=== PATIENT | male | born 1970 | race Caucasian/White ===

== ENCOUNTER 2020-06-07 09:33 | Outpatient (REF) | payer OTHER, SELFPAY ==
[2020-06-07 10:21] LABS: Glucose Urine UA NEG (NEG); Leukocyte Esterase Urine NEG (NEG); Nitrite Urine NEG (NEG); Specific Gravity - Urine 1.015 (1.005-1.025); Urine Blood TRACE (NEG); Urine Ketones NEG (NEG); Urine Protein NEG (NEG-TRACE)
[2020-06-07 10:29] LABS: Appearance Urine CLEAR; Color Urine YELLOW
[2020-06-07 10:37] LABS: RBC Urine 0-2 /HPF (0); Squamous Epithelial Cell Urine TRACE /LPF; WBC Urine 0-2 /HPF (0-4)
== END 2020-06-07 09:34 | disposition home or self-care (01) ==
LOC: HO.LAB 09:33
PROVIDERS: PCP Internal Medicine; Visit Provider Internal Medicine
DX: R31.9 Hematuria, unspecified (principal)
CPT/HCPCS: 81001

== ENCOUNTER 2021-03-01 10:28 | Emergency (ER) | payer OTHER, SELFPAY ==
--- NOTE | ~2021-03-01 | XR_ITS ---
EXAMINATION: XR CHEST CLINICAL INFORMATION: Weakness and fever COMPARISON: None TECHNIQUE: 2 views of the chest were obtained. FINDINGS: No significant abnormality is noted involving the heart, lungs, mediastinum, bony thorax or soft tissues. XR/XR chest 2V IMPRESSION: Unremarkable chest examination.
[2021-03-01 10:29] VITALS: BP 117/68; PULSE 100; RESP 16; TEMP 37.2; O2SAT 98; BMI 25.1
--- NOTE | 2021-03-01 10:46 | ECG_ITS ---
Test Reason : WEAKNESS Blood Pressure : / mmHG Vent. Rate : 091 BPM Atrial Rate : 091 BPM P-R Int : 152 ms QRS Dur : 092 ms QT Int : 350 ms P-R-T Axes : 032 -08 020 degrees QTc Int : 430 ms Normal sinus rhythm Normal ECG No previous ECGs available Referred By: Shakila Arcos Electronically Signed By:Alan Velázquez
--- NOTE | 2021-03-01 10:57 | ED.GENADULT ---
HPI - General Adult General Chief complaint: General Medical Stated complaint: GENERAL WEAKNESS Time Seen by Provider: 03/01/21 10:43 Source: patient Mode of arrival: ambulatory Limitations: no limitations History of Present Illness HPI narrative: 50 year old male previously healthy here with complaints of fatigue, subjective fevers, chills, generalized headache, low back pain, muscle cramping, body aches x6 days. Patient was seen at [facility] on Wednesday and had a negative COVID test. On Wednesday he sought care at [facility] Emergency Department and had labs done, received fluids and was discharged home with diagnosis of a viral illness. Patient tells me and Wednesday he was actually feeling improved but this morning when he woke up he feels like all his symptoms have returned. No sick contact. No recent travel. Has not had a COVID vaccine. No history of tick bites. Does live with 2 dogs. 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 Related Data Previous Rx's Medication Instructions Recorded doxycycline monohydrate 100 mg PO BID #20 tab 03/01/21 Allergies Allergy/AdvReac Type Severity Reaction Status Date / Time No Known Allergies Allergy Unverified 05/23/20 15:39 [No Known Allergies*] Review of Systems Review of Systems: Yes all other systems are reviewed and are negative Constitutional: Constitutional: Reports no additional constitutional complaints, Reports body ache(s), Reports chills, Reports fatigue, Reports fever(s), Reports headache(s), Reports lethargy and Denies weakness Eyes: Eyes: Reports no additional eye complaints and Denies change in vision ENT: Reports system reviewed and no additional complaints, except as documented, Denies dizziness, Reports headache(s), Denies nasal congestion, Denies nasal discharge and Denies neck pain Cardiovascular: Cardiovascular: Reports no additional cardiovascular complaints, Denies chest pain, Denies leg edema and Denies dyspnea Respiratory: Respiratory: Reports no additional respiratory complaints, Denies cough and Denies dyspnea Gastrointestinal: Gastrointestinal: Reports no additional gastrointestinal complaints, Denies abdominal pain, Denies diarrhea, Denies nausea and Denies vomiting Genitourinary: Genitourinary: Denies urinary incontinence Musculoskeletal: Musculoskeletal: Reports no additional musculoskeletal complaints, Reports back pain, Reports myalgias, Denies arthralgias, Denies joint swelling, Denies neck pain, Denies numbness and Denies tingling Integumentary/Breasts: Skin/Breast: Reports system reviewed and no additional complaints, except as docu and Denies rash Neurologic: Reports system reviewed and no additional complaints, except as documented, Denies Abnormal speech present, Denies dizziness, Reports headache(s), Denies numbness, Denies tingling and Denies weakness Endocrine: Endocrine: Reports fatigue [facility] Past Medical History Attestation statement: The following information was validated with the patient. Source: old records reviewed and nursing notes reviewed Medical History No known health problems Social History Social History Alcohol intake: current Alcohol intake frequency: 3 or more drinks per day Alcohol type: beer Patient Tobacco Use Status: Never used Tobacco Use of substances other than those prescribed or required for medical reasons: No Advance Directives: No Advance Directives Information Provided: No Physical Exam Vital Signs: Vital Signs: Last Vital Signs Temp 99.8 F 03/01/21 13:56 Pulse 94 03/01/21 13:56 Resp 18 03/01/21 13:56 BP 109/56 L 03/01/21 13:56 Pulse Ox 96 03/01/21 13:56 Body Mass Index 25.1 Const: General: cooperative, healthy appearing, comfortable and no acute distress Orientation/consciousness: patient oriented x3 Limitations: no limitations HENMT: Head: Yes normal to inspection Ears: hearing grossly normal bilaterally and TM's normal bilaterally General nose exam: Normal external nose present Face and sinus: Yes normal facial exam Mouth: Normal oral and palatal mucosa present Throat: Yes posterior oropharynx normal, Yes tonsils normal, Yes uvula midline and No peritonsillar mass Eyes: General: appearance normal, both eyes and all related structures Pupils: Equal, round and reactive pupils present Neck: Neck: Yes normal visual inspection, Yes full ROM, Yes no lymphadenopathy and Yes no meningeal signs Chest: Chest palpation & inspection: normal inspection of the chest Resp: Effort & Inspection: normal respiratory effort Auscultation: clear to auscultation bilaterally Cardio: Rate: regular rate Rhythm: regular rhythm Peripheral pulses: Peripheral pulses 2+ throughout GI: Inspection: Yes normal to inspection Palpation (GI): Soft to palpation and nontender Auscultation: normal bowel sounds Back/Spine/Pelvis: Thoracic/Lumbar Spine: thoracic and lumbar spine normal to inspection Skin: General skin exam: no rashes or lesions noted Neuro: General: patient oriented x3, no meningeal signs, no focal motor deficits and normal sensation to monofilament Cranial nerves: Yes Equal, round and reactive pupils present Cognition (Neuro): normal cognition Speech: No Abnormal speech present Gait exam (Neuro): Normal gait present Motor exam (neuro): 5/5 motor strength present throughout Extrem: General: Yes normal to inspection, Yes no pedal edema and Yes no calf tenderness Course Course Course Narrative: 50 yo male here with complaints of fatigue, LOGAN, body aches, muscle aches, low back pain, subjective fevers/chills x 6 days. COVID test x 2 at other facilities negative. Seen at [facility] ED and had labs and treated with IV fluids and sent home with diagnosis viral syndrome. Woke today with continued symptoms. HD stable. Afebrile here. Well appearing. Will check labs, EKG, CXR, UA, obtain records from [facility]. -Reviewed labs from [facility] which show leukopenia (3.6), thrombocytopenia (89), lymphocytopenia (14.2). CXR, COVID, EKG negative. UA 2 ketones, CPK 347. 1500-CXR with no acute finding, EKG negative, UA shows 40 ketones otherwise negative (likely secondary to volume loss from fever). CBC shows improved wbc, thrombocytopenia (87), mildly elevated cpk (319). Covid/flu/rsv negative. Tick borne panel pending. Patient did have a fever with max temp 102 here with associated tachycardia which is from fever. Improved with 2L NSB and PO tylenol. Symptoms c/w with tick borne illness or viral syndrome and not bacterial infection. Will treat for presumed tick borne illness with doxycycline x 10 days. Reviewed worrisome signs/symptoms with patient and when to return to ED. Comfortable with discharge home. Medical Decision Making MDM Narrative Medical decision making narrative: tick borne illness, viral syndrome, covid 19, pna, uti, rhabdo Medical Records Medical records reviewed: Yes I reviewed the patient's medical records. Lab Data Lab results reviewed: Yes I reviewed the patient's lab results. Result diagrams: 03/01/21 11:13 03/01/21 11:13 Labs: Lab Results 03/01/21 03/01/21 03/01/21 Range/Units 11:13 11:13 11:13 WBC 6.1 (4.8-10.8) X10*3/uL RBC 4.35 L (4.60-5.80) X10*6/uL Hgb 13.1 L (14.0-18.0) g/dl Hct 37.2 L (42-52) % MCV 85.5 (80-98) fL MCH 30.1 (27.0-33.0) pg MCHC 35.2 (31.0-36.0) g/dl RDW 12.3 (11.0-16.0) % Plt Count 87 L (160-400) X10*3/uL MPV 10.4 (9.4-12.4) fL Immature Gran % (Auto) 0.3 (0.0-0.4) % Neut % (Auto) 91.0 H (45-73) % Lymph % (Auto) 3.1 L (20-40) % Daggett % (Auto) 4.7 (2-11) % Eos % (Auto) 0.7 (0-4) % Baso % (Auto) 0.2 (0-2) % Lymph # (Auto) 0.2 L (1.2-4.9) X10*3/uL Daggett # (Auto) 0.3 (0.1-1.2) X10*3/uL Eos # (Auto) 0.0 (0.0-0.4) X10*3/uL Baso # (Auto) 0.0 (0.0-0.2) X10*3/uL Abs Immat Gran (auto) 0.02 (0.00-0.03) X10*3/uL Absolute Neuts (auto) 5.6 (2.0-8.3) X10*3/uL Absolute Nucleated RBC 0.000 (0.0-0.012) X10*3/uL Nucleated RBC % (auto) 0.0 (0.0-0.2) /100WBC Smear Tech's Comments VERIFIED Sodium (135-145) mmol/L Potassium (3.3-5.1) mmol/L Chloride (96-108) mmol/L Carbon Dioxide (22-29) mmol/L Anion Gap (12-20) BUN (9-16) mg/dL Creatinine (0.5-1.4) mg/dL Estim Creat Clear Calc Estimated GFR Random Glucose (60-115) mg/dL Lactic Acid 1.4 (0.5-2.0) mmol/L Calcium (8.4-10.2) mg/dL Magnesium (1.6-2.6) mg/dL Total Bilirubin (0.0-1.0) mg/dL Direct Bilirubin (0.0-0.5) mg/dL AST (5-37) U/L ALT (0-40) U/L Alkaline Phosphatase (39-117) U/L Total Creatine Kinase (38-174) U/L Troponin I High Sens < 3.5 (<3.5-35.0) ng/L Total Protein (6.5-8.0) g/dL Albumin (3.5-5.0) g/dL Urine Color Urine Appearance Urine pH (5.0-8.0) Ur Specific Biddle (1.005-1.025) Urine Protein (NEG-TRACE) MG/DL Urine Glucose (UA) (NEG) MG/DL Urine Ketones (NEG) MG/DL Urine Blood (NEG) Urine Nitrite (NEG) Ur Leukocyte Esterase (NEG) Coronavirus (PCR) (Negative) Influenza Type A (PCR) (Negative) Influenza Type B (PCR) (Negative) RSV RNA Qual (PCR) (Negative) 03/01/21 03/01/21 03/01/21 Range/Units 11:13 11:21 13:11 WBC (4.8-10.8) X10*3/uL RBC (4.60-5.80) X10*6/uL Hgb (14.0-18.0) g/dl Hct (42-52) % MCV (80-98) fL MCH (27.0-33.0) pg MCHC (31.0-36.0) g/dl RDW (11.0-16.0) % Plt Count (160-400) X10*3/uL MPV (9.4-12.4) fL Immature Gran % (Auto) (0.0-0.4) % Neut % (Auto) (45-73) % Lymph % (Auto) (20-40) % Daggett % (Auto) (2-11) % Eos % (Auto) (0-4) % Baso % (Auto) (0-2) % Lymph # (Auto) (1.2-4.9) X10*3/uL Daggett # (Auto) (0.1-1.2) X10*3/uL Eos # (Auto) (0.0-0.4) X10*3/uL Baso # (Auto) (0.0-0.2) X10*3/uL Abs Immat Gran (auto) (0.00-0.03) X10*3/uL Absolute Neuts (auto) (2.0-8.3) X10*3/uL Absolute Nucleated RBC (0.0-0.012) X10*3/uL Nucleated RBC % (auto) (0.0-0.2) /100WBC Smear Tech's Comments Sodium 135 (135-145) mmol/L Potassium 4.2 (3.3-5.1) mmol/L Chloride 100 (96-108) mmol/L Carbon Dioxide 23 (22-29) mmol/L Anion Gap 16 (12-20) BUN 15 (9-16) mg/dL Creatinine 1.05 (0.5-1.4) mg/dL Estim Creat Clear Calc 85.9 Estimated GFR > 60 Random Glucose 106 (60-115) mg/dL Lactic Acid (0.5-2.0) mmol/L Calcium 8.4 (8.4-10.2) mg/dL Magnesium 1.8 (1.6-2.6) mg/dL Total Bilirubin 0.5 (0.0-1.0) mg/dL Direct Bilirubin 0.3 (0.0-0.5) mg/dL AST 34 (5-37) U/L ALT 37 (0-40) U/L Alkaline Phosphatase 76 (39-117) U/L Total Creatine Kinase 319 H (38-174) U/L Troponin I High Sens (<3.5-35.0) ng/L Total Protein 6.2 L (6.5-8.0) g/dL Albumin 3.9 (3.5-5.0) g/dL Urine Color YELLOW Urine Appearance CLEAR Urine pH 6.0 (5.0-8.0) Ur Specific Biddle 1.010 (1.005-1.025) Urine Protein NEG (NEG-TRACE) MG/DL Urine Glucose (UA) NEG (NEG) MG/DL Urine Ketones 40 (NEG) MG/DL Urine Blood NEG (NEG) Urine Nitrite NEG (NEG) Ur Leukocyte Esterase NEG (NEG) Coronavirus (PCR) NEGATIVE (Negative) Influenza Type A (PCR) NEGATIVE (Negative) Influenza Type B (PCR) NEGATIVE (Negative) RSV RNA Qual (PCR) NEGATIVE (Negative) Imaging Data Chest x-ray: Attestation: I personally reviewed and interpreted this imaging study as follows: Radiologist's impression: EXAMINATION: XR CHEST CLINICAL INFORMATION: Weakness and fever COMPARISON: None TECHNIQUE: 2 views of the chest were obtained. FINDINGS: No significant abnormality is noted involving the heart, lungs, mediastinum, bony thorax or soft tissues. XR/XR chest 2V IMPRESSION: Unremarkable chest examination. ECG Data Attestation: I personally reviewed and interpreted this ECG as follows: Interpretation: NSR with rate 91, normal pr, normal qrs, normal qtc Discharge Plan Discharge Clinical Impression: Viral infection Patient Disposition: Home, Self-Care Instructions: Viral Syndrome (ED) Additional Instructions: Increase fluids, rest Motrin or Tylenol for pain/fever Consider tick borne illness. Panel is pending and will take several days to return. We will call you if positive. In the meantime we are treating you for presumed lyme with 10 days of doxycycline. Prescriptions: New doxycycline monohydrate 100 mg tablet 100 mg PO BID Qty: 20 RF: 0 Referrals: Gal Dunaway MD [Primary Care Provider] - 2 days Stand Alone Forms: Work/School Release Interventions: ED Discharge Assessment Last Done: 03/01/21 14:48 Discharge Date/Time: 03/01/21 14:48
[2021-03-01] MEDS: 0.9 % Sodium Chloride 1,000 ML 999 ML IV ×2 (11:18→13:26)
[2021-03-01 11:25] LABS: Basophils Percent Auto 0.2 % (0-2); Eosinophils Percent Auto 0.7 % (0-4); MANUAL DIFF FLAG SCAN; Monocytes Absolute Auto 0.3 X10*3/uL (0.1-1.2); PLT CLUMP 1; SCAN SMEAR FLAG 1
[2021-03-01 11:27] LABS: Hematocrit 37.2 % (42-52); Hemoglobin 13.1 g/dl (14.0-18.0); Imm Gran Abs Auto 0.02 X10*3/uL (0.00-0.03); Imm Gran Pct Auto 0.3 % (0.0-0.4); Lymphocytes Absolute Auto 0.2 X10*3/uL (1.2-4.9); Lymphocytes Percent Auto 3.1 % (20-40); Mean Corpuscular HGB Conc 35.2 g/dl (31.0-36.0); Mean Corpuscular Hemoglobin 30.1 pg (27.0-33.0); Mean Corpuscular Volume 85.5 fL (80-98); Mean Platelet Volume 10.4 fL (9.4-12.4); Monocytes Percent Auto 4.7 % (2-11); Neutrophils Absolute Auto 5.6 X10*3/uL (2.0-8.3); Red Blood Count 4.35 X10*6/uL (4.60-5.80); Red Cell Distribution Width 12.3 % (11.0-16.0); White Blood Count 6.1 X10*3/uL (4.8-10.8)
--- NOTE | 2021-03-01 11:27 | PC.NURSE ---
iv established, blood labs obtained and sent. ekg completed. iv fluids hung per order. wctm.
[2021-03-01 11:38] LABS: Lactic Acid 1.4 mmol/L (0.5-2.0)
[2021-03-01 11:50] LABS: Platelet Count 87 X10*3/uL (160-400); SLIDE REVIEW VERIFIED
[2021-03-01 11:57] VITALS: BP 98/52; PULSE 80; RESP 19; TEMP 38.8; O2SAT 98
[2021-03-01 11:57] LABS: Alanine Aminotransferase 37 U/L (0-40); Albumin Level 3.9 g/dL (3.5-5.0); Alkaline Phosphatase 76 U/L (39-117); Anion Gap 16 (12-20); Aspartate Amino Transferase 34 U/L (5-37); Bilirubin Direct 0.3 mg/dL (0.0-0.5); Bilirubin Total 0.5 mg/dL (0.0-1.0); Blood Urea Nitrogen 15 mg/dL (9-16); Calcium 8.4 mg/dL (8.4-10.2); Carbon Dioxide 23 mmol/L (22-29); Chloride 100 mmol/L (96-108); Creatinine Clr Calc Pharmacy 85.9; Estimated Glomerular Filt Rate > 60; Glucose Random 106 mg/dL (60-115); Magnesium 1.8 mg/dL (1.6-2.6); Potassium 4.2 mmol/L (3.3-5.1); Sodium 135 mmol/L (135-145); Total Protein 6.2 g/dL (6.5-8.0)
[2021-03-01 12:00] LABS: Troponin-I High Sensitivity < 3.5 ng/L (<3.5-35.0)
[2021-03-01 12:25] LABS: Influenza A PCR NEGATIVE (Negative); Influenza B PCR NEGATIVE (Negative); Resp Syncy Virus RNA Qual PCR NEGATIVE (Negative); SARS COV2 PCR INHOUSE NEGATIVE (Negative)
[2021-03-01] MEDS: Acetaminophen 325 MG TABLET 975 MG PO (13:04)
[2021-03-01 13:17] LABS: Glucose Urine UA NEG (NEG); Leukocyte Esterase Urine NEG (NEG); Nitrite Urine NEG (NEG); Urine Blood NEG (NEG); Urine Ketones 40 MG/DL (NEG); Urine Protein NEG (NEG-TRACE)
[2021-03-01 13:18] LABS: Appearance Urine CLEAR; Color Urine YELLOW
[2021-03-01 13:56] VITALS: BP 109/56; PULSE 94; RESP 18; TEMP 37.7; O2SAT 96
[2021-03-03 17:07] LABS: Lyme Abs Screen <0.90 index
[2021-03-06 14:27] LABS: Babesia IgG <1:64 titer (<1:64); Babesia IgM <1:20 titer (<1:20)
[2021-03-23 09:06] LABS: A. Phagocytophilum Ab IgG <1:64 (<1:64); A. Phagocytophilum Ab IgM <1:20 (<1:20); E. Chaffeensis Ab IgG <1:64 (<1:64); E. Chaffeensis Ab IgM <1:20 (<1:20)
== END 2021-03-01 14:48 | disposition home or self-care (01) ==
PROVIDERS: Nurse Practitioner Family; Emergency Provider Emergency Medicine; PCP Internal Medicine
DX: B34.9 Viral infection, unspecified (principal); Z20.822 Contact with and (suspected) exposure to COVID-19
CPT/HCPCS: 0241U; 36415; 71046; 80048; 80076; 81003; 82550; 83605; 83735; 84484; 85025; 86617; 86618; 86666; 86753; 87040; 93005; 96360; 96361; 99285

== ENCOUNTER 2021-03-11 10:28 | Outpatient (REF) | payer OTHER, SELFPAY ==
[2021-03-11 10:31] LABS: MANUAL DIFF FLAG NO
[2021-03-11 10:45] LABS: Basophils Percent Auto 0.2 % (0-2); Hematocrit 39.2 % (42-52); Hemoglobin 13.2 g/dl (14.0-18.0); Imm Gran Abs Auto 0.01 X10*3/uL (0.00-0.03); Imm Gran Pct Auto 0.2 % (0.0-0.4); Lymphocytes Absolute Auto 2.3 X10*3/uL (1.2-4.9); Lymphocytes Percent Auto 44.6 % (20-40); Mean Corpuscular HGB Conc 33.7 g/dl (31.0-36.0); Mean Corpuscular Hemoglobin 29.7 pg (27.0-33.0); Mean Corpuscular Volume 88.1 fL (80-98); Mean Platelet Volume 9.6 fL (9.4-12.4); Monocytes Absolute Auto 0.6 X10*3/uL (0.1-1.2); Monocytes Percent Auto 11.4 % (2-11); Neutrophils Absolute Auto 2.3 X10*3/uL (2.0-8.3); Neutrophils Percent Auto 43.6 % (45-73); Platelet Count 424 X10*3/uL (160-400); Red Blood Count 4.45 X10*6/uL (4.60-5.80); Red Cell Distribution Width 13.2 % (11.0-16.0); White Blood Count 5.3 X10*3/uL (4.8-10.8)
== END 2021-03-11 10:29 | disposition home or self-care (01) ==
LOC: HO.LNP 10:28
PROVIDERS: Visit Provider Internal Medicine
DX: D72.820 Lymphocytosis (symptomatic) (principal)
CPT/HCPCS: 85025

== ENCOUNTER 2021-06-09 10:18 | Outpatient (REF) | payer OTHER, SELFPAY ==
[2021-06-09 10:21] LABS: MANUAL DIFF FLAG NO
[2021-06-09 10:31] LABS: Basophils Percent Auto 0.7 % (0-2); Eosinophils Absolute Auto 0.4 X10*3/uL (0.0-0.4); Eosinophils Percent Auto 7.4 % (0-4); Hematocrit 42.8 % (42-52); Hemoglobin 14.4 g/dl (14.0-18.0); Imm Gran Abs Auto 0.01 X10*3/uL (0.00-0.03); Imm Gran Pct Auto 0.2 % (0.0-0.4); Lymphocytes Absolute Auto 1.7 X10*3/uL (1.2-4.9); Lymphocytes Percent Auto 30.2 % (20-40); Mean Corpuscular HGB Conc 33.6 g/dl (31.0-36.0); Mean Corpuscular Hemoglobin 29.6 pg (27.0-33.0); Mean Corpuscular Volume 87.9 fL (80-98); Mean Platelet Volume 10.4 fL (9.4-12.4); Monocytes Absolute Auto 0.4 X10*3/uL (0.1-1.2); Monocytes Percent Auto 7.6 % (2-11); Neutrophils Percent Auto 53.9 % (45-73); Platelet Count 240 X10*3/uL (160-400); Red Blood Count 4.87 X10*6/uL (4.60-5.80); White Blood Count 5.5 X10*3/uL (4.8-10.8)
[2021-06-09 10:40] LABS: Alanine Aminotransferase 20 U/L (0-40); Albumin Level 4.4 g/dL (3.5-5.0); Alkaline Phosphatase 59 U/L (39-117); Anion Gap 13 (12-20); Aspartate Amino Transferase 22 U/L (5-37); Bilirubin Total 0.9 mg/dL (0.0-1.0); Blood Urea Nitrogen 12 mg/dL (9-16); Calcium 9.2 mg/dL (8.4-10.2); Carbon Dioxide 24 mmol/L (22-29); Chloride 109 mmol/L (96-108); Cholesterol 203 mg/dL; Estimated Glomerular Filt Rate > 60; Glucose Fasting 97 mg/dL (60-99); HDL Cholesterol 57 mg/dL; LDL Cholesterol Calculated 129 mg/dl; Potassium 3.9 mmol/L (3.3-5.1); Sodium 142 mmol/L (135-145); Total Protein 7.1 g/dL (6.5-8.0); Triglycerides 86 mg/dL
[2021-06-09 10:50] LABS: Appearance Urine CLEAR; Color Urine YELLOW; Glucose Urine UA NEG (NEG); Leukocyte Esterase Urine NEG (NEG); Nitrite Urine NEG (NEG); Specific Gravity - Urine >= 1.030 (1.005-1.025); Urine Blood NEG (NEG); Urine Ketones NEG (NEG); Urine Protein NEG (NEG-TRACE)
[2021-06-09 11:00] LABS: PSA,Total (Free>4and<10) 1.37 ng/mL (0.00-4.00)
[2021-06-09 11:12] LABS: Estimated Average Glucose 103 mg/dL; Hemoglobin A1c % 5.2 %
[2021-06-09 11:16] LABS: Microalbum/Creatinine Ratio Ur 3.4 ug/mg cr
== END 2021-06-09 10:19 | disposition home or self-care (01) ==
LOC: HO.LNP 10:18
PROVIDERS: Visit Provider Internal Medicine
DX: Z00.00 Encounter for general adult medical examination without abnormal findings (principal); Z12.5 Encounter for screening for malignant neoplasm of prostate; R73.03 Prediabetes; R31.9 Hematuria, unspecified; D72.820 Lymphocytosis (symptomatic)
CPT/HCPCS: 80053; 80061; 81003; 82043; 83036; 84153; 85025

== ENCOUNTER 2021-06-13 14:08 | Outpatient (REF) | payer OTHER, SELFPAY ==
[2021-06-15 07:55] LABS: SARS COV2 IgG Positive (Negative)
== END 2021-06-13 14:09 | disposition home or self-care (01) ==
LOC: HO.LNP 14:08
PROVIDERS: Visit Provider Internal Medicine
DX: Z01.84 Encounter for antibody response examination (principal); Z86.16 Personal history of COVID-19
CPT/HCPCS: 86769

== ENCOUNTER 2022-06-18 11:12 | Outpatient (REF) | payer OTHER, SELFPAY ==
[2022-06-18 11:17] LABS: MANUAL DIFF FLAG NO
[2022-06-18 11:38] LABS: Basophils Percent Auto 0.7 % (0-2); Eosinophils Absolute Auto 0.5 X10*3/uL (0.0-0.4); Eosinophils Percent Auto 9.1 % (0-4); Hematocrit 43.6 % (42.0-52.0); Hemoglobin 14.8 g/dl (14.0-18.0); Imm Gran Abs Auto 0.01 X10*3/uL (0.00-0.03); Imm Gran Pct Auto 0.2 % (0.0-0.4); Lymphocytes Percent Auto 33.6 % (20-40); Mean Corpuscular HGB Conc 33.9 g/dl (31.0-36.0); Mean Corpuscular Hemoglobin 30.3 pg (27.0-33.0); Mean Corpuscular Volume 89.3 fL (80.0-98.0); Mean Platelet Volume 10.4 fL (9.4-12.4); Monocytes Absolute Auto 0.5 X10*3/uL (0.1-1.2); Monocytes Percent Auto 9.1 % (2-11); Neutrophils Absolute Auto 2.7 x10*3/uL (2.0-8.3); Neutrophils Percent Auto 47.3 % (45-73); Platelet Count 237 X10*3/uL (160-400); Red Blood Count 4.88 X10*6/uL (4.60-5.80); Red Cell Distribution Width 12.7 % (11.0-16.0); White Blood Count 5.8 X10*3/uL (4.8-10.8)
[2022-06-18 11:42] LABS: Appearance Urine Clear; Color Urine Yellow; Glucose Urine UA Negative (Negative); Leukocyte Esterase Urine Negative (Negative); Nitrite Urine Negative (Negative); Urine Blood Negative (Negative); Urine Ketones Negative (Negative); Urine Protein Negative (Neg-Trace)
[2022-06-18 11:49] LABS: Bacteria Urine None Seen (None Seen); Hyaline Casts Urine 0-2 /LPF (0-2); Squamous Epithelial Cell Urine 0-2 /HPF (0-2); WBC Urine 0-5 /HPF (0-5)
[2022-06-18 11:51] LABS: Estimated Average Glucose 105 mg/dL; Hemoglobin A1c % 5.3 %
[2022-06-18 11:58] LABS: Alanine Aminotransferase 29 U/L (0-40); Albumin Level 4.5 g/dL (3.5-5.0); Alkaline Phosphatase 58 U/L (39-117); Anion Gap 15 (12-20); Aspartate Amino Transferase 25 U/L (5-37); Bilirubin Total 0.9 mg/dL (0.0-1.0); Blood Urea Nitrogen 12 mg/dL (9-16); Carbon Dioxide 25 mmol/L (22-29); Chloride 105 mmol/L (96-108); Cholesterol 211 mg/dL; Estimated Glomerular Filt Rate 59; Glucose Fasting 109 mg/dL (60-99); HDL Cholesterol 58 mg/dL; LDL Cholesterol Calculated 136 mg/dl; Potassium 4.1 mmol/L (3.3-5.1); Sodium 141 mmol/L (135-145); Total Protein 7.2 g/dL (6.5-8.0); Triglycerides 85 mg/dL
[2022-06-18 12:18] LABS: Creatinine Urine 208.73 mg/dL; Microalbum/Creatinine Ratio Ur 2.8 ug/mg cr
[2022-06-18 12:40] LABS: PSA,Total (Free>4and<10) 0.81 ng/mL (0.00-4.00)
== END 2022-06-18 11:13 | disposition home or self-care (01) ==
LOC: HO.LNP 11:12
PROVIDERS: Visit Provider Internal Medicine
DX: Z00.00 Encounter for general adult medical examination without abnormal findings (principal); D72.820 Lymphocytosis (symptomatic); R73.09 Other abnormal glucose; D69.6 Thrombocytopenia, unspecified; Z12.5 Encounter for screening for malignant neoplasm of prostate
CPT/HCPCS: 80053; 80061; 81001; 82043; 83036; 84153; 85025

== ENCOUNTER 2023-06-25 11:00 | Outpatient (REF) | payer SELFPAY ==
[2023-06-25 11:04] LABS: MANUAL DIFF FLAG NO
[2023-06-25 12:11] LABS: Basophils Percent Auto 0.5 % (0-2); Eosinophils Absolute Auto 0.3 X10*3/uL (0.0-0.4); Hematocrit 43.1 % (42.0-52.0); Hemoglobin 14.4 g/dl (14.0-18.0); Imm Gran Abs Auto 0.01 X10*3/uL (0.00-0.03); Imm Gran Pct Auto 0.2 % (0.0-0.4); Lymphocytes Absolute Auto 1.8 X10*3/uL (1.2-4.9); Lymphocytes Percent Auto 29.1 % (20-40); Mean Corpuscular HGB Conc 33.4 g/dl (31.0-36.0); Mean Corpuscular Hemoglobin 30.6 pg (27.0-33.0); Mean Corpuscular Volume 91.5 fL (80.0-98.0); Mean Platelet Volume 10.6 fL (9.4-12.4); Monocytes Absolute Auto 0.5 X10*3/uL (0.1-1.2); Monocytes Percent Auto 7.5 % (2-11); Neutrophils Absolute Auto 3.6 x10*3/uL (2.0-8.3); Neutrophils Percent Auto 57.7 % (45-73); Platelet Count 250 X10*3/uL (160-400); Red Blood Count 4.71 X10*6/uL (4.60-5.80); White Blood Count 6.3 X10*3/uL (4.8-10.8)
[2023-06-25 12:12] LABS: Appearance Urine Clear; Color Urine Yellow; Glucose Urine UA Negative (Negative); Leukocyte Esterase Urine Negative (Negative); Nitrite Urine Negative (Negative); Urine Blood Negative (Negative); Urine Ketones Negative (Negative); Urine Protein Negative (Neg-Trace)
[2023-06-25 12:17] LABS: Estimated Average Glucose 105 mg/dL; Hemoglobin A1c % 5.3 % (<6.0)
[2023-06-25 12:23] LABS: Bacteria Urine None Seen (None Seen); Hyaline Casts Urine 0-2 /LPF (0-2); RBC Urine 0-2 /HPF (0-2); Squamous Epithelial Cell Urine 0-2 /HPF (0-2); WBC Urine 0-5 /HPF (0-5)
[2023-06-25 12:33] LABS: Alanine Aminotransferase 26 U/L (0-40); Albumin Level 4.3 g/dL (3.5-5.0); Alkaline Phosphatase 59 U/L (39-117); Anion Gap 13 (12-20); Aspartate Amino Transferase 24 U/L (5-37); Blood Urea Nitrogen 10 mg/dL (9-16); Calcium 9.3 mg/dL (8.4-10.2); Carbon Dioxide 23 mmol/L (22-29); Chloride 108 mmol/L (96-108); Cholesterol 196 mg/dL (<200); Estimated Glomerular Filt Rate > 60; Glucose Fasting 103 mg/dL (60-99); HDL Cholesterol 53 mg/dL (>40); LDL Cholesterol Calculated 124 mg/dL (<100); Potassium 3.8 mmol/L (3.3-5.1); Sodium 140 mmol/L (135-145); Total Protein 7.1 g/dL (6.5-8.0); Triglycerides 95 mg/dL (<150)
[2023-06-25 12:47] LABS: Creatinine Urine 203.71 mg/dL; Microalbum/Creatinine Ratio Ur 2.9 ug/mg cr (<30)
[2023-06-25 12:53] LABS: PSA,Total (Free>4and<10) 1.74 ng/mL (0.00-4.00)
== END 2023-06-25 11:01 | disposition home or self-care (01) ==
LOC: HO.LNP 11:00
PROVIDERS: Visit Provider Internal Medicine
DX: Z00.00 Encounter for general adult medical examination without abnormal findings (principal); D72.820 Lymphocytosis (symptomatic); R73.09 Other abnormal glucose; Z12.5 Encounter for screening for malignant neoplasm of prostate
CPT/HCPCS: 80053; 80061; 81001; 82043; 82570; 83036; 84153; 85025

== ENCOUNTER 2024-01-25 10:45 | Outpatient (AMB) | payer MEDICARE, SELFPAY ==
--- NOTE | 2024-01-25 10:56 | MHC.OFFVIS ---
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 States he has a lump located near the volar aspect of MCP. He first noticed lump about 2 months ago, stating lump was the size of a grape however since then his lump has decreased in size. Denies any pain, numbness or tingling. He mentions soreness in both of his hands and wrist that he believes is arthritis. 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 He complains of a mass at the base of his left middle finger. He says he first noticed this in 11/2023, and the mass has decreased in size. He denies any pain, numbness, or tingling. He denies any falls or known injury. He also complains of generalized pain in his wrist and hands. He says this is worse in the mornings. 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 He plays guitar daily. 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 Review of Systems Const All systems reviewed & are unremarkable except as noted in HPI and below Physical Exam Vital Signs: BMI result Body Mass Index 25.8 Const General: cooperative, healthy appearing and no acute distress Orientation/consciousness: patient oriented x3 HEENT Head: Yes normocephalic and Yes atraumatic Eyes EOM: EOMs intact bilaterally Resp Effort & Inspection: normal respiratory effort and able to speak in complete sentences Cardio Jugular venous distension: no JVD Skin General skin exam: turgor normal Rashes: no rashes Neuro General: patient oriented x3 Extrem Other: Evaluation of Left Upper Extremity: The patient is alert, oriented, and in no acute distress Neuro: Median, Ulnar, Radial nerves motor and sensory intact and sensation is normal to the tips of all digits Vascular: Cap refill brisk ROM: He can make a fist and extend all his digits No locking or catching Skin: No lacerations or abrasions. General: No Ecchymosis. No Erythema or evidence of infection. There is a small mass on the volar aspect of the middle finger, ~3mm in diameter. This is ~8-10mm distal to palmar digital crease, radial to midline. Exam most consistent with a likely retinacular cyst that has decreased in size. Patient demonstrates area of some tenderness around the hook of the hamate. He has some mild tenderness to firm palpation in this area. Radiographs: 3 views of the left hand were taken and viewed by me today in clinic. They show no fractures or dislocations. There is a metallic foreign body in the ring finger middle phalanx. No radio-opaque foreign bodies in the middle finger. Psych Appearance: grossly normal Affect: normal affect Attitude: cooperative Assessment & Plan Assessment & Plan (1) Mass of finger of left hand: Code(s): R22.32 - Localized swelling, mass and lump, left upper limb Category: Medical Plan Assessment & Plan: 1. 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 It has decreased in size significantly in the last week or 2. I educated him about this condition I discussed operative and non-operative treatment options The patient says that it has not been painful or particularly bothersome. We will manage this conservatively for now. If his symptoms worsen he can follow up to discuss treatment options Otherwise he can follow up prn Orders: Orders XR hand LT min 3V Today M79.642 - Pain in left hand Medications: Discontinued doxycycline monohydrate Discontinued Reason: Patient no longer taking 100 mg PO BID 20 tabs 0RF Scribe Plan - Not visible on output: Scribed for Gayle Olivera MD by Nader Lubanszky, bilingual medical receptionist, on [ ] at [ ], EST. Coding Level of Care Code New Pt Level 3 (38605) Diagnoses Mass of finger of left hand R22.32
[2024-01-25 11:02] VITALS: BMI 25.8
== END 2024-01-25 11:50 | disposition home or self-care (01) ==
PROVIDERS: PCP Internal Medicine; Visit Provider Orthopaedic Surgery
DX: R22.32 Localized swelling, mass and lump, left upper limb (principal)
CPT/HCPCS: 99203

== ENCOUNTER 2024-01-25 15:38 | Outpatient (REF) | payer MEDICARE, SELFPAY ==
--- NOTE | ~2024-01-25 | XR_ITS ---
EXAMINATION: XR HAND, LEFT CLINICAL INFORMATION: Pain in left hand. COMPARISON: None available. TECHNIQUE: PA, lateral, and oblique views of the left hand. FINDINGS: Moderate degenerative changes in the first carpometacarpal joint with joint space narrowing and hypertrophic change. The bone mineralization is normal. Focal wavy cortical irregularity with adjacent subcortical cystic lucency particularly notable along the ulnar aspect of the cortex of the second proximal phalanx. Radiodensity overlies the midportion of the middle phalanx of the fourth digit, possibly representing a radiopaque foreign body. Correlation with clinical exam and history recommended to determine further management. Lateral view demonstrates minimal degenerative changes in scattered IP joints. XR/XR hand LT min 3V IMPRESSION: 1. [id number] degenerative changes. 2. Focal wavy cortical irregularity with adjacent subcortical cystic lucency particularly notable along the ulnar aspect of the cortex of the second proximal phalanx of indeterminate etiology. Correlation with clinical exam and history recommended to determine further management. 3. Radiodensity overlying the midportion of the middle phalanx of the fourth digit concerning for a foreign body. 4. No acute displaced fracture appreciated. Recommend follow up imaging in 10-14 days if fracture is suspected.
== END 2024-01-25 15:39 | disposition home or self-care (01) ==
LOC: HO.HOSX 15:38
PROVIDERS: Visit Provider Orthopaedic Surgery
DX: R22.32 Localized swelling, mass and lump, left upper limb (principal)
CPT/HCPCS: 73130; 99202

== ENCOUNTER 2024-06-29 11:16 | Outpatient (REF) | payer MEDICARE, SELFPAY ==
[2024-06-29 11:28] LABS: MANUAL DIFF FLAG NO
[2024-06-29 11:41] LABS: Appearance Urine Clear; Color Urine Yellow; Glucose Urine UA Negative (Negative); Leukocyte Esterase Urine Negative (Negative); Nitrite Urine Negative (Negative); PH 5.5 (5.0-9.0); Specific Gravity - Urine 1.025 (1.005-1.025); Urine Blood Negative (Negative); Urine Ketones Trace mg/dL (Negative); Urine Protein Negative (Neg-Trace)
[2024-06-29 11:43] LABS: Bacteria Urine None Seen (None Seen); Basophils Percent Auto 0.4 % (0-2); Eosinophils Absolute Auto 0.5 X10*3/uL (0.0-0.4); Hematocrit 43.1 % (42.0-52.0); Hemoglobin 14.8 g/dl (14.0-18.0); Hyaline Casts Urine 0-2 /LPF (0-2); Imm Gran Abs Auto 0.02 X10*3/uL (0.00-0.03); Imm Gran Pct Auto 0.3 % (0.0-0.4); Lymphocytes Absolute Auto 1.8 X10*3/uL (1.2-4.9); Mean Corpuscular HGB Conc 34.3 g/dl (31.0-36.0); Mean Corpuscular Hemoglobin 30.3 pg (27.0-33.0); Mean Corpuscular Volume 88.3 fL (80.0-98.0); Mean Platelet Volume 10.3 fL (9.4-12.4); Monocytes Absolute Auto 0.5 X10*3/uL (0.1-1.2); Monocytes Percent Auto 6.9 % (2-11); Neutrophils Absolute Auto 4.9 x10*3/uL (2.0-8.3); Neutrophils Percent Auto 63.4 % (45-73); Platelet Count 240 X10*3/uL (160-400); RBC Urine 0-2 /HPF (0-2); Red Blood Count 4.88 X10*6/uL (4.60-5.80); Squamous Epithelial Cell Urine 0-2 /HPF (0-2); WBC Urine 0-5 /HPF (0-5); White Blood Count 7.7 X10*3/uL (4.8-10.8)
[2024-06-29 11:56] LABS: Alanine Aminotransferase 32 U/L (0-40); Albumin Level 4.3 g/dL (3.5-5.0); Alkaline Phosphatase 55 U/L (39-117); Anion Gap 14 (12-20); Aspartate Amino Transferase 32 U/L (5-37); Blood Urea Nitrogen 13 mg/dL (9-16); Calcium 9.5 mg/dL (8.4-10.2); Carbon Dioxide 25 mmol/L (22-29); Chloride 108 mmol/L (96-108); Cholesterol 205 mg/dL (<200); Estimated Glomerular Filt Rate > 60; Glucose Fasting 96 mg/dL (60-99); HDL Cholesterol 53 mg/dL (>40); LDL Cholesterol Calculated 135 mg/dL (<100); Potassium 3.6 mmol/L (3.3-5.1); Sodium 143 mmol/L (135-145); Total Protein 7.1 g/dL (6.5-8.0); Triglycerides 88 mg/dL (<150)
[2024-06-29 12:07] LABS: Estimated Average Glucose 108 mg/dL; Hemoglobin A1C 130.7381 umol/L; Hemoglobin A1c % 5.4 % (<6.0); Total Hemoglobin (HGBA1C) 3723.3701 umol/L
[2024-06-29 12:09] LABS: PSA,Total (Free>4and<10) 1.56 ng/mL (0.00-4.00)
[2024-06-29 12:13] LABS: Creatinine Urine 254.47 mg/dL; Microalbum/Creatinine Ratio Ur 3.5 ug/mg cr (<30)
== END 2024-06-29 11:17 | disposition home or self-care (01) ==
LOC: HO.LNP 11:16
PROVIDERS: Visit Provider Internal Medicine
DX: Z00.00 Encounter for general adult medical examination without abnormal findings (principal); R73.09 Other abnormal glucose; D72.820 Lymphocytosis (symptomatic); Z12.5 Encounter for screening for malignant neoplasm of prostate
CPT/HCPCS: 80053; 80061; 81001; 82043; 82570; 83036; 84153; 85025

== ENCOUNTER 2024-10-24 15:30 | Outpatient (REF) | payer MEDICARE, SELFPAY ==
--- NOTE | ~2024-10-24 | XR_ITS ---
CLINICAL HISTORY: ACUTE ASHMATIC BRONCHITIS 2 view chest x-ray Comparison: None Findings: Mild biapical pleural-parenchymal scarring. No acute appearing infiltrate/consolidation. Normal heart size and mediastinal contour. Mild midthoracic compression fracture. Upper abdomen unremarkable. Impression: No acute appearing cardiopulmonary process. Mild midthoracic compression fracture. This document has been electronically signed by: Noel Pereyra MD on 10/25/2024 13:08:56
--- OUTSIDE RECORDS SUMMARY | 2024-10-24 16:23 | XMS_ITS ---
Author Organization Gal Dunaway MD Address [address] [place], [place] [id number] Care Team Providers Care Wood Planer Name Role Phone Gal Dunaway Primary Care Provider Allergies No Known Allergies REASON FOR VISIT Still not any better with bronchitis [phone] Video, c/o headache, nonproductive cough, SOB, runny nose , congestion, diarrhea for the past couple days tested for Covid last week Medications Medication SIG (Take, Route, Frequency, Duration) Notes Start Date End Date Status Ibuprofen 800 MG 1 tablet with food o r milk as needed Orally every 8 hrs as needed for 30 days 07/06/2024 Not-Taking predniSONE 10 MG 1 tablet with food o r milk Orally 4 tabs for 3 days,3tabs for 3 days, 2 tabs for 3 days, and 1 tab for 3 days for 14 days 09/07/2024 Not-Taking Sulindac 200 MG 1 tablet with food Orally Twice a day for 30 day(s) 11/16/2022 Not-Taking Benzonatate 200 MG 1 capsule as needed Orally Three times a day Not-Taking Albuterol Sulfate HFA 108 (90 Base) MCG/ACT 1 puff as needed Inhalation every 4 hrs for 30 days 09/07/2024 Active Cyclobenzaprine HCl 5 MG 1 tab Orally 3 times per day for 10 days 11/16/2022 Not-Taking Vital Signs Height 71 in 10/24/2024 weight is 164 BP not taken a t home no temp Encounters Encounter Location Date Provider Diagnosis Gal Dunaway MD [address] [place] [phone] 10/24/2024 Gal Dunaway Acute asthmatic bronchitis J45.909 Assessments Encounter Date Diagnosis (ICD Code) Assessment Notes Treatment Notes Treatment Clinical Notes Section Notes 10/24/2024 Acute asthmatic bronchitis (ICD-10 - J45.909) pending diagnostic testing 10/24/2024 Other THE ORDER WAS FAXED TO [facility] [place] PATIENT REG AND PATIENT HAS BEEN INFORMED Plan Of Treatment Treatment Notes Assessment Notes Acute asthmatic bronchitis pending diagn ostic testing Other THE ORDER WAS FAXED TO [facility] [place] PATIENT REG AND PATIENT HAS BEEN INFORMED Pending Test Test Name Order Date XR CHEST 2 VIEW PA & LAT 10/24/2024 Next Appt Details Follow Up: see him in office on wednesday this week, Reason: Provider Name:Gal pollard, 10/27/2024 11:45:00 AM, [address] [place] [address], [address], [phone], Provider Name:Gal pollard, 07/06/2025 07:00:00 AM, [address] [place] [address], [address], [phone], Provider Name:Gal pollard, 07/13/2025 08:30:00 AM, [address] [place] [address], [address], [phone], Progress Notes * Jacky PADILLA MDOB: [birth year] (54 yo M)Acc No.[id number]:10/24/2024 Patient:?Jacky PADILLA Provider:?Gal Dunaway MD :1970???Age:54 Y???Sex:Male Earl e:10/24/2024 Address:[address] [place] [address] Subjective: * Chief Complaints: * ???1. Still not any better w ith bronchitis [phone] Video. 2. c/o headache, nonproductive cough, SOB, runny nose , congestion, diarrhea for the past couple days tested for Covid last week. * HPI: ???Symptom(s):?Telehealth?Location of provider rendering services:?[address], [address],?Location of patient:?at address listed in demographics for today's visit,?Patient identification confirmed using:?Name, ,?Telehealth method:?Telephone only. Patient not visible to care provider.,?Consent:?Patient verbally consented to treatment, Patient verbally consented to billing insurance company, Patient informed of any privacy concerns related to method of visit,?Total time spend talking with patient (minutes)?0.?patient is a 54 yo male audio telehealth visit, has been getting breathing troubles since july had two doses of prednisone. short of breath with one flight of stairs. sometimes with sleeping trouble. * ROS:?General/Constitutional:?Denies?Chills.?Denies?Fatigue.?Denies?Fever.?Admits?Headache.?ENT:?Patient denies?decreased sense of smell, any loss of taste, sore throat.?Denies?Sore throat.?Respiratory:?Admits?Cough.?Admits?Shortness of breath at rest.?Admits?Shortness of breath with exertion.?Denies?Sputum production.?Gastrointestinal:?Admits?Diarrhea.?Denies?Nausea.?Denies?Vomiting.?Musculoskeletal:?Patient denies?muscle aches.?Peripheral Vascular:?Patient denies?red and blue toes.? * Medical History:?10/06/[address] Harden - repeat 10 yrs. * Medications:?Taking Albutero l Sulfate HFA 108 (90 Base) MCG/ACT Aerosol Solution 1 puff as needed Inhalation every 4 hrs , Not-Taking/PRN Benzonatate 200 MG Capsule 1 capsule as needed Orally Three times a day , Not-Taking/PRN predniSONE 10 MG Tablet 1 tablet with food or milk Orally 4 tabs for 3 days,3tabs for 3 days, 2 tabs for 3 days, and 1 tab for 3 days , Not-Taking/PRN Ibuprofen 800 MG Tablet 1 tablet with food or milk as needed Orally every 8 hrs as needed , Not-Taking/PRN Sulindac 200 MG Tablet 1 tablet with food Orally Twice a day , Not-Taking/PRN Cyclobenzaprine HCl 5 MG Tablet 1 tab Orally 3 times per day , Discontinued predniSONE 10 MG Tablet 1 tablet with food or milk Orally 4 tabs for 3 days,3tabs for 3 days, 2 tabs for 3 days, and 1 tab for 3 days , Medication List reviewed and reconciled with the patient * Allergies:?N.K.D.A. Objective: * Vitals:?Ht: 71. weight is? 164? BP not taken at home? no temp. Assessment: * Assessment: 1.?Acute asthmatic bronchiti s - J45.909 (Primary)??? Plan: * Treatment: 2.?Others? Notes: THE ORDER WAS FAXED TO [facility] [place] PATIENT REG AND PATIENT HAS BEEN INFORMED?? * Follow Up:?see him in office on wednesday this week * * The named appointment provid er may or may not be the originator of this progress note, and it is not deemed complete until electronically signed by the appointment provider. Sign off status: Pending * Provider:?Gal Dunaway MD Date:?0 10/24/2024 Generated for Ana cleary/Enedina/eTransmitting on:?10/24/2024 04:23 PM EST History and Physical Notes * HPI (History of Present Illness) Category Sub-Category Detail Notes Category Not es Symptom(s) Telehealth Location of [facility] rendering services:: [address], [address] patient is a 54 yo male audio telehealth visit, has been getting breathing troubles since july had two doses of prednisone. short of breath with one flight of stairs. sometimes with sleeping trouble Location of patient:: at address listed in demographics for today's visit Patient identification confirmed using:: Name, Telehealth method:: Telephone only. Mame ent not visible to care provider. Consent:: Patient verbally c onsented to treatment, Patient verbally consented to billing insurance company, Patient informed of any privacy concerns related to method of visit Total time spend talking with patient (m inutes): 0
--- OUTSIDE RECORDS SUMMARY | 2024-10-24 16:23 | XMS_ITS | Patient Health Record ---
Author Organization Gal Dunaway MD Address [address] [place], [place] [id number] Care Team Providers Care Geospatial Applications Developer Name Role Phone Gal Dunaway Primary Care Provider Allergies No Known Allergies Results Component Value Reference Range Notes Complete Blood Count Auto Di ff Reviewed date:06/29/2024 12:34:00 PM Interpretation: Performing Lab:[facility], [address] [place] [phone] Notes/Report: White Blood Count 7.7 4.8-10.8 X10*3/uL Red Blood Count 4.88 4.60-5.80 X10*6/uL Hemoglobin 14.8 14.0-18.0 g/dl Hematocrit 43.1 42.0-52.0 % Mean Corpuscular Volume 88.3 80.0-98.0 fL Mean Corpuscular Hemoglobin 30.3 27.0-33.0 pg Mean Corpuscular HGB Conc 34.3 31.0-36.0 g/dl Red Cell Distribution Width 13.0 11.0-16.0 % Platelet Count 240 160-400 X10*3/uL Mean Platelet Volume 10.3 9.4-12.4 fL Neutrophils Percent Auto 63.4 45-73 % Imm Gran Pct Auto 0.3 0.0-0.4 % Lymphocytes Percent Auto 23.0 20-40 % Monocytes Percent Auto 6.9 2-11 % Eosinophils Percent Auto 6.0 0-4 % Basophils Percent Auto 0.4 0-2 % NRBC Pct Auto 0.0 0.0-0.2 /100WBC Neutrophils Absolute Auto 4.9 2.0-8.3 x10*3/u L Imm Gran Abs Auto 0.02 0.00-0.03 X10*3/uL Lymphocytes Absolute Auto 1.8 1.2-4.9 X10*3/u L Monocytes Absolute Auto 0.5 0.1-1.2 X10*3/uL Eosinophils Absolute Auto 0.5 0.0-0.4 X10*3/u L Basophils Absolute Auto 0.0 0.0-0.2 X10*3/uL NRBC Abs Auto 0.000 0.0-0.012 X10*3/uL Comprehensive [place]. Panel Fa st Reviewed date:06/29/2024 12:43:20 PM Interpretation: Performing Lab:[facility], [address] [place] [phone] Notes/Report: Sodium 143 135-145 mmol/L Potassium 3.6 3.3-5.1 mmol/L Chloride 108 96-108 mmol/L Carbon Dioxide 25 22-29 mmol/L Anion Gap 14 12-20 Blood Urea Nitrogen 13 9-16 mg/dL Creatinine 1.05 0.5-1.4 mg/dL Estimated Glomerular Filt Rate > 60 NOTE: For -Malagasy individuals, multiply the result by 1.210. Chronic Kidney Disease: Estimated GFR < 60 mL/min/1.73m2 Severe Kidney Disease: Estimated GFR < 15 mL/min/1.73m2 Glucose Fasting 96 60-99 mg/dL Calcium 9.5 8.4-10.2 mg/dL Bilirubin Total 1.0 0.0-1.0 mg/dL Aspartate Amino Transferase 32 5-37 U/L Alanine Aminotransferase 32 0-40 U/L Total Protein 7.1 6.5-8.0 g/dL Albumin Level 4.3 3.5-5.0 g/dL Alkaline Phosphatase 55 39-117 U/L Lipid Panel Reviewed date:06/29/2024 12:31:58 PM Interpretation: Performing Lab:[facility], [address] [place] [phone] Notes/Report: Triglycerides 88 <150 mg/dL Desirable Triglyceride: less than 150 mg/dL Borderline High Triglyceride 150-199 mg/dL High Triglyceride: 200-499 mg/dL Very High Triglyceride: greater than or equal to 5OO mg/dL Cholesterol 205 <200 mg/dL Desirable Cholesterol: less than 200 mg/dL Borderline High Cholesterol: 200-239 mg/dL High Cholesterol: greater than 239 mg/dL LDL Cholesterol Calculated 135 <100 mg/dL Desirable LDL: less than 100 mg/dL Near Optimal/Above Optimal LDL: 110-129 mg/dL Borderline High LDL: 130-159 mg/dL High LDL: 160-189 mg/dL Very High LDL: greater than or equal to 190 mg/dL HDL Cholesterol 53 >40 mg/dL Desirable HDL: greater than 40 mg/dL Note: This HDL assay may give artificially low results in patients with liver disease. PSA,Total (Free>4and<10) Reviewed date:06/29/2024 12:32:06 PM Interpretation: Performing Lab:[facility], [address] [place] [phone] Notes/Report: PSA,Total (Free>4and<10) 1.56 0.00-4.00 ng/mL A Free PSA was not performed: The percentage of Free PSA can be used to enhance the differentiation of prostate cancer from benign prostatic disease in subjects whose PSA levels are between 4.0 and 10.0 ng/mL. For subjects whose PSA levels are below 4.0 or above 10.0 ng/mL, the risk of prostate cancer is determined on the basis of the PSA alone. Therefore the % Free PSA is recommended only for those subjects whose PSA levels are between 4.0 and 10.0 ng/mL. PSA methodology: Ramos Alinity i Chemiluminescent Microparticle Immunoassay (CMIA) Microalbumin, Random Reviewed date:06/29/2024 12:33:16 PM Interpretation: Performing Lab:[facility], [address] [place] [phone] Notes/Report: Creatinine Urine 254.47 Microalbumin Urine 9.0 Microalbum/Creatinine Ratio Ur 3.5 <30 ug/mg cr Albumin/Creatinine Ratio Reference Ranges: Normal: < 30 ug/mg creatinine Microalbuminuria: 30 - 300 ug/mg creatinine Clinical Albuminuria: > 300 ug/mg creatinine Hemoglobin A1c Reviewed date:06/29/2024 12:42:00 PM Interpretation: Performing Lab:[facility], [address] [place] [phone] Notes/Report: Hemoglobin A1c % 5.4 <6.0 % Hemoglobin A1C Reference Range Adults: 4.8 - 6.0 % Non diabetic: < 6.0 % Goal: < 7.0 % Additional Action Suggested: > 8.0 % Note: Hemoglobin A1c results are invalid for patients with abnormal amounts of HbF. Blood transfusions may impact the HbA1c concentration in the patient sample. Estimated Average Glucose 108 eAG = Estimated average glucose which is %A1C expressed as average glucose, using the formula of the R4U-Vwnslpe Average Glucose study (ADAG), Diabetes Care, Vol.31,#8, Apr. 2007 UA ClnCatch+Micro w/rflx Cul t Reviewed date:06/29/2024 12:32:24 PM Interpretation: Performing Lab:[facility], [address] [place] [phone] Notes/Report: [id number] Urine, Clean Catch Color Urine Yellow Appearance Urine Clear PH 5.5 5.0-9.0 Glucose Urine UA Negative Negative mg/dL Urine Blood Negative Negative Specific [place] - Urine 1.025 1.005-1.025 Urine Protein Negative Neg-Trace mg/dL Urine Ketones Trace Negative mg/dL Nitrite Urine Negative Negative Leukocyte Esterase Urine Negative Negative RBC Urine 0-2 0-2 /HPF WBC Urine 0-5 0-5 /HPF Squamous Epithelial Cell Urine 0-2 0-2 /HPF Bacteria Urine None Seen None Seen Hyaline Casts Urine 0-2 0-2 /LPF Occult Blood, Stool, Guaiac Reviewed date:07/06/2024 01:32:48 PM Interpretation:Negative Performing Lab: Notes/Report: Negative Occult Blood, Stool, Guaiac Neg Reason For Referral Reason lumbar back pain Diagnosis 1 Lumbar back pain (M5 4.50) Referral Organization Gal Dunaway MD Referring Provider First Name Gal Referring Provider Last Name Emelyn Referring Provider Speciality Internal M edicine Referred Provider [facility] Referred Provider Specialty Physical Med icine and Rehabilitation General Notes Paloma Sweeney 08:59:06 AM EDT > info faxedZahra Annette 12/14/2023 01:25:36 PM EDT > info refaxed Zahra Annette 12/16/2023 11:11:25 AM EDT > spoke with [facility] thy will be calling patient for an apptZahra Annette 12/28/2023 01:40:55 PM EDT > patient is aware of appt Referral Priority Routine Referral Appointment Date 12/31/2023 Reason nodule of finger lef t Diagnosis 1 Nodule of finger, le ft (R22.32) Referral Organization Gal Dunaway MD Referring Provider First Name Gal Referring Provider Last Name Emelyn Referring Provider Speciality Internal M edicine Referred Provider Gayle Olivera Referred Provider Specialty Hand Surgery General Notes Paloma Sweeney 08:59:41 AM EDT > info faxed Zahra Annette 12/10/2023 11:44:43 AM EDT > not able to reach by phone info mailed to patient Referral Priority Routine Referral Appointment Date 01/19/2024 Medications Medication SIG (Take, Route, Frequency, Duration) [...] 3 days for 14 days 09/07/2024 Not-Taking Cyclobenzaprine HCl 5 MG 1 tab Orally 3 times per day for 10 days 11/16/2022 Not-Taking Sulindac 200 MG 1 tablet with food Orally Twice a day for 30 day(s) 11/16/2022 Not-Taking Benzonatate 200 MG 1 capsule as needed Orally Three times a day Not-Taking Albuterol Sulfate HFA 108 (90 Base) MCG/ACT 1 puff as needed Inhalation every 4 hrs for 30 days 09/07/2024 Active Immunizations Vaccine Route Administration Date Status Comme nts Flu Vaccine Unknown 09/30/2015 Refused Fluarix Quadrivalent Unknown 05/23/2018 Refused Fluarix Quadrivalent Unknown 05/29/2019 Refused Fluarix Quadrivalent Unknown 06/09/2021 Refused Fluarix Quadrivalent Unknown 06/25/2023 Refused Covid Vaccine Unknown 06/13/2021 Others Social History Tobacco Use: Social History Observation Description Date Details (start date - stop date) Former Smoker NA - NA Tobacco Use/Smoking Question Answer Notes Patient is a former smoker How long has it been since y ou last smoked? > 10 years Additional Findings: Tobacco Non-User Fo rmer smoker, currently using no form of tobacco Alcohol Screen Question Answer Notes Did you have a drink contain ing alcohol in the past year? Yes How often did you have a dri nk containing alcohol in the past year? Monthly or less (1 point) How many drinks did you have on a typical day when you were drinking in the past year? 1 or 2 drinks (0 point) How often did you have 6 or more drinks on one occasion in the past year? Never (0 point) Points 1 Interpretation Negative Problems Problem Type SNOMED Code ICD Code Onset Dates Problem Status W/U Status Risk Notes Problem 243115302 Dermatofibroma (D23.9) Active confirmed Problem 816770508 Thrombocytopenia (D69.6) Active confirmed Problem 55853221 Lymphocytosis (D72.820) Active confirmed Problem 853673547 Reflux esophagit is (K21.00) Active confirmed Problem 11117143 Sciatica, right side (M54.31) Active confirmed Problem 0225580 Prediabetes (R73.09) Active confirmed Problem 55345315 Sciatica of left side (M54.32) Active confirmed Problem 9548335470 Ruptured lumbar disc (M51.26) Active confirmed Problem 857258924 History of noctu penny (Z87.898) Active confirmed Problem 558397623655113 Hematuria due to chronic cystitis (N30.21) Active confirmed Problem 980416113 Acute asthmatic bronchitis (J45.909) Active confirmed Vital Signs Blood pressure diastolic 64 mm Hg 07/06/2024 abi ght is down 6 pounds since 12-06-23 Height 71 in 10/24/2024 weight is 164 B P not taken at home no temp Blood pressure systolic 92 mm Hg 07/06/2024 weig ht is down 6 pounds since 12-06-23 Weight 177 lbs 07/06/2024 weight is down 6 pounds since 12-06-23 BMI 24.68 kg/m2 07/06/2024 weight is down 6 pounds since 12-06-23 Encounters Encounter Location Date Provider Diagnosis Gal Dunaway MD [address] [place] [id number] 07/06/2024 Gal Dunaway Sciatica, right side M54.31 ; Annual physical exam Z00.00 ; Prediabetes R73.09 ; Lymphocytosis D72.820 ; Colon cancer screening Z12.11 and Depression screening Z13.31 Gal Dunwaay MD [address] [place] [id number] 06/29/2024 Gal Dunaway Blood tests for routine general physical examination Z00.00 ; Prediabetes R73.09 and Lymphocytosis D72.820 Gal Dunaway MD [address] [id number] 12/06/2023 Gal Dunaway Lumbar back pain M54.50 and Nodule of finger, left R22.32 Gal Dunaway MD [address] [place] [id number] 09/15/2024 Gal Dunaway MD [address] [place] [id number] 10/17/2024 Gal Dunaway Wheezy bronchitis J4 0 Gal Dunaway MD [address] [place] [address] [id number] 09/07/2024 Gal Dunaway Wheezy bronchitis J4 0 Gal Dunaway MD [address] [place] [address] [id number] 10/03/2024 Gal Dunaway Acute asthmatic bronchitis J45.909 Gal Dunaway MD [address] [place] [id number] 10/24/2024 Gal Dunaway Acute asthmatic bronchitis J45.909 Assessments Encounter Date Diagnosis (ICD Code) Assessment Notes Treatment Notes Treatment Clinical Notes Section Notes 07/06/2024 Sciatica, right side (ICD-10 - M54.31) patient verbalized understandingof medication and directions for use 07/06/2024 Annual physical exam (ICD-10 - Z00.00) labs reviewed and discussed with patient 06/29/2024 Blood tests for routine general physical examination (ICD-10 - Z00.00) 06/29/2024 Prediabetes (ICD-10 - R73.09) 12/06/2023 Lumbar back pain (ICD-10 - M54.50) referral to [facility] 12/06/2023 Nodule of finger, left (ICD-10 - R22.32) referral to hand surgeon 10/17/2024 Wheezy bronchitis (ICD-10 - J40) 09/07/2024 Wheezy bronchitis (ICD-10 - J40) patient verbalized understanding of medication and direction for use 10/03/2024 Acute asthmatic bronchitis (ICD-10 - J45.909) 10/24/2024 Acute asthmatic bronchitis (ICD-10 - J45.909) pending diagnostic testing 07/06/2024 Prediabetes (ICD-10 - R73.09) stable, no need for medication at this time 06/29/2024 Lymphocytosis (ICD-10 - D72.820) 07/06/2024 Lymphocytosis (ICD-10 - D72.820) resolved 07/06/2024 Colon cancer screening (ICD-10 - Z12.11) guaiac negative 07/06/2024 Depression screening (ICD-10 - Z13.31) negative screen 10/24/2024 Other THE ORDER WAS F AXED TO [facility] [place] PATIENT REG AND PATIENT HAS BEEN INFORMED Plan Of Treatment Pending Test Test Name Order Date Electrocardiogram (EKG) 04/30/2016 EAR IRRIGATION 05/28/2011 MRI LUMBAR SPINE NO CONTRAST 11/16/2022 XR CHEST 2 VIEW PA & LAT 10/24/2024 Next Appt Details Provider Name:Gal pollard, 10/27/2024 11:45:00 AM, [address] [place] [address], [address], [phone], Provider Name:Gal Bradley ier, 07/06/2025 07:00:00 AM, [address] [place] [address], [address], [phone], Provider Name:Gal Bradley ier, 07/13/2025 08:30:00 AM, [address] [place] [address], [address], [phone], Insurance Providers Payer Name Payer Address Payer Phone Subscriber Number Group Number Insured Name Patient Relationship to Insured Coverage Start Date Coverage End Date [employer] [address] [place], [place] [id number] Jacky Templeton Self - patient is the insured Medical (General) History Medical History History ICD Code 10/06/[address] Harden - repeat 10 yrs
--- OUTSIDE RECORDS SUMMARY | 2024-10-24 16:23 | XMS_ITS ---
Author Organization Gal Dunaway MD Address [address] [place], [place] [phone] Care Team Providers Care Director Prospect Name Role Phone Gal Dunaway Primary Care Provider [phone] Allergies No Known Allergies REASON FOR VISIT Video [phone], cough and wheezing x 3 days, Wait until 1:00 Medications Medication SIG (Take, Route, Frequency, Duration) Notes Start Date End Date Status Sulindac 200 MG 1 tablet with food Orally Twice a day for 30 day(s) 11/16/2022 Not-Taking Cyclobenzaprine HCl 5 MG 1 tab Orally 3 times per day for 10 days 11/16/2022 Not-Taking predniSONE 10 MG 1 tablet with food o r milk Orally 4 tabs for 3 days,3tabs for 3 days, 2 tabs for 3 days, and 1 tab for 3 days for 14 days 09/07/2024 Not-Taking Ibuprofen 800 MG 1 tablet with food o r milk as needed Orally every 8 hrs as needed for 30 days 07/06/2024 Not-Taking Albuterol Sulfate HFA 108 (90 Base) MCG/ACT 1 puff as needed Inhalation every 4 hrs for 30 days 09/07/2024 Active Benzonatate 200 MG 1 capsule as needed Orally Three times a day Not-Taking predniSONE 10 MG 1 tablet with food o r milk Orally 4 tabs for 3 days,3tabs for 3 days, 2 tabs for 3 days, and 1 tab for 3 days for 14 days 10/03/2024 Active Problems Problem Type SNOMED Code ICD Code Onset Dates Problem Status W/U Status Risk Notes Problem [id number] Acute asthmatic bronchitis (J45.909) Active confirmed Vital Signs Height 71 in 10/03/2024 weight is 170 BP not taken a t home no temp Encounters Encounter Location Date Provider Diagnosis Gal Dunaway MD [address] [place] [phone] 10/03/2024 Gal Dunaway Acute asthmatic bronchitis J45.909 Assessments Encounter Date Diagnosis (ICD Code) Assessment Notes Treatment Notes Treatment Clinical Notes Section Notes 10/03/2024 Acute asthmatic bronchitis (ICD-10 - J45.909) Plan Of Treatment Medication Medication Name Sig Start Date Stop Date Notes predniSONE 10 MG 1 tablet with food o r milk Orally 4 tabs for 3 days,3tabs for 3 days, 2 tabs for 3 days, and 1 tab for 3 days for 14 days 10/03/2024 Next Appt Details Provider Name:Gal pollard, 10/27/2024 11:45:00 AM, [address] [place] [address], [phone], Provider Name:Gal pollard, 07/06/2025 07:00:00 AM, [address] [place] [address], [phone], Provider Name:Gal pollard, 07/13/2025 08:30:00 AM, [address] [place] [address], [phone], Progress Notes * Jacky PADILLA MDOB: 9 (54 yo M)Acc No.[id number]:10/03/2024 Patient:?Jacky PADILLA Provider:?Gal Dunaway MD :1970???Age:54 Y???Sex:Male Earl e:10/03/2024 Address:[address], [id number] Subjective: * Chief Complaints: * ???Video [phone] [phone] and wheezing x 3 daysWait until 1:00 * HPI: ???Symptom(s):?Telehealth?Location of provider rendering services:?[address], [address],?Location of patient:?at address listed in demographics for today's visit,?Patient identification confirmed using:?Name, ,?Telehealth method:?Telephone only. Patient not visible to care provider.,?Consent:?Patient verbally consented to treatment, Patient verbally consented to billing insurance company, Patient informed of any privacy concerns related to method of visit,?Total time spend talking with patient (minutes)?15.?patient is a 54 yo male audio telehealth visit, feels like his bronchitis is back again. tastes metal in mouth and can't clear congestion from throat, coughing and wheezing for 3 days. * ROS:?General/Constitutional:?Denies?Chills.?Denies?Fatigue.?Denies?Fever.?Denies?Headache.?ENT:?Denies?Sore throat.?Respiratory:?Admits?Cough.?Admits?Shortness of breath at rest.?Admits?Shortness of breath with exertion.?Admits?Sputum production.?Admits?Wheezing.?Gastrointestinal:?Denies?Diarrhea.?Denies?Nausea.? * Medical History:? * Surgical History:? * Hospitalization/Major Diagno stic Procedure:? * Medications:?TakingAlbuterol Sulfate HFA 108 (90 Base) MCG/ACT Aerosol Solution 1 puff as needed Inhalation every 4 hrs Taking Albuterol Sulfate HFA 108 (90 Base) MCG/ACT Aerosol Solution 1 puff as needed Inhalation every 4 hrs Not-Taking/PRNBenzonatate 200 MG Capsule 1 capsule as needed Orally Three times a day predniSONE 10 MG Tablet 1 tablet with food or milk Orally 4 tabs for 3 days,3tabs for 3 days, 2 tabs for 3 days, and 1 tab for 3 days Ibuprofen 800 MG Tablet 1 tablet with food or milk as needed Orally every 8 hrs as needed Sulindac 200 MG Tablet 1 tablet with food Orally Twice a day Cyclobenzaprine HCl 5 MG Tablet 1 tab Orally 3 times per day Medication List reviewed and reconciled with the patientNot-Taking/PRN Benzonatate 200 MG Capsule 1 capsule as needed Orally Three times a day Not-Taking/PRN predniSONE 10 MG Tablet 1 tablet with food or milk Orally 4 tabs for 3 days,3tabs for 3 days, 2 tabs for 3 days, and 1 tab for 3 days Not-Taking/PRN Ibuprofen 800 MG Tablet 1 tablet with food or milk as needed Orally every 8 hrs as needed Not-Taking/PRN Sulindac 200 MG Tablet 1 tablet with food Orally Twice a day Not-Taking/PRN Cyclobenzaprine HCl 5 MG Tablet 1 tab Orally 3 times per day Medication List reviewed and reconciled with the patient * Allergies:?N.K.D.A.yes[Aller gies Verified] Objective: * Vitals:?Ht: 71. weight is 170? BP? not taken at home? no temp. Assessment: * Assessment: 1.?Acute asthmatic bronchiti s - J45.909 (Primary)??? Plan: * Treatment: * Procedure Codes:? * * Sign off status: Completed true * Provider:?Gal Dunaway MD Date:?0 10/03/2024 Generated for Ana cleary/Enedina/Selinaitting on:?10/24/2024 04:23 PM EST History and Physical Notes * HPI (History of Present Illness) Category Sub-Category Detail Notes Category Not es Symptom(s) Telehealth [facility] ider rendering services:: [address], [address] patient is a 54 yo male audio telehealth visit, feels like his bronchitis is back again. tastes metal in mouth and can't clear congestion from throat, coughing and wheezing for 3 days Location of patient:: at address listed in demographics for today's visit Patient identification confirmed using:: Name, Telehealth method:: Telephone only. Mame ent not visible to care provider. Consent:: Patient verbally c onsented to treatment, Patient verbally consented to billing insurance company, Patient informed of any privacy concerns related to method of visit Total time spend talking with patient (m inutes): 15
--- OUTSIDE RECORDS SUMMARY | 2024-10-24 16:23 | XMS_ITS ---
Author Organization Gal Dunaway MD Address [address] [place] [phone] Care Team Providers Care Quartz Miner Name Role Phone Gal Dunaway Primary Care Provider Medications Medication SIG (Take, Route, Frequency, Duration) Notes Start Date End Date Status Albuterol Sulfate HFA 108 (90 Base) MCG/ACT 1 puff as needed Inhalation every 4 hrs for 30 days 09/07/2024 Active Encounters Encounter Location Date Provider Diagnosis Gal Dunaway MD [address] [place] [phone] 10/17/2024 Gal Dunaway Wheezy bronchitis J40 Assessments Encounter Date Diagnosis (ICD Code) Assessment Notes Treatment Notes Treatment Clinical Notes Section Notes 10/17/2024 Wheezy bronchitis (ICD-10 - J40) Plan Of Treatment Medication Medication Name Sig Start Date Stop Date Notes Albuterol Sulfate HFA 108 (9 0 Base) MCG/ACT 1 puff as needed Inhalation every 4 hrs for 30 days 09/07/2024 Next Appt Details Provider Name:Gal pollard, 10/27/2024 11:45:00 AM, [address] [facility], Suite [facility], [place], [place], [phone], Provider Name:Gal Bradley ier, 07/06/2025 07:00:00 AM, [address], [address], [place], [phone], Provider Name:Gal Bradley ier, 07/13/2025 08:30:00 AM, [address], [address], [place], [phone], Progress Notes * Jacky PADILLA MDOB: 9 (54 yo M)Acc No.[id number]:10/17/2024 Patient:?Jacky PADILLA :1970???Age:54 Y???Sex:Male Address:[address] [place] [address] * Refills? Continue Albuterol Sulfate HFA Aerosol Solution, 108 (90 Base) MCG/ACT, Inhalation, 1, 1 puff as needed, every 4 hrs, 30 days, Refills=5 * true * Date:? Generated for Ana cleary/Enedina/eTransmitting on:?10/24/2024 04:23 PM EST
== END 2024-10-24 15:31 | disposition home or self-care (01) ==
LOC: HO.XRAY 15:30
PROVIDERS: PCP Internal Medicine; Visit Provider Internal Medicine
DX: J45.909 Unspecified asthma, uncomplicated (principal)
CPT/HCPCS: 71046

== ENCOUNTER → 2024-10-24 15:34 | Outpatient (BNV) | payer MEDICARE, SELFPAY | PROVIDERS: PCP Internal Medicine; Visit Provider Radiology Diagnostic Radiology | DX: J20.9 Acute bronchitis, unspecified (principal); J45.909 Unspecified asthma, uncomplicated | CPT/HCPCS: 71046 ==

== ENCOUNTER 2024-10-25 10:23 | Inpatient (IN) | payer BC, SELFPAY ==
[2024-10-25] VITALS (11 sets, daily range): BP systolic 113–131; BP diastolic 62–78; PULSE 74–101; RESP 16–22; TEMP 36.2–37.1; O2SAT 91–97; BMI 22.3
--- NOTE | ~2024-10-25 | CT_ITS ---
CLINICAL HISTORY: hypoxia CT angiography chest with contrast. 3D Postprocessing. Comparison: CT/MN/SR - CT CHEST WO IV CON - 10/25/24 11:36 EST CR - XR CHEST 2V - 10/24/24 15:45 EST Findings: No acute pulmonary embolism evident. Normal caliber thoracic aorta. No plaque, stenosis or dissection. Thoracic inlet intact. No thyroid nodules. No enlarged mediastinal or hilar lymph nodes. Normal heart size. Reflux of contrast into the IVC suggesting increased right heart pressure without additional features of right heart strain. Normal RV/LV ratio. No bowing of the intraventricular septum. No appreciable thrombus in the left atrial appendage. No pericardial effusion or coronary artery calcification. Biapical pleural-parenchymal scarring. Residual ground-glass attenuation focus in the anterior right upper lobe. Remaining changes on prior appear to have resolved. Residual although improved interlobular septal thickening. Again changes may reflect pneumonia with the appearance less typical for pulmonary edema. Diffuse peribronchial thickening as on prior with multifocal mucous plugging in the lower lobes. No consolidation or pleural effusion. Esophagus within normal limits. No hiatal hernia. No acute process evident upper abdomen. Stable mild chronic T7 compression fracture and mild scalloping superior endplate T4, T5 and T6. Otherwise bones intact. Soft tissues intact. Impression: No acute pulmonary embolism or aortic dissection. Residual ground-glass attenuation focus and mild septal thickening in the upper lungs, although improved from prior. Improved pneumonia or atypical pulmonary edema considered. Similar peribronchial thickening and mucous plugging. No consolidation or pleural effusion. Normal heart size. Findings suggesting mild increased right heart pressure without additional features of right heart strain. This document has been electronically signed by: Noel Pereyra MD on 10/26/2024 13:02:29
--- NOTE | ~2024-10-25 | CT_ITS ---
EXAMINATION: CT CHEST WITHOUT CONTRAST CLINICAL INFORMATION: Persistent cough x8 weeks, weight loss. COMPARISON: None available. TECHNIQUE: Multidetector volumetric CT imaging of the chest was done. Axial MIP volume rendering provided. Sagittal and coronal reformatted images were obtained. This CT examination was performed using dose optimization techniques as appropriate, variously including the following: *Automated exposure control *Adjustment of mA and/or kV according to patient size (this includes techniques or standardized protocols for targeted exams where dose is matched to indication/reason for exam; i.e. extremities or head) *Use of iterative reconstruction technique FINDINGS: LUNGS: -Biapical scarring is present. -Foci of groundglass attenuation with interlobular septal thickening in the anterior and apical segments right upper lobe, suspicious for bronchopneumonia. -Diffuse thickening of the small airways consistent with bronchitis. There are several foci of mucus plugging present in the bilateral medial lower lobes. -No additional airspace disease. No effusion or pneumothorax. No suspicious pulmonary nodules. MEDIASTINUM: -Normal thyroid. -Small likely reactive mediastinal lymph nodes are present. No pathologic adenopathy or mass. -Central airways are patent. -The aorta and main pulmonary artery are normal. -The heart size is normal. There is no pericardial effusion. -Esophagus is grossly normal. CORONARY ARTERY CALCIFICATION: None visualized on this study. PLEURA: There is no pleural effusion. No pleural mass or thickening. AXILLA/CHEST WALL: No lymphadenopathy. UPPER ABDOMEN: Unremarkable. OSSEOUS STRUCTURES: -No suspicious lytic or blastic bone lesions. -Mild superior endplate wedging of T4-T7. This appears chronic. CT/CT chest wo IV con IMPRESSION: 1. Diffuse peribronchial thickening throughout both lungs with foci of mucoid impaction in the medial bilateral lower lobes. 2. Subsegmental foci of groundglass attenuation with superimposed interlobular septal thickening in the right upper lobe anterior and apical segments, suspicious for superimposed bronchopneumonia. 3. Biapical scarring. 4. Additional ancillary findings as discussed. Electronically signed by: Rj Wen MD 10/25/2024 12:06 PM [facility]
[2024-10-25 11:22] LABS: MANUAL DIFF FLAG NO
[2024-10-25 11:23] LABS: Basophils Percent Auto 0.4 % (0-2); Eosinophils Absolute Auto 0.9 X10*3/uL (0.0-0.4); Eosinophils Percent Auto 8.5 % (0-4); Hematocrit 47.1 % (42.0-52.0); Hemoglobin 16.5 g/dl (14.0-18.0); Imm Gran Abs Auto 0.03 X10*3/uL (0.00-0.03); Imm Gran Pct Auto 0.3 % (0.0-0.4); Lymphocytes Absolute Auto 1.7 X10*3/uL (1.2-4.9); Lymphocytes Percent Auto 16.3 % (20-40); Mean Corpuscular Hemoglobin 30.6 pg (27.0-33.0); Mean Corpuscular Volume 87.4 fL (80.0-98.0); Mean Platelet Volume 9.5 fL (9.4-12.4); Monocytes Absolute Auto 0.8 X10*3/uL (0.1-1.2); Monocytes Percent Auto 7.2 % (2-11); Neutrophils Percent Auto 67.3 % (45-73); Platelet Count 241 X10*3/uL (160-400); Red Blood Count 5.39 X10*6/uL (4.60-5.80); Red Cell Distribution Width 13.2 % (11.0-16.0); White Blood Count 10.4 X10*3/uL (4.8-10.8)
[2024-10-25 11:30] LABS: Prothrombin Time 11.4 SEC (10.9-12.4)
--- NOTE | 2024-10-25 11:30 | ECG_ITS ---
Test Reason : SOB Blood Pressure : */* mmHG Vent. Rate : 103 BPM Atrial Rate : 103 BPM P-R Int : 136 ms QRS Dur : 78 ms QT Int : 332 ms P-R-T Axes : 61 -41 53 degrees QTcB Int : 434 ms Sinus tachycardia Left axis deviation Abnormal ECG When compared with ECG of 01-Mar-2021 11:16, No significant changes seen Referred By: Ceci Acevedo Electronically Signed By: ERASTO SINGH
--- NOTE | 2024-10-25 11:33 | ED_ITS ---
HPI - SOB/Dyspnea General Chief Complaint: Dyspnea Stated Complaint: Trouble Breathing Time Seen by Provider: 10/25/24 11:14 Source: patient, family and old records reviewed Mode of arrival: ambulatory Limitations: no limitations History of Present Illness ED Provider: JUSTYN GEOREG Narrative: 54 yo male with no PMH and no prior smoker - he has been sick since Thanksgiving with dyspean and feeling like he cannot breathe. 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 He has tried albuterol INH and prednisone burst x 2 no relief. He just feels like he is getting worse. He has never been on oxygen. He notes he finally couldn't take it today. He is now having loose stools and notes he has lost 10lbs unexplained as well. He has no chest pain. Showed up 89% on RA had to be put on 4L NC in triage up to 97% MD elicited complaint: shortness of breath and cough Onset (ago): week(s) (10) Context: recent illness Timing: progressively worsening Severity: moderate Exacerbating factors: exertion and coughing Relieving factors: oxygen and rest Associated symptoms: cough, wheezing and other (weakness, weight loss) Treatment prior to arrival: other Related Data Home Medications ?Medication ?Instructions ?Recorded ?Confirmed No Known Home Meds 01/25/24 01/25/24 Allergies Allergy/AdvReac Type Severity Reaction Status Date / Time No Known Allergies Allergy Verified 10/25/24 10:54 [No Known Allergies*] Review of Systems 2 Review of Systems: Constitutional : No Fever, No Chills, pos weight loss ENT/Mouth : No Hoarseness, No sore throat, No Rhinorrhea Eyes: No Redness, No Discharge, No Vision Changes Cardiovascular : No Chest Pain, positive SOB, positive Dyspnea on Exertion, No Edema Respiratory : positive Cough, No Sputum, positive Wheezing, Gastrointestinal : No Nausea, No Vomiting, No Diarrhea, No abdominal Pain Genitourinary : No Dysuria, No Hematuria Musculoskeletal : No joint pain, No Myalgias Skin : No rash Neuro : No Weakness, No Numbness, No Headache All other systems reviewed and are negative PMFSH Past Medical History Attestation statement: The following information was validated with the patient. 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 Oriented X3. Mild acute distress. Older than stated age Eyes: Pupils equal, round and reactive to light. ENT: Pharynx normal. Neck: Normal inspection. Neck supple. CVS: Normal heart rate and rhythm. Pulses normal. Respiratory: Mild respiratory distress - tachypnea. Breath sounds very diminished I hear faint upper lobe wheezes Abdomen: Soft and nontender. Skin: Skin warm and dry. pale skin color. Normal skin turgor. Extremities: No lower extremity edema. No calf ttp Neuro: Oriented X 3. No motor deficit. No sensory deficit. CN2-12 intact Medications Administered Discontinued Medications Generic Name Dose Route Start Last Admin Trade Name Freq PRN Reason Stop Dose Admin Acetaminophen 650 mg 10/25/24 13:02 10/25/24 13:19 Acetaminophen 325 Mg Tablet PO 10/25/24 13:03 650 mg ONCE ONE Administration Ceftriaxone Sodium 1 gm 10/25/24 13:01 10/25/24 13:20 Ceftriaxone Sodium 1 Gm Vial IVPUSH 10/25/24 13:02 1 gm ONCE ONE Administration Albuterol Sulfate 5 mg/ 0 mg 10/25/24 11:48 10/25/24 11:52 Albuterol/Ipratropium 3 ml INHALE 10/25/24 11:49 7.5 each ONCE ONE Administration Magnesium Sulfate 2 gm in 50 mls @ 25 mls/hr 10/25/24 11:30 10/25/24 12:15 Magnesium Sulfate/H2o IV 10/25/24 13:29 25 mls/hr ONCE ONE Administration Azithromycin 500 mg/ Sodium 250 mls @ 125 mls/hr 10/25/24 11:30 10/25/24 12:52 Chloride IV 10/25/24 13:29 125 mls/hr ONCE ONE Administration Lactated Ringer's 1,000 mls @ 999 mls/hr 10/25/24 11:30 10/25/24 12:10 Lr IV 10/25/24 12:30 999 mls/hr .Q1H1M ONE Administration Methylprednisolone Sodium Succinate 60 mg 10/25/24 11:30 10/25/24 12:10 Methylprednisolone Sod Succ 125 Mg/2 Ml Vial IVPUSH 10/25/24 11:31 60 mg ONCE ONE Administration Medical Decision Making Medical Decision Making [facility] Narrative: 54 yo male with no PMH and no prior smoker now here with O2 needs decreased lung sounds and overall looks pale and thin and older than stated age. At this time I am going to obtain basic labs, cultures, viral panel, EKG, trop/BNP along with CT scan for mass - he will get nebs, steroids, magnesium, IVF and empiric azithromycin. Differential Diagnosis Differential Diagnoses: The differential diagnosis associated with the presentation includes bronchitis, reactive airway disease, lung cancer, viral syndrome Admission/Observation Consideration of admission/observation: Escalation of care including admission/observation considered admit given O2 needs Consult Healthcare Provider Management of the patient was discussed with: Hospitalist (will admit) Lab Data [facility] Lab Attestation statement: I reviewed the patient's lab results. 10/25/24 11:02 10/25/24 11:02 Labs: Lab Results 10/25/24 10/25/24 10/25/24 Range/Units 11:02 12:03 12:10 WBC 10.4 (4.8-10.8) X10*3/uL RBC 5.39 (4.60-5.80) X10*6/uL Hgb 16.5 (14.0-18.0) g/dl Hct 47.1 (42.0-52.0) % MCV 87.4 (80.0-98.0) fL MCH 30.6 (27.0-33.0) pg MCHC 35.0 (31.0-36.0) g/dl RDW 13.2 (11.0-16.0) % Plt Count 241 (160-400) X10*3/uL MPV 9.5 (9.4-12.4) fL Immature Gran % (Auto) 0.3 (0.0-0.4) % Neut % (Auto) 67.3 (45-73) % Lymph % (Auto) 16.3 L (20-40) % [place] % (Auto) 7.2 (2-11) % Eos % (Auto) 8.5 H (0-4) % Baso % (Auto) 0.4 (0-2) % Lymph # (Auto) 1.7 (1.2-4.9) X10*3/uL [place] # (Auto) 0.8 (0.1-1.2) X10*3/uL Eos # (Auto) 0.9 H (0.0-0.4) X10*3/uL Baso # (Auto) 0.0 (0.0-0.2) X10*3/uL Abs Immat Gran (auto) 0.03 (0.00-0.03) X10*3/uL Absolute Neuts (auto) 7.0 (2.0-8.3) x10*3/uL Absolute Nucleated RBC 0.000 (0.0-0.012) X10*3/uL Nucleated RBC % (auto) 0.0 (0.0-0.2) /100WBC PT 11.4 (10.9-12.4) SEC INR 1.0 (0.9-1.1) VBG pH 7.39 (7.32-7.43) VBG pCO2 40 mmHg VBG pO2 35 mmHg VBG HCO3 24 (22-26) mmol/L VBG O2 Saturation 56.0 % VBG Base Excess -0.4 mmol/L Sodium 140 (135-145) mmol/L Potassium 4.2 (3.3-5.1) mmol/L Chloride 108 (96-108) mmol/L Carbon Dioxide 22 (22-29) mmol/L Anion Gap 14 (12-20) BUN 10 (9-16) mg/dL Creatinine 0.92 (0.5-1.4) mg/dL Estim Creat Clear Calc 92.9 Estimated GFR > 60 Random Glucose 107 (60-115) mg/dL Lactic Acid 1.7 (0.5-2.0) mmol/L Calcium 9.5 (8.4-10.2) mg/dL Magnesium 2.2 (1.6-2.6) mg/dL Total Bilirubin 1.1 H (0.0-1.0) mg/dL AST 24 (5-37) U/L ALT 25 (0-40) U/L Alkaline Phosphatase 77 (39-117) U/L Troponin I High Sens < 2.7 (<3.5-35.0) ng/L B-Natriuretic Peptide < 10 (<100) pg/mL Total Protein 8.1 H (6.5-8.0) g/dL Albumin 4.5 (3.5-5.0) g/dL Procalcitonin 0.02 ng/mL Influenza Type A (PCR) NEGATIVE (Negative) Influenza Type B (PCR) NEGATIVE (Negative) RSV RNA Qual (PCR) NEGATIVE (Negative) SARS-CoV-2 RNA (RT-PCR) NEGATIVE (Negative) Independent Interpretation I performed an independent interpretation of an: EKG and CT Scan (bronchopneumonia) Interpretation: Rate: 103 Rhythm: sinus tach [place]: left Normal P waves. Normal MALLIKA. Normal QRS complex. ST T wave : inverted t waves V1, no LOLIS qTC: 434 prior studies: no acute ischemia The study has been interpreted contemporaneously by me. . Radiology Impression Discussion of test interpretation with radiology: I have reviewed the radiologist's reading. Independent Historian Clinical information obtained from an independent historian. History obtained from or confirmed by: Parent External Record Review External record reviewed: Outpatient record Critical Care Time Critical Care Time Critical Care Time: Yes Total Critical Care Time: 45 Attestation: IV magnesium for resp issues, hypoxia intervention I attest to this time spent taking care of the patient Discharge Plan Discharge Clinical Impression: Hypoxia, Bronchopneumonia Patient Disposition: Admitted As Inpatient Print Language: Wolof
[2024-10-25 11:38] LABS: Alanine Aminotransferase 25 U/L (0-40); Albumin Level 4.5 g/dL (3.5-5.0); Alkaline Phosphatase 77 U/L (39-117); Anion Gap 14 (12-20); Aspartate Amino Transferase 24 U/L (5-37); Bilirubin Total 1.1 mg/dL (0.0-1.0); Blood Urea Nitrogen 10 mg/dL (9-16); Calcium 9.5 mg/dL (8.4-10.2); Carbon Dioxide 22 mmol/L (22-29); Chloride 108 mmol/L (96-108); Creatinine Clr Calc Pharmacy 92.9; Estimated Glomerular Filt Rate > 60; Glucose Random 107 mg/dL (60-115); Potassium 4.2 mmol/L (3.3-5.1); Sodium 140 mmol/L (135-145); Total Protein 8.1 g/dL (6.5-8.0)
[2024-10-25 11:49] LABS: Troponin-I High Sensitivity < 2.7 ng/L (<3.5-35.0)
[2024-10-25] MEDS: Albuterol Sulfate 5 MG, Albuterol/Iprat 2.5/0.5MG 3 ML 3 ML INHALE (11:52)
--- OUTSIDE RECORDS SUMMARY | 2024-10-25 12:09 | XMS_ITS ---
Author Organization Gal Dunaway MD Address [address] [place] [phone] Care Team Providers Care Surgical Coordinator Name Role Phone Gal Dunaway Primary Care Provider Medications Medication SIG (Take, Route, Frequency, Duration) Notes Start Date End Date Status Albuterol Sulfate HFA 108 (90 Base) MCG/ACT 1 puff as needed Inhalation every 4 hrs for 30 days 09/07/2024 Active Encounters Encounter Location Date Provider Diagnosis Gal Dunaway MD [address] [place] [phone] 10/17/2024 Gal Dunaway Wheezy bronchitis J40 Assessments [...] Provider Name:Gal pollard, 10/27/2024 11:45:00 AM, [address] [facility], [address] [facility], [place], [place], [phone], Provider Name:Gal Bradley ier, 07/06/2025 07:00:00 AM, [address], [address], [place], [phone], Provider Name:Gal Bradley ier, 07/13/2025 08:30:00 AM, [address], [address], [place], [phone], Progress Notes * Jacky PADILLA MDOB: 9 (54 yo M)Acc No.[id number]:10/17/2024 Patient:?Jacky PADILLA :1970???Age:54 Y???Sex:Male Address:[address] [place] [address] * Refills? Continue Albuterol Sulfate HFA Aerosol Solution, 108 (90 Base) MCG/ACT, Inhalation, 1, 1 puff as needed, every 4 hrs, 30 days, Refills=5 * true * Date:? Generated for Ana cleary/Enedina/eTransmitting on:?10/25/2024 12:09 PM EST
[2024-10-25] MEDS: Lactated Ringers 1,000 ML 999 ML IV (12:10)
[2024-10-25] MEDS: methylPREDNISolone Sod Succ 125 MG/2 ML VIAL 60 MG IVPUSH (12:10)
--- OUTSIDE RECORDS SUMMARY | 2024-10-25 12:10 | XMS_ITS ---
Author Organization Gal Dunaway MD Address [address] [place], [place] [phone] Care Team Providers Care Seed Cleaner Operator Name Role Phone Gal Dunaway Primary Care Provider Allergies No Known Allergies REASON FOR VISIT Still not any better with bronchitis [phone] Video, c/o headache, nonproductive cough, SOB, runny [...] Location Date Provider Diagnosis Gal Dunaway MD [address] [place] [phone] 10/24/2024 Gal Dunaway Acute asthmatic bronchitis J45.909 Assessments Encounter Date Diagnosis (ICD Code) Assessment Notes Treatment Notes Treatment Clinical Notes Section Notes 10/24/2024 Acute asthmatic bronchitis (ICD-10 - J45.909) pending diagnostic testing 10/24/2024 Other THE ORDER WAS FAXED TO [facility] [place] [place] PATIENT REG AND PATIENT HAS BEEN INFORMED Plan Of Treatment Treatment Notes Assessment Notes Acute asthmatic bronchitis pending diagn ostic testing Other THE ORDER WAS FAXED TO [facility] [place] [place] PATIENT REG AND PATIENT HAS BEEN INFORMED Pending Test Test Name Order Date XR CHEST 2 VIEW PA & LAT 10/24/2024 Next Appt Details Follow Up: see him in office on wednesday this week, Reason: Provider Name:Gal pollard, 10/27/2024 11:45:00 AM, [address] [place] [address], [address], [phone], Provider Name:Gal pollard, 07/06/2025 07:00:00 AM, [address] [place] [address], [address], [phone], Provider Name:Gal pollard, 07/13/2025 08:30:00 AM, [address] [place] [address], [address], [phone], Progress Notes * Jacky PADILLA MDOB: 9 (54 yo M)Acc No.[id number]:10/24/2024 Patient:?Jacky PADILLA Provider:?Gal Dunaway MD :1970???Age:54 Y???Sex:Male Earl e:10/24/2024 Address:[address] [place] [address] Subjective: * Chief Complaints: * ???1. Still not any better w ith bronchitis [phone] Video. 2. c/o headache, nonproductive cough, SOB, [...] 2.?Others? Notes: THE ORDER WAS FAXED TO [facility] [place] [place] PATIENT REG AND PATIENT HAS BEEN INFORMED?? * Follow Up:?see him in office on wednesday this week * * The named appointment provid er may or may not be the originator of this progress note, and it is not deemed complete until electronically signed by the appointment provider. Sign off status: Pending * Provider:?Gal Dunaway MD Date:?0 10/24/2024 Generated for Ana cleary/Enedina/eTransmitting on:?10/25/2024 12:09 PM EST History and Physical Notes * HPI (History of Present Illness) Category Sub-Category Detail Notes Category Not es Symptom(s) Telehealth Location of [facility] rendering services:: [address], [...]
--- OUTSIDE RECORDS SUMMARY | 2024-10-25 12:10 | XMS_ITS ---
Author Organization Gal Dunaway MD Address [address] [place], [place] [phone] Care Team Providers Care Pattern Duplicator Name Role Phone Gal Dunaway Primary Care Provider Allergies No Known Allergies REASON FOR VISIT Video [phone]- [phone], cough and wheezing x 3 days, Wait [...] Problem Status W/U Status Risk Notes Problem [id number] Acute asthmatic bronchitis (J45.909) Active confirmed Vital Signs Height 71 in 10/03/2024 weight is 170 BP not taken a t home no temp Encounters Encounter Location Date Provider Diagnosis Gal Dunaway MD [address] [place] [phone] 10/03/2024 Gal Dunaway Acute asthmatic bronchitis J45.909 [...] Details Provider Name:Gal pollard, 10/27/2024 11:45:00 AM, [address] [place] [address], [phone], Provider Name:Gal pollard, 07/06/2025 07:00:00 AM, [address] [place] [address], [phone], Provider Name:Gal pollard, 07/13/2025 08:30:00 AM, [address] [place] [address], [phone], Progress Notes * Jacky PADILLA MDOB: 9 (54 yo M)Acc No.[id number]:10/03/2024 Patient:?Jacky PADILLA Provider:?Gal Dunaway MD :1970???Age:54 Y???Sex:Male Earl e:10/03/2024 Address:[address], [phone] Subjective: * Chief Complaints: * ???Video [phone]- [phone] and wheezing x 3 daysWait until 1:00 [...] MD Date:?0 10/03/2024 Generated for Ana cleary/Enedina/Selinaitting on:?10/25/2024 12:09 PM EST History and Physical Notes * HPI (History of Present Illness) Category Sub-Category Detail Notes Category Not es Symptom(s) Telehealth Location of [facility] ider rendering services:: [address], [address] [...]
--- OUTSIDE RECORDS SUMMARY | 2024-10-25 12:10 | XMS_ITS | Patient Health Record ---
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 Panel Fa st Reviewed date:06/29/2024 12:43:20 PM Interpretation: Performing Lab:[facility], [address] [place] [phone] Notes/Report: Sodium 143 135-145 mmol/L Potassium 3.6 3.3-5.1 mmol/L Chloride 108 96-108 mmol/L Carbon Dioxide 25 22-29 mmol/L Anion Gap 14 12-20 Blood Urea Nitrogen 13 9-16 mg/dL Creatinine 1.05 0.5-1.4 mg/dL Estimated Glomerular Filt Rate > 60 NOTE: For -[place] Citizen individuals, multiply the result by 1.210. Chronic [...] Panel Reviewed date:06/29/2024 12:31:58 PM Interpretation: Performing Lab:[facility], [address] [place] [phone] Notes/Report: Triglycerides 88 <150 mg/dL Desirable Triglyceride: [...] (Free>4and<10) Reviewed date:06/29/2024 12:32:06 PM Interpretation: Performing Lab:[facility], [address] [place] [phone] Notes/Report: PSA,Total (Free>4and<10) 1.56 0.00-4.00 ng/mL A [...] Random Reviewed date:06/29/2024 12:33:16 PM Interpretation: Performing Lab:[facility], [address] [place] [phone] Notes/Report: Creatinine Urine 254.47 Microalbumin Urine 9.0 Microalbum/Creatinine Ratio Ur 3.5 <30 ug/mg cr Albumin/Creatinine Ratio Reference Ranges: Normal: < 30 ug/mg creatinine Microalbuminuria: 30 - 300 ug/mg creatinine Clinical Albuminuria: > 300 ug/mg creatinine Hemoglobin A1c Reviewed date:06/29/2024 12:42:00 PM Interpretation: Performing Lab:[address] [phone] Notes/Report: Hemoglobin A1c % 5.4 <6.0 % [...] average glucose, using the formula of the Q8F-Vxjnijl Average Glucose study (ADAG), Diabetes Care, Vol.31,#8, Apr. 2007 UA ClnCatch+Micro w/rflx Cul t Reviewed date:06/29/2024 12:32:24 PM Interpretation: Performing Lab:[address] [phone] Notes/Report: [id number] Urine, Clean Catch Color Urine Yellow Appearance Urine Clear PH 5.5 5.0-9.0 Glucose Urine UA Negative Negative mg/dL Urine Blood Negative Negative Specific Vanderbilt - Urine 1.025 1.005-1.025 Urine Protein Negative [...] Notes/Report: Negative Occult Blood, Stool, Guaiac Neg Complete Blood Count Auto Di ff (Not yet reviewed by provider) Interpretation: Performing Lab:[address] [phone] Notes/Report: White Blood Count 10.4 4.8-10.8 X10*3/uL Red Blood Count 5.39 4.60-5.80 X10*6/uL Hemoglobin 16.5 14.0-18.0 g/dl Hematocrit 47.1 42.0-52.0 % Mean Corpuscular Volume 87.4 80.0-98.0 fL Mean Corpuscular Hemoglobin 30.6 27.0-33.0 pg Mean Corpuscular HGB Conc 35.0 31.0-36.0 g/dl Red Cell Distribution Width 13.2 11.0-16.0 % Platelet Count 241 160-400 X10*3/uL Mean Platelet Volume 9.5 9.4-12.4 fL Neutrophils Percent Auto 67.3 45-73 % Imm Gran Pct Auto 0.3 0.0-0.4 % Lymphocytes Percent Auto 16.3 20-40 % Monocytes Percent Auto 7.2 2-11 % Eosinophils Percent Auto 8.5 0-4 % Basophils Percent Auto 0.4 0-2 % NRBC Pct Auto 0.0 0.0-0.2 /100WBC Neutrophils Absolute Auto 7.0 2.0-8.3 x10*3/u L Imm Gran Abs Auto 0.03 0.00-0.03 X10*3/uL Lymphocytes Absolute Auto 1.7 1.2-4.9 X10*3/u L Monocytes Absolute Auto 0.8 0.1-1.2 X10*3/uL Eosinophils Absolute Auto 0.9 0.0-0.4 X10*3/u L Basophils Absolute Auto 0.0 0.0-0.2 X10*3/uL NRBC Abs Auto 0.000 0.0-0.012 X10*3/uL Prothrombin Time INR (Not ye t reviewed by provider) Interpretation: Performing Lab:[facility], [address] [place] [phone] Notes/Report: Prothrombin Time 11.4 10.9-12.4 SEC INTERNATIONAL NORM RATIO 1.0 0.9-1.1 INTERNATIONAL NORMALIZED RATIO (INR) REFERENCE RANGES Reference Range For patients not on anticoagulant therapy: 0.9 - 1.1 INR ranges for oral anticoagulant therapy: For prevention and treatment of venous thrombosis and pulmonary embolism: 2.0 - 3.0 For acute myocardial infarction with aspirin therapy: 2.0 - 3.0 For acute myocardial infarction without aspirin therapy: 3.0 - 4.0 For patients with mechanical prosthetic heart valves: 2.5 - 3.5 Comprehensive Met. Panel (No t yet reviewed by provider) Interpretation: Performing Lab:[facility], [address] [place] [phone] Notes/Report: Sodium 140 135-145 mmol/L Potassium 4.2 3.3-5.1 mmol/L Chloride 108 96-108 mmol/L Carbon Dioxide 22 22-29 mmol/L Anion Gap 14 12-20 Blood Urea Nitrogen 10 9-16 mg/dL Creatinine 0.92 0.5-1.4 mg/dL Creatinine Clr Calc Pharmacy 92.9 eGFR (calculated from the MDRD study equation) and eCrCl (calculated from the Cockcroft-Gault equation) are based on different parameters and may not yield comparable results. If eCrCl result is absurd, please check patient's height/weight. Estimated Glomerular Filt Rate > 60 Chronic Kidney Disease: Estimated GFR < 60 mL/min/1.73m2 Severe Kidney Disease: Estimated GFR < 15 mL/min/1.73m2 Glucose Random 107 60-115 mg/dL Calcium 9.5 8.4-10.2 mg/dL Bilirubin Total 1.1 0.0-1.0 mg/dL Aspartate Amino Transferase 24 5-37 U/L Alanine Aminotransferase 25 0-40 U/L Total Protein 8.1 6.5-8.0 g/dL Albumin Level 4.5 3.5-5.0 g/dL Alkaline Phosphatase 77 39-117 U/L Troponin-I High Sensitivity (Not yet reviewed by provider) Interpretation: Performing Lab:[facility], [address] [place] [phone] Notes/Report: Troponin-I High Sensitivity < 2.7 <3.5-35.0 ng/ L The Ramos high sensitivity Troponin-I results should be used in conjunction with other diagnostic information such as ECG, clinical observations and information, and patient symptoms to aid in the diagnosis of NE. Reason For Referral Reason lumbar back pain Diagnosis 1 Lumbar back pain (M5 4.50) Referral Organization Gal Dunaway MD Referring Provider First Name Gal Referring Provider Last Name Emelyn Referring Provider Speciality Internal M edicine Referred Provider [facility] Referred Provider Specialty [...] Problem Status W/U Status Risk Notes Problem 904322332 Dermatofibroma (D23.9) Active confirmed Problem 519253012 Thrombocytopenia (D69.6) Active confirmed Problem 29920314 Lymphocytosis (D72.820) Active confirmed Problem 256963267 Reflux esophagit is (K21.00) Active confirmed Problem 69500664 Sciatica, right side (M54.31) Active confirmed Problem 8479182 Prediabetes (R73.09) Active confirmed Problem 00708775 Sciatica of left side (M54.32) Active confirmed Problem 3561935433 Ruptured lumbar disc (M51.26) Active confirmed Problem 460357781 History of noctu penny (Z87.898) Active confirmed Problem 957562264318198 Hematuria due to chronic cystitis (N30.21) Active confirmed Problem 772170071 Acute asthmatic bronchitis (J45.909) Active confirmed Vital [...] Date Provider Diagnosis Gal Dunaway MD [address] [id number] 10/24/2024 Gal Dunaway Acute asthmatic bronchitis J45.909 Gal Dunaway MD [address] [id number] 12/06/2023 Gal Dunaway Lumbar back pain M54.50 and Nodule of finger, left R22.32 Gal Dunaway MD [address] [place] [id number] 06/29/2024 Gal Dunaway Blood tests for routine general physical examination Z00.00 ; Prediabetes R73.09 and Lymphocytosis D72.820 Gal Dunaway MD [address] [place] [phone] 07/06/2024 Gal Dunaway Sciatica, right side M54.31 ; Annual physical exam Z00.00 ; Prediabetes R73.09 ; Lymphocytosis D72.820 ; Colon cancer screening Z12.11 and Depression screening Z13.31 Gal Dunaway MD [address] [place] [phone] 09/07/2024 Gal Dunaway Wheezy bronchitis J4 0 Gal Dunaway MD [address] [place] [id number] 10/03/2024 Gal Dunaway Acute asthmatic bronchitis J45.909 Gal Dunaway MD [address] [place] [id number] 09/15/2024 Gal Dunaway MD [address] [place] [address] [id number] 10/17/2024 Gal Dunaway Wheezy bronchitis J4 0 Assessments Encounter Date Diagnosis (ICD Code) Assessment Notes Treatment Notes Treatment Clinical Notes Section Notes 10/24/2024 Acute asthmatic bronchitis (ICD-10 - J45.909) pending diagnostic testing 12/06/2023 Lumbar back pain (ICD-10 - M54.50) referral to [facility] 12/06/2023 Nodule of finger, left (ICD-10 - R22.32) referral to hand surgeon 06/29/2024 Blood tests for routine general physical examination (ICD-10 - Z00.00) 06/29/2024 Prediabetes (ICD-10 - R73.09) 07/06/2024 Sciatica, right side (ICD-10 - M54.31) patient verbalized understandingof medication and directions for use 07/06/2024 Annual physical exam (ICD-10 - Z00.00) labs reviewed and discussed with patient 09/07/2024 Wheezy bronchitis (ICD-10 - J40) patient verbalized understanding of medication and direction for use 10/03/2024 Acute asthmatic bronchitis (ICD-10 - J45.909) 10/17/2024 Wheezy bronchitis (ICD-10 - J40) 06/29/2024 Lymphocytosis (ICD-10 - D72.820) 07/06/2024 Prediabetes (ICD-10 - R73.09) stable, no need for medication at this time 07/06/2024 Lymphocytosis (ICD-10 - D72.820) resolved 07/06/2024 Colon cancer screening (ICD-10 - Z12.11) guaiac negative 07/06/2024 Depression screening (ICD-10 - Z13.31) negative screen 10/24/2024 Other THE ORDER WAS F AXED TO [facility] PATIENT REG AND PATIENT HAS BEEN INFORMED Plan Of Treatment Pending Test Test Name Order Date Electrocardiogram (EKG) 04/30/2016 EAR IRRIGATION 05/28/2011 MRI LUMBAR SPINE NO CONTRAST 11/16/2022 XR CHEST 2 VIEW PA & LAT 10/24/2024 Complete Blood Count Auto Diff Prothrombin Time INR 10/25/2024 Comprehensive Met. Panel 10/25/2024 Troponin-I High Sensitivity 10/25/2024 Next Appt Details Provider Name:Gal pollard, 10/27/2024 11:45:00 AM, [address] [place] [address], [address], [place], [place], [phone], Provider Name:Gal pollard, 07/06/2025 07:00:00 AM, [address] [place] [address], [address], [place], [place], [phone], Provider Name:Gal pollard, 07/13/2025 08:30:00 AM, [address], [address], [place], [place], [phone], Insurance Providers Payer Name Payer Address Payer Phone Subscriber Number Group Number Insured Name Patient Relationship to Insured Coverage Start Date Coverage End Date [employer]UE [employer]UE [facility] [address] [place], [place] [id number] Jacky Templeton Self - patient is the insured Medical (General) History Medical History History ICD Code 10/06/[address] Harden - repeat 10 yrs
[2024-10-25 12:14] LABS: VBG Base Excess -0.4 mmol/L; VBG HCO3 24 mmol/L (22-26); VBG pCO2 40 mmHg; VBG pH 7.39 (7.32-7.43); VBG pO2 35 mmHg
[2024-10-25 12:15] LABS: Venous Blood Gas Refer to POC result
[2024-10-25] MEDS: Magnesium Sulfate/H2O 2 GM/50 ML PIGGYBACK IV (12:15)
[2024-10-25 12:32] LABS: Lactic Acid 1.7 mmol/L (0.5-2.0)
[2024-10-25 12:33] LABS: Magnesium 2.2 mg/dL (1.6-2.6)
[2024-10-25 12:44] LABS: B Type Natriuretic Peptide < 10 pg/mL (<100)
[2024-10-25] MEDS: Azithromycin 500 MG in 0.9 % Sodium Chloride 250 ML 125 MG IV (12:52)
[2024-10-25 12:56] LABS: Procalcitonin 0.02 ng/mL
[2024-10-25 13:02] LABS: Influenza A PCR NEGATIVE (Negative); Influenza B PCR NEGATIVE (Negative); Resp Syncy Virus RNA Qual PCR NEGATIVE (Negative); SARS COV2 PCR INHOUSE NEGATIVE (Negative)
[2024-10-25] MEDS: Acetaminophen 325 MG TABLET 650 MG PO (13:19)
[2024-10-25] MEDS: cefTRIAXone sodium 1 GM VIAL IVPUSH (13:20)
--- NOTE | 2024-10-25 14:01 | PHA.MEDREC ---
Addendum entered by Oscar Patel [facility] 10/25/24 15:08: MED REC CHECKED BY [facility] Original Note: Pharmacy Consult ? Medication Reconciliation Pharmacy has completed the medication reconciliation. Spoke with patient to confirm.
--- NOTE | 2024-10-25 14:35 | PM.IMHP ---
History of Present Illness Date of Service: 10/25/24 Chief Complaint: Shortness of breath 54-year-old gentleman with no significant past medical history presented to [facility] for ongoing symptoms for last several months his symptoms started with sneezing around Thanksgiving he took some allergy medications with no significant improvement, around [place] he started with coughing, went to urgent Care diagnosed to have bronchitis and was given Tessalon Perles with no significant improvement in symptoms therefore had a tele visit with Dr. Dunaway who recommended prednisone and inhaler, he had 2 courses of prednisone ,symptoms restarted once he finished the course of prednisone, in last couple weeks he has lost 10 lb due to decreased appetite, complaining of chills, and today he developed multiple episode of loose stools,LOGAN, denies any sick contacts, denies history of smoking, no illicit drug use, denies exposure to chemicals, in ED workup showed a normal WBC, normal BMP, CT chest showed diffuse peribronchial thickening throughout both lungs with foci of mucoid impaction in the medial bilateral lower lobes, subsegmental foci of ground-glass attenuation with superimposed interlobular septal thickening in the right upper lobe anterior and apical segments suspicious for superimposed bronchopneumonia, biapical scarring, procalcitonin level 0.02, oxygen 89% on room air patient now being admitted to [facility] for hypoxic respiratory failure due to bronchopneumonia. Review of Systems Review of Systems: General + headache, no dizziness, + chills. CVS no chest pain, no palpitation. Respiratory shortness of breath and cough. 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 Meds Allergies Allergy/AdvReac Type Severity Reaction Status Date / Time No Known Allergies Allergy Verified 10/25/24 10:54 [No Known Allergies*] Active Medications: Current Medications Acetaminophen (Acetaminophen 325 Mg Tablet) 650 mg PO Q6H PRN PRN Reason: Pain, Mild 1-3,fever,headache Albuterol Sulfate (Albuterol Sulfate 90 Mcg 8 Gm Inhaler) 1 puff INHALE Q4-6H PRN PRN Reason: Shortness Of Breath Or Wheezing Albuterol/Ipratropium (Albuterol/Iprat 2.5/0.5mg 3 Ml Ampul.Neb) 3 ml INHALE RQ4H WHILE AWAKE CAMELIA Calcium Carbonate (Calcium Carbonate 750 Mg Tab.Chew) 750 mg PO Q4H PRN PRN Reason: Heartburn Ceftriaxone Sodium (Ceftriaxone Sodium 1 Gm Vial) 1 gm IVPUSH Q24H [place] Guaifenesin/Dextromethorphan (Guaifenesin Dm 200/20/10 Ml 10 Ml Syrup) 10 ml PO Q6H CAM[place] Azithromycin 500 mg/ Sodium (Chloride) 250 mls @ 125 mls/hr IV Q24H [place] Magnesium Hydroxide (Milk Of Magnesia 30 Ml Oral.Susp) 30 ml PO DAILY PRN PRN Reason: Constipation Melatonin (Melatonin 3 Mg Tablet) 6 mg PO BEDTIME PRN PRN Reason: Insomnia Methylprednisolone Sodium Succinate (Methylprednisolone Sod Succ 40 Mg/Ml Vial) 40 mg IVPUSH Q12H CAM[place] Ondansetron HCl (Ondansetron Hcl 4 Mg/2 Ml Vial) 4 mg IVPUSH Q8H PRN PRN Reason: Nausea and Vomiting Sodium Chloride (0.9 % Sodium Chloride Flush 3 Ml Syringe) 3 ml IVFLUSH QSHIFT [facility] Home Medications ?Medication ?Instructions ?Recorded ?Confirmed ?Last Taken ?Type albuterol sulfate 90 mcg/actuation 1 puff inhalation Q4-6H PRN 10/25/24 10/25/24 Unknown History aerosol inhaler Shortness Of Breath Or Wheezing dextromethorphan-guaifenesin 10 10 ml PO Q4-6H PRN Cough 10/25/24 10/25/24 10/24/24 History mg-100 mg/5 mL oral syrup ibuprofen 800 mg tablet 800 mg PO Q8H PRN Back Pain 10/25/24 10/25/24 Unknown History Physical Exam Vital Signs and Narrative: Vital Signs: Last Vital Signs Temp 98.8 F 10/25/24 12:55 Pulse 101 H 10/25/24 12:55 Resp 22 H 10/25/24 12:55 BP 113/62 10/25/24 12:55 Pulse Ox 94 10/25/24 12:55 O2 Del Method Nasal Cannula 10/25/24 12:55 O2 Flow Rate 2 10/25/24 12:55 BMI result Body Mass Index 22.3 Const: Other: General in no acute distress. Anicteric sclera Neck supple no JVD. CVS regular rate rhythm, Respiratory lungs coarse breath sounds, no respiratory distress, Gastrointestinal abdomen soft, non tender, bowel sounds audible Extremities no edema. Neuro non focal Skin no rash Psych appropriate affect Results Labs 10/25/24 11:02 10/25/24 11:02 Labs: Laboratory Results - last 24 hr 10/25/24 10/25/24 10/25/24 11:02 12:03 12:10 MCV 87.4 MCH 30.6 MCHC 35.0 RDW 13.2 Plt Count 241 MPV 9.5 Immature Gran % (Auto) 0.3 Neut % (Auto) 67.3 Lymph % (Auto) 16.3 L [place] % (Auto) 7.2 Eos % (Auto) 8.5 H Baso % (Auto) 0.4 Lymph # (Auto) 1.7 [place] # (Auto) 0.8 Eos # (Auto) 0.9 H Baso # (Auto) 0.0 Abs Immat Gran (auto) 0.03 Absolute Neuts (auto) 7.0 Absolute Nucleated RBC 0.000 Nucleated RBC % (auto) 0.0 PT 11.4 INR 1.0 VBG pH 7.39 VBG pCO2 40 VBG pO2 35 VBG HCO3 24 VBG O2 Saturation 56.0 VBG Base Excess -0.4 Anion Gap 14 Estim Creat Clear Calc 92.9 Estimated GFR > 60 Random Glucose 107 Lactic Acid 1.7 Calcium 9.5 Magnesium 2.2 Total Bilirubin 1.1 H AST 24 ALT 25 Alkaline Phosphatase 77 B-Natriuretic Peptide < 10 Total Protein 8.1 H Albumin 4.5 Procalcitonin 0.02 Influenza Type A (PCR) NEGATIVE Influenza Type B (PCR) NEGATIVE RSV RNA Qual (PCR) NEGATIVE SARS-CoV-2 RNA (RT-PCR) NEGATIVE Imaging Radiologist's Impressions: Impressions Chest CT 10/25/24 11:36 IMPRESSION: 1. Diffuse peribronchial thickening throughout both lungs with foci of mucoid impaction in the medial bilateral lower lobes. 2. Subsegmental foci of groundglass attenuation with superimposed interlobular septal thickening in the right upper lobe anterior and apical segments, suspicious for superimposed bronchopneumonia. 3. Biapical scarring. 4. Additional ancillary findings as discussed. Electronically signed by: Rj Wen MD 10/25/2024 12:06 PM [facility] Assessment and Plan (1) Bronchopneumonia: Status: Acute (2) Hypoxia: Status: Acute Plan 54-year-old gentleman with no significant past medical medical history developed symptoms of sneezing, coughing and dyspnea few months ago, symptoms got worsened associated with weight loss, chills and diarrhea patient took 2 courses of prednisone and inhalers but due to ongoing symptoms he presented to emergency room and noted to have hypoxic respiratory failure CT chest suggestive of bronchopneumonia. Acute hypoxic respiratory failure due to bronchopneumonia Unexplained weight loss/diarrhea Admitted to medical floor PCT 0.02 check CRP IV ceftriaxone and azithromycin started on 10/25 IV steroids/scheduled and as needed updraft treatment, cough medication Wean oxygen as tolerated, not on home O2 GI panel Pulmonary consult DVT prophylaxis Lovenox Full code In my clinical judgment patient required 2 night inpatient hospitalization due to ongoing symptoms of shortness of breath, weight loss hypoxia requiring expert consultation and treatment as outlined above that can not be provided in less acute setting. Quality Stroke Does the patient have a stroke diagnosis?: No VTE Prior VTE?: No VTE Risk Level:: Medical - moderate - high VTE Device Contraindication: Treatment Not Indicated VTE Drug Contraindication: N/A - Med Ordered
[2024-10-25 14:54] LABS: C Reactive Protein 0.67 mg/dL (< or = 0.50)
[2024-10-25] MEDS: Albuterol/Iprat 2.5/0.5MG 3 ML AMPUL.NEB INHALE ×2 (15:25→21:31)
[2024-10-25] MEDS: Butalb/Acetamin/Caff 50/325/40 TABLET 1 TAB PO (16:19)
[2024-10-25] MEDS: guaiFENesin DM 200/20/10 ML 10 ML SYRUP PO ×2 (16:20→21:36)
[2024-10-25] MEDS: Ketorolac Tromethamine 30 MG/ML VIAL IVPUSH (19:08)
[2024-10-25] MEDS: SUMAtriptan succinate 100 MG TABLET PO (20:06)
--- NOTE | 2024-10-25 21:31 | PC.NURSE ---
upon awakening, pt states headache is resolved. agrreeable to scheduled duoneb. call garcia in reach, plan of care ongoing
[2024-10-26] VITALS (12 sets, daily range): BP systolic 117–130; BP diastolic 63–78; PULSE 65–107; RESP 15–19; TEMP 36.4–37.2; O2SAT 89–96
[2024-10-26] MEDS: methylPREDNISolone Sod Succ 40 MG/ML VIAL IVPUSH ×3 (00:45→23:52)
[2024-10-26] MEDS: Benzonatate 100 MG CAPSULE 200 MG PO (00:45)
[2024-10-26] MEDS: Melatonin 3 MG TABLET 6 MG PO ×2 (00:45→21:58)
[2024-10-26] MEDS: guaiFENesin DM 200/20/10 ML 10 ML SYRUP PO ×4 (01:16→21:58)
[2024-10-26] MEDS: Albuterol/Iprat 2.5/0.5MG 3 ML AMPUL.NEB INHALE ×4 (08:51→19:42)
[2024-10-26] MEDS: 0.9 % Sodium Chloride Flush 3 ML SYRINGE IVFLUSH ×3 (09:18→22:00)
[2024-10-26] MEDS: iohexoL 350 MG/ML 75 ML INFUS..BTL 65 ML IV (11:59)
--- NOTE | 2024-10-26 12:11 | P.PNIM_ITS ---
Subjective Subjective Date of Service: 10/26/24 Interval History: Complaining of persistent shortness of breath, worse with exertion, denies fever, no chills. Headache resolved, tolerating diet no nausea, no vomiting or abdominal pain. Review of Systems All other system reviewed and are negative Physical Exam 2 Vital Signs: Vital Signs: Last Vital Signs Temp 97.6 F 10/26/24 08:00 Pulse 84 10/26/24 08:52 Resp 16 10/26/24 08:52 BP 128/69 10/26/24 08:00 Pulse Ox 90 L 10/26/24 08:00 O2 Del Method Nasal Cannula 10/26/24 08:00 O2 Flow Rate 3 10/26/24 08:00 BMI result Body Mass Index 22.3 Const: Other: General in no acute distress. Anicteric sclera Neck supple no JVD. CVS regular rate rhythm, Respiratory lungs coarse breath sounds, no respiratory distress, no wheeze, no crackles Gastrointestinal abdomen soft, non tender, bowel sounds audible Extremities no edema. Neuro non focal Skin no rash Psych appropriate affect Objective Data Active Medications Acetaminophen (Acetaminophen 325 Mg Tablet) 650 mg PO Q6H PRN PRN Reason: Pain, Mild 1-3,fever,headache Acetaminophen/Butalbital/Caffeine (Butalb/Acetamin/Caff 50/325/40 Tablet) 1 tab PO Q4H PRN PRN Reason: headache Last Admin: 10/25/24 16:19 Dose: 1 tab Documented By: JOSH Albuterol Sulfate (Albuterol Sulfate 90 Mcg 8 Gm Inhaler) 1 puff INHALE Q4H PRN PRN Reason: Shortness Of Breath Or Wheezing Albuterol/Ipratropium (Albuterol/Iprat 2.5/0.5mg 3 Ml Ampul.Neb) 3 ml INHALE RQ4H WHILE AWAKE [facility] Last Admin: 10/26/24 12:10 Dose: 3 ml Documented By: MONTANACARLinette Benzonatate (Benzonatate 100 Mg Capsule) 200 mg PO TID PRN PRN Reason: Cough Last Admin: 10/26/24 00:45 Dose: 200 mg Documented By: ASHLEYLAMReina Calcium Carbonate (Calcium Carbonate 750 Mg Tab.Chew) 750 mg PO Q4H PRN PRN Reason: Heartburn Ceftriaxone Sodium (Ceftriaxone Sodium 1 Gm Vial) 1 gm IVPUSH Q24H [facility] Guaifenesin/Dextromethorphan (Guaifenesin Dm 200/20/10 Ml 10 Ml Syrup) 10 ml PO Q6H [facility] Last Admin: 10/26/24 09:18 Dose: 10 ml Documented By: ROSA Azithromycin 500 mg/ Sodium (Chloride) 250 mls @ 125 mls/hr IV Q24H [facility] Magnesium Hydroxide (Milk Of Magnesia 30 Ml Oral.Susp) 30 ml PO DAILY PRN PRN Reason: Constipation Melatonin (Melatonin 3 Mg Tablet) 6 mg PO BEDTIME PRN PRN Reason: Insomnia Last Admin: 10/26/24 00:45 Dose: 6 mg Documented By: FELICIA Methylprednisolone Sodium Succinate (Methylprednisolone Sod Succ 40 Mg/Ml Vial) 40 mg IVPUSH Q12H [facility] Last Admin: 10/26/24 00:45 Dose: 40 mg Documented By: FELICIA Ondansetron HCl (Ondansetron Hcl 4 Mg/2 Ml Vial) 4 mg IVPUSH Q8H PRN PRN Reason: Nausea and Vomiting Sodium Chloride (0.9 % Sodium Chloride Flush 3 Ml Syringe) 3 ml IVFLUSH QSHIFT [facility] Last Admin: 10/26/24 09:18 Dose: 3 ml Documented By: ROSA Labs 10/25/24 11:02 10/25/24 11:02 Labs: Laboratory Results - last 24 hr 10/25/24 10/25/24 10/25/24 11:02 12:03 12:10 VBG pH 7.39 VBG pCO2 40 VBG pO2 35 VBG HCO3 24 VBG O2 Saturation 56.0 VBG Base Excess -0.4 Lactic Acid 1.7 Magnesium 2.2 C-Reactive Protein 0.67 H B-Natriuretic Peptide < 10 Procalcitonin 0.02 Influenza Type A (PCR) NEGATIVE Influenza Type B (PCR) NEGATIVE RSV RNA Qual (PCR) NEGATIVE SARS-CoV-2 RNA (RT-PCR) NEGATIVE Assessment and Plan (1) Hypoxia: Status: Acute (2) Bronchopneumonia: Status: Acute Plan 54-year-old gentleman with no significant past medical medical history developed symptoms of sneezing, coughing and dyspnea few months ago, symptoms got worsened associated with weight loss, chills and diarrhea patient took 2 courses of prednisone and inhalers but due to ongoing symptoms he presented to emergency room and noted to have hypoxic respiratory failure CT chest suggestive of bronchopneumonia. Acute hypoxic respiratory failure due to bronchopneumonia Unexplained weight loss 10 pounds in last few weeks /diarrhea /shortness of breath or greater than 3 months, unexplained on basis of CT findings PCT 0.02 , CRP 0.67 Continue IV ceftriaxone and azithromycin started on 10/25 Continue IV steroids/scheduled and as needed updraft treatment, cough medication Obtain CTA chest rule out PE Case discussed with pulmonology they recommend echocardiogram and check C and p- ANCA Wean oxygen as tolerated, not on home O2 GI panel pending Headache likely musculoskeletal resolved. DVT prophylaxis Lovenox Full code In my clinical judgment patient required continued inpatient hospitalization due to ongoing symptoms of shortness of breath, weight loss, hypoxia, requiring expert consultation and treatment as outlined above that can not be provided in less acute setting. Quality Stroke Does the patient have a stroke diagnosis?: No VTE Prior VTE?: No VTE Risk Level:: Medical - moderate - high VTE Device Contraindication: Treatment Not Indicated VTE Drug Contraindication: N/A - Med Ordered
[2024-10-26] MEDS: Azithromycin 500 MG in 0.9 % Sodium Chloride 250 ML 125 MG IV (12:12)
[2024-10-26] MEDS: cefTRIAXone sodium 1 GM VIAL IVPUSH (12:12)
--- NOTE | 2024-10-26 13:00 | CA_ITS ---
Transthoracic Echocardiogram Patient (Last, First, Middle): Jacky Templeton M Gender: Male Date of : 1970 Age: 54 Procedure Date: 10/26/2024 Procedure Type: Transthoracic Echocardiogram Location: S3E Height: 180.34 cm Weight: 72.12 kg BSA: 1.91 m2 Heart Rate: bpm BP: 122 / 71 mmHg Corporate Human Resources Manager: SHERICE Referring MD: Geetha Baxter MD Symptoms: hypoxia Study Quality: Fair, contrast ECG Rhythm: Sinus Conclusions: - The left ventricular systolic function is low normal. The calculated ejection fraction is 53% by biplane method. - No obvious valvular pathology seen on this study. Findings Procedure Information Contrast agent, definity, is being given per protocol without apparent complications. Left Ventricle Normal left ventricular cavity size. There is normal left ventricular wall thickness. The left ventricular systolic function is low normal. The calculated ejection fraction is 53% by biplane method. There is no evidence of regional wall motion abnormalities. Diastolic function is normal for age. Right Ventricle Normal right ventricular cavity size and systolic function. Atria Both atria are normal in size. Aortic Valve The aortic valve was not well visualized. There is no aortic valve stenosis. There is no aortic valve regurgitation. Mitral Valve The mitral valve appears normal. There is no mitral valve regurgitation. There is no mitral valve stenosis. Pulmonic Valve The pulmonic valve is likely normal. Tricuspid Valve There is trace tricuspid valve regurgitation. There is no evidence of pulmonary hypertension. Great Vessels The asc aorta is normal in size. Venous The inferior vena cava is normal in size and collapses greater than 50% with inspiration. Pericardium/Pleural There is no evidence of pericardial effusion. Prior Study Comparison No prior study available for comparison. Recommendations, Care & Conclusions No obvious valvular pathology seen on this study. Measurements 2D Linear Measurements IVSd: 0.85 0.6-0.9/0.6-1.0 cm LVIDd: 4.83 3.9-5.3/4.2-5.9 cm LVIDd Index: 2.53 2.4-3.2/2.2-3.1 cm/m2 LVIDs: 3.60 2.0-3.6 cm LVPWd: 0.87 0.7-1.1 cm LA Diam: 3.20 2.7-3.8/3.0-4.0 cm LAIDs Index: 1.68 1.5-2.3 cm/m2 LV Mass: 175.33 67-162/88-224 g LV Mass Index: 91.80 43-95/49-115 g/m2 LVOT Diam: 2.10 3.0+(-)1.3 cm 2D Systolic Function EF 4C: 54.30 >55% EF 2C: 51.20 >55% EF BiP: 53.40 >55% Mitral Valve MV Pk E: 0.41 MV PK A: 0.65 MV Decel Time: 171.00 E/A: 0.60 E'Lateral: 15.20 E'Medial: 8.92 E/E' Med: 4.60 E/E' Lat: 2.70 PHT: 50.00 MVA PHT: 4.40 Decel [place]: 2.38 Aortic Valve AoV Pk Marvin: 1.16 AoV Mn Marvin: 0.87 AoV VTI: 0.22 AoV Pk Grad: 5.00 Aov Mn Grad: 3.00 RICARDO Cont.VTI: 2.73 LVOT LVOT Pk Marvin: 1.00 LVOT Mn Marvin: 0.76 LVOT VTI: 0.17 LVOT Pk Grad: 4.00 LVOT Mn Grad: 3.00 LVOT Diam: 2.10 LVOT Area: 3.46 Diastolic Function MV Pk E: 0.41 MV Pk A: 0.65 E/A: 0.60 E'Medial: 8.92 E/E' Med: 4.60 E' Laterial: 15.20 E/E' Lat: 2.70 Right Ventricle TAPSE (mm): 21.20 TVS' Marvin: 12.90 Tricuspid Valve RA Press: 3.00 Great Vessels Aorta Sinus of Valsalva: 3.74 2.0-3.[address] [place]: 3.05 1.7-3.4 cm Ao Asc: 3.40 2.1-3.4 cm Updated in Other Vendor System with Status of Final Rodger Hinojosa MD electronically signed on 10/26/2024 4:15:27 PM with status of Final
--- NOTE | 2024-10-26 13:41 | P.CONPL_ITS ---
History of Present Illness History of Present Illness Consult date: 10/26/24 Chief complaint: Hypoxia/bronchopneumonia Narrative: 54-year-old gentleman, minimal smoker during his high school/college years with no significant past medical history hospitalized on 10/25/2024 for recurrent and progressive dyspnea and hypoxia since . Also, with diarrhea and unintended weight loss of approximately 10 lb over last month[address] angio chest with no evidence of pulmonary emboli, but several small patchy infiltrate and some septal thickening not explanatory of underlying symptoms. Patient started on empiric antibiotics/systemic glucocorticoids and admitted to the telemetry rock. Review of Systems 2 Constitutional: Constitutional: Denies daytime sleepiness, Denies excessive sweating, Denies fatigue, Denies fever(s), Denies lethargy, Denies malaise, Denies night sweats, Denies snoring and Reports weight loss Eyes: Eyes: Denies blurry vision and Denies itchy eyes ENT: Denies nasal congestion, Denies post nasal drip, Denies sinus pain, Denies sinus pressure and Denies other ( Thrush) Cardiovascular: Cardiovascular: Denies chest pain, Denies pedal edema, Reports dyspnea, Denies orthopnea and Denies paroxysmal nocturnal dyspnea Respiratory: Respiratory: Reports cough, Denies hemoptysis, Denies excessive phlegm production, Reports dyspnea, Denies snoring and Denies wheezing Gastrointestinal: Gastrointestinal: Denies abdominal pain, Denies heartburn and Reports diarrhea Musculoskeletal: Musculoskeletal: Denies myalgias, Denies arthralgias and Denies joint swelling Integumentary/Breasts: Skin/Breast: Denies rash Neurologic: Denies memory loss and Denies seizure-like activity Psychiatric: Psychiatric: Denies abnormal sleep pattern, Denies anxiety and Denies memory loss Endocrine: Endocrine: Denies excessive sweating, Denies fatigue and Denies heat intolerance Hematologic/Lymphatic: Hematologic/Lymphatic: Denies easy bruising Allergic/Immunologic: Allergic/Immunologic: Denies itchy eyes, Denies seasonal rhinorrhea and Denies wheezing PMFSH Past Medical History Medical History No known health problems Social History Social History Household Members: Spouse and Family Housing: House Do you presently have visiting nurse or other home services: No Alcohol intake: current Alcohol intake frequency: 3 or more drinks per day Alcohol type: beer Patient Tobacco Use Status: Never used Tobacco Second Hand Smoke Exposure: No Substance Use Type: Marijuana and Caffiene Current occupational status: employed 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, 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 Meds Allergies Allergy/AdvReac Type Severity Reaction Status Date / Time No Known Allergies Allergy Verified 10/25/24 10:54 [No Known Allergies*] Active Medications: Current Medications Acetaminophen (Acetaminophen 325 Mg Tablet) 650 mg PO Q6H PRN PRN Reason: Pain, Mild 1-3,fever,headache Acetaminophen/Butalbital/Caffeine (Butalb/Acetamin/Caff 50/325/40 Tablet) 1 tab PO Q4H PRN PRN Reason: headache Last Admin: 10/25/24 16:19 Dose: 1 tab Albuterol Sulfate (Albuterol Sulfate 90 Mcg 8 Gm Inhaler) 1 puff INHALE Q4H PRN PRN Reason: Shortness Of Breath Or Wheezing Albuterol/Ipratropium (Albuterol/Iprat 2.5/0.5mg 3 Ml Ampul.Neb) 3 ml INHALE RQ4H WHILE AWAKE [facility] Last Admin: 10/26/24 12:10 Dose: 3 ml Benzonatate (Benzonatate 100 Mg Capsule) 200 mg PO TID PRN PRN Reason: Cough Last Admin: 10/26/24 00:45 Dose: 200 mg Calcium Carbonate (Calcium Carbonate 750 Mg Tab.Chew) 750 mg PO Q4H PRN PRN Reason: Heartburn Ceftriaxone Sodium (Ceftriaxone Sodium 1 Gm Vial) 1 gm IVPUSH Q24H [facility] Last Admin: 10/26/24 12:12 Dose: 1 gm Guaifenesin/Dextromethorphan (Guaifenesin Dm 200/20/10 Ml 10 Ml Syrup) 10 ml PO Q6H [facility] Last Admin: 10/26/24 09:18 Dose: 10 ml Azithromycin 500 mg/ Sodium (Chloride) 250 mls @ 125 mls/hr IV Q24H [facility] Last Admin: 10/26/24 12:12 Dose: 125 mls/hr Magnesium Hydroxide (Milk Of Magnesia 30 Ml Oral.Susp) 30 ml PO DAILY PRN PRN Reason: Constipation Melatonin (Melatonin 3 Mg Tablet) 6 mg PO BEDTIME PRN PRN Reason: Insomnia Last Admin: 10/26/24 00:45 Dose: 6 mg Methylprednisolone Sodium Succinate (Methylprednisolone Sod Succ 40 Mg/Ml Vial) 40 mg IVPUSH Q12H [facility] Last Admin: 10/26/24 12:12 Dose: 40 mg Ondansetron HCl (Ondansetron Hcl 4 Mg/2 Ml Vial) 4 mg IVPUSH Q8H PRN PRN Reason: Nausea and Vomiting Sodium Chloride (0.9 % Sodium Chloride Flush 3 Ml Syringe) 3 ml IVFLUSH QSHIFT [facility] Last Admin: 10/26/24 09:18 Dose: 3 ml Home Medications ?Medication ?Instructions ?Recorded ?Confirmed ?Last Taken ?Type albuterol sulfate 90 mcg/actuation 1 puff inhalation Q4-6H PRN 10/25/24 10/25/24 Unknown History aerosol inhaler Shortness Of Breath Or Wheezing dextromethorphan-guaifenesin 10 10 ml PO Q4-6H PRN Cough 10/25/24 10/25/24 10/24/24 History mg-100 mg/5 mL oral syrup ibuprofen 800 mg tablet 800 mg PO Q8H PRN Back Pain 10/25/24 10/25/24 Unknown History Physical Exam 2 Vital Signs: Vital Signs: Last Vital Signs Temp 98.9 F 10/26/24 12:00 Pulse 87 10/26/24 12:10 Resp 17 10/26/24 12:10 BP 122/71 10/26/24 12:00 Pulse Ox 90 L 10/26/24 12:00 O2 Del Method Nasal Cannula 10/26/24 08:00 O2 Flow Rate 2.5 10/26/24 12:00 BMI result Body Mass Index 22.3 Const: General: no acute distress and alert Nutritional Appearance: not obese Orientation/consciousness: Other orientation findings ( oriented) HEENT: Head: Yes atraumatic Eyes: General: appearance normal, both eyes and all related structures S clerae: sclerae normal EOM: EOMs intact bilaterally Neck: Neck: Yes supple Lymphatic: no lymphadenopathy noted Resp: Effort & Inspection: normal respiratory effort and no use of accessory muscles Auscultation: clear to auscultation bilaterally Cardio: Rate: regular rate Rhythm: regular rhythm Heart sounds: no gallops, no murmurs and no rubs Skin: General skin exam: other ( warm) Extrem: General: No clubbing, No cyanosis and No edema Results Laboratory Findings 10/25/24 11:02 10/25/24 11:02 ABG, PT/INR, D-dimer: PT/INR, D-dimer PT 11.4 SEC (10.9-12.4) 10/25/24 11:02 INR 1.0 (0.9-1.1) 10/25/24 11:02 Abnormal lab findings: Abnormal Labs 10/25/24 10/25/24 11:02 12:03 Lymph % (Auto) 16.3 L Eos % (Auto) 8.5 H Eos # (Auto) 0.9 H Total Bilirubin 1.1 H C-Reactive Protein 0.67 H Total Protein 8.1 H Assessment and Plan (1) Hypoxia: Status: Acute (2) Abnormal CT scan, chest: Status: Acute Plan Impression: 54-year-old gentleman hospitalized with slowly progressive/recurrent episodes of dyspnea and hypoxia with unclear etiology. Does not appear to have an overt infection. May have underlying inflammatory process. Recommendations: Agree with empiric antibiotics and systemic glucocorticoids. Will await complete workup with 2D echocardiogram, inflammatory markers, vasculitis panel, mycoplasma serology. Procedures Date of Service Date of Service: 10/26/24
--- NOTE | 2024-10-26 15:04 | MHC.CM.PN ---
CM ATTEMPTED TO MEET WITH PT, BEDSIDE IMAGING IN PROGRESS CM MET WITH PTS WHO CONFIRMS PT LIVES AT HOME AND IS INDEPENDENT WITH CARE HE HAS NO DME OR SERVICES PT DOES NOT HAVE A HCP PCP: JOCELIN ALBA DCP: HOME NO SERVICES TO TRANSPORT
[2024-10-26 15:36] LABS: Adenovirus F 40/41 Not Detected (Not Detect.); Astrovirus Not Detected (Not Detect.); Campylobacter Not Detected (Not Detect.); Cryptosporidium Not Detected (Not Detect.); Cyclospora cayetanensis Not Detected (Not Detect.); E. coli EAEC Not Detected (Not Detect.); E. coli EPEC Not Detected (Not Detect.); E. coli ETEC Not Detected (Not Detect.); E. coli STEC Not Detected (Not Detect.); Entamoeba histolytica Not Detected (Not Detect.); Giardia lamblia Not Detected (Not Detect.); Norovirus GI/GII Not Detected (Not Detect.); Plesiomonas shigelloides Not Detected (Not Detect.); Rotavirus A Not Detected (Not Detect.); Salmonella Not Detected (Not Detect.); Sapovirus Not Detected (Not Detect.); Shigella sp./EIEC Not Detected (Not Detect.); Vibrio Not Detected (Not Detect.); Vibrio Cholerae Not Detected (Not Detect.); Yersinia enterocolitica Not Detected (Not Detect.)
[2024-10-26 16:17] LABS: Erythrocyte Sedimentation Rate 9 MM/HR (0-15)
[2024-10-26] MEDS: SUMAtriptan succinate 50 MG TABLET PO (17:36)
[2024-10-27] MEDS: guaiFENesin DM 200/20/10 ML 10 ML SYRUP PO ×2 (03:26→09:01)
[2024-10-27 03:27] VITALS: BP 120/69; PULSE 97; RESP 18; TEMP 36.2; O2SAT 92
[2024-10-27 07:31] VITALS: BP 122/74; PULSE 94; RESP 18; TEMP 36.6; O2SAT 92
[2024-10-27] MEDS: Albuterol/Iprat 2.5/0.5MG 3 ML AMPUL.NEB INHALE ×2 (08:21→12:02)
[2024-10-27 08:22] VITALS: PULSE 94; RESP 18; O2SAT 90
[2024-10-27] MEDS: 0.9 % Sodium Chloride Flush 3 ML SYRINGE IVFLUSH (09:01)
[2024-10-27 12:00] VITALS: BP 126/64; PULSE 91; RESP 18; TEMP 37.2; O2SAT 93
[2024-10-27 12:04] VITALS: PULSE 98; RESP 20; O2SAT 91
[2024-10-27 12:07] VITALS: PULSE 101; PULSE 97; PULSE 98; O2SAT 85; O2SAT 86; O2SAT 91; O2SAT 93
[2024-10-27] MEDS: methylPREDNISolone Sod Succ 40 MG/ML VIAL IVPUSH (12:58)
[2024-10-27] MEDS: Azithromycin 500 MG TABLET PO (12:58)
[2024-10-27] MEDS: cefuroxime axetiL 500 MG TABLET PO (12:58)
--- NOTE | 2024-10-27 13:02 | MHC.CM.PN ---
CM MET WITH PT AND FAMILY PT REPORTS HE FEELS COMFORTABLE WITH THE O2 EQUIPMENT AND STATES HIS FAMILY MEMBER IS A NURSE AND WILL BE PRESENT IF HE NEEDS ASSISTANCE FAMILY WILL TRANSPORT
--- NOTE | 2024-10-27 13:23 | P.DS_ITS ---
DS: Providers Provider Date of Service: 10/27/24 Date of admission: 10/25/24 14:45 Date of discharge: 10/27/24 Primary care physician: Gal Dunaway MD Consults: 10/26/24 07:24 Consult to Pulmonology Routine Consulting Provider: [facility] Pulmonology Services Reason for consultation: hypoxia/wt loss Has provider been notified: No DS: Diagnosis Discharge Diagnosis (1) Hypoxia: Status: Acute (2) Abnormal CT scan, chest: Status: Acute DS: Summary Hospital Course Hospital Course: History of presenting illness: Date of Service: 10/25/24 Chief Complaint: Shortness of breath 54-year-old gentleman with no significant past medical history presented to [facility] for ongoing symptoms for last several months his symptoms star oxana with sneezing around Thanksgiving he took some allergy medications with no significant improvement, around [place] he started with coughing, went to urgent Care diagnosed to have bronchitis and was given Tessalon Perles with no significant improvement in symptoms therefore had a tele visit with Dr. Dunaway who recommended prednisone and inhaler, he had 2 courses of prednisone ,symptoms restarted once he finished the course of prednisone, in last couple weeks he has lost 10 lb due to decreased appetite, complaining of chills, and today he developed multiple episode of loose stools,LOGAN, denies any sick contacts, denies history of smoking, no illicit drug use, denies exposure to chemicals, in ED workup showed a normal WBC, normal BMP, CT chest showed diffuse peribronchial thickening throughout both lungs with foci of mucoid impaction in the medial bilateral lower lobes, subsegmental foci of ground-glass attenuation with superimposed interlobular septal thickening in the right upper lobe anterior and apical segments suspicious for superimposed bronchopneumonia, biapical scarring, procalcitonin level 0.02, oxygen 89% on room air patient now being admitted to [facility] for hypoxic respiratory failure due to bronchopneumonia. Hospital course: 54-year-old gentleman with no significant past medical medical history developed symptoms of sneezing, coughing and dyspnea few months ago, symptoms got worsened associated with weight loss, chills and diarrhea patient took 2 courses of prednisone and inhalers but due to ongoing symptoms he presented to emergency room and noted to have hypoxic respiratory failure, CT chest suggestive of bronchopneumonia admitted to medical floor. Acute hypoxic respiratory failure due to bronchopneumonia with Unexplained weight loss 10 pounds in last few weeks /diarrhea /shortness of breath of greater than 3 months, unexplained on basis of CT findings PCT 0.02 , CRP 0.67, treated with IV steroids, cough medications, IV ceftriaxone and azithromycin, WBC and BNP negative, CTA chest showed no PE, but showed improvement in bronchopneumonia, seen by product development chemist they recommended echocardiogram that showed no valvular abnormality, no wall motion abnormality, EF 53% ,normal right ventricular systolic function , mycoplasma IgG/IgM pending, Anca vasculitis pending, Armando pending Since patient is clinically better home O2 eval was obtained patient qualifies for 2 L continuous and 3 L of oxygen with activity, patient is being discharged home with recommendation to follow-up with pulmonology in next 1-2 weeks to obtain reports of pending labs, and to have close outpatient follow-up with PCP, he is being discharged on by mouth antibiotics, tapering dose of steroids and cough medication. In regard to diarrhea GI panel was obtained that is unremarkable Headache likely musculoskeletal resolved, recommend follow-up with PCP. Time Attestation Discharge Coordination Time (in mins): 40 Quality: Safe Use of Opioids Does Pt have an Active Cancer Diagnosis on the Problem List?: No Quality: Stroke Does the patient have a stroke diagnosis?: No Physical Exam Vital Signs: Vital Signs: Last Vital Signs Temp 98.9 F 10/27/24 12:00 Pulse 98 10/27/24 12:04 Resp 20 10/27/24 12:04 BP 126/64 10/27/24 12:00 Pulse Ox 93 10/27/24 12:00 O2 Del Method Nasal Cannula 10/27/24 12:00 O2 Flow Rate 2 10/27/24 12:00 BMI result Body Mass Index 22.3 Const: Other: General in no acute distress. Anicteric sclera Neck supple no JVD. CVS regular rate rhythm, Respiratory lungs coarse breath sounds, no respiratory distress, no wheeze, no crackles Gastrointestinal abdomen soft, non tender, bowel sounds audible Extremities no edema. Neuro non focal Skin no rash Psych appropriate affect DS: Data Data Completed and Pending Labs on day of discharge: Laboratory Results - last 24 hr 10/26/24 10/26/24 11:04 15:22 ESR 9 Stl C. cayetanensis PCR Not Detected Stool Rotavirus A PCR Not Detected Stl Adenov F 40/41 PCR Not Detected Stool Astrovirus (PCR) Not Detected Stool Campylobacter PCR Not Detected Stool Cryptosporidium PCR Not Detected Stl Sh Tox Pr E STEC PCR Not Detected Stool E coli O157 PCR Not applicable Stl Enterotoxigenic E PCR Not Detected Stool EPEC (PCR) Not Detected Stool EAEC (PCR) Not Detected Stl E. histolytica PCR Not Detected Stool Giardia Lamblia PCR Not Detected Stl P. shigelloides PCR Not Detected Stool Salmonella PCR Not Detected Stool Sapovirus (PCR) Not Detected Stl Shigella/EIEC PCR Not Detected St Y.enterocolitica PCR Not Detected Stool Vibrio (PCR) Not Detected Stl Vibrio cholerae PCR Not Detected Stl Norovirus GI/GII PCR Not Detected Preliminary micro results at discharge 10/25/24 12:20 Blood Culture - Preliminary Blood - Venous No growth after 24 hours. 10/25/24 12:03 Blood Culture - Preliminary Blood - Venous No growth after 24 hours. Discharge Plan Discharge Anticipated Discharge Date/Time: 10/27/24 12:41 Patient Disposition: Home, Self-Care Discharge Diagnosis: Acute hypoxic respiratory failure Bronchopneumonia Referrals: Gal Dunaway MD [Primary Care Provider] - 1 Week Discharge Medications: New prednisone 10 mg tablet 10 mg PO DIRECTED Qty: 30 0RF Rx Instructions: see taper instructions; 40 mg Daily x3 days, 30 mg daily x3 days, 20 mg daily x3 days, 10 mg daily x3 days cefuroxime axetil 500 mg Tablet 500 mg PO BID Qty: 6 0RF azithromycin 500 mg Tablet 500 mg PO Q24H Qty: 3 0RF melatonin 5 mg tablet 5 mg PO BEDTIME PRN (Reason: sleep) Qty: 90 0RF dextromethorphan-guaifenesin 10-100 mg/5 mL Syrup 10 ml PO Q6H PRN (Reason: cough) Qty: 237 0RF Continued ibuprofen 800 mg tablet 800 mg PO Q8H PRN (Reason: Back Pain) albuterol sulfate 90 mcg/actuation HFA aerosol inhaler 1 puff INHALATION Q4-6H PRN (Reason: Shortness Of Breath Or Wheezing) Discontinued dextromethorphan-guaifenesin [Robitussin-DM] 10-100 mg/5 mL Syrup 10 ml PO Q4-6H PRN (Reason: Cough) Discharge Orders: Discharge Order (Routine); Ordered 10/27/24 Ordered By: Geetha Baxter Diet: Advance to usual diet Activity on Discharge: As tolerated Stand Alone Forms: Patient Portal Discharge page Print Language: Mauritian Care Plan Goals: Acute hypoxic respiratory failure use 2 L of continuous oxygen and 3 L with activity Finished course of antibiotic as prescribed Cough medication as needed Health Concerns: Headache outpatient follow-up with PCP Plan of Treatment: Outpatient follow-up with product development chemist Dr. Adam call for appointment 1-2 weeks Outpatient follow-up with primary care physician Assessment: As above
[2024-10-27 21:13] LABS: Myeloperoxidase Antibody <1.0 AI; Proteinase 3 PR3 Antibodies <1.0 AI
[2024-10-30 02:34] LABS: Angiotensin Converting Enzyme 9 U/L (9-67)
[2024-10-31 21:48] LABS: Mycoplasma Pneumoniae - IgG 1.79 (<=0.90); Mycoplasma Pneumoniae - IgM 166 U/mL (<770)
== END 2024-10-27 13:53 | disposition home or self-care (01) | DRG 139 ==
LOC: HO.ED 13:33 → HO.EDOVER 14:46 → HO.S3 10-26 07:11
PROVIDERS: Internal Medicine Pulmonary Disease; Admitting Provider Hospitalist; Emergency Provider Emergency Medicine; PCP Internal Medicine; Visit Provider Hospitalist
DX: J18.0 Bronchopneumonia, unspecified organism (principal); J96.01 Acute respiratory failure with hypoxia; R91.8 Other nonspecific abnormal finding of lung field; Z20.822 Contact with and (suspected) exposure to COVID-19; Z79.899 Other long term (current) drug therapy
CPT/HCPCS: 0241U; 36415; 71046; 71250; 71275; 80053; 82164; 82803; 83605; 83735; 83880; 84145; 84484; 85025; 85610; 85652; 86021; 86140; 86738; 87040; 87507; 93005; 93306; 94640; 99285; J0456; J0696; J1885; J2919; J3475; J7120; Q9957; Q9967

== ENCOUNTER → 2024-10-25 11:30 | Outpatient (BNV) | payer MEDICARE, SELFPAY | PROVIDERS: Admitting Provider Hospitalist; Emergency Provider Emergency Medicine; PCP Internal Medicine; Visit Provider Internal Medicine | DX: R00.0 Tachycardia, unspecified (principal) | CPT/HCPCS: 93010 ==

== ENCOUNTER → 2024-10-25 11:30 | Outpatient (BNV) | payer MEDICARE, SELFPAY | PROVIDERS: Emergency Provider Emergency Medicine; PCP Internal Medicine; Visit Provider Radiology Diagnostic Radiology | DX: J84.89 Other specified interstitial pulmonary diseases (principal) | CPT/HCPCS: 71250 ==

== ENCOUNTER 2024-10-25 14:45 | Outpatient (BNV) | payer BC, SELFPAY | END 2024-10-26 13:00 | PROVIDERS: Admitting Provider Hospitalist; Emergency Provider Emergency Medicine; PCP Internal Medicine; Visit Provider Internal Medicine | DX: R09.02 Hypoxemia (principal) | CPT/HCPCS: 93306 ==

== ENCOUNTER 2024-10-25 14:45 | Outpatient (BNV) | payer BC, SELFPAY | END 2024-10-26 11:35 | PROVIDERS: Admitting Provider Hospitalist; Emergency Provider Emergency Medicine; PCP Internal Medicine; Visit Provider Radiology Diagnostic Radiology | DX: J98.09 Other diseases of bronchus, not elsewhere classified (principal) | CPT/HCPCS: 71275 ==

== ENCOUNTER → 2024-10-25 14:45 | Outpatient (BNV) | payer BC, SELFPAY | PROVIDERS: Admitting Provider Hospitalist; Emergency Provider Emergency Medicine; PCP Internal Medicine; Visit Provider Internal Medicine Pulmonary Disease | DX: R09.02 Hypoxemia (principal); R93.89 Abnormal findings on diagnostic imaging of other specified body structures | CPT/HCPCS: 99222 ==

== ENCOUNTER → 2024-10-25 14:45 | Outpatient (BNV) | payer MEDICARE, SELFPAY | PROVIDERS: Admitting Provider Hospitalist; Emergency Provider Emergency Medicine; PCP Internal Medicine; Visit Provider Hospitalist | DX: R09.02 Hypoxemia (principal); J18.0 Bronchopneumonia, unspecified organism | CPT/HCPCS: 99233; 99239 ==

== ENCOUNTER 2024-11-08 13:24 | Outpatient (AMB) | payer BC, SELFPAY ==
[2024-11-08 13:57] VITALS: BP 111/77; PULSE 85; O2SAT 98; BMI 24.3
--- NOTE | 2024-11-08 13:57 | MHC.OFFVIS ---
Vital Signs 11/08/24 13:57 Height 5 ft 11 in Weight 174 lb BMI 24.3 BP 111/77 Blood Pressure Location Rt brachial Position Sitting Pulse 85 Pulse Source Doppler Pulse Oximetry (%) 98 Oxygen Delivery Method Nasal Cannula Oxygen Flow Rate 2 Intake Visit Reasons: S/p hospital admit Allergies No Known Allergies [No Known Allergies*] Allergy (Verified 11/08/24 13:59) HPI [facility] S/p hospital admit: Details: 54-year-old gentleman, minimal smoker during his high school/college years with no significant past medical history recently hospitalized at [facility] for recurrent and progressive dyspnea and hypoxia since .CT angio chest with no evidence of pulmonary emboli, but several small patchy infiltrate and some septal thickening not explanatory of underlying symptoms. 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 He was discharged on prednisone taper and supplemental oxygen. Patient states that after discharge he has completed his prednisone course and his dyspnea symptoms have resolved and not recurred. 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 Review of Systems Const Denies daytime sleepiness, Denies excessive sweating, Denies fatigue, Denies fever(s), Denies lethargy, Denies malaise, Denies night sweats, Denies snoring and Denies weight loss Eyes Denies blurry vision and Denies itchy eyes ENT Denies nasal congestion, Denies post nasal drip, Denies sinus pain, Denies sinus pressure and Denies other ( Thrush) Card Denies chest pain, Denies pedal edema, Denies dyspnea, Denies orthopnea and Denies paroxysmal nocturnal dyspnea Resp Denies cough, Denies hemoptysis, Denies excessive phlegm production, Denies dyspnea, Denies snoring and Denies wheezing GI Denies abdominal pain and Denies heartburn Musc Denies myalgias, Denies arthralgias and Denies joint swelling Skin/Breast Denies rash Neuro Denies memory loss and Denies seizure-like activity Psych Denies abnormal sleep pattern, Denies anxiety and Denies memory loss Endo Denies excessive sweating, Denies fatigue and Denies heat intolerance Moses/Lymph Denies easy bruising Aller/Immun Denies itchy eyes, Denies seasonal rhinorrhea and Denies wheezing Physical Exam Vital Signs: Last Vital Signs Pulse 85 11/08/24 13:57 BP 111/77 11/08/24 13:57 Pulse Ox 98 11/08/24 13:57 Oxygen Delivery Method Nasal Cannula 11/08/24 13:57 Oxygen Flow Rate 2 11/08/24 13:57 BMI result Body Mass Index 24.3 Const General: no acute distress and alert Nutritional Appearance: not obese Orientation/consciousness: Other orientation findings ( oriented) HEENT Head: Yes atraumatic Eyes General: appearance normal, both eyes and all related structures Sclerae: sclerae normal EOM: EOMs intact bilaterally Neck Neck: Yes supple Lymphatic: no lymphadenopathy noted Resp Effort & Inspection: normal respiratory effort and no use of accessory muscles Auscultation: clear to auscultation bilaterally Cardio Rate: regular rate Rhythm: regular rhythm Heart sounds: no gallops, no murmurs and no rubs Skin General skin exam: other ( warm) Extrem General: No clubbing, No cyanosis and No edema Assessment & Plan Assessment & Plan (1) Mycoplasma pneumonia: Code(s): J15.7 - Pneumonia due to Mycoplasma pneumoniae Category: Medical Plan: Unlikely underlying mycoplasma pneumonia with an inflammatory component, now resolved after prednisone course. Will repeat CT chest in 1 months. (2) Hypoxia: Code(s): R09.02 - Hypoxemia Category: Medical Plan: Supplemental oxygen/6 minute walk test performed, at this time patient does not require supplemental oxygen to maintain normal oximetry with exertion. Will retest in 1 months, and if normal at that time, will cancel supplemental oxygen. Orders: Orders CT chest wo IV con 12/05/24 R93.89 - Abnormal findings on diagnostic imaging of other specified body structures Coding Level of Care Code Est Pt Level 4 (92224) Diagnoses Mycoplasma pneumonia J15.7 Hypoxia R09.02
[2024-11-08 14:38] VITALS: PULSE 88; O2SAT 97
--- OUTSIDE RECORDS SUMMARY | 2024-11-08 16:00 | XMS_ITS ---
Author Organization Gal Dunaway MD Address [address] [place] [phone] Care Team Providers Care General Laborer Name Role Phone Gal Dunaway Primary Care Provider [phone] REASON FOR VISIT 4 DAY F/U Encounters Encounter Location Date Provider Diagnosis Gal Dunaway MD [address] [facility] [address] [place] [phone] 10/27/2024 Gal Dunaway Plan Of Treatment Next Appt Details Provider Name:Gal pollard, 11/17/2024 10:30:00 AM, [address] [place] [address], [address], [phone], Provider Name:Gal Bradley iecassidy, 07/06/2025 07:00:00 AM, [address] [place] [address], [address], [phone], Provider Name:Gal pollard, 07/13/2025 08:30:00 AM, [address] [place] [address], [address], [phone], Progress Notes * Jacky PADILLA MDOB: [birth year] (54 yo M)Acc No.[id number]:10/27/2024 Progress Notes Patient:?Jacky PADILLA Provider:?Gal Dunaway MD :1970???Age:54 Y???Sex:Male Earl e:10/27/2024 Address:[address] [place], [place] [phone] Subjective: * Chief Complaints: * ???1. 4 DAY F/U. * Medical History:? Objective: * Vitals:? Assessment: Plan: * Treatment: * * The named appointment provid er may or may not be the originator of this progress note, and it is not deemed complete until electronically signed by the appointment provider. Sign off status: Pending * Provider:?Gal Dunaway MD Date:?0 10/27/2024 Generated for Ana cleary/Enedian/Selinaitting on:?11/08/2024 04:00 PM EST
--- OUTSIDE RECORDS SUMMARY | 2024-11-08 16:00 | XMS_ITS ---
Author Organization Gal Dunaway MD Address [address] [facility] [address] [place] [phone] Care Team Providers Care Fish Tender Name Role Phone Gal Dunaway Primary Care Provider [phone] REASON FOR VISIT Discharge Encounters Encounter Location Date Provider Diagnosis Gal Dunaway MD [address] [facility] [address] [place] [phone] 10/30/2024 Gal Dunaway Plan Of Treatment Next Appt Details Provider Name:Gal pollard, 11/17/2024 10:30:00 AM, [address] [place] [address], [address], [phone], Provider Name:Gal Bradley ier, 07/06/2025 07:00:00 AM, [address] [place] [address], [address], [phone], Provider Name:Gal pollard, 07/13/2025 08:30:00 AM, [address] [place] [address], [address], [phone], Progress Notes * Jacky PADILLA MDOB: [birth year] (54 yo M)Acc No.[id number]:10/30/2024 Patient:?Jacky PADILLA :1970???Age:54 Y???Sex:Male Address:[address] [place] [address] [place] [address] * true * Date:? Generated for Meli evin/Enedina/eTransmitting on:?11/08/2024 04:00 PM EST
--- OUTSIDE RECORDS SUMMARY | 2024-11-08 16:01 | XMS_ITS | Patient Health Record ---
Author Organization Gal Dunaway MD Address [address] [place], [place] [id number] Care Team Providers Care Lens Molder Name Role Phone Gal Dunaway Primary Care Provider [phone] Allergies No Known Allergies Results Component Value Reference Range Notes Complete Blood Count Auto Di ff Reviewed date:06/29/2024 12:34:00 PM Interpretation: Performing Lab:[facility], [address] [place] [phone] Notes/Report: White Blood Count 7.7 4.8-10.8 X10*3/uL [...] 0.0-0.2 /100WBC Neutrophils Absolute Auto 4.9 2.0-8.3 x10*3/uL Imm Gran Abs Auto 0.02 0.00-0.03 X10*3/uL Lymphocytes Absolute Auto 1.8 1.2-4.9 X10*3/uL Monocytes Absolute Auto 0.5 0.1-1.2 X10*3/uL Eosinophils Absolute Auto 0.5 0.0-0.4 X10*3/uL Basophils Absolute Auto 0.0 0.0-0.2 X10*3/uL NRBC Abs Auto 0.000 0.0-0.012 X10*3/uL Comprehensive Fabens. Panel Fa st Reviewed date:06/29/2024 12:43:20 PM Interpretation: Performing Lab:[facility], [address] [place] [phone] Notes/Report: Sodium 143 135-145 mmol/L Potassium 3.6 3.3-5.1 mmol/L Chloride 108 96-108 mmol/L Carbon Dioxide 25 22-29 mmol/L Anion Gap 14 12-20 Blood Urea Nitrogen 13 9-16 mg/dL Creatinine 1.05 0.5-1.4 mg/dL Estimated Glomerular Filt Rate > 60 NOTE: For -Martiniquais individuals, multiply the result by 1.210. Chronic [...] Panel Reviewed date:06/29/2024 12:31:58 PM Interpretation: Performing Lab:[facility], [address] [place] [phone] Notes/Report: Triglycerides 88 <150 mg/dL Desirable Triglyceride: [...] (Free>4and<10) Reviewed date:06/29/2024 12:32:06 PM Interpretation: Performing Lab:[facility], [address] [place] [phone] Notes/Report: PSA,Total (Free>4and<10) 1.56 0.00-4.00 ng/mL A [...] Random Reviewed date:06/29/2024 12:33:16 PM Interpretation: Performing Lab:[facility], [address] [place] [phone] Notes/Report: Creatinine Urine 254.47 Microalbumin Urine 9.0 Microalbum/Creatinine Ratio Ur 3.5 <30 ug/mg cr Albumin/Creatinine Ratio Reference Ranges: Normal: < 30 ug/mg creatinine Microalbuminuria: 30 - 300 ug/mg creatinine Clinical Albuminuria: > 300 ug/mg creatinine Hemoglobin A1c Reviewed date:06/29/2024 12:42:00 PM Interpretation: Performing Lab:[facility], [address] [place] [phone] Notes/Report: Hemoglobin A1c % 5.4 <6.0 % [...] average glucose, using the formula of the D6H-Xfctvwa Average Glucose study (ADAG), Diabetes Care, Vol.31,#8, Apr. 2007 UA ClnCatch+Micro w/rflx Cul t Reviewed date:06/29/2024 12:32:24 PM Interpretation: Performing Lab:[facility], [address] [place] [phone] Notes/Report: [id number] Urine, Clean Catch Color Urine Yellow Appearance Urine Clear PH 5.5 5.0-9.0 Glucose Urine UA Negative Negative mg/dL Urine Blood Negative Negative Specific [place] - Urine 1.025 1.005-1.025 Urine Protein Negative [...] Neg Complete Blood Count Auto Di ff Reviewed date:10/26/2024 08:50:04 AM Interpretation: Performing Lab:[facility], [address] [place] [phone] Notes/Report: White Blood Count 10.4 4.8-10.8 X10*3/uL [...] 0.0-0.2 /100WBC Neutrophils Absolute Auto 7.0 2.0-8.3 x10*3/uL Imm Gran Abs Auto 0.03 0.00-0.03 X10*3/uL Lymphocytes Absolute Auto 1.7 1.2-4.9 X10*3/uL Monocytes Absolute Auto 0.8 0.1-1.2 X10*3/uL Eosinophils Absolute Auto 0.9 0.0-0.4 X10*3/uL Basophils Absolute Auto 0.0 0.0-0.2 X10*3/uL NRBC Abs Auto 0.000 0.0-0.012 X10*3/uL Prothrombin Time INR Reviewed date:10/26/2024 08:50:59 AM Interpretation: Performing Lab:[facility], [address] [place] [phone] Notes/Report: Prothrombin Time 11.4 10.9-12.4 SEC [employer] [...] valves: 2.5 - 3.5 Comprehensive Met. Panel Reviewed date:10/26/2024 08:51:30 AM Interpretation: Performing Lab:[address] [phone] Notes/Report: Sodium 140 135-145 mmol/L Potassium 4.2 [...] 3.5-5.0 g/dL Alkaline Phosphatase 77 39-117 U/L Lactic Acid Reviewed date:10/26/2024 08:49:06 AM Interpretation: Performing Lab:[facility], [address] [place] [phone] Notes/Report: Lactic Acid 1.7 0.5-2.0 mmol/L Magnesium Reviewed date:10/26/2024 08:49:14 AM Interpretation: Performing Lab:[address] [phone] Notes/Report: Magnesium 2.2 1.6-2.6 mg/dL Troponin-I High Sensitivity Reviewed date:10/26/2024 08:51:07 AM Interpretation: Performing Lab:[address] [phone] Notes/Report: Troponin-I High Sensitivity < 2.7 <3.5-35.0 ng/L The Ramos high sensitivity Troponin-I results should be used in conjunction with other diagnostic information such as ECG, clinical observations and information, and patient symptoms to aid in the diagnosis of IN. C Reactive Protein Reviewed date:10/26/2024 07:37:50 AM Interpretation: Performing Lab:[address] [phone] Notes/Report: C Reactive Protein 0.67 < or = 0.50 mg/dL B Type Natriuretic Peptide Reviewed date:10/26/2024 08:50:48 AM Interpretation: Performing Lab:[address] [phone] Notes/Report: TROPONIN WOULD BE A DUPLICATE WAS COMPLETED AT 1102 B Type Natriuretic Peptide < 10 <100 pg/mL For those patients who are being treated with Natrecor (nesiritide, recombinant BNP), BNP testing should be performed at least two hours post treatment in order to ensure that only endogenous levels of BNP are detected. Procalcitonin Reviewed date:10/26/2024 08:51:47 AM Interpretation: Performing Lab:[address] [phone] Notes/Report: Procalcitonin 0.02 Procalcitonin (PCT) Reference Range: PCT greater than 2.0 ng/mL: A PCT level above 2.0 ng/mL on the first day of ICU admission is associated with a high risk for progression to severe sepsis and/or septic shock. PCT less than 0.5 ng/mL: A PCT level below 0.5 ng/mL on the first day of ICU admission is associated with a low risk for progression to severe sepsis and/or septic shock. PCT levels below 0.5 ng/mL do not exclude an infection. Care must be taken in interpreting PCT results from different laboratories and methodologies. References: [place] [employer]/Society of Critical Care Medicine Consensus Conference Committee. Definitions for sepsis and organ failure and guidelines for the use of innovative therapies in sepsis. Crit Care Med 1992;20(6):864-874. Elvia B, Carlita CARDONA, Eloisa H, et al. Calcitonin precursors are reliable markers of sepsis in a medical intensive care unit. Crit Care Med 2000;363:600-607. Marilynn S, Connor K, Carson Huang, et al. Diagnostic value of procalcitonin, interleukin-6 and interleukin-8 in critically ill patients admitted with suspected sepsis. AM J Respir Crit Care Med 2001;164:396-402. US Food and Drug Administration. 510(k) substantial equivalence determination decision summary for [facility] PCT JOSTIN. http://www.accessdata. a.[facility]_docs/reviews/ O236419.pdf. Published September 2004. Accessed February 2017. SARS-CoV2/FLU/RSV Reviewed date:10/26/2024 08:51:39 AM Interpretation: Performing Lab:[address] [phone] Notes/Report: Influenza A PCR NEGATIVE Negative Influenza B PCR NEGATIVE Negative Resp Syncy Virus RNA Qual PCR NEGATIVE Negative SARS COV2 PCR INHOUSE NEGATIVE Negative All test results must be correlated with clinical findings. Negative results do not preclude SARS-CoV2, influenza A virus, influenza B virus and/or RSV infection and should not be used as the sole basis for treatment or other patient management decisions. Negative results must be combined with clinical observations, patient history, and epidemiological information. This test has not been evaluated for monitoring treatment of infection. This test has been authorized by the FDA under an Emergency Use Authorization (EUA) for use by authorized laboratories. Testing performed on the CereScan GeneXpert utilizing real-time RT-PCR. All SARS CoV2 and positive influenza A/B results are reported to [facility]. Blood Culture (First) Reviewed date:10/30/2024 05:22:41 PM Interpretation: Performing Lab:[facility], [address] [place] [phone] Notes/Report: Blood Culture (First) No growth after 5 days. Blood Culture (Second) Reviewed date:10/30/2024 05:22:34 PM Interpretation: Performing Lab:[address] [address] Notes/Report: Blood Culture (Second) No growth after 5 days. Venous Blood Gases - POC Reviewed date:10/26/2024 08:49:33 AM Interpretation: Performing Lab:[facility], [address] [place] [phone] Notes/Report: VBG pH 7.39 7.32-7.43 METER #: [id number] additional_comment: Cb gentilj VBG pCO2 40 METER #: [id number] additional_comment: Cb gentilj VBG pO2 35 METER #: [id number] additional_comment: Cb gentilj VBG Base Excess -0.4 METER #: [id number] additional_comment: Cb gentilj VBG HCO3 24 22-26 mmol/L METER #: [id number] additional_comment: Cb gentilj VBG O2 % Saturation 56.0 METER #: [id number] additional_comment: Cb nikailnicol CT chest wo con Reviewed date:10/26/2024 07:39:10 AM Interpretation: Performing Lab: Notes/Report: [address] [address] [address] Scan Report Signed Patient: Jacky Templeton MR#: [id number] 94 : 1970 Acct:[id number] Age/Sex: 54 / M ADM Date: 10/25/24 Loc: .ED Attending Dr: Ordering Physician: Ceci Acevedo DO Date of Service: 10/25/24 Procedure(s): CT chest wo IV con Accession Number(s): [id number] cc: Gal Dunaway MD; Ceci Acevedo DO Report Number: [id number]: Total DLP = 270.00 mGy-cm EXAMINATION: CT CHEST WITHOUT CONTRAST CLINICAL INFORMATION: Persistent cough x8 weeks, weight loss. COMPARISON: None available. TECHNIQUE: Multidetector volumetric CT imaging of the chest was done. Axial MIP volume rendering provided. Sagittal and coronal reformatted images were obtained. This CT examination was performed using dose optimization techniques as appropriate, variously including the following: *Automated exposure control *Adjustment of mA and/or kV according to patient size (this includes techniques or standardized protocols for targeted exams where dose is matched to indication/reason for exam; i.e. extremities or head) *Use of iterative reconstruction technique FINDINGS: LUNGS: -Biapical scarring is present. -Foci of groundglass attenuation with interlobular septal thickening in the anterior and apical segments right upper lobe, suspicious for bronchopneumonia. -Diffuse thickening of the small airways consistent with bronchitis. There are several foci of mucus plugging present in the bilateral medial lower lobes. -No additional airspace disease. No effusion or pneumothorax. No suspicious pulmonary nodules. MEDIASTINUM: -Normal thyroid. -Small likely reactive mediastinal lymph nodes are present. No pathologic adenopathy or mass. -Central airways are patent. -The aorta and main pulmonary artery are normal. -The heart size is normal. There is no pericardial effusion. -Esophagus is grossly normal. CORONARY ARTERY CALCIFICATION: None visualized on this study. PLEURA: There is no pleural effusion. No pleural mass or thickening. AXILLA/CHEST WALL: No lymphadenopathy. UPPER ABDOMEN: Unremarkable. OSSEOUS STRUCTURES: -No suspicious lytic or blastic bone lesions. -Mild superior endplate wedging of T4-T7. This appears chronic. CT/CT chest wo IV con IMPRESSION: 1. Diffuse peribronchial thickening throughout both lungs with foci of mucoid impaction in the medial bilateral lower lobes. 2. Subsegmental foci of groundglass attenuation with superimposed interlobular septal thickening in the right upper lobe anterior and apical segments, suspicious for superimposed bronchopneumonia. 3. Biapical scarring. 4. Additional ancillary findings as discussed. Electronically signed by: Rj Wen MD 10/25/2024 12:06 PM [facility] Dictated By: Rj Wen MD Signed By: <Electronically signed by Rj Wen MD in OV> 10/25/24 1206 DD/ 1136 TD/TT: 10/25/24 1156 Outdoor Adventure Leader: [address] [address] [address] Scan Report Signed Patient: Sandor Templeton MR#: [id number] 94 : 1970 Acct:[id number] Age/Sex: 54 / M ADM Date: 10/25/24 Loc: .ED Attending Dr: Ordering Physician: Ceci Acevedo DO Date of Service: 10/25/24 Procedure(s): CT [facility] [facility] wo IV con Accession Number(s): [id number] cc: Gal Dunaway MD; Ceci Acevedo Report Number: [id number]: Total DLP = 270.00 mGy-cm EXAMINATION: CT CHEST WITHOUT CONTRAST CLINICAL INFORMATION: Persistent cough x8 weeks, weight loss. COMPARISON: None available. TECHNIQUE: Multidetector volumetric CT imaging of the chest was done. Axial MIP volume rendering provided. Sagittal and coronal reformatted images were obtained. This CT examination was performed using dose optimization techniques as appropriate, various ly including the following: *Automated exposure control *Adjustment of mA and/or kV according to patient size (this includes techniques or standardized protocols for targeted exams where dose is matched to indication/reason for exam; i.e. extremities or head) *Use of iterative reconstruction technique FINDINGS: LUNGS: -Biapical scarring i s present. -Foci of groundglass attenuation with interlobular septal thickening in the anterior and api mary jo segments right upper lobe, suspicious for bronchopneumonia. -Diffuse thickening of the small airways consistent with bronchitis. There are several fo ci of mucus plugging present in the bilateral medial lower lobes. -No additional airsp jennifer disease. No effusion or pneumothorax. No suspicious pulmon richard nodules. MEDIASTINUM: -Normal thyroid. -Small likely reacti ve mediastinal lymph nodes are present. No pathologic adenopath y or mass. -Central airways are patent. -The aorta and main pulmonary artery are normal. -The heart size is normal. There is no pericardial effusion. -Esophagus is grossl y normal. CORONARY ARTERY CALCIFICATION: None visualized on this study. PLEURA: There is no pleural effusion. No pleural mass or thickening. AXILLA/CHEST WALL: N o lymphadenopathy. UPPER ABDOMEN: Unremarkable. OSSEOUS STRUCTURES: -No suspicious lytic or blastic bone lesions. -Mild superior endpl ate wedging of T4-T7. This appears chronic. CT/CT chest wo IV con IMPRESSION: 1. Diffuse peribronchial thickening throughout both lungs with foci of mucoid impaction in the medial bilateral lower lobes. 2. Subsegmental foci of groundglass attenuation with superimposed interlobular septal thickening in the right upper lobe anterior and apical segments, suspicious for superimposed bronchopneumonia. 3. Biapical scarring. 4. Additional ancill richard findings as discussed. Electronically luiza d by: Rj Wen MD 10/25/2024 12:06 PM EST Dictated By: Rj Wen MD Signed By: <Electronically signed by Rj Wen MD in OV> 10/25/24 1206 DD/ 1136 TD/TT: 10/25/24 1156 Outdoor Adventure Leader: XR chest 2V Reviewed date:10/26/2024 07:38:15 AM Interpretation: Performing Lab: Notes/Report: [address] [address] XRay Report Signed Patient: Jacky Templeton MR#: [id number] 94 : 1970 Acct:[id number] Age/Sex: 54 / M ADM Date: 10/24/24 Loc: ZOYA Attending Dr: Gal Dunaway MD Ordering Physician: Gal Dunaway MD Date of Service: 10/24/24 Procedure(s): XR chest 2V Accession Number(s): [id number] cc: Gal Dunaway MD CLINICAL HISTORY: ACUTE ASHMATIC BRONCHITIS 2 view chest x-ray Comparison: None Findings: Mild biapical pleural-parenchymal scarring. No acute appearing infiltrate/consolidation. Normal heart size and mediastinal contour. Mild midthoracic compression fracture. Upper abdomen unremarkable. Impression: No acute appearing cardiopulmonary process. Mild midthoracic compression fracture. This document has been electronically signed by: Noel Pereyra MD on 10/25/2024 13:08:56 Dictated By: Noel Pereyra MD Signed By: <Electronically signed by Noel Pereyra MD in OV> 10/25/24 1309 DD/ 1308 TD/TT: 10/25/24 1308 Outdoor Adventure Leader: [address] [address] XRay Report Signed Patient: Sandor Templeton MR#: [id number] 94 : 1970 Acct:[id number] Age/Sex: 54 / M ADM Date: 10/24/24 Loc: ZOYA Attending Dr: Gal Dunaway MD Ordering Physician: Gal Dunaway MD Date of Service: 10/24/24 Procedure(s): XR leil[address] st 2V Accession Number(s): [id number] cc: Gal Dunaway MD CLINICAL HISTORY: AC VANE ASHMATIC BRONCHITIS 2 view chest x-ray Comparison: None Findings: Mild biapical pleural-parenchymal scarring. No acute appearing infiltrate/consolidatio n. Normal heart size an d mediastinal contour. Mild midthoracic compression fracture. Upper abdomen unremarkable. Impression: No acute appearing cardiopulmonary process. Mild midthoracic compression fracture. This document has be en electronically signed by: Noel Pereyra MD on 10/25/2024 13:08:56 Dictated By: Noel Pereyra MD Signed By: <Electronically signed by Noel Pereyra MD in OV> 10/25/24 1309 DD/ 1308 TD/TT: 10/25/24 1308 Outdoor Adventure Leader: Erythrocyte Sedimentation Ra te Reviewed date:10/26/2024 04:52:43 PM Interpretation: Performing Lab:[facility], [address] [place] [phone] Notes/Report: Erythrocyte Sedimentation Rate 9 0-15 MM/HR Patients with polycythemia and many hemoglobin abnormalities may have depressed sed rates whereas patients with anemia may have elevated sed rates. Angiotensin Converting Enzym e Reviewed date:10/30/2024 12:27:52 PM Interpretation: Performing Lab:[facility], [address] [place] [phone] Notes/Report: Angiotensin Converting Enzyme 9 9-67 U/L THIS TEST WAS PERFORMED AT: [facility]/[address] [address] CHASTITY ONTIVEROS MD,PHD ANCA Vasculitides Reviewed date:10/29/2024 09:32:31 AM Interpretation: Performing Lab:[facility], [address] [place] [phone] Notes/Report: Myeloperoxidase Antibody <1.0 Value Interpretation ----- <1.0 No Antibody Detected > or = 1.0 Antibody Detected Autoantibodies to myeloperoxidase (MPO) are commonly associated with the following small-vessel vasculitides: microscopic polyangiitis, polyarteritis nodosa, Churg-Brayan syndrome, necrotizing and crescentic glomerulonephritis and occasionally granulomatosis with polyangiitis (GPA, Parvez's). The perinuclear IFA pattern, (p-ANCA) is based largely on autoantibody to myeloperoxidase which serves as the primary antigen. These autoantibodies are present in active disease. Proteinase 3 PR3 Antibodies <1.0 Value Interpretation ----- <1.0 No Antibody Detected > or = 1.0 Antibody Detected Autoantibodies to proteinase-3 (GA-3) are accepted as characteristic for granulomatosis with polyangiitis (GPA, Parvez's), and are detectable in 95% of the histologically proven cases. The cytoplasmic IFA pattern, (c-ANCA), is based largely on autoantibody to GA-3 which serves as the primary antigen. These autoantibodies are present in active disease. THIS TEST WAS PERFORMED AT: [facility] [address] [place] [phone] PARMINDER SÁNCHEZ MD Mycoplasma Pneumoniae IgG&Ig M Reviewed date:11/01/2024 01:25:27 PM Interpretation: Performing Lab:[facility], [address] [place] [phone] Notes/Report: Mycoplasma Pneumoniae - IgG 1.79 <=0.90 Reference Range: <=0.90 Negative 0.91-1.09 Equivocal >=1.10 Positive A positive IgG result indicates that the patient has antibody to Mycoplasma. It does not differentiate between an active or past infection. The clinical diagnosis must be interpreted in conjunction with the clinical signs and symptoms of the patient. Mycoplasma Pneumoniae - IgM 166 <770 U/mL Reference Range: <770 U/ml Negative 770-950 U/mL Low positive >950 U/mL Positive A positive IgM antibody result is consistent with recent infection. However, a negative result does not necessarily rule out recent infection as some individuals may not mount another IgM response, if previously infected. A positive IgM antibody result with or without a positive IgG antibody result, is consistent with recent infection. However, a negative result does not necessarily rule out recent infection as some individuals may not mount another IgM response, if previously infected. A positive IgG antibody result in the absence of a positive IgM antibody result, indicates that the patient has antibody to Mycoplasma. It does not differentiate between an active or past infection. The clinical diagnosis must be interpreted in conjunction with the clinical signs and symptoms of the patient. THIS TEST WAS PERFORMED AT: [facility] [address] [place] [address] CHASTITY ONTIVEROS MD,PHD GI Panel Reviewed date:10/26/2024 04:52:26 PM Interpretation: Performing Lab:[facility], [address] [place] [phone] Notes/Report: Campylobacter Not Detected Not Detect. Plesiomonas shigelloides Not Detected Not Detect. Salmonella Not Detected Not Detect. Vibrio Not Detected Not Detect. Vibrio Cholerae Not Detected Not Detect. Yersinia enterocolitica Not Detected Not Detect. E. coli EAEC Not Detected Not Detect. E. coli EPEC Not Detected Not Detect. E. coli ETEC Not Detected Not Detect. E. coli STEC Not Detected Not Detect. E. coli O157 Not applicable Not Detect. E. coli containing the O157 antigen are a subset of Shiga-like toxin-producing E. coli (STEC). Shigella sp./EIEC Not Detected Not Detect. Cryptosporidium Not Detected Not Detect. Cyclospora cayetanensis Not Detected Not Detect. Entamoeba histolytica Not Detected Not Detect. Giardia lamblia Not Detected Not Detect. Adenovirus F 40/41 Not Detected Not Detect. Astrovirus Not Detected Not Detect. Norovirus GI/GII Not Detected Not Detect. Rotavirus A Not Detected Not Detect. Sapovirus Not Detected Not Detect. All results must be correlated with clinical findings. Negative results do not exclude the possibility of gastrointestinal infection and should not be used as the sole basis for diagnosis, treatment, or other management decisions. Virus, bacteria, and parasite nucleic acid may persist in vivo independently of organism viability. Additionally, some organisms may be carried asymptomatically. Detection of organism targets does not imply that the corresponding organisms are infectious or are the causative agents for clinical symptoms. There is a risk of false negative values due to the presence of sequence variants in the gene targets of the assay, amplification inhibitors in specimens, or inadequate numbers of organisms for amplification. The identification of several diarrheagenic E. coli pathotypes has historically relied upon phenotypic characteristics. This panel targets genetic determinants characteristic of most pathogenic strains, but may not detect all strains having phenotypic characteristics of a pathotype. The performance of this test has not been established for monitoring treatment of infection with any of the panel organisms. This assay is performed by Multiplexed PCR, utilizing the Bio[employer] Film Array. CT angio chest PE protocol Reviewed date:10/26/2024 01:34:58 PM Interpretation: Performing Lab: Notes/Report: [address] [address] [address] Scan Report Signed Patient: Jacky Templeton MR#: [id number] 94 : 1970 Acct:[id number] Age/Sex: 54 / M ADM Date: 10/25/24 Loc: [facility] 353-[address]: Geetha Baxter MD Ordering Physician: Geetha Baxter MD Date of Service: 10/26/24 Procedure(s): CT angio chest PE protocol Accession Number(s): [id number] cc: Gal Dunaway MD; Geetha Baxter MD Report Number: [id number]: Total DLP = 123.00 mGy-cm CLINICAL HISTORY: hypoxia CT angiography chest with contrast. 3D Postprocessing. Comparison: CT/GA/SR - CT CHEST WO IV CON - 10/25/24 11:36 EST CR - XR CHEST 2V - 10/24/24 15:45 EST Findings: No acute pulmonary embolism evident. Normal caliber thoracic aorta. No plaque, stenosis or dissection. Thoracic inlet intact. No thyroid nodules. No enlarged mediastinal or hilar lymph nodes. Normal heart size. Reflux of contrast into the IVC suggesting increased right heart pressure without additional features of right heart strain. Normal RV/LV ratio. No bowing of the intraventricular septum. No appreciable thrombus in the left atrial appendage. No pericardial effusion or coronary artery calcification. Biapical pleural-parenchymal scarring. Residual ground-glass attenuation focus in the anterior right upper lobe. Remaining changes on prior appear to have resolved. Residual although improved interlobular septal thickening. Again changes may reflect pneumonia with the appearance less typical for pulmonary edema. Diffuse peribronchial thickening as on prior with multifocal mucous plugging in the lower lobes. No consolidation or pleural effusion. Esophagus within normal limits. No hiatal hernia. No acute process evident upper abdomen. Stable mild chronic T7 compression fracture and mild scalloping superior endplate T4, T5 and T6. Otherwise bones intact. Soft tissues intact. Impression: No acute pulmonary embolism or aortic dissection. Residual ground-glass attenuation focus and mild septal thickening in the upper lungs, although improved from prior. Improved pneumonia or atypical pulmonary edema considered. Similar peribronchial thickening and mucous plugging. No consolidation or pleural effusion. Normal heart size. Findings suggesting mild increased right heart pressure without additional features of right heart strain. This document has been electronically signed by: Noel Pereyra MD on 10/26/2024 13:02:29 Dictated By: Noel Pereyra MD Signed By: <Electronically signed by Noel Pereyra MD in OV> 10/26/24 1303 DD/ 1302 TD/TT: 10/26/24 1302 Outdoor Adventure Leader: [place] [id number] CT Scan Report Signed Patient: Sandor Templeton MR#: [id number] : 1970 Acct:[id number] Age/Sex: 54 / M ADM Date: 10/25/24 Loc: .S3 353-[address]: Geetha Baxter MD Ordering Physician: Geetha Baxter MD Date of Service: 10/26/24 Procedure(s): CT ang io chest PE protocol Accession Number(s): [id number] cc: Gal Dunaway MD; Geetha Baxter MD Report Number: [id number]: Total DLP = 123.00 mGy-cm CLINICAL HISTORY: hypoxia CT angiography chest with contrast. 3D Postprocessing. Comparison: CT/GA/SR - CT CHEST WO IV CON - 10/25/24 11:36 EST CR - XR CHEST 2V - 10/24/24 15:45 EST Findings: No acute pulmonary embolism evident. Normal caliber thora cic aorta. No plaque, stenosis or dissection. Thoracic inlet intac t. No thyroid nodules. No enlarged mediastinal or hilar lymph nodes. Normal heart size. Reflux of contrast into the IVC suggesting increased right heart pressure without additional features of right heart strain. Normal RV/LV ratio. No bowing of the intraventricular septum. No appreciab le thrombus in the left atrial appendage. No pericardial effusion or coronary artery calcification. Biapical pleural-parenchymal scarring. Residual ground-glass attenuation focus in the anterio r right upper lobe. Remaining changes on prior appear to have resolved. Residual although improved interlobular septal thickening. Again changes may reflect pneumonia with the appearance less typical for pulmonar y edema. Diffuse peribronchia l thickening as on prior with multifocal mucous plugging in the lowe r lobes. No consolidation or pleural effusion. Esophagus within nor mal limits. No hiatal hernia. No acute process evident upper abdomen. Stabl e mild chronic T7 compression fracture and mild scalloping superior endplate T4, T5 and T6. Otherwise bones intact. Soft tissues intact. Impression: No acute pulmonary embolism or aortic dissection. Residual ground-glas s attenuation focus and mild septal thickening in the upper lungs, althoug h improved from prior. Improved pneumonia o r atypical pulmonary edema considered. Similar peribronchia l thickening and mucous plugging. No consolidation or pleural effusion. Normal heart size. Findings suggesting mild increased right heart pressure without additional features of right heart strain. This document has be en electronically signed by: Noel Pereyra MD on 10/26/2024 13:02:29 Dictated By: Noel Pereyra MD Signed By: <Electronically signed by Noel Pereyra MD in OV> 10/26/24 1303 DD/ 1302 TD/TT: 10/26/24 1302 Outdoor Adventure Leader: Reason For Referral Reason lumbar back pain Diagnosis 1 Lumbar back pain (M5 4.50) Referral Organization Gal Dunaway MD Referring Provider First Name Gal Referring Provider Last Name Emelyn Referring Provider Speciality Internal M edicine Referred Provider [facility] Referred Provider Specialty Physical [...] Provider Specialty Hand Surgery General Notes Paloma Sweneey 08:59:41 AM EDT > info faxed , Paloma Sweeney 12/10/2023 11:44:43 AM EDT > not able [...] needed Orally Three times a day Not-Taking Dextromethorphan-guaiFENesi n Active predniSONE 10 MG 2 tablets with food or milk Orally Once a day Active Sulindac 200 MG 1 tablet with food [...] as needed for 30 days 07/06/2024 Not-Taking Immunizations Vaccine Route Administration Date Status Comme [...] Problem Status W/U Status Risk Notes Problem 817830099 Dermatofibroma (D23.9) Active confirmed Problem 854109051 Thrombocytopenia (D69.6) Active confirmed Problem 83418248 Lymphocytosis (D72.820) Active confirmed Problem 280798342 Reflux esophagit is (K21.00) Active confirmed Problem 98489517 Sciatica, right side (M54.31) Active confirmed Problem 7321869 Prediabetes (R73.09) Active confirmed Problem 52713993 Sciatica of left side (M54.32) Active confirmed Problem 3674901620 Ruptured lumbar disc (M51.26) Active confirmed Problem 771045656 History of noctu penny (Z87.898) Active confirmed Problem 266457520782353 Hematuria due to chronic cystitis (N30.21) Active confirmed Problem 807803965 Acute asthmatic bronchitis (J45.909) Active confirmed Vital Signs Blood pressure diastolic 84 mm Hg 11/03/2024 abi ght is down 7 pounds since 07-06-24 Height 71 in 11/03/2024 weight is down 7 pounds since 07-06-24 Blood pressure systolic 122 mm Hg 11/03/2024 abig ht is down 7 pounds since 07-06-24 Weight 170 lbs 11/03/2024 weight is down 7 pounds since 07-06-24 BMI 23.71 kg/m2 11/03/2024 weight is down 7 pounds since 07-06-24 Encounters Encounter Location Date Provider Diagnosis Gal Dunaway MD [address] [place] [address] [id number] 12/06/2023 Gal Dunaway Lumbar back pain M54.50 and Nodule of finger, left R22.32 Gal Dunaway MD [address] [place] [address] Drive [address] [place] [address] [id number] 06/29/2024 Gal Dunaway Blood tests for routine general physical examination Z00.00 ; Prediabetes R73.09 and Lymphocytosis D72.820 Gal Dunaway MD [address] [place] [address] Drive [address] [place] [address] [id number] 07/06/2024 Gal Dunaway Sciatica, right side M54.31 ; Annual physical exam Z00.00 ; Prediabetes R73.09 ; Lymphocytosis D72.820 ; Colon cancer screening Z12.11 and Depression screening Z13.31 Gal Dunaway MD [address] [place] [address] [id number] 09/07/2024 Gal Dunaway Wheezy bronchitis J4 0 Gal Dunaway MD [address] [place] [address] [id number] 10/03/2024 Gal Dunaway Acute asthmatic bronchitis J45.909 Gal Dunaway MD [address] [place] [address] [id number] 10/24/2024 Gal Dunaway Acute asthmatic bronchitis J45.909 Gal Dunaway MD [address] [place] [address] [id number] 11/03/2024 Gal Dunaway Mycoplasma pneumonia e [M. pneumoniae] as the cause of diseases classified elsewhere B96.0 Gal Dnuaway MD [address] [place] [address] [id number] 09/15/2024 Gal Dunaway MD [address] [place] [address] [id number] 10/17/2024 Gal Dunaway Wheezy bronchitis J4 0 Gal Dunaway MD [address] [id number] 10/30/2024 Gal Dunaway Assessments Encounter Date Diagnosis (ICD Code) Assessment Notes Treatment Notes Treatment Clinical Notes Section Notes 12/06/2023 Lumbar back pain (ICD-10 - M54.50) [...] bronchitis (ICD-10 - J45.909) pending diagnostic testing 11/03/2024 Mycoplasma pneumoniae [M. pneumoniae] as the cause of diseases classified elsewhere (ICD-10 - B96.0) does not appear sick at all. try going without oxygen. Total time spent on the date of the encounter is 35 minutes including both face to face time spent and time spent reviewing documentation, and counseling the patient. 10/17/2024 Wheezy bronchitis (ICD-10 - J40) 06/29/2024 Lymphocytosis (ICD-10 - D72.820) 07/06/2024 Prediabetes (ICD-10 - R73.09) stable, no need for medication at this time 07/06/2024 Lymphocytosis (ICD-10 - D72.820) resolved 07/06/2024 Colon cancer screening (ICD-10 - Z12.11) guaiac negative 07/06/2024 Depression screening (ICD-10 - Z13.31) negative screen 10/24/2024 Other THE ORDER WAS F AX[facility] PATIENT REG AND PATIENT HAS BEEN INFORMED Plan Of Treatment Pending Test Test Name Order Date Electrocardiogram (EKG) 04/30/2016 EAR IRRIGATION 05/28/2011 MRI LUMBAR SPINE NO CONTRAST 11/16/2022 XR CHEST 2 VIEW PA & LAT 10/24/2024 Next Appt Details Provider Name:Gal pollard, 11/17/2024 10:30:00 AM, [address] [place] [address], [address], [phone], Provider Name:Gal pollard, 07/06/2025 07:00:00 AM, [address] [place] [address], [address], [phone], Provider Name:Gal pollard, 07/13/2025 08:30:00 AM, [address] [place] [address], [address] [place] [address], [phone], Insurance Providers Payer Name Payer Address Payer Phone Subscriber Number Group Number Insured Name Patient Relationship to Insured Coverage Start Date Coverage End Date [employer] [address] [place], [place] [id number] Jacky Templeton Self - patient is the insured Medical (General) History Medical History History ICD Code 10/06/[address] Harden - repeat 10 yrs
--- OUTSIDE RECORDS SUMMARY | 2024-11-08 16:01 | XMS_ITS ---
Author Organization Gal Dunaway MD Address [address] [place], [place] [phone] Care Team Providers Care Hip Hop Artist Name Role Phone Gal Dunaway Primary Care [...] kg/m2 11/03/2024 weight is down 7 pounds [facility] 07-06-24 Encounters Encounter Location Date Provider Diagnosis Gal Dunaway MD [address] [place] [address] [id number] 11/03/2024 Gal Dunaway Mycoplasma pneumoniae [M. pneumoniae] [...] Follow Up: 2 Weeks, Reason: Provider Name:Gal pollard, 11/17/2024 10:30:00 AM, [address] [place] [address], [address], [phone], Provider Name:Gal pollard, 07/06/2025 07:00:00 AM, [address] [place] [address], [address], [phone], Provider Name:Gal pollard, 07/13/2025 08:30:00 AM, [address] [place] [address], [address], [phone], Progress Notes * Jacky PADILLA MDOB: 9 (54 yo M)Acc No.[id number]:11/03/2024 Patient:?Jacky PADILLA Provider:?Gal Dunaway MD :1970???Age:54 Y???Sex:Male Earl e:11/03/2024 Address:[facility] [id number] Subjective: * Chief Complaints: * ???PH/TCMAccompanied by * HPI: ???Symptom(s):?[facility] is a 54 [facility].discharge summary has been reviewed and medications reconciled,? could not breathe when he went hospital/ goes without oxygen for 30 mins and is okay/. * ROS:?General/Constitutional:?Denies?Chills.?Denies?Fatigue.?Denies?Fever.?Denies?Headache.?ENT:?Patient denies?decreased sense of smell, any loss of taste, sore throat.?Denies?Sore throat.?Respiratory:?Admits?Cough.?Denies?Shortness of breath at rest.?Admits?Shortness of breath with exertion.?Gastrointestinal:?Denies?Diarrhea.?Denies?Nausea.?Musculoskeletal:?Patient denies?muscle aches.?Peripheral Vascular:?Patient denies?red and blue toes.? * Medical History:? * Surgical History:? * Hospitalization/Major Diagno stic Procedure:? * Medications:?TakingDextromet horphan-guaiFENesin predniSONE 10 MG Tablet 2 tablets with [...] * Allergies:?N.K.D.A.yes[Aller gies Verified] Objective: * Vitals:?Ht: 71, Wt: 170, BMI :23.71, BP:122/84, Wt-k.11. weight is down 7 pounds since 07-06-24. * Examination: ???General Examination: ?GENERAL APPEARANCE:?alert, well hydrated, in no distress.?HEAD:?normocephalic.?SKIN:?good turgor.?HEART:?no murmurs, rubs, gallops, regular rate and rhythm.?LUNGS:?no wheezes, rales, rhonchi, good air movement, clear to auscultation bilaterally.? Assessment: * Assessment: 1.?Mycoplasma pneumoniae [M. pneumoniae] as the cause of diseases classified elsewhere - B96.0 (Primary)??? Plan: * Treatment: * Procedure Codes:? * Follow Up:?2 Weeks * * Sign off status: Completed true * Provider:?Gal Dunaway MD Date:?0 11/03/2024 Generated for Ana cleary/Enedina/eTransmitting on:?11/08/2024 04:00 PM EST History and Physical Notes * [...]
== END 2024-11-08 14:31 | disposition home or self-care (01) ==
PROVIDERS: PCP Internal Medicine; Visit Provider Internal Medicine Pulmonary Disease
DX: J15.7 Pneumonia due to Mycoplasma pneumoniae (principal); R09.02 Hypoxemia
CPT/HCPCS: 94618; 99214

== ENCOUNTER → 2024-11-08 13:24 | Outpatient (BNVA) | payer BC, SELFPAY | PROVIDERS: PCP Internal Medicine; Visit Provider Internal Medicine Pulmonary Disease | DX: J15.7 Pneumonia due to Mycoplasma pneumoniae (principal); R09.02 Hypoxemia | CPT/HCPCS: 94618 ==

== ENCOUNTER 2024-11-20 13:55 | Outpatient (REF) | payer BC, SELFPAY ==
--- NOTE | ~2024-11-20 | XR_ITS ---
EXAMINATION: XR CHEST 2 VIEWS HISTORY: ASTHMATIC BRONCHITIS COMPARISON: Comparison is made with the prior examination dated 10/24/2024. FINDINGS: PA and lateral views of the chest are submitted. There are mild increased interstitial markings which have improved since the prior study. There are no focal airspace opacities. There is mild biapical scarring. There is no pleural effusion, pneumothorax, or pulmonary vascular congestion. The heart is normal in size. Again seen is a mild compression deformity of a midthoracic vertebral body. XR/XR chest 2V IMPRESSION: Improvement in previously seen increased interstitial markings. Electronically signed by: Gaston Jaramillo MD 11/21/2024 07:44 AM EDT
--- OUTSIDE RECORDS SUMMARY | 2024-11-20 16:22 | XMS_ITS ---
Author Organization Gal Dunaway MD Address [address] [place], [place] [id number] Care Team Providers Care Personnel Representative Name Role Phone Gal Dunaway Primary Care Provider [phone] Allergies No Known Allergies REASON FOR VISIT 2 week wheezing shortness of breath on oxygen for ER visit, from [facility], Accompanied by Medications Medication SIG (Take, Route, [...] W/U Status Risk Notes Problem Asthmatic bronchitis (021169394) Asthmatic bronchitis (J45.909) Active confirmed Vital Signs Blood pressure systolic 122 mm Hg 11/21/19 25 Blood pressure diastolic 70 mm Hg 025 Height 71 in 11/20/2024 Weight 169 lbs 11/20/2024 BMI 23.57 kg/m2 11/20/2024 Encounters Encounter Location Date Provider Diagnosis Gal Dunaway MD [address] [place] [address] [place] [phone] 11/20/2024 Gal Dunaway Asthmatic bronchitis J45.909 Assessments Encounter Date Diagnosis (ICD Code) Assessment Notes Treatment Notes Treatment Clinical Notes Section Notes 11/20/2024 Asthmatic bronchitis (ICD-10 - J45.909) Plan Of Treatment [...] for 4 days for 14 days 11/20/2024 Pending Test Test Name Order Date XR CHEST 2 VIEW PA & LAT 11/20/2024 Next Appt Details Follow Up: 2 - 3 Days, Reaso n: Provider Name:Gal pollard, 11/24/2024 11:30:00 AM, [address] [place] [address], [address] [place] [address], [id number], Provider Name:Gal pollard, 07/06/2025 07:00:00 AM, [address] [place] [address], Suite [facility], [place], [place], [phone], Provider Name:Gal Bradley ier, 07/13/2025 08:30:00 AM, [address], [address], [place], [place], [phone], Progress Notes * Jacky PADILLA MDOB: 9 (54 yo M)Acc No.[id number]:11/20/2024 Progress Notes Patient:?Jacky PADILLA Provider:?Gal Dunaway MD :1970???Age:54 Y???Sex:Male Earl e:11/20/2024 Address:[address] [place], [place] [id number] Subjective: * Chief Complaints: * ???1. 2 week wheezing shortn ess of breath on oxygen for ER visit . 2. from [facility]. 3. Accompanied by . * HPI: ???Symptom(s):? had been doing well for 1.5 weeks. last week feeling great. then started coughing again. and 2 days later had to go back on oxygen. o2 is 80%. wheezing again. was back to work. * ROS:?General/Constitutional:?Denies?Chills.?Denies?Fatigue.?Denies?Fever.?Denies?Headache.?ENT:?Denies?Sore throat.?Respiratory:?Admits?Cough.?Admits?Shortness of breath at rest.?Admits?Shortness of breath with exertion.?Admits?Sputum production.?Admits?Wheezing.?Gastrointestinal:?Denies?Diarrhea.?Denies?Nausea.? * Medical History:?10/06/[address] Harden [...] Orally 3 times per day , Discontinued Dextromethorphan- guaiFENesin , Discontinued predniSONE 10 MG Tablet 2 tablets with food or milk Orally Once a day , Medication List reviewed and reconciled with the patient * Allergies:?N.K.D.A. Objective: * Vitals:?Ht: 71, Wt: 169, BMI :23.57, BP:122/70, Wt-k.66. * Examination: ???General Examination: ?GENERAL APPEARANCE:?alert, well hydrated, in no distress.?HEAD:?normocephalic.?SKIN:?good turgor.?HEART:?no murmurs, rubs, gallops, regular rate and rhythm.?LUNGS:?diffuse wheezing in both lungs.? Assessment: * Assessment: 1.?Asthmatic bronchitis - J4 5.909 (Primary)??? Plan: * Treatment: * Follow Up:?2 - 3 Days * * The named appointment provid er may or may not be the originator of this progress note, and it is not deemed complete until electronically signed by the appointment provider. Sign off status: Pending * Provider:?Gal Dunaway MD Date:?0 11/20/2024 Generated for Ana cleary/Enedina/Selinaitting on:?11/20/2024 04:22 PM EDT History and Physical Notes * HPI (History of Present Illness) Category Sub-Category Detail Notes Category Not es Symptom(s) had been doing well for 1.5 weeks. [...]
--- OUTSIDE RECORDS SUMMARY | 2024-11-20 16:22 | XMS_ITS ---
Author Organization Gal Dunaway MD Address [address] [facility] [address] [place] [phone] Care Team Providers Care Director Product Safety Name Role Phone Gal Dunaway Primary Care Provider [phone] Allergies No Known Allergies REASON FOR VISIT 2 week Encounters Encounter Location Date Provider Diagnosis Gal Dunaway MD [address] [facility] [address] [place] [phone] 11/17/2024 Gal Dunaway Plan Of Treatment Next Appt Details Provider Name:Gal pollard, 11/24/2024 11:30:00 AM, [address] [place] [address], [address], [phone], Provider Name:Gal Bradley iecassidy, 07/06/2025 07:00:00 AM, [address] [place] [address], [address], [phone], Provider Name:Gal pollard, 07/13/2025 08:30:00 AM, [address] [place] [address], [address], [phone], Progress Notes * Jacky PADILLA MDOB: 9 (54 yo M)Acc No.[id number]:11/17/2024 Progress Notes Patient:?Jacky PADILLA Provider:?Gal Dunaway MD :1970???Age:54 Y???Sex:Male Earl e:11/17/2024 Address:[address] [place], [place] [address], [id number] Subjective: * Chief Complaints: * ???1. 2 week. * ROS:?General/Constitutional:?Denies?Chills.?Denies?Fatigue.?Denies?Fever.?Denies?Headache.?ENT:?Denies?Sore throat.?Respiratory:?Denies?Cough.?Denies?Shortness of breath at rest.?Denies?Shortness of breath with exertion.?Gastrointestinal:?Denies?Diarrhea.?Denies?Nausea.? * Medical History:?10/06/[address] Harden - repeat 10 yrs. * Allergies:?N.K.D.A. Objective: * Vitals:? Assessment: Plan: * Treatment: * * The named appointment provid er may or may not be the originator of this progress note, and it is not deemed complete until electronically signed by the appointment provider. Sign off status: Pending * Provider:?Gal Dunaway MD Date:?0 11/17/2024 Generated for Ana cleary/Enedina/eTransmitting on:?11/20/2024 04:22 PM EDT
--- OUTSIDE RECORDS SUMMARY | 2024-11-20 16:23 | XMS_ITS ---
Author Organization Gal Dunaway MD Address [address] [place], [place] [id number] Care Team Providers Care Director Of Primary Name Role Phone Gal Dunaway Primary Care Provider [phone] Allergies No Known Allergies REASON FOR VISIT [...] kg/m2 11/03/2024 weight is down 7 pounds [facility] 07-06-24 Encounters Encounter Location Date Provider Diagnosis Gal Dunaway MD [address] [place] [phone] 11/03/2024 Gal Dunaway Mycoplasma pneumoniae [M. pneumoniae] [...] Up: 2 Weeks, Reason: Provider Name:Gal pollard, 11/24/2024 11:30:00 AM, [address] [place] [address], [address], [phone], Provider Name:Gal pollard, 07/06/2025 07:00:00 AM, [address] [place] [address], [address], [phone], Provider Name:Gal pollard, 07/13/2025 08:30:00 AM, [address] [place] [address], [address], [phone], Progress Notes * Jacky PADILLA MDOB: 9 (54 yo M)Acc No.[id number]:11/03/2024 Patient:?Jacky PADILLA Provider:?Gal Dunaway MD :1970???Age:54 Y???Sex:Male Earl e:11/03/2024 Address:[facility] [place], [id number] Subjective: * Chief Complaints: * ???PH/TCMAccompanied by * HPI: ???Symptom(s):?[facility] a 54 [facility].discharge summary has [...] MD Date:?0 11/03/2024 Generated for Ana cleary/Enedina/eTransmitting on:?11/20/2024 04:22 PM EDT History and Physical [...]
--- OUTSIDE RECORDS SUMMARY | 2024-11-20 16:24 | XMS_ITS | Patient Health Record ---
Author Organization Gal Dunaway MD Address [address] [place], [place] [id number] Care Team Providers Care Appliance Parts Counter Clerk Name Role Phone Gal Dunaway Primary Care Provider Allergies No Known Allergies Results Component Value Reference Range Notes Complete Blood Count Auto Di ff Reviewed date:06/29/2024 12:34:00 PM Interpretation: Performing Lab:[facility], [address] [place] [phone] Notes/Report: White Blood Count 7.7 4.8-10.8 X10*3/uL [...] NRBC Abs Auto 0.000 0.0-0.012 X10*3/uL Comprehensive [place]. Panel Fa st Reviewed date:06/29/2024 12:43:20 PM Interpretation: Performing Lab:[facility], [address] [place] [address] Notes/Report: Sodium 143 135-145 mmol/L Potassium 3.6 3.3-5.1 mmol/L Chloride 108 96-108 mmol/L Carbon Dioxide 25 22-29 mmol/L Anion Gap 14 12-20 Blood Urea Nitrogen 13 9-16 mg/dL Creatinine 1.05 0.5-1.4 mg/dL Estimated Glomerular Filt Rate > 60 NOTE: For -[place] individuals, multiply the result by 1.210. Chronic [...] Panel Reviewed date:06/29/2024 12:31:58 PM Interpretation: Performing Lab:[facility], [address] [place] [phone] Notes/Report: Triglycerides 88 <150 mg/dL Desirable Triglyceride: [...] (Free>4and<10) Reviewed date:06/29/2024 12:32:06 PM Interpretation: Performing Lab:[facility], [address] [place] [phone] Notes/Report: PSA,Total (Free>4and<10) 1.56 0.00-4.00 ng/mL A [...] Random Reviewed date:06/29/2024 12:33:16 PM Interpretation: Performing Lab:[facility], [address] [place] [address] Notes/Report: Creatinine Urine 254.47 Microalbumin Urine 9.0 Microalbum/Creatinine Ratio Ur 3.5 <30 ug/mg cr Albumin/Creatinine Ratio Reference Ranges: Normal: < 30 ug/mg creatinine Microalbuminuria: 30 - 300 ug/mg creatinine Clinical Albuminuria: > 300 ug/mg creatinine Hemoglobin A1c Reviewed date:06/29/2024 12:42:00 PM Interpretation: Performing Lab:[facility], [address] [place] [phone] Notes/Report: Hemoglobin A1c % 5.4 <6.0 % [...] average glucose, using the formula of the F9X-Kfioqea Average Glucose study (ADAG), Diabetes Care, Vol.31,#8, Apr. 2007 UA ClnCatch+Micro w/rflx Cul t Reviewed date:06/29/2024 12:32:24 PM Interpretation: Performing Lab:[facility], [address] [place] [address] Notes/Report: [id number] Urine, Clean Catch Color Urine Yellow Appearance Urine Clear PH 5.5 5.0-9.0 Glucose Urine UA Negative Negative mg/dL Urine Blood Negative Negative Specific [place] - Urine 1.025 1.005-1.025 Urine Protein Negative [...] ff Reviewed date:10/26/2024 08:50:04 AM Interpretation: Performing Lab:[facility], [address] [place] [address] Notes/Report: White Blood Count 10.4 4.8-10.8 X10*3/uL [...] INR Reviewed date:10/26/2024 08:50:59 AM Interpretation: Performing Lab:[facility], [address] [place] [phone] Notes/Report: Prothrombin Time 11.4 10.9-12.4 SEC [employer]NATIONAL [...] Reviewed date:10/26/2024 08:51:30 AM Interpretation: Performing Lab:[address] [address] Notes/Report: Sodium 140 135-145 mmol/L Potassium 4.2 [...] Acid Reviewed date:10/26/2024 08:49:06 AM Interpretation: Performing Lab:[facility], [address] [place] [phone] Notes/Report: Lactic Acid 1.7 0.5-2.0 mmol/L Magnesium Reviewed date:10/26/2024 08:49:14 AM Interpretation: Performing Lab:[address] [address] Notes/Report: Magnesium 2.2 1.6-2.6 mg/dL Troponin-I High Sensitivity Reviewed date:10/26/2024 08:51:07 AM Interpretation: Performing Lab:[address] [address] Notes/Report: Troponin-I High Sensitivity < 2.7 <3.5-35.0 ng/L The Ramos high sensitivity Troponin-I results should be used in conjunction with other diagnostic information such as ECG, clinical observations and information, and patient symptoms to aid in the diagnosis of MN. C Reactive Protein Reviewed date:10/26/2024 07:37:50 AM Interpretation: Performing Lab:[address] [address] Notes/Report: C Reactive Protein 0.67 < or = 0.50 mg/dL B Type Natriuretic Peptide Reviewed date:10/26/2024 08:50:48 AM Interpretation: Performing Lab:[address] [address] Notes/Report: TROPONIN WOULD BE A DUPLICATE WAS COMPLETED AT 1102 B Type Natriuretic Peptide < 10 <100 pg/mL For those patients who are being treated with Natrecor (nesiritide, recombinant BNP), BNP testing should be performed at least two hours post treatment in order to ensure that only endogenous levels of BNP are detected. Procalcitonin Reviewed date:10/26/2024 08:51:47 AM Interpretation: Performing Lab:[address] [address] Notes/Report: Procalcitonin 0.02 Procalcitonin (PCT) Reference Range: [...] results from different laboratories and methodologies. References: [place] [employer]/Society of Critical Care [...] 510(k) substantial equivalence determination decision summary for [facility] PCT JOSTIN. http://www.accessdata. a.[facility]_docs/reviews/ [email or web address].pdf. Published September 2004. Accessed February 2017. SARS-CoV2/FLU/RSV Reviewed date:10/26/2024 08:51:39 AM Interpretation: Performing Lab:[address] [address] Notes/Report: Influenza A PCR NEGATIVE Negative Influenza [...] by authorized laboratories. Testing performed on the [employer] GeneXpert utilizing real-time RT-PCR. All SARS CoV2 and positive influenza A/B results are reported to [facility]. Blood Culture (First) Reviewed date:10/30/2024 05:22:41 PM Interpretation: Performing Lab:[facility], [address] [place] [address] Notes/Report: Blood Culture (First) No growth after 5 days. Blood Culture (Second) Reviewed date:10/30/2024 05:22:34 PM Interpretation: Performing Lab:[address] [address] Notes/Report: Blood Culture (Second) No growth after 5 days. Venous Blood Gases - POC Reviewed date:10/26/2024 08:49:33 AM Interpretation: Performing Lab:[facility], [address] [place] [address] Notes/Report: VBG pH 7.39 7.32-7.43 METER #: [id number] additional_comment: Cb gentilj VBG pCO2 40 METER #: [id number] additional_comment: Cb gentilj VBG pO2 35 METER #: [id number] additional_comment: Cb gentilj VBG Base Excess -0.4 METER #: [id number] additional_comment: Cb gentilj VBG HCO3 24 22-26 mmol/L METER #: [id number] additional_comment: Cb gentilj VBG O2 % Saturation 56.0 METER #: [id number] additional_comment: Cb nikailnicol CT chest wo con Reviewed date:10/26/2024 07:39:10 AM Interpretation: Performing Lab: Notes/Report: [address] [address] [address] Scan Report Signed Patient: Jacky Templeton MR#: [id number] 94 : 1970 Acct:[id number] Age/Sex: 54 / M ADM Date: 10/25/24 Loc: .ED Attending Dr: Ordering Physician: Ceci Acevedo DO Date of Service: 10/25/24 Procedure(s): CT chest wo IV con Accession Number(s): [id number] cc: Gal Dunaway MD; Ceci Acevedo DO Report Number: [id number]: Total DLP = 270.00 mGy-cm EXAMINATION: CT [...] by: Rj Wen MD 10/25/2024 12:06 PM [facility] Dictated By: Rj Wen MD Signed By: <Electronically signed by Rj Wen MD in OV> 10/25/24 1206 DD/ 1136 TD/TT: 10/25/24 1156 Construction Equipment Mechanic: [address] [address] [address] Scan Report Signed Patient: Sandor Templeton MR#: [id number] [birth year] : 1970 Acct:[id number] Age/Sex: 54 / M ADM Date: 10/25/24 Loc: .ED Attending Dr: Ordering Physician: Ceci Acevedo DO Date of Service: 10/25/24 Procedure(s): CT [facility] [facility] wo IV con Accession Number(s): [id number] cc: Gal Dunaway MD; Ceci Acevedo Report Number: [id number]: Total DLP = 270.00 mGy-cm EXAMINATION: CT [...] 10/25/24 1206 DD/ 1136 TD/TT: 10/25/24 1156 Construction Equipment Mechanic: XR chest 2V Reviewed date:10/26/2024 07:38:15 AM Interpretation: Performing Lab: Notes/Report: [address] [address] XRay Report Signed Patient: Jacky Templeton MR#: [id number] [birth year] : 1970 Acct:[id number] Age/Sex: 54 / M ADM Date: 10/24/24 Loc: ZOYA Attending Dr: Gal Dunaway MD Ordering Physician: Gal Dunaway MD Date of Service: 10/24/24 Procedure(s): XR chest 2V Accession Number(s): [id number] cc: Gal Dunaway MD CLINICAL HISTORY: ACUTE [...] 10/25/24 1309 DD/ 1308 TD/TT: 10/25/24 1308 Construction Equipment Mechanic: [address] [address] XRay Report Signed Patient: Sandor Templeton MR#: [id number] 94 : 1970 Acct:[id number] Age/Sex: 54 / M ADM Date: 10/24/24 Loc: ZOYA Attending Dr: Gal Dunaway MD Ordering Physician: Gal Dunaway MD Date of Service: 10/24/24 Procedure(s): XR [facility] 2V Accession Number(s): [id number] cc: Gal Dunaway MD CLINICAL HISTORY: AC [...] 10/25/24 1309 DD/ 1308 TD/TT: 10/25/24 1308 Construction Equipment Mechanic: Erythrocyte Sedimentation Ra te Reviewed date:10/26/2024 04:52:43 PM Interpretation: Performing Lab:[facility], [address] [place] [address] Notes/Report: Erythrocyte Sedimentation Rate 9 0-15 MM/HR Patients with polycythemia and many hemoglobin abnormalities may have depressed sed rates whereas patients with anemia may have elevated sed rates. Angiotensin Converting Enzym e Reviewed date:10/30/2024 12:27:52 PM Interpretation: Performing Lab:[facility], [address] [place] [address] Notes/Report: Angiotensin Converting Enzyme 9 9-67 U/L THIS TEST WAS PERFORMED AT: [facility]/[address] [address] CHASTITY ONTIVEROS MD,PHD ANCA Vasculitides Reviewed date:10/29/2024 09:32:31 AM Interpretation: Performing Lab:[facility], [address] [place] [address] Notes/Report: Myeloperoxidase Antibody <1.0 Value Interpretation ----- [...] = 1.0 Antibody Detected Autoantibodies to proteinase-3 (CA-3) are accepted as characteristic for granulomatosis with polyangiitis (GPA, Parvez's), and are detectable in 95% of the histologically proven cases. The cytoplasmic IFA pattern, (c-ANCA), is based largely on autoantibody to CA-3 which serves as the primary antigen. These autoantibodies are present in active disease. THIS TEST WAS PERFORMED AT: [facility] [address] [place] [address] PARMINDER SÁNCHEZ MD Mycoplasma Pneumoniae IgG&Ig M Reviewed date:11/01/2024 01:25:27 PM Interpretation: Performing Lab:[facility], [address] [place] [address] Notes/Report: Mycoplasma Pneumoniae - IgG 1.79 <=0.90 [...] the patient. THIS TEST WAS PERFORMED AT: [facility] [address] [place] [address] CHASTITY ONTIVEROS MD,PHD GI Panel Reviewed date:10/26/2024 04:52:26 PM Interpretation: Performing Lab:[facility], [address] [place] [address] Notes/Report: Campylobacter Not Detected Not Detect. Plesiomonas [...] date:10/26/2024 01:34:58 PM Interpretation: Performing Lab: Notes/Report: [address] [address] [address] Scan Report Signed Patient: Jacky Templeton MR#: [id number] [birth year] : 1970 Acct:[id number] Age/Sex: 54 / M ADM Date: 10/25/24 Loc: [facility] 353-[address]: Geetha Baxter MD Ordering Physician: Geetha Baxter MD Date of Service: 10/26/24 Procedure(s): CT angio chest PE protocol Accession Number(s): [id number] cc: Gal Dunaway MD; Geetha Baxter MD Report Number: [id number]: Total DLP = 123.00 mGy-cm CLINICAL HISTORY: hypoxia CT angiography chest with contrast. 3D Postprocessing. Comparison: CT/CA/SR - CT CHEST WO IV CON - [...] 10/26/24 1303 DD/ 1302 TD/TT: 10/26/24 1302 Construction Equipment Mechanic: [place] [address] [address] Scan Report Signed Patient: Sandor Templeton MR#: [id number] 94 : 1970 Acct:[id number] Age/Sex: 54 / M ADM Date: 10/25/24 Loc: .S3 353-[address]: Geetha Baxter MD Ordering Physician: Geetha Baxter MD Date of Service: 10/26/24 Procedure(s): CT ang io chest PE protocol Accession Number(s): [id number] cc: Gal Dunaway MD; Geetha Baxter MD Report Number: [id number]: Total DLP = 123.00 mGy-cm CLINICAL HISTORY: hypoxia CT angiography chest with contrast. 3D Postprocessing. Comparison: CT/CA/SR - CT CHEST WO IV CON - [...] 10/26/24 1303 DD/ 1302 TD/TT: 10/26/24 1302 Construction Equipment Mechanic: Reason For Referral Reason lumbar back pain [...] Sweeney 08:59:41 AM EDT > info faxed , [...] 4 hrs for 30 days 09/07/2024 Active Sulindac 200 MG 1 tablet with food Orally Twice a day for 30 day(s) 11/16/2022 Not-Taking Ibuprofen 800 MG 1 tablet with food o r milk as needed Orally every 8 hrs as needed for 30 days 07/06/2024 Not-Taking Cyclobenzaprine HCl 5 MG 1 tab Orally 3 times per day for 10 days 11/16/2022 Not-Taking Zithromax Z-Miguel 250 MG 2 tablet on [...] 4 days for 14 days 11/20/2024 Active Immunizations Vaccine Route Administration Date Status [...] Problem Status W/U Status Risk Notes Problem 066840795 Dermatofibroma (D23.9) Active confirmed Problem 213329884 Thrombocytopenia (D69.6) Active confirmed Problem 17968517 Lymphocytosis (D72.820) Active confirmed Problem 016892335 Reflux esophagit is (K21.00) Active confirmed Problem Asthmatic bronchitis (985204247) Asthmatic bronchitis (J45.909) Active confirmed Problem 98864712 Sciatica, right side (M54.31) Active confirmed Problem 7890451 Prediabetes (R73.09) Active confirmed Problem 15675954 Sciatica of left side (M54.32) Active confirmed Problem 1458527009 Ruptured lumbar disc (M51.26) Active confirmed Problem 553317982 History of noctu penny (Z87.898) Active confirmed Problem 677101873903829 Hematuria due to chronic cystitis (N30.21) Active confirmed Problem 346000750 Acute asthmatic bronchitis (J45.909) Active confirmed Vital Signs Blood pressure diastolic 70 mm Hg 11/20/2024 Height 71 in 11/20/2024 Blood pressure systolic 122 mm Hg 11/20/2024 Weight 169 lbs 11/20/2024 BMI 23.57 kg/m2 11/20/2024 Encounters Encounter Location Date Provider Diagnosis Gal Dunawya MD [address] [place] [id number] 11/20/2024 Gal Dunaway Asthmatic bronchitis J45.909 Gal Dunaway MD [address] [place] [address] Drive [address] [place] [id number] 12/06/2023 Gal Dunaway Lumbar back pain M54.50 and Nodule of finger, left R22.32 Gal Dunaway MD [address] [place] [address] Drive [address] [place] [id number] 06/29/2024 Gal Dunaway Blood tests for routine general physical examination Z00.00 ; Prediabetes R73.09 and Lymphocytosis D72.820 Gal Dunaway MD [address] [place] [id number] 07/06/2024 Gal Dunaway Sciatica, right side M54.31 ; Annual physical exam Z00.00 ; Prediabetes R73.09 ; Lymphocytosis D72.820 ; Colon cancer screening Z12.11 and Depression screening Z13.31 Gal Dunaway MD [address] [place] [id number] 09/07/2024 Gal Dunaway Wheezy bronchitis J4 0 Gal Dunaway MD [address] [place] [id number] 10/03/2024 Gal Dunaway Acute asthmatic bronchitis J45.909 Gal Dunaway MD [address] [id number] 10/24/2024 Gal Dunaway Acute asthmatic bronchitis J45.909 Gal Dunaway MD [address] [place] [id number] 11/03/2024 Gal Dunaway Mycoplasma pneumonia e [M. pneumoniae] as the cause of diseases classified elsewhere B96.0 Gal Dunaway MD [address] [place] [id number] 09/15/2024 Gal Dunaway MD [address] [id number] 10/17/2024 Gal Dunaway Wheezy bronchitis J4 0 Gal Dunaway MD [address] [id number] 10/30/2024 Gal Dunaway Assessments Encounter Date Diagnosis (ICD Code) Assessment Notes Treatment Notes Treatment Clinical Notes Section Notes 11/20/2024 Asthmatic bronchitis (ICD-10 - J45.909) 12/06/2023 Lumbar back pain (ICD-10 - M54.50) [...] Other THE ORDER WAS F AX[place] [facility] PATIENT REG AND PATIENT HAS BEEN INFORMED Plan Of Treatment Pending Test Test Name Order Date Electrocardiogram (EKG) 04/30/2016 EAR IRRIGATION 05/28/2011 MRI LUMBAR SPINE NO CONTRAST 11/16/2022 XR CHEST 2 VIEW PA & LAT 11/20/2024 XR CHEST 2 VIEW PA & LAT 10/24/2024 Next Appt Details Provider Name:Gal pollard, 11/24/2024 11:30:00 AM, [address] [place] [address], [address] [place] [address], [phone], Provider Name:Gal pollard, 07/06/2025 07:00:00 AM, [address] [place] [address], [place] [address], [place], [place], [phone], Provider Name:Galrachel Bradley ier, 07/13/2025 08:30:00 AM, [address], [address], [place], [phone], Insurance Providers Payer Name Payer Address Payer Phone Subscriber Number Group Number Insured Name Patient Relationship to Insured Coverage Start Date Coverage End Date [employer] [address] [place], [place] [phone] [id number] Jacky Templeton Self - patient is the insured Medical (General) History Medical History History ICD Code 10/06/[address] Harden - repeat 10 yrs
== END 2024-11-20 13:56 | disposition home or self-care (01) ==
LOC: HO.XRAY 13:55
PROVIDERS: PCP Internal Medicine; Visit Provider Internal Medicine
DX: J45.909 Unspecified asthma, uncomplicated (principal)
CPT/HCPCS: 71046

== ENCOUNTER → 2024-11-20 14:06 | Outpatient (BNV) | payer BC, SELFPAY | PROVIDERS: PCP Internal Medicine; Visit Provider Radiology Diagnostic Radiology | DX: J45.909 Unspecified asthma, uncomplicated (principal) | CPT/HCPCS: 71046 ==

== ENCOUNTER 2024-12-07 09:40 | Outpatient (REF) | payer BC, SELFPAY ==
--- NOTE | ~2024-12-07 | XR_ITS ---
EXAMINATION: XR CHEST CLINICAL INFORMATION: ACUTE ASTHMATIC BRONCHITIS COMPARISON: 11/20/2024, 10/24/2024. CT chest 10/25/2024. TECHNIQUE: 2 views of the chest were obtained. FINDINGS: The cardiac, hilar, and mediastinal contours are normal. Lungs demonstrate mild apical scarring bilaterally. There is mild prominence of the background interstitial markings throughout both lungs, without focal consolidation or opacity. Appearance is similar to 11/20/2024. There is no pneumothorax or pleural effusion. There is no focal osseous or soft tissue abnormality. XR/XR chest 2V IMPRESSION: Mildly prominent background interstitial markings throughout both lungs, similar to the prior examination of 11/20/2024 without focal pneumonia or opacity. Electronically signed by: Rj Wen MD 12/07/2024 09:59 AM EDT
--- OUTSIDE RECORDS SUMMARY | 2024-12-07 10:09 | XMS_ITS ---
Author Organization Gal Dunaway MD Address [address] [place], [place] [id number] Care Team Providers Care Loader [employer] Name Role Phone Gal Dunaway Primary Care [...] Location Date Provider Diagnosis Gal Dunaway MD [address] [place] [address] [place] [phone] 12/01/2024 Gal Dunaway Acute asthmatic bronchitis J45.909 [...] Next Appt Details Provider Name:Gal Bradley ier, 07/06/2025 07:00:00 AM, [address] [place] [address], [place] [address], [place], [place], [phone], Provider Name:Gal Bradley ier, 07/13/2025 08:30:00 AM, [address] [place] [address], [address], [phone], Progress Notes * Jacky PADILLA MDOB: 9 (54 yo M)Acc No.[id number]:12/01/2024 Progress Notes Patient:?Jacky PADILLA Provider:?Gal Dunaway MD :1970???Age:54 Y???Sex:Male Earl e:12/01/2024 Address:[address] [place] [address] [facility] Subjective: * Chief Complaints: * ??? * HPI: ???Symptom(s):?patient is a 54 yo male here for follow up/ feels that the z pack helped. still using o2 at night.. not coughing any more. on 10 mg of prednisone for 2 days. lifted weight and ran up stairs and o2 sat was 95. * ROS:?General/Constitutional:?Denies?Chills.?Denies?Fatigue.?Denies?Fever.?Denies?Headache.?ENT:?Denies?Sore throat.?Respiratory:?Denies?Cough.?Denies?Shortness of breath at rest.?Denies?Shortness of breath with exertion.?Gastrointestinal:?Denies?Diarrhea.?Denies?Nausea.? * Medical History:?10/06/[address] Harden - repeat 10 yrs. * Medications:?Taking Albutero l Sulfate HFA 108 (90 Base) MCG/ACT Aerosol Solution 1 puff as needed Inhalation every 4 hrs , Taking predniSONE 10 MG Tablet 1 tablet with food or milk Orally 4 tabs for 4 days, 3 tabs for 4 days, 2 tbs for 4 days, and 1 tab for 4 days , Not-Taking/PRN Benzonatate 200 MG Capsule 1 [...] Orally 3 times per day , Discontinued Zithromax Z-Miguel 250 MG Tablet 2 tablet on the first day, then 1 tablet daily for 4 days Orally Once a day , Medication List reviewed and reconciled with the patient * Allergies:?N.K.D.A. Objective: * Vitals:?Ht: 71, Wt: 171, BMI :23.85, BP:102/76, Wt-k.57. * Examination: ???General Examination: ?GENERAL APPEARANCE:?well developed, well nourished.?HEAD:?normocephalic.?SKIN:?good turgor.?HEART:?no murmurs, rubs, gallops, regular rate and rhythm.?LUNGS:?no wheezes, rales, rhonchi, good air movement, clear to auscultation bilaterally.? Assessment: * Assessment: 1.?Acute asthmatic bronchiti s - J45.909 (Primary)???2.?Mycoplasma infection, unspecified site - A49.3??? Plan: * Treatment: 2.?Mycoplasma infection, uns pecified site? Notes: recovered, will continue to monitor?? * * The named appointment provid er may or may not be the originator of this progress note, and it is not deemed complete until electronically signed by the appointment provider. Sign off status: Pending * Provider:?Gal Dunaway MD Date:?0 12/01/2024 Generated for Ana cleary/Enedina/eTransmitting on:?12/07/2024 10:08 AM EDT History and Physical Notes * [...]
--- OUTSIDE RECORDS SUMMARY | 2024-12-07 10:09 | XMS_ITS ---
Author Organization Gal Dunaway MD Address [address] [place], [place] [phone] Care Team Providers Care Water Treatment Plant Supervisor Name Role Phone Gal Dunaway Primary Care Provider [phone] Allergies No Known Allergies REASON FOR VISIT [...] Location Date Provider Diagnosis Gal Dunaway MD [address] [place] [phone] 12/07/2024 Gal Dunaway Acute asthmatic bronchitis J45.909 and Mycoplasma infection, unspecified site A49.3 Assessments Encounter Date Diagnosis (ICD Code) Assessment Notes Treatment Notes Treatment Clinical Notes Section Notes 12/07/2024 Acute asthmatic bronchitis (ICD-10 - J45.909) THE ORDER WAS PRINTED AND GIVEN TO [...] Treatment Notes Assessment Notes Acute asthmatic bronchitis THE ORDER WAS PRINTED AND GIVEN TO JACKY Pending Test Test Name Order Date XR CHEST 2 VIEW PA & LAT 12/07/2024 Next Appt Details Follow Up: 2 - 3 Days, Reaso n: Provider Name:Gal Bradley ier, 07/06/2025 07:00:00 AM, [address] [place] [address], [address], [place], [place], [phone], Provider Name:Gal Bradley ier, 07/13/2025 08:30:00 AM, [address] [place] [address], [place] [address], [place], [place], [phone], Progress Notes * Jacky PADILLA MDOB: 9 (54 yo M)Acc No.[id number]:12/07/2024 Progress Notes Patient:?DYLANJacky KIM Nilda Provider:?Gal Dunaway MD :1970???Age:54 Y???Sex:Male Earl e:12/07/2024 Address:[address] [place], [place] [phone] Subjective: * Chief Complaints: * ???1. SOB. * HPI: ???Symptom(s):? 3 dqys ago started to get breathing problems again and now with mucous and inhaler hilps for one hour. just coming from car had to stop twice and use inhaler. * ROS:?General/Constitutional:?Denies?Chills.?Denies?Fatigue.?Denies?Fever.?Denies?Headache.?ENT:?Denies?Sore throat.?Respiratory:?Admits?Cough.?Admits?Shortness of breath at rest.?Admits?Shortness of breath with exertion.?Admits?Sputum production.?Admits?Wheezing.?Gastrointestinal:?Denies?Diarrhea.?Denies?Nausea.? * Medical History:?10/06/[address] Harden - repeat 10 yrs. * Medications:?Taking Albutero l Sulfate HFA 108 (90 Base) MCG/ACT Aerosol Solution 1 puff as needed Inhalation every 4 hrs , Not-Taking/PRN predniSONE 10 MG Tablet 1 [...] tab Orally 3 times per day , Medication List reviewed and reconciled with the patient * Allergies:?N.K.D.A. Objective: * Vitals:?Ht: 71, Wt: 170, BMI :23.71, BP:128/80, Wt-k.11. * Examination: ???General Examination: ?GENERAL APPEARANCE:?alert, well hydrated, in no distress.?SKIN:?good turgor.?HEART:?regular rate and rhythm, no murmurs, rubs, gallops.?LUNGS:?good air movement with a few wheezes.? Assessment: * Assessment: 1.?Acute asthmatic bronchiti s - J45.909 (Primary)???2.?Mycoplasma infection, unspecified site - A49.3??? Plan: * Treatment: * Follow Up:?2 - 3 Days * * The named appointment provid er may or may not be the originator of this progress note, and it is not deemed complete until electronically signed by the appointment provider. Sign off status: Pending * Provider:?Gal Dunaway MD Date:?0 12/07/2024 Generated for Ana cleary/Enedina/Jaycesmitting on:?12/07/2024 10:08 AM EDT History and Physical Notes * HPI (History of Present Illness) Category Sub-Category Detail Notes Category Not es Symptom(s) 3 dqys ago star oxana to get breathing problems again and now with mucous and inhaler hilps for one hour. just coming from car had to stop twice and use inhaler Examination Category Sub-Category Detail Notes Category Not es General Examination GENERAL APPEARANCE: alert, w ell hydrated, in no distress HEART: regular rate and rhy thm, no murmurs, rubs, gallops LUNGS: good air movement wi th a few wheezes SKIN: good turgor
--- OUTSIDE RECORDS SUMMARY | 2024-12-07 10:09 | XMS_ITS ---
Author Organization Gal Dunaway MD Address [address] [place], [place] [phone] Care Team Providers Care Color Maker Name Role Phone Gal Dunaway Primary Care Provider [phone] Allergies No Known Allergies REASON FOR VISIT [...] Location Date Provider Diagnosis Gal Dunaway MD [address] [place] [phone] 11/24/2024 Gal Dunaway Asthmatic bronchitis J45.909 Assessments Encounter Date Diagnosis (ICD Code) Assessment Notes Treatment Notes Treatment Clinical Notes Section Notes 11/24/2024 Asthmatic bronchitis (ICD-10 - J45.909) doing much better. will continue to monitor Plan Of Treatment Treatment Notes Assessment Notes Asthmatic bronchitis doing much better. will continue to monitor Next Appt Details Follow Up: 1 Week, Reason: Provider Name:aGl pollard, 07/06/2025 07:00:00 AM, [address] [place] [address], [address], [phone], Provider Name:Gal pollard, 07/13/2025 08:30:00 AM, [address] [place] [address], [place] [address], [place], [place], [phone], Progress Notes * Jacky PADILLA MDOB: 9 (54 yo M)Acc No.[id number]:11/24/2024 Progress Notes Patient:?Jacky PADILLA Provider:?Gal Dunaway MD :1970???Age:54 Y???Sex:Male Earl e:11/24/2024 Address:[address] [place], [place] [phone] Subjective: * Chief Complaints: * ???3 day f/u * HPI: ???Symptom(s):?patient is a 54 yo male here for 3 day follow up visit/ feeling a lot better than before. using his inhaler occasionally.// has still some o2 sats in low 80's. when he sees 83 has trouble talking. * ROS:?General/Constitutional:?Denies?Chills.?Denies?Fatigue.?Denies?Fever.?Denies?Headache.?ENT:?Patient denies?decreased sense of smell, any loss of taste, sore throat.?Denies?Sore throat.?Respiratory:?Admits?Cough.?Denies?Shortness of breath at rest.?Denies?Shortness of breath with exertion.?Admits?Sputum production.?Denies?Wheezing.?Gastrointestinal:?Denies?Diarrhea.?Denies?Nausea.?Musculoskeletal:?Patient denies?muscle aches.?Peripheral Vascular:?Patient denies?red and blue toes.? [...] and 1 tab for 4 days Zithromax Z-Mgiuel 250 MG Tablet 2 tablet on the [...] gies Verified] Objective: * Vitals:?Ht: 71, Wt: 172, BMI :23.99, BP:112/70, Wt-k.02. weight is up 3 pounds since 11-20-24. * Examination: ???General Examination: ?GENERAL APPEARANCE:?alert, well hydrated, in no distress.?HEAD:?normocephalic.?SKIN:?good turgor.?HEART:?regular rate and rhythm, no murmurs, rubs, gallops.?LUNGS:?no wheezes, rales, rhonchi, good air movement, clear to auscultation bilaterally.? Assessment: * Assessment: 1.?Asthmatic bronchitis - J4 5.909 (Primary)??? Plan: * Treatment: * Procedure Codes:? * Follow Up:?1 Week * * Sign off status: Completed true * Provider:?Gal Dunaway MD Date:?0 11/24/2024 Generated for Ana cleary/Enedina/Selinaitting on:?12/07/2024 10:08 AM EDT History and Physical [...]
== END 2024-12-07 09:41 | disposition home or self-care (01) ==
LOC: HO.XRAY 09:40
PROVIDERS: PCP Internal Medicine; Visit Provider Internal Medicine
DX: J45.909 Unspecified asthma, uncomplicated (principal)
CPT/HCPCS: 71046

== ENCOUNTER → 2024-12-07 09:48 | Outpatient (BNV) | payer BC, SELFPAY | PROVIDERS: PCP Internal Medicine; Visit Provider Radiology Diagnostic Radiology | DX: J45.901 Unspecified asthma with (acute) exacerbation (principal) | CPT/HCPCS: 71046 ==

== ENCOUNTER 2024-12-08 07:14 | Outpatient (REF) | payer BC, SELFPAY ==
--- NOTE | ~2024-12-08 | CT_ITS ---
CLINICAL HISTORY: R93.89 - Abnormal findings on diagnostic imaging of other specified body... CT chest without contrast Comparison: October 25, 2024 Findings: The heart is normal size. The visualized thyroid and mediastinum are unremarkable. The lungs are clear. Previously noted ground-glass opacification has resolved. The visualized upper abdomen is unremarkable. The bones are intact. IMPRESSION: 1. No acute findings. This document has been electronically signed by: Noel Isidro MD on 12/08/2024 09:14:28
--- OUTSIDE RECORDS SUMMARY | 2024-12-08 07:17 | XMS_ITS ---
Author Organization Gal Dunaway MD Address [address] [place], [place] [phone] Care Team Providers Care Psychology Intern Name Role Phone Gal Dunaway Primary Care [...] Location Date Provider Diagnosis Gal Dunaway MD [address] [place] [phone] 11/24/2024 Gal Dunaway Asthmatic bronchitis J45.909 Assessments Encounter Date Diagnosis (ICD Code) Assessment Notes Treatment Notes Treatment Clinical Notes Section Notes 11/24/2024 Asthmatic bronchitis (ICD-10 - J45.909) doing much better. will continue to monitor Plan Of Treatment Treatment Notes Assessment Notes Asthmatic bronchitis doing much better. will continue to monitor Next Appt Details Follow Up: 1 Week, Reason: Provider Name:Gal pollard, 07/06/2025 07:00:00 AM, [address] [place] [address], [address], [phone], Provider Name:Gal pollard, 07/13/2025 08:30:00 AM, [address] [place] [address], [place] [address], [place], [place], [phone], Progress Notes * Jacky PADILLA MDOB: 9 (54 yo M)Acc No.[id number]:11/24/2024 Progress Notes Patient:?Jacky PADILLA Provider:?Gal Dunaway MD :1970???Age:54 Y???Sex:Male Earl e:11/24/2024 Address:[address] [place], [place] [phone] Subjective: * Chief Complaints: * ???3 day [...] MD Date:?0 11/24/2024 Generated for Ana cleary/Enedina/Selinaitting on:?12/08/2024 07:16 AM EDT History and Physical Notes * [...]
--- OUTSIDE RECORDS SUMMARY | 2024-12-08 07:17 | XMS_ITS | Patient Health Record ---
Author Organization Gal Dunaway MD Address [address] [place], [place] [id number] Care Team Providers Care Flag Maker Name Role Phone Gal Dunaway Primary Care Provider Allergies No Known Allergies Results Component Value Reference Range Notes Complete Blood Count Auto Di ff Reviewed date:06/29/2024 12:34:00 PM Interpretation: Performing Lab:[facility], [address] [place] [address] Notes/Report: White Blood Count 7.7 4.8-10.8 X10*3/uL [...] NRBC Abs Auto 0.000 0.0-0.012 X10*3/uL Comprehensive [place]. Panel Fa st Reviewed date:06/29/2024 12:43:20 PM Interpretation: Performing Lab:[facility], [address] [place] [phone] Notes/Report: Sodium 143 135-145 mmol/L Potassium 3.6 3.3-5.1 mmol/L Chloride 108 96-108 mmol/L Carbon Dioxide 25 22-29 mmol/L Anion Gap 14 12-20 Blood Urea Nitrogen 13 9-16 mg/dL Creatinine 1.05 0.5-1.4 mg/dL Estimated Glomerular Filt Rate > 60 NOTE: For -Citizen Of [place] individuals, multiply the result by 1.210. Chronic [...] Panel Reviewed date:06/29/2024 12:31:58 PM Interpretation: Performing Lab:[facility], [address] [place] [address] Notes/Report: Triglycerides 88 <150 mg/dL Desirable Triglyceride: [...] (Free>4and<10) Reviewed date:06/29/2024 12:32:06 PM Interpretation: Performing Lab:[facility], [address] [place] [phone] Notes/Report: PSA,Total (Free>4and<10) 1.56 0.00-4.00 ng/mL A [...] Random Reviewed date:06/29/2024 12:33:16 PM Interpretation: Performing Lab:[facility], [address] [place] [address] Notes/Report: Creatinine Urine 254.47 Microalbumin Urine 9.0 Microalbum/Creatinine Ratio Ur 3.5 <30 ug/mg cr Albumin/Creatinine Ratio Reference Ranges: Normal: < 30 ug/mg creatinine Microalbuminuria: 30 - 300 ug/mg creatinine Clinical Albuminuria: > 300 ug/mg creatinine Hemoglobin A1c Reviewed date:06/29/2024 12:42:00 PM Interpretation: Performing Lab:[facility], [address] [place] [address] Notes/Report: Hemoglobin A1c % 5.4 <6.0 % [...] average glucose, using the formula of the N6L-Ifegddy Average Glucose study (ADAG), Diabetes Care, Vol.31,#8, Apr. 2007 UA ClnCatch+Micro w/rflx Cul t Reviewed date:06/29/2024 12:32:24 PM Interpretation: Performing Lab:[facility], [address] [place] [address] Notes/Report: [id number] Urine, Clean Catch Color Urine Yellow Appearance Urine Clear PH 5.5 5.0-9.0 Glucose Urine UA Negative Negative mg/dL Urine Blood Negative Negative Specific [place] - Urine 1.025 1.005-1.025 Urine Protein Negative [...] ff Reviewed date:10/26/2024 08:50:04 AM Interpretation: Performing Lab:[facility], [address] [place] [address] Notes/Report: White Blood Count 10.4 4.8-10.8 X10*3/uL [...] INR Reviewed date:10/26/2024 08:50:59 AM Interpretation: Performing Lab:[facility], [address] [place] [address] Notes/Report: Prothrombin Time 11.4 10.9-12.4 SEC [employer]NATIONAL [...] Panel Reviewed date:10/26/2024 08:51:30 AM Interpretation: Performing Lab:[address] [address] Notes/Report: Sodium 140 135-145 mmol/L Potassium 4.2 [...] Acid Reviewed date:10/26/2024 08:49:06 AM Interpretation: Performing Lab:[facility], [address] [place] [address] Notes/Report: Lactic Acid 1.7 0.5-2.0 mmol/L Magnesium Reviewed date:10/26/2024 08:49:14 AM Interpretation: Performing Lab:[address] [phone] Notes/Report: Magnesium 2.2 1.6-2.6 mg/dL Troponin-I High Sensitivity Reviewed date:10/26/2024 08:51:07 AM Interpretation: Performing Lab:[address] [address] Notes/Report: Troponin-I High Sensitivity < 2.7 <3.5-35.0 ng/L The Ramos high sensitivity Troponin-I results should be used in conjunction with other diagnostic information such as ECG, clinical observations and information, and patient symptoms to aid in the diagnosis of [place]. C Reactive Protein Reviewed date:10/26/2024 07:37:50 AM Interpretation: Performing Lab:[address] [address] Notes/Report: C Reactive Protein 0.67 < or = 0.50 mg/dL B Type Natriuretic Peptide Reviewed date:10/26/2024 08:50:48 AM Interpretation: Performing Lab:[address] [address] Notes/Report: TROPONIN WOULD BE A DUPLICATE WAS COMPLETED AT 1102 B Type Natriuretic Peptide < 10 <100 pg/mL For those patients who are being treated with Natrecor (nesiritide, recombinant BNP), BNP testing should be performed at least two hours post treatment in order to ensure that only endogenous levels of BNP are detected. Procalcitonin Reviewed date:10/26/2024 08:51:47 AM Interpretation: Performing Lab:[address] [address] Notes/Report: Procalcitonin 0.02 Procalcitonin (PCT) Reference Range: [...] results from different laboratories and methodologies. References: [place] [employer]/Society of Critical Care [...] 510(k) substantial equivalence determination decision summary for [facility]. http://www.accessdata. a.[facility]_docs/reviews/ A710846.pdf. Published September 2004. Accessed February 2017. SARS-CoV2/FLU/RSV Reviewed date:10/26/2024 08:51:39 AM Interpretation: Performing Lab:[address] [address] Notes/Report: Influenza A PCR NEGATIVE Negative Influenza [...] by authorized laboratories. Testing performed on the [employer] GeneXpert utilizing real-time RT-PCR. All SARS CoV2 and positive influenza A/B results are reported to [facility]. Blood Culture (First) Reviewed date:10/30/2024 05:22:41 PM Interpretation: Performing Lab:[facility], [address] [place] [address] Notes/Report: Blood Culture (First) No growth after 5 days. Blood Culture (Second) Reviewed date:10/30/2024 05:22:34 PM Interpretation: Performing Lab:[address] [address] Notes/Report: Blood Culture (Second) No growth after 5 days. Venous Blood Gases - POC Reviewed date:10/26/2024 08:49:33 AM Interpretation: Performing Lab:[facility], [address] [place] [address] Notes/Report: VBG pH 7.39 7.32-7.43 METER #: [id number] additional_comment: Cb gentilj VBG pCO2 40 METER #: [id number] additional_comment: Cb gentilj VBG pO2 35 METER #: [id number] additional_comment: Cb gentilj VBG Base Excess -0.4 METER #: [id number] additional_comment: Cb gentilj VBG HCO3 24 22-26 mmol/L METER #: [id number] additional_comment: Cb gentilj VBG O2 % Saturation 56.0 METER #: [id number] additional_comment: Cb nikailnicol CT chest wo con Reviewed date:10/26/2024 07:39:10 AM Interpretation: Performing Lab: Notes/Report: [address] [address] [address] Scan Report Signed Patient: Elisabeth Templeton MR#: [id number] 94 : 1970 Acct:[id number] Age/Sex: 54 / M ADM Date: 10/25/24 Loc: .ED Attending Dr: Ordering Physician: Ceci Acevedo DO Date of Service: 10/25/24 Procedure(s): CT chest wo IV con Accession Number(s): [id number] cc: Gal Dunaway MD; Ceci Acevedo DO Report Number: [id number]: Total DLP = 270.00 mGy-cm EXAMINATION: CT [...] by: Rj Wen MD 10/25/2024 12:06 PM [facility] Dictated By: Rj Wen MD Signed By: <Electronically signed by Rj Wen MD in OV> 10/25/24 1206 DD/ 1136 TD/TT: 10/25/24 1156 Mail Processing Clerk: [address] [address] [address] Scan Report Signed Patient: Sandor Templeton MR#: [id number] 94 : 1970 Acct:[id number] Age/Sex: 54 / M ADM Date: 10/25/24 Loc: .ED Attending Dr: Ordering Physician: Ceci Acevedo DO Date of Service: 10/25/24 Procedure(s): CT [facility] [facility] wo IV con Accession Number(s): [id number] cc: Gal Dunaway MD; Ceci Acevedo Report Number: [id number]: Total DLP = 270.00 mGy-cm EXAMINATION: CT [...] 10/25/24 1206 DD/ 1136 TD/TT: 10/25/24 1156 Mail Processing Clerk: XR chest 2V Reviewed date:10/26/2024 07:38:15 AM Interpretation: Performing Lab: Notes/Report: [address] [address] XRay Report Signed Patient: Elisabeth Templeton MR#: [id number] 94 : 1970 Acct:[id number] Age/Sex: 54 / M ADM Date: 10/24/24 Loc: ZOYA Attending Dr: Gal Dunaway MD Ordering Physician: Gal Dunaway MD Date of Service: 10/24/24 Procedure(s): XR chest 2V Accession Number(s): [id number] cc: Gal Dunaway MD CLINICAL HISTORY: ACUTE [...] 10/25/24 1309 DD/ 1308 TD/TT: 10/25/24 1308 Mail Processing Clerk: [address] [address] XRay Report Signed Patient: Sandor Templeton MR#: [id number] 94 : 1970 Acct:[id number] Age/Sex: 54 / M ADM Date: 10/24/24 Loc: ZOYA Attending Dr: Gal Dunaway MD Ordering Physician: Gal Dunaway MD Date of Service: 10/24/24 Procedure(s): XR [facility] [facility] 2V Accession Number(s): [id number] cc: Gal Dunaway MD CLINICAL HISTORY: AC [...] 10/25/24 1309 DD/ 1308 TD/TT: 10/25/24 1308 Mail Processing Clerk: Erythrocyte Sedimentation Ra te Reviewed date:10/26/2024 04:52:43 PM Interpretation: Performing Lab:[facility], [address] [place] [address] Notes/Report: Erythrocyte Sedimentation Rate 9 0-15 MM/HR Patients with polycythemia and many hemoglobin abnormalities may have depressed sed rates whereas patients with anemia may have elevated sed rates. Angiotensin Converting Enzym e Reviewed date:10/30/2024 12:27:52 PM Interpretation: Performing Lab:[facility], [address] [place] [address] Notes/Report: Angiotensin Converting Enzyme 9 9-67 U/L THIS TEST WAS PERFORMED AT: [facility]/[address] [address] CHASTITY ONTIVEROS MD,PHD ANCA Vasculitides Reviewed date:10/29/2024 09:32:31 AM Interpretation: Performing Lab:[facility], [address] [place] [address] Notes/Report: Myeloperoxidase Antibody <1.0 Value Interpretation ----- [...] = 1.0 Antibody Detected Autoantibodies to proteinase-3 (AK-3) are accepted as characteristic for granulomatosis with polyangiitis (GPA, Parvez's), and are detectable in 95% of the histologically proven cases. The cytoplasmic IFA pattern, (c-ANCA), is based largely on autoantibody to AK-3 which serves as the primary antigen. These autoantibodies are present in active disease. THIS TEST WAS PERFORMED AT: [facility] [address] [place] [address] PARMINDER SÁNCHEZ MD Mycoplasma Pneumoniae IgG&Ig M Reviewed date:11/01/2024 01:25:27 PM Interpretation: Performing Lab:[facility], [address] [place] [address] Notes/Report: Mycoplasma Pneumoniae - IgG 1.79 <=0.90 [...] the patient. THIS TEST WAS PERFORMED AT: [facility] [address] [place] [address] CHASTITY ONTIVEROS MD,PHD GI Panel Reviewed date:10/26/2024 04:52:26 PM Interpretation: Performing Lab:[facility], [address] [place] [address] Notes/Report: Campylobacter Not Detected Not Detect. Plesiomonas [...] date:10/26/2024 01:34:58 PM Interpretation: Performing Lab: Notes/Report: [address] [address] [address] Scan Report Signed Patient: Elisabeth Templeton MR#: [id number] 94 : 1970 Acct:[id number] Age/Sex: 54 / M ADM Date: 10/25/24 Loc: [facility] 353-[address]: Geetha Baxter MD Ordering Physician: Geetha Baxter MD Date of Service: 10/26/24 Procedure(s): CT angio chest PE protocol Accession Number(s): [id number] cc: Gal Dunaway MD; Geetha Baxter MD Report Number: [id number]: Total DLP = 123.00 mGy-cm CLINICAL HISTORY: hypoxia CT angiography chest with contrast. 3D Postprocessing. Comparison: CT/AK/SR - CT CHEST WO IV CON - [...] 10/26/24 1303 DD/ 1302 TD/TT: 10/26/24 1302 Mail Processing Clerk: [place] [address] [address] Scan Report Signed Patient: Sandor Templeton MR#: [id number] 94 : 1970 Acct:[id number] Age/Sex: 54 / M ADM Date: 10/25/24 Loc: .S3 353-[address]: Geetha Baxter MD Ordering Physician: Geetha Baxter MD Date of Service: 10/26/24 Procedure(s): CT ang io chest PE protocol Accession Number(s): [id number] cc: Gal Dunaway MD; Geetha Baxter MD Report Number: [id number]: Total DLP = 123.00 mGy-cm CLINICAL HISTORY: hypoxia CT angiography chest with contrast. 3D Postprocessing. Comparison: CT/AK/SR - CT CHEST WO IV CON - [...] 10/26/24 1303 DD/ 1302 TD/TT: 10/26/24 1302 Mail Processing Clerk: XR chest 2V Reviewed date:11/21/2024 10:07:19 AM Interpretation: Performing Lab: Notes/Report: [address] [address] XRay Report Signed Patient: Elisabeth Templeton MR#: [id number] 94 : 1970 Acct:[id number] Age/Sex: 54 / M ADM Date: 11/20/24 Loc: HO.XRAY Attending Dr: Gal Dunaway MD Ordering Physician: Gal Dunaway MD Date of Service: 11/20/24 Procedure(s): XR chest 2V Accession Number(s): [id number] cc: Gal Dunaway MD EXAMINATION: XR CHEST 2 VIEWS HISTORY: ASTHMATIC BRONCHITIS COMPARISON: Comparison is made with the prior examination dated 10/24/2024. FINDINGS: PA and lateral views of the chest are submitted. There are mild increased interstitial markings which have improved since the prior study. There are no focal airspace opacities. There is mild biapical scarring. There is no pleural effusion, pneumothorax, or pulmonary vascular congestion. The heart is normal in size. Again seen is a mild compression deformity of a midthoracic vertebral body. XR/XR chest 2V IMPRESSION: Improvement in previously seen increased interstitial markings. Electronically signed by: Gaston Jaramillo MD 11/21/2024 07:44 AM EDT RP Dictated By: Gaston Jaramillo MD Signed By: <Electronically signed by Gaston Jaramillo MD in OV> 11/21/24 0744 DD/ 140 TD/TT: 11/20/24 1410 Mail Processing Clerk: [address] [address] XRay Report Signed Patient: Sandor Templeton MR#: [id number] 94 : 1970 Acct:[id number] Age/Sex: 54 / M ADM Date: 11/20/24 Loc: HO.XRAY Attending Dr: Gal Dunaway MD Ordering Physician: Gal Dunaway MD Date of Service: 11/20/24 Procedure(s): XR [facility] [facility] 2V Accession Number(s): [id number] cc: Gal Dunaway MD EXAMINATION: XR CHES T 2 VIEWS HISTORY: ASTHMATIC BRONCHITIS COMPARISON: Comparis on is made with the prior examination dated 10/24/2024. FINDINGS: PA and lateral views of the chest are submitted. There are mild increased interstitial markings which have improved since the prior study. There a re no focal airspace opacities. There is mild biapical scarring. There is no pleural effusion, pneumothorax, or pulmonary vascular congestion. The heart is normal in size. Again seen is a mild compression deformity of a midthoracic vertebral body. XR/XR chest 2V IMPRESSION: Improvement in previously seen increased interstitial markings. Electronically luiza d by: Gaston Jaramillo MD 11/21/2024 07:44 AM EDT RP Dictated By: Gaston Jaramillo MD Signed By: <Electronically signed by Gaston Jaramillo MD in OV> 11/21/24 0744 DD/ 1406 TD/TT: 11/20/24 1410 Mail Processing Clerk: XR chest 2V Reviewed date:12/07/2024 10:56:57 AM Interpretation: Performing Lab: Notes/Report: [place] [address] [place] [address] XRay Report Signed Patient: Elisabeth Templeton MR#: [id number] 94 : 1970 Acct:[id number] Age/Sex: 54 / M ADM Date: 12/07/24 Loc: HO.XRAY Attending Dr: Gal Dunaway MD Ordering Physician: Gal Dunaway MD Date of Service: 12/07/24 Procedure(s): XR chest 2V Accession Number(s): [id number] cc: Gal Dunaway MD EXAMINATION: XR CHEST CLINICAL INFORMATION: ACUTE ASTHMATIC BRONCHITIS COMPARISON: 11/20/2024, 10/24/2024. CT chest 10/25/2024. TECHNIQUE: 2 views of the chest were obtained. FINDINGS: The cardiac, hilar, and mediastinal contours are normal. Lungs demonstrate mild apical scarring bilaterally. There is mild prominence of the background interstitial markings throughout both lungs, without focal consolidation or opacity. Appearance is similar to 11/20/2024. There is no pneumothorax or pleural effusion. There is no focal osseous or soft tissue abnormality. XR/XR chest 2V IMPRESSION: Mildly prominent background interstitial markings throughout both lungs, similar to the prior examination of 11/20/2024 without focal pneumonia or opacity. Electronically signed by: Rj Wen MD 12/07/2024 09:59 AM EDT Dictated By: Rj Wen MD Signed By: <Electronically signed by Rj Wen MD in OV> 12/07/24 0959 DD/ 0948 TD/TT: 12/07/24 0953 Mail Processing Clerk: [address] [address] XRay Report Signed Patient: Sandor Templeton MR#: [id number] 94 : 1970 Acct:[id number] Age/Sex: 54 / M ADM Date: 12/07/24 Loc: HO.XRAY Attending Dr: Gal Dunaway MD Ordering Physician: Gal Dunaway MD Date of Service: 12/07/24 Procedure(s): XR le[facility] [facility] 2V Accession Number(s): [id number] cc: Gal Dunaway MD EXAMINATION: XR CHEST CLINICAL INFORMATION: ACUTE ASTHMATIC BRONCHITIS COMPARISON: 11/20/2024, 10/24/2024. CT chest 10/25/2024. TECHNIQUE: 2 views of the chest were obtained. FINDINGS: The cardiac, hilar, and mediastinal contours are normal. Lungs demonstrate mi ld apical scarring bilaterally. There is mild prominence of the background interstitial markings throughout both lung s, without focal consolidation or opacity. Appearance is simila r to 11/20/2024. There is no pneumothorax or pleural effusion. There is no focal osseous or soft tissue abnormality. XR/XR chest 2V IMPRESSION: Mildly prominent background interstitial markings throughout both lungs, similar to th e prior examination of 11/20/2024 without focal pneumonia or opacity. Electronically luiza d by: Rj Wen MD 12/07/2024 09:59 AM EDT Dictated By: Rj Wen MD Signed By: <Electronically signed by Rj Wen MD in OV> 12/07/24 0959 DD/ 0948 TD/TT: 12/07/24 0953 Mail Processing Clerk: Reason For Referral No Information Medications Medication SIG (Take, Route, Frequency, Duration) [...] 4 days for 14 days 11/20/2024 Not-Taking Zithromax Z-Miguel 250 MG 2 tablet [...] a day for 30 day(s) 11/16/2022 Not-Taking Immunizations Vaccine Route Administration Date Status [...] Problem Status W/U Status Risk Notes Problem 710992909 Dermatofibroma (D23.9) Active confirmed Problem 491952593 Thrombocytopenia (D69.6) Active confirmed Problem 96656281 Lymphocytosis (D72.820) Active confirmed Problem 539195837 Reflux esophagit is (K21.00) Active confirmed Problem Asthmatic bronchitis (733728919) Asthmatic bronchitis (J45.909) Active confirmed Problem 73270002 Sciatica, right side (M54.31) Active confirmed Problem 9503314 Prediabetes (R73.09) Active confirmed Problem 07499720 Sciatica of left side (M54.32) Active confirmed Problem 7369835747 Ruptured lumbar disc (M51.26) Active confirmed Problem 393395154 History of noctu penny (Z87.898) Active confirmed Problem 621266118173803 Hematuria due to chronic cystitis (N30.21) Active confirmed Problem 251923851 Acute asthmatic bronchitis (J45.909) Active confirmed Vital Signs Blood pressure diastolic 80 mm Hg 12/07/2024 Height 71 in 12/07/2024 Blood pressure systolic 128 mm Hg 12/07/2024 Weight 170 lbs 12/07/2024 BMI 23.71 kg/m2 12/07/2024 Encounters Encounter Location Date Provider Diagnosis Gal Dunaway MD [address] [place] [id number] 12/01/2024 Gal Dunaway Acute asthmatic bronchitis J45.909 and Mycoplasma infection, unspecified site A49.3 Gal Dunaway MD [address] [place] [address] Drive [address] [place] [id number] 12/07/2024 Gal Dunaway Acute asthmatic bronchitis J45.909 and Mycoplasma infection, unspecified site A49.3 Gal Dunaway MD [address] [place] [address] [address] [place] [id number] 06/29/2024 Gal Dunaway Blood tests for routine general physical examination Z00.00 ; Prediabetes R73.09 and Lymphocytosis D72.820 Gal Dunaway MD [address] [place] [address] [address] [id number] 07/06/2024 Gal Dunaway Sciatica, right side M54.31 ; Annual physical exam Z00.00 ; Prediabetes R73.09 ; Lymphocytosis D72.820 ; Colon cancer screening Z12.11 and Depression screening Z13.31 Gal Dunaway MD [address] [place] [id number] 09/07/2024 Gal Dunaway Wheezy bronchitis J4 0 Gal Dunaway MD [address] [place] [id number] 10/03/2024 Gal Dunaway Acute asthmatic bronchitis J45.909 Gal Dunaway MD [address] [place] [id number] 10/24/2024 Gal Dunaway Acute asthmatic bronchitis J45.909 Gal Dunaway MD [address] [place] [id number] 11/03/2024 Gal Dunaway Mycoplasma pneumonia e [M. pneumoniae] as the cause of diseases classified elsewhere B96.0 Gal Dunaway MD [address] [place] [id number] 11/20/2024 Gal Dunaway Asthmatic bronchitis J45.909 Gal Dunaway MD [address] [place] [id number] 11/24/2024 Gal uDnaway Asthmatic bronchitis J45.909 Gal Dunaway MD [address] [place] [id number] 09/15/2024 Gal Dunaway MD [address] [place] [id number] 10/17/2024 Gal Dunaway Wheezy bronchitis J4 0 Gal Dunaway MD [address] [place] [id number] 10/30/2024 Gal Dunaway Assessments Encounter Date Diagnosis (ICD Code) Assessment Notes Treatment Notes Treatment Clinical Notes Section Notes 12/01/2024 Acute asthmatic bronchitis (ICD-10 - J45.909) doing great at present 12/01/2024 Mycoplasma infection, unspecified site (ICD-10 - A49.3) recovered, will continue to monitor 12/07/2024 Acute asthmatic bronchitis (ICD-10 - J45.909) patient verbalized understanding of the medication and directions for use. THE ORDER WAS PRINTED AND GIVEN TO ELISABETH 06/29/2024 Blood tests for routine general physical [...] spent reviewing documentation, and counseling the patient. 11/20/2024 Asthmatic bronchitis (ICD-10 - J45.909) patient verblized understanding of medication and directions for use 11/24/2024 Asthmatic bronchitis (ICD-10 - J45.909) doing much better. will continue to monitor 10/17/2024 Wheezy bronchitis (ICD-10 - J40) 12/07/2024 Mycoplasma infection, unspecified site (ICD-10 - A49.3) 06/29/2024 Lymphocytosis (ICD-10 - D72.820) 07/06/2024 Prediabetes (ICD-10 - R73.09) stable, no need for medication at this time 07/06/2024 Lymphocytosis (ICD-10 - D72.820) resolved 07/06/2024 Colon cancer screening (ICD-10 - Z12.11) guaiac negative 07/06/2024 Depression screening (ICD-10 - Z13.31) negative screen 10/24/2024 Other [place] [facility] [place] AND PATIENT HAS BEEN INFORMED Plan Of Treatment Pending Test Test Name Order Date Electrocardiogram (EKG) 04/30/2016 EAR IRRIGATION 05/28/2011 MRI LUMBAR SPINE NO CONTRAST 11/16/2022 XR CHEST 2 VIEW PA & LAT 11/20/2024 XR CHEST 2 VIEW PA & LAT 12/07/2024 XR CHEST 2 VIEW PA & LAT 10/24/2024 Next Appt Details Provider Name:Gal Bradley ier, 07/06/2025 07:00:00 AM, [address], [address], [place], [place], [phone], Provider Name:Gal Bradley ier, 07/13/2025 08:30:00 AM, [address], [address], [place], [place], [phone], Insurance Providers Payer Name Payer Address Payer Phone Subscriber Number Group Number Insured Name Patient Relationship to Insured Coverage Start Date Coverage End Date [employer] [facility] [address] [place], [place] [phone] [id number] Elisabeth Templeton Self - patient is the insured Medical (General) History Medical History History ICD Code 10/06/[address] Harden - repeat 10 yrs
--- OUTSIDE RECORDS SUMMARY | 2024-12-08 07:17 | XMS_ITS ---
Author Organization Gal Dunaway MD Address [address] [place], [place] [phone] Care Team Providers Care Agricultural Research Director Name Role Phone Gal Dunaway Primary Care Provider [phone] Allergies No Known Allergies Medications Medication SIG [...] Location Date Provider Diagnosis Gal Dunaway MD [address] [place] [address] [place] [phone] 12/01/2024 Gal Dunaway Acute asthmatic bronchitis J45.909 [...] Provider Name:Gal Bradley ier, 07/06/2025 07:00:00 AM, [address] [place] [address], [place] [address], [place], [place], [phone], Provider Name:Gal Bradley ier, 07/13/2025 08:30:00 AM, [address] [place] [address], [address], [phone], Progress Notes * Jacky PADILLA MDOB: 9 (54 yo M)Acc No.[id number]:12/01/2024 Progress Notes Patient:?Jacky PADILLA Provider:?Gal Dunaway MD :1970???Age:54 Y???Sex:Male Earl e:12/01/2024 Address:[address] [place] [address] [id number] Subjective: * Chief Complaints: * ??? * [...] MD Date:?0 12/01/2024 Generated for Ana cleary/Enedina/eTransmitting on:?12/08/2024 07:16 AM EDT History and Physical [...]
== END 2024-12-08 07:15 | disposition home or self-care (01) ==
LOC: HO.CT 07:14
PROVIDERS: PCP Internal Medicine; Visit Provider Internal Medicine Pulmonary Disease
DX: R93.89 Abnormal findings on diagnostic imaging of other specified body structures (principal)
CPT/HCPCS: 71250

== ENCOUNTER → 2024-12-08 07:16 | Outpatient (BNV) | payer BC, SELFPAY | PROVIDERS: PCP Internal Medicine; Visit Provider Specialist | DX: R93.89 Abnormal findings on diagnostic imaging of other specified body structures (principal) | CPT/HCPCS: 71250 ==

== ENCOUNTER 2024-12-26 13:43 | Outpatient (AMB) | payer BC, SELFPAY ==
[2024-12-26 13:54] VITALS: BP 122/77; PULSE 96; O2SAT 94; BMI 24.5
--- NOTE | 2024-12-26 13:54 | MHC.OFFVIS ---
Vital Signs 12/26/24 13:54 Height 5 ft 11 in Weight 176 lb BMI 24.5 BP 122/77 Blood Pressure Location Rt brachial Position Sitting Pulse 96 Pulse Source Doppler Pulse Oximetry (%) 94 Oxygen Delivery Method Room Air Intake Visit Reasons: abnormal CT Allergies No Known Allergies [No Known Allergies*] Allergy (Verified 11/08/24 13:59) HPI HPI abnormal CT: Details: 54-year-old gentleman, minimal smoker during his high school/college years with no significant past medical history recently hospitalized at [facility] for recurrent and progressive dyspnea and hypoxia since .CT angio chest with no evidence of pulmonary emboli, but several small patchy infiltrate and some septal thickening not explanatory of underlying symptoms. 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 He was discharged on prednisone taper and supplemental oxygen. After finishing prednisone course patient's symptoms have recurred multiple times. On office spirometry significant reactive airway disease with reversible obstruction. 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 Review of Systems Const Denies daytime sleepiness, Denies excessive sweating, Denies fatigue, Denies fever(s), Denies lethargy, Denies malaise, Denies night sweats, Denies snoring and Denies weight loss Eyes Denies blurry vision and Denies itchy eyes ENT Denies nasal congestion, Denies post nasal drip, Denies sinus pain, Denies sinus pressure and Denies other ( Thrush) Card Denies chest pain, Denies pedal edema, Reports dyspnea, Reports dyspnea on exertion, Denies orthopnea and Denies paroxysmal nocturnal dyspnea Resp Reports cough, Denies hemoptysis, Denies excessive phlegm production, Reports dyspnea, Reports dyspnea on exertion, Denies snoring and Reports wheezing GI Denies abdominal pain and Denies heartburn Musc Denies myalgias, Denies arthralgias and Denies joint swelling Skin/Breast Denies rash Neuro Denies memory loss and Denies seizure-like activity Psych Denies abnormal sleep pattern, Denies anxiety and Denies memory loss Endo Denies excessive sweating, Denies fatigue and Denies heat intolerance Moses/Lymph Denies easy bruising Aller/Immun Denies itchy eyes, Denies seasonal rhinorrhea and Reports wheezing Physical Exam Vital Signs: Last Vital Signs Pulse 96 12/26/24 13:54 BP 122/77 12/26/24 13:54 Pulse Ox 94 12/26/24 13:54 Oxygen Delivery Method Room Air 12/26/24 13:54 BMI result Body Mass Index 24.5 Const General: no acute distress and alert Nutritional Appearance: not obese Orientation/consciousness: Other orientation findings ( oriented) HEENT Head: Yes atraumatic Eyes General: appearance normal, both eyes and all related structures Sclerae: sclerae normal EOM: EOMs intact bilaterally Neck Neck: Yes supple Lymphatic: no lymphadenopathy noted Resp Effort & Inspection: normal respiratory effort and no use of accessory muscles Auscultation: clear to auscultation bilaterally Cardio Rate: regular rate Rhythm: regular rhythm Heart sounds: no gallops, no murmurs and no rubs Skin General skin exam: other ( warm) Extrem General: No clubbing, No cyanosis and No edema Office Procedures Nebulizer Treatment Nebulizer Treatment 70528-Zoexitwxb/MDI RX initial, or Nebulizer Subsequent Treatment Spirometry Testing Spirometry Comments: pre and post spirometry done in the office. Dr. Adam has the results results scanned to his chart. 29731- Spirometry Office Meds ipratropium 0.5 mg-albuterol 3 mg (2.5 mg base)/3 mL nebulization soln Performing Provider: Tyson Adam MD Performing Location: [facility] Pulmonology Services Administered by: Cristy Stanley LPN on 12/26/24 14:57 Dose Route Admin Location Dispensed Lot Number Expiration Date [facility] Supervisor [employer] 3 mL inhalation 3 mL [id number] 07/06/26 36204-096-20 [employer]) Comments: give for pre and post spirometry Assessment & Plan Assessment & Plan (1) Reactive airway disease: Code(s): J45.909 - Unspecified asthma, uncomplicated Category: Medical (2) Eosinophilia: Code(s): D72.10 - Eosinophilia, unspecified Category: Medical Plan Symptoms recur after finishing prednisone course. Tried on Symbicort with poor response. Office spirometry with reversible obstruction and vigorous bronchodilator response. Underlying significant eosinophilia. Will request Dupixent approval. Will obtain PFT after respiratory symptoms more stable. Orders: Orders AMB Spirometry Testing Today J45.909 - Unspecified asthma, uncomplicated AMB Nebulizer Treatment Today J45.909 - Unspecified asthma, uncomplicated Medications: New prednisone Take 3 tabs daily for 7 days, then go down by 1 tab every 7 days 10 mg PO DIRECTED 42 tabs 0RF Coding Level of Care Code Est Pt Level 4 (29997) Complex EM visit Add On G2211 Diagnoses Reactive airway disease J45.909 Eosinophilia D72.10 CPT Codes Nebulizer Treatment - Nebulizer Treatment, initial or subsequent: 53667-Lowapnujh/MDI RX initial, or Nebulizer Subsequent Treatment ([id number]) Spirometry - CPT: 03872- Spirometry ([id number])
--- OUTSIDE RECORDS SUMMARY | 2024-12-26 16:20 | XMS_ITS ---
Author Organization Gal Dunaway MD Address [address] [place], [place] [phone] Care Team Providers Care Blow Down Operator Name Role Phone Gal Dunaway Primary [...] Location Date Provider Diagnosis Gal Dunaway MD [address] [place] [phone] 12/07/2024 Gal Dunaway Acute asthmatic bronchitis J45.909 [...] Details Follow Up: 2 - 3 Days, Moody n: Provider Name:Gal pollard, 12/28/2024 09:45:00 AM, [address] [place] [address], [address], [phone], Provider Name:Gal pollard, 07/06/2025 07:00:00 AM, [address] [place] [address], [address], [phone], Provider Name:Gal pollard, 07/13/2025 08:30:00 AM, [address] [place] [address], [address], [phone], Progress Notes * Jacky PADILLA MDOB: 9 (54 yo M)Acc No.[id number]:12/07/2024 Progress Notes Patient:?Jacky PADILLA Provider:?Gal Dunaway MD :1970???Age:54 Y???Sex:Male Earl e:12/07/2024 Address:[facility] [id number] Subjective: * Chief Complaints: * ???SOB * HPI: ???Symptom(s):?patient is a 54 yo male here with cmpliaint of SOB, 3 days ago started to get breathing problems again and now with mucous and inhaler helps for one hour. just coming from car had to stop twice and use inhaler. * ROS:?General/Constitutional:?Denies?Chills.?Denies?Fatigue.?Denies?Fever.?Denies?Headache.?ENT:?Patient denies?decreased sense of smell, any loss of taste, sore throat.?Denies?Sore throat.?Respiratory:?Admits?Cough.?Admits?Shortness of breath at rest.?Admits?Shortness of breath with exertion.?Admits?Sputum production.?Admits?Wheezing.?Gastrointestinal:?Denies?Diarrhea.?Denies?Nausea.?Musculoskeletal:?Patient denies?muscle aches.?Peripheral Vascular:?Patient denies?red and blue toes.? [...] site - A49.3??? Plan: * Treatment: * Procedure Codes:? * Follow Up:?2 - 3 Days * * Sign off status: Completed true * Provider:?Gal Dunaway MD Date:?0 12/07/2024 Generated for Ana cleary/Enedina/Selinaitting on:?12/26/2024 04:20 PM EDT History and Physical Notes * [...]
--- OUTSIDE RECORDS SUMMARY | 2024-12-26 16:20 | XMS_ITS ---
Author Organization Gal Dunaway MD Address [address] [place], [place] [phone] Care Team Providers Care Nanotechnologist Name Role Phone Gal Dunaway Primary Care [...] Location Date Provider Diagnosis Gal Dunaway MD [address] [place] [phone] 12/01/2024 Gal Dunaway Acute asthmatic bronchitis J45.909 [...] to monitor Next Appt Details Provider Name:Gal pollard, 12/28/2024 09:45:00 AM, [address] [place] [address], [address], [phone], Provider Name:Gal polalrd, 07/06/2025 07:00:00 AM, [address] [place] [address], [address], [phone], Provider Name:Gal pollard, 07/13/2025 08:30:00 AM, [address] [place] [address], [address], [phone], Progress Notes * Jacky PADILLA MDOB: 9 (54 yo M)Acc No.[id number]:12/01/2024 Progress Notes Patient:?Jacky PADILLA Provider:?Gal Dunaway MD :1970???Age:54 Y???Sex:Male Earl e:12/01/2024 Address[address], [id number] Subjective: * Chief Complaints: * ??? * [...] rest.?Denies?Shortness of breath with exertion.?Gastrointestinal:?Denies?Diarrhea.?Denies?Nausea.? * Medical History:? * Surgical History:? * [...] gies Verified] Objective: * Vitals:?Ht: 71, Wt: 171, BMI [...] Notes: recovered, will continue to monitor?? * Procedure Codes:? * * Sign off status: Completed true * Provider:?Gal Dunaway MD Date:?0 12/01/2024 Generated for Ana cleary/Enedina/eTransmitting on:?12/26/2024 04:20 PM EDT History and Physical [...]
--- OUTSIDE RECORDS SUMMARY | 2024-12-26 16:21 | XMS_ITS ---
Author Organization Gal Dunaway MD Address [address] [place], [place] [phone] Care Team Providers Care Employment Supervisor Name Role Phone Gal Dunaway Primary [...] Location Date Provider Diagnosis Gal Dunaway MD [address] [place] [address] [place] [phone] 12/21/2024 Gal Dunaway Acute asthmatic bronchitis J45.909 [...] Up: 1 Week, Reason: Provider Name:Gal pollard, 12/28/2024 09:45:00 AM, [address], [address], [place], [place], [phone], Provider Name:Gal Katina Arabellapascual latrice, 07/06/2025 07:00:00 AM, [address], [address], [place], [place], [phone], Provider Name:Gal Bradley ier, 07/13/2025 08:30:00 AM, [address], [address], [place], [place], [phone], Progress Notes * Jacky PADILLA MDOB: 9 (54 yo M)Acc No.[id number]:12/21/2024 Progress Notes Patient:?Jacky PADILLA Provider:?Gal Dunaway MD :1970???Age:54 Y???Sex:Male Earl e:12/21/2024 Address:[address] [place], [place] [phone] Subjective: * Chief Complaints: * ???Shortness of breath , cou ghing * HPI: ???Symptom(s):?patient is a 54 yo male here with complaint of cough and SOB/ as soon as the prednisone stopped started to get shourt o breath again/ using inhaler frequently with some relief. lasts one hour. * ROS:?General/Constitutional:?Denies?Chills.?Denies?Fatigue.?Denies?Fever.?Denies?Headache.?ENT:?Denies?Sore throat.?Respiratory:?Admits?Cough.?Admits?Shortness of breath at rest.?Admits?Shortness [...] gies Verified] Objective: * Vitals:?Ht: 71, Wt: 173, BMI :24.13, BP:120/80, Wt-k.47. weight is up 3 pounds since 12-07-24. * Examination: ???General Examination: ?GENERAL APPEARANCE:?well developed, well nourished.?HEAD:?normocephalic.?SKIN:?good turgor.?HEART:?no murmurs, rubs, gallops, regular rate and rhythm.?LUNGS:?no wheezes, rales, rhonchi, good air movement, clear to auscultation bilaterally.? Assessment: * Assessment: 1.?Acute asthmatic bronchiti s - J45.909 (Primary)??? Plan: * Treatment: * Procedure Codes:? * Follow Up:?1 Week * * Sign off status: Completed true * Provider:?aGl Dunaway MD Date:?0 12/21/2024 Generated for Meli evin/Enedina/eTransmitting on:?12/26/2024 04:20 PM EDT History and Physical [...]
--- OUTSIDE RECORDS SUMMARY | 2024-12-26 16:21 | XMS_ITS | Patient Health Record ---
Author Organization Gal Dunaway MD Address [address] [place], [place] [id number] Care Team Providers Care Sharepoint Application Developer Name Role Phone Gal Dunaway Primary Care Provider Allergies No Known Allergies Results Component Value Reference Range Notes Complete Blood Count Auto Di ff Reviewed date:06/29/2024 12:34:00 PM Interpretation: Performing Lab:[facility], [address] [place] [phone] Notes/Report: White Blood Count 7.7 4.8-10.8 X10*3/uL [...] NRBC Abs Auto 0.000 0.0-0.012 X10*3/uL Comprehensive [place]. Panel Fa st Reviewed date:06/29/2024 12:43:20 PM Interpretation: Performing Lab:[facility], [address] [place] [address] Notes/Report: Sodium 143 135-145 mmol/L Potassium 3.6 3.3-5.1 mmol/L Chloride 108 96-108 mmol/L Carbon Dioxide 25 22-29 mmol/L Anion Gap 14 12-20 Blood Urea Nitrogen 13 9-16 mg/dL Creatinine 1.05 0.5-1.4 mg/dL Estimated Glomerular Filt Rate > 60 NOTE: For -Citizen Of [place] individuals, multiply the result by 1.210. Chronic [...] Panel Reviewed date:06/29/2024 12:31:58 PM Interpretation: Performing Lab:[facility], [address] [place] [phone] Notes/Report: Triglycerides 88 <150 mg/dL Desirable Triglyceride: [...] (Free>4and<10) Reviewed date:06/29/2024 12:32:06 PM Interpretation: Performing Lab:[facility], [address] [place] [phone] Notes/Report: PSA,Total (Free>4and<10) 1.56 0.00-4.00 ng/mL A [...] Random Reviewed date:06/29/2024 12:33:16 PM Interpretation: Performing Lab:[facility], [address] [place] [address] Notes/Report: Creatinine Urine 254.47 Microalbumin Urine 9.0 Microalbum/Creatinine Ratio Ur 3.5 <30 ug/mg cr Albumin/Creatinine Ratio Reference Ranges: Normal: < 30 ug/mg creatinine Microalbuminuria: 30 - 300 ug/mg creatinine Clinical Albuminuria: > 300 ug/mg creatinine Hemoglobin A1c Reviewed date:06/29/2024 12:42:00 PM Interpretation: Performing Lab:[facility], [address] [place] [phone] Notes/Report: Hemoglobin A1c % 5.4 <6.0 % [...] average glucose, using the formula of the G6R-Tlasudl Average Glucose study (ADAG), Diabetes Care, Vol.31,#8, Apr. 2007 UA ClnCatch+Micro w/rflx Cul t Reviewed date:06/29/2024 12:32:24 PM Interpretation: Performing Lab:[facility], [address] [place] [phone] Notes/Report: [id number] Urine, Clean Catch Color Urine Yellow Appearance Urine Clear PH 5.5 5.0-9.0 Glucose Urine UA Negative Negative mg/dL Urine Blood Negative Negative Specific [place] - Urine 1.025 1.005-1.025 Urine Protein Negative [...] ff Reviewed date:10/26/2024 08:50:04 AM Interpretation: Performing Lab:[facility], [address] [place] [phone] Notes/Report: White Blood Count 10.4 4.8-10.8 X10*3/uL [...] INR Reviewed date:10/26/2024 08:50:59 AM Interpretation: Performing Lab:[facility], [address] [place] [address] Notes/Report: Prothrombin Time 11.4 10.9-12.4 SEC INTERNATIONAL [...] Panel Reviewed date:10/26/2024 08:51:30 AM Interpretation: Performing Lab:[address] [address] Notes/Report: Sodium 140 135-145 mmol/L Potassium 4.2 [...] Acid Reviewed date:10/26/2024 08:49:06 AM Interpretation: Performing Lab:[facility], [address] [place] [phone] Notes/Report: Lactic Acid 1.7 0.5-2.0 mmol/L Magnesium Reviewed date:10/26/2024 08:49:14 AM Interpretation: Performing Lab:[address] [address] Notes/Report: Magnesium 2.2 1.6-2.6 mg/dL Troponin-I High Sensitivity Reviewed date:10/26/2024 08:51:07 AM Interpretation: Performing Lab:[address] [address] Notes/Report: Troponin-I High Sensitivity < 2.7 <3.5-35.0 ng/L The Ramos high sensitivity Troponin-I results should be used in conjunction with other diagnostic information such as ECG, clinical observations and information, and patient symptoms to aid in the diagnosis of DC. C Reactive Protein Reviewed date:10/26/2024 07:37:50 AM Interpretation: Performing Lab:[address] [address] Notes/Report: C Reactive Protein 0.67 < or = 0.50 mg/dL B Type Natriuretic Peptide Reviewed date:10/26/2024 08:50:48 AM Interpretation: Performing Lab:[address] [address] Notes/Report: TROPONIN WOULD BE A DUPLICATE WAS COMPLETED AT 1102 B Type Natriuretic Peptide < 10 <100 pg/mL For those patients who are being treated with Natrecor (nesiritide, recombinant BNP), BNP testing should be performed at least two hours post treatment in order to ensure that only endogenous levels of BNP are detected. Procalcitonin Reviewed date:10/26/2024 08:51:47 AM Interpretation: Performing Lab:[address] [address] Notes/Report: Procalcitonin 0.02 Procalcitonin (PCT) Reference Range: [...] different laboratories and methodologies. References: [place] [employer]/Society of Critical Care [...] 510(k) substantial equivalence determination decision summary for [facility] PCT JOST[facility]. http://www.accessdata. a.[facility]_docs/reviews/ X416248.pdf. Published September 2004. Accessed February 2017. SARS-CoV2/FLU/RSV Reviewed date:10/26/2024 08:51:39 AM Interpretation: Performing Lab:[address] [address] Notes/Report: Influenza A PCR NEGATIVE Negative Influenza [...] by authorized laboratories. Testing performed on the [employer] GeneXpert utilizing real-time RT-PCR. All SARS CoV2 and positive influenza A/B results are reported to [facility]. Blood Culture (First) Reviewed date:10/30/2024 05:22:41 PM Interpretation: Performing Lab:[facility], [address] [place] [phone] Notes/Report: Blood Culture (First) No growth after 5 days. Blood Culture (Second) Reviewed date:10/30/2024 05:22:34 PM Interpretation: Performing Lab:[address] [address] Notes/Report: Blood Culture (Second) No growth after 5 days. Venous Blood Gases - POC Reviewed date:10/26/2024 08:49:33 AM Interpretation: Performing Lab:[facility], [address] [place] [address] Notes/Report: VBG pH 7.39 7.32-7.43 METER #: [id number] additional_comment: Cb gentilj VBG pCO2 40 METER #: [id number] additional_comment: Cb gentilj VBG pO2 35 METER #: [id number] additional_comment: Cb gentilj VBG Base Excess -0.4 METER #: [id number] additional_comment: Cb gentilj VBG HCO3 24 22-26 mmol/L METER #: [id number] additional_comment: Cb gentilj VBG O2 % Saturation 56.0 METER #: [id number] additional_comment: Cb nikailnicol CT chest wo con Reviewed date:10/26/2024 07:39:10 AM Interpretation: Performing Lab: Notes/Report: [address] [address] [address] Scan Report Signed Patient: Elisabeth Templeton MR#: [id number] 94 : 1970 Acct:[id number] Age/Sex: 54 / M ADM Date: 10/25/24 Loc: .ED Attending Dr: Ordering Physician: Ceci Acevedo DO Date of Service: 10/25/24 Procedure(s): CT chest wo IV con Accession Number(s): [id number] cc: Gal Dunaway MD; Ceci Acevedo DO Report Number: [id number]: Total DLP = 270.00 mGy-cm EXAMINATION: CT [...] by: Rj Wen MD 10/25/2024 12:06 PM [facility] Dictated By: Rj Wen MD Signed By: <Electronically signed by Rj Wen MD in OV> 10/25/24 1206 DD/ 1136 TD/TT: 10/25/24 1156 Strategy Specialist: [address] [address] [address] Scan Report Signed Patient: Sandor Templeton MR#: [id number] 94 : 1970 Acct:[id number] Age/Sex: 54 / M ADM Date: 10/25/24 Loc: .ED Attending Dr: Ordering Physician: Ceci Acevedo DO Date of Service: 10/25/24 Procedure(s): CT [facility] [facility] wo IV con Accession Number(s): [id number] cc: Gal Dunaway MD; Ceci Acevedo Report Number: [id number]: Total DLP = 270.00 mGy-cm EXAMINATION: CT [...] 10/25/24 1206 DD/ 1136 TD/TT: 10/25/24 1156 Strategy Specialist: XR chest 2V Reviewed date:10/26/2024 07:38:15 AM Interpretation: Performing Lab: Notes/Report: [address] [address] XRay Report Signed Patient: Elisabeth Templeton MR#: [id number] 94 : 1970 Acct:[id number] Age/Sex: 54 / M ADM Date: 10/24/24 Loc: ZOYA Attending Dr: Gal Dunaway MD Ordering Physician: Gal Dunaway MD Date of Service: 10/24/24 Procedure(s): XR chest 2V Accession Number(s): [id number] cc: Gal Dunaway MD CLINICAL HISTORY: ACUTE [...] 10/25/24 1309 DD/ 1308 TD/TT: 10/25/24 1308 Strategy Specialist: [address] [address] XRay Report Signed Patient: Sandor Templeton MR#: [id number] 94 : 1970 Acct:[id number] Age/Sex: 54 / M ADM Date: 10/24/24 Loc: ZOYA Attending Dr: Gal Dunaway MD Ordering Physician: Gal Dunaway MD Date of Service: 10/24/24 Procedure(s): XR le[facility] [facility] 2V Accession Number(s): [id number] cc: Gal Dunaway MD CLINICAL HISTORY: AC MILLE LACS ASHMATIC BRONCHITIS 2 view chest x-ray Comparison: [...] 10/25/24 1309 DD/ 1308 TD/TT: 10/25/24 1308 Strategy Specialist: Erythrocyte Sedimentation Ra te Reviewed date:10/26/2024 04:52:43 PM Interpretation: Performing Lab:[facility], [address] [place] [address] Notes/Report: Erythrocyte Sedimentation Rate 9 0-15 MM/HR Patients with polycythemia and many hemoglobin abnormalities may have depressed sed rates whereas patients with anemia may have elevated sed rates. Angiotensin Converting Enzym e Reviewed date:10/30/2024 12:27:52 PM Interpretation: Performing Lab:[facility], [address] [place] [address] Notes/Report: Angiotensin Converting Enzyme 9 9-67 U/L THIS TEST WAS PERFORMED AT: [facility]/[address] [address] CHASTITY ONTIVEROS MD,PHD ANCA Vasculitides Reviewed date:10/29/2024 09:32:31 AM Interpretation: Performing Lab:[facility], [address] [place] [address] Notes/Report: Myeloperoxidase Antibody <1.0 Value Interpretation ----- [...] = 1.0 Antibody Detected Autoantibodies to proteinase-3 (WV-3) are accepted as characteristic for granulomatosis with polyangiitis (GPA, Parvez's), and are detectable in 95% of the histologically proven cases. The cytoplasmic IFA pattern, (c-ANCA), is based largely on autoantibody to WV-3 which serves as the primary antigen. These autoantibodies are present in active disease. THIS TEST WAS PERFORMED AT: [facility] [address] [place] [phone] PARMINDER SÁNCHEZ MD Mycoplasma Pneumoniae IgG&Ig M Reviewed date:11/01/2024 01:25:27 PM Interpretation: Performing Lab:[facility], [address] [place] [address] Notes/Report: Mycoplasma Pneumoniae - IgG 1.79 <=0.90 [...] the patient. THIS TEST WAS PERFORMED AT: [facility] [address] [place] [address] CHASTITY ONTIVEROS MD,PHD GI Panel Reviewed date:10/26/2024 04:52:26 PM Interpretation: Performing Lab:[facility], [address] [place] [address] Notes/Report: Campylobacter Not Detected Not Detect. Plesiomonas [...] date:10/26/2024 01:34:58 PM Interpretation: Performing Lab: Notes/Report: [address] [address] [address] Scan Report Signed Patient: Elisabeth Templeton MR#: [id number] 94 : 1970 Acct:[id number] Age/Sex: 54 / M ADM Date: 10/25/24 Loc: [facility] 353-[address]: Geetha Baxter MD Ordering Physician: Geetha Baxter MD Date of Service: 10/26/24 Procedure(s): CT angio chest PE protocol Accession Number(s): [id number] cc: Gal Dunaway MD; Geetha Baxter MD Report Number: [id number]: Total DLP = 123.00 mGy-cm CLINICAL HISTORY: hypoxia CT angiography chest with contrast. 3D Postprocessing. Comparison: CT/WV/SR - CT CHEST WO IV CON - [...] 10/26/24 1303 DD/ 1302 TD/TT: 10/26/24 1302 Strategy Specialist: [place] [address] [address] Scan Report Signed Patient: Sandor Templeton MR#: [id number] 94 : 1970 Acct:[id number] Age/Sex: 54 / M ADM Date: 10/25/24 Loc: .S3 353-[address]: Geetha Baxter MD Ordering Physician: Geetha Baxter MD Date of Service: 10/26/24 Procedure(s): CT ang io chest PE protocol Accession Number(s): [id number] cc: Gal Dunaway MD; Geetha Baxter MD Report Number: [id number]: Total DLP = 123.00 mGy-cm CLINICAL HISTORY: hypoxia CT angiography chest with contrast. 3D Postprocessing. Comparison: CT/WV/SR - CT CHEST WO IV CON - [...] 10/26/24 1303 DD/ 1302 TD/TT: 10/26/24 1302 Strategy Specialist: XR chest 2V Reviewed date:11/21/2024 10:07:19 AM Interpretation: Performing Lab: Notes/Report: [address] [address] XRay Report Signed Patient: Elisabeth Templeton MR#: [id number] 94 : 1970 Acct:[id number] Age/Sex: 54 / M ADM Date: 11/20/24 Loc: HO.XRAY Attending Dr: Gal Dunaway MD Ordering Physician: Gal Dunaway MD Date of Service: 11/20/24 Procedure(s): XR chest 2V Accession Number(s): [id number] cc: Gal Dunaway MD EXAMINATION: XR CHEST [...] 11/21/24 0744 DD/ 140 TD/TT: 11/20/24 1410 Strategy Specialist: [address] [address] XRay Report Signed Patient: Sandor Templeton MR#: [id number] 94 : 1970 Acct:[id number] Age/Sex: 54 / M ADM Date: 11/20/24 Loc: HO.XRAY Attending Dr: Gal Dunaway MD Ordering Physician: Gal Dunaway MD Date of Service: 11/20/24 Procedure(s): XR [facility] [facility] 2V Accession Number(s): [id number] cc: Gal Dunaway MD EXAMINATION: XR CHES [...] 11/21/24 0744 DD/ 1406 TD/TT: 11/20/24 1410 Strategy Specialist: XR chest 2V Reviewed date:12/07/2024 10:56:57 AM Interpretation: Performing Lab: Notes/Report: [place] [address] [place] [address] XRay Report Signed Patient: Elisabeth Templeton MR#: [id number] 94 : 1970 Acct:[id number] Age/Sex: 54 / M ADM Date: 12/07/24 Loc: HO.XRAY Attending Dr: Gal Dunaway MD Ordering Physician: Gal Dunaway MD Date of Service: 12/07/24 Procedure(s): XR chest 2V Accession Number(s): [id number] cc: Gal Dunaway MD EXAMINATION: XR CHEST [...] 12/07/24 0959 DD/ 0948 TD/TT: 12/07/24 0953 Strategy Specialist: [address] [address] XRay Report Signed Patient: Sandor Templeton MR#: [id number] 94 : 1970 Acct:[id number] Age/Sex: 54 / M ADM Date: 12/07/24 Loc: HO.XRAY Attending Dr: Gal Dunaway MD Ordering Physician: Gal Dunaway MD Date of Service: 12/07/24 Procedure(s): XR [facility] [facility] 2V Accession Number(s): [id number] cc: Gal Dunaway MD EXAMINATION: XR CHEST [...] 12/07/24 0959 DD/ 0948 TD/TT: 12/07/24 0953 Strategy Specialist: CT chest wo con Reviewed date:12/08/2024 09:35:47 AM Interpretation: Performing Lab: Notes/Report: [address] [address] [address] Scan Report Signed Patient: Elisabeth Templeton MR#: [id number] 94 : 1970 Acct:[id number] Age/Sex: 54 / M ADM Date: 12/08/24 Loc: HO.CT Attending Dr: Tyson Adam MD Ordering Physician: Tyson Adam MD Date of Service: 12/08/24 Procedure(s): CT chest wo IV con Accession Number(s): [id number] cc: Gal Dunaway MD; Tyson Adam MD Report Number: [id number]: Total DLP = 172.00 mGy-cm CLINICAL HISTORY: R93.89 - Abnormal findings on diagnostic imaging of other specified body... CT chest without contrast Comparison: October 25, 2024 Findings: The heart is normal size. The visualized thyroid and mediastinum are unremarkable. The lungs are clear. Previously noted ground-glass opacification has resolved. The visualized upper abdomen is unremarkable. The bones are intact. IMPRESSION: 1. No acute findings. This document has been electronically signed by: Noel Isidro MD on 12/08/2024 09:14:28 Dictated By: Noel Isidro MD Signed By: <Electronically signed by Noel Isidro MD in OV> 12/08/24914 DD/ 3 TD/TT: 12/08/24913 Strategy Specialist: [place] [address] [address] Scan Report Signed Patient: Sandor Templeton MR#: [id number] 94 : 1970 Acct:[id number] Age/Sex: 54 / M ADM Date: 12/08/24 Loc: HO.CT Attending Dr: Tyson Adam MD Ordering Physician: Tyson Adam MD Date of Service: 12/08/24 Procedure(s): CT [facility] [facility] wo IV con Accession Number(s): [id number] cc: Gal Dunaway MD; Tyson Adam MD Report Number: [id number]: Total DLP = 172.00 mGy-cm CLINICAL HISTORY: R93.89 - Abnormal findings on diagnostic imaging of other specified body... CT chest without contrast Comparison: October 25, 2024 Findings: The heart is normal size. The visualized thyro id and mediastinum are unremarkable. The lungs are clear. Previously noted ground-glass opacification has resolved. The visualized upper abdomen is unremarkable. The bones are intact. IMPRESSION: 1. No acute findings. This document has be en electronically signed by: Noel Isidro MD on 12/08/2024 09:14:28 Dictated By: Noel Isidro MD Signed By: <Electronically signed by Noel Isidro MD in OV> 12/08/24914 DD/ 3 TD/TT: 12/08/24913 Strategy Specialist: Reason For Referral No Information Medications Medication [...] 30 days 07/06/2024 Active predniSONE 10 MG 1 tablet with [...] SEVERITY OF HIS BREATHING PROBLEMS 12/07/2024 Active predniSONE 10 MG 2 tabs Orally Once a day for 7 days 12/21/2024 Active Albuterol Sulfate HFA 108 (90 Base) [...] Problem Status W/U Status Risk Notes Problem 413555421 Dermatofibroma (D23.9) Active confirmed Problem 761558545 Thrombocytopenia (D69.6) Active confirmed Problem 41210988 Lymphocytosis (D72.820) Active confirmed Problem 785646624 Reflux esophagit is (K21.00) Active confirmed Problem Asthmatic bronchitis (711974744) Asthmatic bronchitis (J45.909) Active confirmed Problem 17508147 Sciatica, right side (M54.31) Active confirmed Problem 5818198 Prediabetes (R73.09) Active confirmed Problem 46353880 Sciatica of left side (M54.32) Active confirmed Problem 7756123737 Ruptured lumbar disc (M51.26) Active confirmed Problem 417546728 History of noctu penny (Z87.898) Active confirmed Problem 328960682926822 Hematuria due to chronic cystitis (N30.21) Active confirmed Problem 941030138 Acute asthmatic bronchitis (J45.909) Active confirmed Vital Signs Blood pressure diastolic 80 mm Hg 12/21/2024 abi ght is up 3 pounds since 12-07-24 Height 71 in 12/21/2024 weight is up 3 pounds since 12-07-24 Blood pressure systolic 120 mm Hg 12/21/2024 weig ht is up 3 pounds since 12-07-24 Weight 173 lbs 12/21/2024 weight is up 3 pounds since 12-07-24 BMI 24.13 kg/m2 12/21/2024 weight is up 3 pounds since 12-07-24 Encounters Encounter Location Date Provider Diagnosis Gal Dunaway MD [address] [place] [id number] 06/29/2024 Gal Dunaway Blood tests for routine general physical examination Z00.00 ; Prediabetes R73.09 and Lymphocytosis D72.820 Gal Dunaway MD [address] [place] [id number] 07/06/2024 Gal Dunaway Sciatica, right side M54.31 ; Annual physical exam Z00.00 ; Prediabetes R73.09 ; Lymphocytosis D72.820 ; Colon cancer screening Z12.11 and Depression screening Z13.31 Gal Dunaway MD [address] [place] [id number] 09/07/2024 Gal Dunaway Wheezy bronchitis J4 0 Gal Dunaway MD [address] [place] [address] [id number] 10/03/2024 Gal Dunaway Acute asthmatic bronchitis J45.909 Gal Dunaway MD [address] [place] [id number] 10/24/2024 Gal Dunaway Acute asthmatic bronchitis J45.909 Gal Dunaway MD [address] [place] [id number] 11/03/2024 Gal Dunaway Mycoplasma pneumonia e [M. pneumoniae] as the cause of diseases classified elsewhere B96.0 Gal Dunaway MD [address] [place] [id number] 11/20/2024 Gal Dunaway Asthmatic bronchitis J45.909 Gal Dunaway MD [address] [place] [id number] 11/24/2024 Gal Dunaway Asthmatic bronchitis J45.909 Gal Dunaway MD [address] [place] [id number] 12/01/2024 Gal Dunaway Acute asthmatic bronchitis J45.909 and Mycoplasma infection, unspecified site A49.3 Gal Dunaway MD [address] [place] [address] [id number] 12/07/2024 Gal Dunaway Acute asthmatic bronchitis J45.909 and Mycoplasma infection, unspecified site A49.3 Gal Dunaway MD [address] [place] [address] [id number] 12/21/2024 Gal Dunaway Acute asthmatic bronchitis J45.909 Gal Dunaway MD [address] [id number] 09/15/2024 Gal Dunaway MD [address] [place] [id number] 10/17/2024 Gal Dunaway Wheezy bronchitis J4 0 Gal Dunaway MD [address] [place] [address] [address] [id number] 10/30/2024 Gal Dunaway Assessments Encounter Date Diagnosis (ICD Code) Assessment Notes Treatment Notes Treatment Clinical Notes Section Notes 06/29/2024 Blood tests for routine general physical [...] doing much better. will continue to monitor 12/01/2024 Acute asthmatic bronchitis (ICD-10 - J45.909) doing great at present 12/01/2024 Mycoplasma infection, unspecified site (ICD-10 - A49.3) recovered, will continue to monitor 12/07/2024 Acute asthmatic bronchitis (ICD-10 - J45.909) patient verbalized understanding of the medication and directions for use. THE ORDER WAS PRINTED AND GIVEN TO ELISABETH 12/21/2024 Acute asthmatic bronchitis (ICD-10 - J45.909) patient verbalized understanding fo medication and directions for use. 10/17/2024 Wheezy bronchitis (ICD-10 - J40) 06/29/2024 Lymphocytosis (ICD-10 - D72.820) 07/06/2024 Prediabetes (ICD-10 - R73.09) stable, no need for medication at this time 12/07/2024 Mycoplasma infection, unspecified site (ICD-10 - A49.3) 07/06/2024 Lymphocytosis (ICD-10 - D72.820) resolved 07/06/2024 Colon cancer screening (ICD-10 - Z12.11) guaiac negative 07/06/2024 Depression screening (ICD-10 - Z13.31) negative screen 10/24/2024 Other THE ORDER WAS F AXED TO [facility] PATIENT REG AND PATIENT HAS BEEN INFORMED Plan Of Treatment Pending Test Test Name Order Date Electrocardiogram (EKG) 04/30/2016 EAR IRRIGATION 05/28/2011 MRI LUMBAR SPINE NO CONTRAST 11/16/2022 XR CHEST 2 VIEW PA & LAT 11/20/2024 XR CHEST 2 VIEW PA & LAT 12/07/2024 XR CHEST 2 VIEW PA & LAT 10/24/2024 Next Appt Details Provider Name:Gal pollard, 12/28/2024 09:45:00 AM, [address] [place] [address], [address], [place], [place], [phone], Provider Name:Gal pollard, 07/06/2025 07:00:00 AM, [address] [place] [address], [address], [place], [place], [phone], Provider Name:Gal pollard, 07/13/2025 08:30:00 AM, [address], [address], [place], [place], [phone], Insurance Providers Payer Name Payer Address Payer Phone Subscriber Number Group Number Insured Name Patient Relationship to Insured Coverage Start Date Coverage End Date [employer] [address] [place], [place] [phone] [id number] Elisabeth Templeton Self - patient is the insured Medical (General) History Medical History History ICD Code 10/06/[address] Harden - repeat 10 yrs
== END 2024-12-26 15:02 | disposition home or self-care (01) ==
LOC: HO.HPS 13:43
PROVIDERS: PCP Internal Medicine; Visit Provider Internal Medicine Pulmonary Disease
DX: J45.909 Unspecified asthma, uncomplicated (principal); D72.10 Eosinophilia, unspecified
CPT/HCPCS: 94010; 99214

== ENCOUNTER → 2024-12-26 13:43 | Outpatient (BNVA) | payer BC, SELFPAY | PROVIDERS: PCP Internal Medicine; Visit Provider Internal Medicine Pulmonary Disease | DX: J45.909 Unspecified asthma, uncomplicated (principal); D72.10 Eosinophilia, unspecified | CPT/HCPCS: 94010; 94640 ==

== ENCOUNTER 2025-02-05 14:34 | Outpatient (AMB) | payer BC, SELFPAY ==
[2025-02-05 14:36] VITALS: BP 92/57; PULSE 81; O2SAT 97; BMI 23.8
--- NOTE | 2025-02-05 14:36 | MHC.OFFVIS ---
Vital Signs 02/05/25 14:36 Height 5 ft 11 in Weight 171 lb BMI 23.8 BP 92/57 L Blood Pressure Location Rt brachial Position Sitting Pulse 81 Pulse Source Pulse Oximeter Pulse Oximetry (%) 97 Oxygen Delivery Method Room Air Intake Visit Reasons: Abnormal CT scan Allergies No Known Allergies [No Known Allergies*] Allergy (Verified 11/08/24 13:59) HPI HPI Abnormal CT scan: Details: 54-year-old gentleman, minimal smoker during his high school/college years with no significant past medical history recently hospitalized at [facility] for recurrent and progressive dyspnea and hypoxia since .CT angio chest with no evidence of pulmonary emboli, but several small patchy infiltrate and some septal thickening not explanatory of underlying symptoms. 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 He was discharged on prednisone taper and supplemental oxygen. After the last office visit patient has been using Symbicort and albuterol MDI with good control of his symptoms. He is, also, being started on antigen injection by his rougher for cement. He denies any recent exacerbations. 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 Review of Systems Const Denies daytime sleepiness, Denies excessive sweating, Denies fatigue, Denies fever(s), Denies lethargy, Denies malaise, Denies night sweats, Denies snoring and Denies weight loss Eyes Denies blurry vision and Denies itchy eyes ENT Denies nasal congestion, Denies post nasal drip, Denies sinus pain, Denies sinus pressure and Denies other ( Thrush) Card Denies chest pain, Denies pedal edema, Denies dyspnea, Denies orthopnea and Denies paroxysmal nocturnal dyspnea Resp Denies cough, Denies hemoptysis, Denies excessive phlegm production, Denies dyspnea, Denies snoring and Denies wheezing GI Denies abdominal pain and Denies heartburn Musc Denies myalgias, Denies arthralgias and Denies joint swelling Skin/Breast Denies rash Neuro Denies memory loss and Denies seizure-like activity Psych Denies abnormal sleep pattern, Denies anxiety and Denies memory loss Endo Denies excessive sweating, Denies fatigue and Denies heat intolerance Moses/Lymph Denies easy bruising Aller/Immun Denies itchy eyes, Denies seasonal rhinorrhea and Denies wheezing Physical Exam Vital Signs: Last Vital Signs Pulse 81 02/05/25 14:36 BP 92/57 L 02/05/25 14:36 Pulse Ox 97 02/05/25 14:36 Oxygen Delivery Method Room Air 02/05/25 14:36 BMI result Body Mass Index 23.8 Const General: no acute distress and alert Nutritional Appearance: not obese Orientation/consciousness: Other orientation findings ( oriented) HEENT Head: Yes atraumatic Eyes General: appearance normal, both eyes and all related structures Sclerae: sclerae normal EOM: EOMs intact bilaterally Neck Neck: Yes supple Lymphatic: no lymphadenopathy noted Resp Effort & Inspection: normal respiratory effort and no use of accessory muscles Auscultation: clear to auscultation bilaterally Cardio Rate: regular rate Rhythm: regular rhythm Heart sounds: no gallops, no murmurs and no rubs Skin General skin exam: other ( warm) Extrem General: No clubbing, No cyanosis and No edema Assessment & Plan Assessment & Plan (1) Reactive airway disease: Code(s): J45.909 - Unspecified asthma, uncomplicated Category: Medical Plan: Well controlled on Symbicort and albuterol MDI. Continue current regimen. (2) Environmental allergies: Code(s): Z91.09 - Other allergy status, other than to drugs and biological substances Category: Medical Plan: Will hold off on Dupixent as patient is being started on antigen injections by his rougher for cement. Coding Level of Care Code Est Pt Level 4 (65411) Diagnoses Reactive airway disease J45.909 Environmental allergies Z91.09
--- OUTSIDE RECORDS SUMMARY | 2025-02-05 15:50 | XMS_ITS ---
Author Organization Gal Dunaway MD Address [address] [place], [place] [phone] Care Team Providers Care Director Loan Name Role Phone Gal Dunaway Primary Care [...] Status W/U Status Risk Notes Problem Asthma (463373452) Asthma (J45.909) Active confirmed Vital Signs Blood pressure systolic 116 mm Hg 02/06/20 25 Blood pressure diastolic 70 mm Hg 025 Height 71 in 02/05/2025 Weight 173 lbs 02/05/2025 BMI 24.13 kg/m2 02/05/2025 Encounters Encounter Location Date Provider Diagnosis Gal Dunaway MD [address] [place] [phone] 02/05/2025 Gal Dunaway Asthma J45.909 Assessments Encounter [...] rescue inhaler Next Appt Details Provider Name:Gal pollard, 07/06/2025 07:00:00 AM, [address] [place] [address], [address], [phone], Provider Name:Gal pollard, 07/13/2025 08:30:00 AM, [address] [place] [address], [place] [address], [place], [place], [phone], Progress Notes * Jacky PADILLA MDOB: 9 (54 yo M)Acc No.[id number]:02/05/2025 Progress Notes Patient:?Jacky PADILLA Provider:?Gal Dunaway MD :1970???Age:54 Y???Sex:Male Earl e:02/05/2025 Address:[address] [place], [place] [phone] Subjective: * Chief Complaints: * ???1. 6 week. * HPI: ???Symptom(s):?patient is a 54 yo male here for 6? week follow up visit/ doing great not needing rescue inhaler. no wheezes. * ROS:?General/Constitutional:?Denies?Chills.?Denies?Fatigue.?Denies?Fever.?Denies?Headache.?ENT:?Patient denies?decreased sense of smell, any loss of taste, sore throat.?Denies?Sore throat.?Respiratory:?Denies?Cough.?Denies?Shortness of breath at rest.?Denies?Shortness of breath with exertion.?Gastrointestinal:?Denies?Diarrhea.?Denies?Nausea.?Musculoskeletal:?Patient denies?muscle aches.?Peripheral Vascular:?Patient denies?red and blue toes.? * Medical History:?10/06/[address] Harden - repeat 10 yrs. * Medications:?Taking Albutero l Sulfate HFA 108 (90 Base) MCG/ACT Aerosol Solution 1 puff as needed Inhalation every 4 hrs , Notes to Pharmacist: PATIENT IS EARLY FOR REFILL OF ALBUTEROL BUT NEEDS IT DUE TO THE SEVERITY OF HIS BREATHING PROBLEMS, Taking Symbicort 160-4.5 MCG/ACT Aerosol as directed Inhalation twice a day , Not-Taking/PRN Ibuprofen 800 MG Tablet 1 tablet with food or milk as needed Orally every 8 hrs as needed , Not-Taking/PRN Benzonatate 200 MG Capsule 1 capsule as needed Orally Three times a day , Not-Taking/PRN Sulindac 200 MG Tablet 1 tablet with food Orally Twice a day , Not-Taking/PRN Cyclobenzaprine HCl 5 MG Tablet 1 tab Orally 3 times per day * Allergies:?N.K.D.A. Objective: * Vitals:?Ht: 71, Wt: 173, BMI :24.13, BP:116/70, Wt-k.47. * Examination: ???General Examination: ?GENERAL APPEARANCE:?alert, well hydrated, in no distress.?HEAD:?normocephalic.?SKIN:?good turgor.?HEART:?regular rate and rhythm, no murmurs, rubs, gallops.?LUNGS:?no wheezes, rales, rhonchi, good air movement, clear to auscultation bilaterally.? Assessment: * Assessment: 1.?Asthma - J45.909 (Primary )??? Plan: * Treatment: * * The named appointment provid er may or may not be the originator of this progress note, and it is not deemed complete until electronically signed by the appointment provider. Sign off status: Pending * Provider:?Gal Dunaway MD Date:?0 02/05/2025 Generated for Ana cleary/Enedina/eTransmitting on:?02/05/2025 03:50 PM EDT History and Physical Notes * [...]
== END 2025-02-05 14:48 | disposition home or self-care (01) ==
LOC: HO.HPS 14:34
PROVIDERS: PCP Internal Medicine; Visit Provider Internal Medicine Pulmonary Disease
DX: J45.909 Unspecified asthma, uncomplicated (principal); Z91.09 Other allergy status, other than to drugs and biological substances
CPT/HCPCS: 99214

== ENCOUNTER 2025-07-06 10:34 | Outpatient (REF) | payer BC, SELFPAY ==
--- OUTSIDE RECORDS SUMMARY | 2024-11-03 07:45 | XMS_ITS ---
Author Organization Gal Dunaway MD Address [address] [place], [place] [id number] Care Team Providers Care Actuary Name Role Phone Gal Dunaway Primary Care Provider [phone] Allergies No Known Allergies REASON FOR VISIT PH/TCM, Accompanied by Medications Medication SIG (Take, Route, Frequency, Duration) Notes Start Date End Date Status Benzonatate 200 MG 1 capsule as needed Orally Three times a day Not-Taking Sulindac 200 MG 1 tablet with [...] 4 hrs for 30 days 09/07/2024 Active Dextromethorphan-guaiFENesi n Active predniSONE 10 MG 2 tablets with food or milk Orally Once a day Active Vital Signs Blood pressure systolic 122 mm Hg 11/03/19 25 Blood pressure diastolic 84 mm Hg 025 Height 71 in 11/03/2024 Weight 170 lbs 11/03/2024 BMI 23.71 kg/m2 11/03/2024 weight is down 7 pounds [facility] 07-06-24 Encounters Encounter Location Date Provider Diagnosis Gal Dunaway MD [address] [place] [address] [place] [phone] 11/03/2024 Gal Dunaway Mycoplasma pneumoniae [M. pneumoniae] as the cause of diseases classified elsewhere B96.0 Assessments Encounter Date Diagnosis (ICD Code) Assessment Notes Treatment Notes Treatment Clinical Notes Section Notes 11/03/2024 Mycoplasma pneumoniae [M. pneumoniae] as the cause of diseases classified elsewhere (ICD-10 - B96.0) does not appear sick at all. try going without oxygen. Total time spent on the date of the encounter is 35 minutes including both face to face time spent and time spent reviewing documentation, and counseling the patient. Plan Of Treatment Treatment Notes Assessment Notes Mycoplasma pneumoniae [M. pn eumoniae] as the cause of diseases classified elsewhere does not appear sick at all. try going without oxygen. Total time spent on the date of the encounter is 35 minutes including both face to face time spent and time spent reviewing documentation, and counseling the patient. Next Appt Details Follow Up: 2 Weeks, Reason: Provider Name:Gal Bradley ier, 07/13/2025 08:30:00 AM, [address] [place] [address], Suite [facility], [place], [place], [phone], Progress Notes * Jacky PADILLA MDOB: [birth year] (54 yo M)Acc No.[id number]:11/03/2024 Patient: Ramos Jacky BORRERO Provider: Cinthya Dunaway MD :1970 A ge:54 Y S ex:Male Date:11/03/2024 Address:[address] [place], [place] [phone] Subjective: * Chief Complaints: * P H/TCMAccompanied by * HPI: S ymptom(s): patient is a 54 yo male here for follow up from hosptial is doing much better.discharge summary has been reviewed and medications reconciled, could not breathe when he went hospital/ goes without oxygen for 30 mins and is okay/. * ROS: G eneral/Constitutional: Denies C hills. D enies F atigue. D enies F ever. D enies H eadache. E NT: Patient denies d ecreased sense of smell, any loss of taste, sore throat. D enies S ore throat. R espiratory: Admits C ough. D enies S hortness of breath at rest. A dmits S hortness of breath with exertion. G astrointestinal: Denies D iarrhea. D enies N ausea. M usculoskeletal: Patient denies m uscle aches. P eripheral Vascular: Patient denies r ed and blue toes. * Medical History: * Surgical History: * Hospitalization/Major Diagno stic Procedure: * Medications: T akingDextromethorphan-guaiFENesin predniSONE 10 MG Tablet 2 tablets with food or milk Orally Once a day Albuterol Sulfate HFA 108 (90 Base) MCG/ACT Aerosol Solution 1 puff as needed Inhalation every 4 hrs Taking Dextromethorphan-guaiFENesin Taking predniSONE 10 MG Tablet 2 tablets with food or milk Orally Once a day Taking Albuterol Sulfate HFA 108 (90 Base) [...] reviewed and reconciled with the patient * Allergies: N .K.D.A.yes[Allergies Verified] Objective: * Vitals: H t: 71, Wt: 170, BMI:23.71, BP:122/84, Wt-k.11. weight is down 7 pounds since 07-06-24. * Examination: G eneral Examination: GENERAL APPEARANCE: a lert, well hydrated, in no distress.? HEAD: n ormocephalic. SKIN: g ood turgor. HEART: n o murmurs, rubs, gallops, regular rate and rhythm.? LUNGS: n o wheezes, rales, rhonchi, good air movement, clear to auscultation bilaterally. Assessment: * Assessment: 1. M ycoplasma pneumoniae [M. pneumoniae] as the cause of diseases classified elsewhere - B96.0 (Primary) Plan: * Treatment: * Procedure Codes: * Follow Up: 2 Weeks * * Sign off status: Completed true * Provider: Cinthya Dunaway MD Date: 0 11/03/2024 Generated for Ana cleary/Enedina/Jaycesmitting on: 12:00 PM EDT History and Physical Notes * HPI (History of Present Illness) Category Sub-Category Detail Notes Category Not es Symptom(s) patient is a 54 yo male here for follow up from hosptial is doing much better.discharge summary has been reviewed and medications reconciled, could not breathe when he went hospital/ goes without oxygen for 30 mins and is okay/ Examination Category Sub-Category Detail Notes Category Not es General Examination GENERAL APPEARANCE: alert, w ell hydrated, in no distress HEAD: normocephalic HEART: no murmurs, rubs, ga llops, regular rate and rhythm LUNGS: no wheezes, rales, r honchi, good air movement, clear to auscultation bilaterally SKIN: good turgor
--- OUTSIDE RECORDS SUMMARY | 2024-11-17 13:00 | XMS_ITS ---
Author Organization Gal Dunaway MD Address [address] [place] [phone] Care Team Providers Care Pulmonary Physical Therapist Name Role Phone Gal Dunaway Primary Care Provider Allergies No Known Allergies REASON FOR VISIT 2 week Encounters Encounter Location Date Provider Diagnosis Gal Dunaway MD [address] [facility] [address] [place] [id number] 11/17/2024 Gal Dunaway Plan Of Treatment Next Appt Details Provider Name:Gal polladr, 07/13/2025 08:30:00 AM, [address] [place] [address], [address] [place] [address], [phone], Progress Notes * Jacky PADILLA MDOB: 9 (55 yo M)Acc No.[id number]:11/17/2024 Progress Notes Patient: Ramos Jacky BORRERO Provider: Cinthya Dunaway MD :1970 A ge:54 Y S ex:Male Date:11/17/2024 Address[id number] Subjective: * Chief Complaints: * 1 . 2 week. * ROS: G eneral/Constitutional: Denies C hills. D enies F atigue. D enies F ever. D enies H eadache. E NT: Denies S ore throat. R espiratory: Denies C ough. D enies S hortness of breath at rest. D enies S hortness of breath with exertion. G astrointestinal: Denies D iarrhea. D enies N ausea. * Medical History: 0 10/06/[address] Harden - repeat 10 yrs. * Allergies: N .K.D.A. Objective: * Vitals: Assessment: Plan: * Treatment: * * The named appointment provid er may or may not be the originator of this progress note, and it is not deemed complete until electronically signed by the appointment provider. Sign off status: Pending * Provider: Cinthya Dunaway MD Date: 0 11/17/2024 Generated for Ana cleary/Enedina/Fawad on: 12:00 PM EDT
--- OUTSIDE RECORDS SUMMARY | 2024-11-20 09:30 | XMS_ITS ---
Author Organization Gal Dunaway MD Address [address] [place], [place] [phone] Care Team Providers Care Pipe Fitter Ammonia Name Role Phone Gal Dunaway Primary Care Provider Allergies No Known Allergies REASON FOR VISIT 2 week wheezing shortness of breath on oxygen for ER visit, [place] [facility] Accompanied by Medications Medication SIG (Take, Route, Frequency, Duration) Notes Start Date End Date Status predniSONE 10 MG 1 tablet with food o r milk Orally 4 tabs for 3 days,3tabs for 3 days, 2 tabs for 3 days, and 1 tab for 3 days for 14 days 09/07/2024 Not-Taking Benzonatate 200 MG 1 capsule as needed Orally Three times a day Not-Taking Sulindac 200 MG 1 tablet with food Orally Twice a day for 30 day(s) 11/16/2022 Not-Taking Ibuprofen 800 MG 1 tablet with food o r milk as needed Orally every 8 hrs as needed for 30 days 07/06/2024 Not-Taking Cyclobenzaprine HCl 5 MG 1 tab Orally 3 times per day for 10 days 11/16/2022 Not-Taking Albuterol Sulfate HFA 108 (90 Base) MCG/ACT 1 puff as needed Inhalation every 4 hrs for 30 days 09/07/2024 Active Zithromax Z-Miguel 250 MG 2 tablet on the f irst day, then 1 tablet daily for 4 days Orally Once a day for 5 day(s) 11/20/2024 Active predniSONE 10 MG 1 tablet with food o r milk Orally 4 tabs for 4 days, 3 tabs for 4 days, 2 tbs for 4 days, and 1 tab for 4 days for 14 days 11/20/2024 Active Problems Problem Type SNOMED Code ICD Code Onset Dates Problem Status W/U Status Risk Notes Problem Asthmatic bronchitis (403680694) Asthmatic bronchitis (J45.909) Active confirmed Vital Signs Blood pressure systolic 122 mm Hg 11/21/19 25 Blood pressure diastolic 70 mm Hg 025 Height 71 in 11/20/2024 Weight 169 lbs 11/20/2024 BMI 23.57 kg/m2 11/20/2024 Encounters Encounter Location Date Provider Diagnosis Gal Dunaway MD [address] [place], [place] [phone] 11/20/2024 Gal Dunaway Asthmatic bronchitis J45.909 Assessments Encounter Date Diagnosis (ICD Code) Assessment Notes Treatment Notes Treatment Clinical Notes Section Notes 11/20/2024 Asthmatic bronchitis (ICD-10 - J45.909) patient verblized understanding of medication and directions for use Plan Of Treatment Medication Medication Name Sig Start Date Stop Date Notes Zithromax Z-Miguel 250 MG 2 tablet on the f irst day, then 1 tablet daily for 4 days Orally Once a day for 5 day(s) 11/20/2024 predniSONE 10 MG 1 tablet with food o r milk Orally 4 tabs for 4 days, 3 tabs for 4 days, 2 tbs for 4 days, and 1 tab for 4 days for 14 days 11/20/2024 Treatment Notes Assessment Notes Asthmatic bronchitis patient verblized u nderstanding of medication and directions for use Pending Test Test Name Order Date XR CHEST 2 VIEW PA & LAT 11/20/2024 Next Appt Details Follow Up: 2 - 3 Days, Reaso n: Provider Name:Gal polladr, 07/13/2025 08:30:00 AM, [address], [address], [place], [place], [phone], Progress Notes * Jacky PADILLA MDOB: 9 (54 yo M)Acc No.[id number]:11/20/2024 Progress Notes Patient: Jacky NATHAN Provider: Cinthya Dunaway MD :1970 A ge:54 Y S ex:Male Date:11/20/2024 Address:[address] [place] [address] [address] [place], [id number] Subjective: * Chief Complaints: * 2 week wheezing [facility] breath [facility] * HPI: S ymptom(s): patient is a 54 yo male here for 2 week follow up visit, had been doing well for 1.5 weeks. last week feeling great. then started coughing again. and 2 days later had to go back on oxygen. o2 is 80%. wheezing again. was back to work. * ROS: G eneral/Constitutional: Denies C hills. D enies F atigue. D enies F ever. D enies H eadache. E NT: Patient denies d ecreased sense of smell, any loss of taste, sore throat. D enies S ore throat. R espiratory: Admits C ough. A dmits S hortness of breath at rest. A dmits S hortness of breath with exertion. A dmits S putum production. A dmits W heezing. G astrointestinal: Denies D iarrhea. D enies N ausea. * Medical History: * Surgical History: * Hospitalization/Major Diagno stic Procedure: * Medications: T akingAlbuterol Sulfate HFA 108 (90 Base) MCG/ACT Aerosol [...] 1 tab Orally 3 times per day Not-Taking/PRN Benzonatate 200 MG Capsule 1 capsule [...] 1 tab Orally 3 times per day DiscontinuedDextromethorphan-guaiFENesin predniSONE 10 MG Tablet 2 tablets with food or milk Orally Once a day Medication List reviewed and reconciled with the patientDiscontinued Dextromethorphan-guaiFENesin Discontinued predniSONE 10 MG Tablet 2 tablets with food or milk Orally Once a day Medication List reviewed and reconciled with the patient * Allergies: N .K.D.A.yes[Allergies Verified] Objective: * Vitals: H t: 71, Wt: 169, BMI:23.57, BP:122/70, Wt-k.66. * Examination: G eneral Examination: GENERAL APPEARANCE: a lert, well hydrated, in no distress.? HEAD: n ormocephalic. SKIN: g ood turgor. HEART: n o murmurs, rubs, gallops, regular rate and rhythm.? LUNGS: d iffuse wheezing in both lungs. ? Assessment: * Assessment: 1. A sthmatic bronchitis - J45.909 (Primary) Plan: * Treatment: * Procedure Codes: * Follow Up: 2 - 3 Days * * Sign off status: Completed true * Provider: Cinthya Dunaway MD Date: 0 11/20/2024 Generated for Ana cleary/Enedina/Fawad on: 1 11:59 AM EDT History and Physical Notes * HPI (History of Present Illness) Category Sub-Category Detail Notes Category Not es Symptom(s) patient is a 54 yo male here for 2 week follow up visit, had been doing well for 1.5 weeks. last week feeling great. then started coughing again. and 2 days later had to go back on oxygen. o2 is 80%. wheezing again. was back to work. Examination Category Sub-Category Detail Notes Category Not es General Examination GENERAL APPEARANCE: alert, w ell hydrated, in no distress HEAD: normocephalic HEART: no murmurs, rubs, ga llops, regular rate and rhythm LUNGS: diffuse wheezing in both lungs SKIN: good turgor
--- OUTSIDE RECORDS SUMMARY | 2024-11-24 07:30 | XMS_ITS ---
Author Organization Gal Dunaway MD Address [address] [place], [place] [phone] Care Team Providers Care Wad Impregnator Name Role Phone Gal Dunaway Primary Care Provider [phone] Allergies No Known Allergies REASON FOR VISIT 3 day f/u Medications Medication SIG (Take, Route, Frequency, Duration) Notes Start Date End Date Status Sulindac 200 MG 1 tablet with food Orally Twice a day for 30 day(s) 11/16/2022 Not-Taking Cyclobenzaprine HCl 5 MG 1 tab Orally 3 times per day for 10 days 11/16/2022 Not-Taking Ibuprofen 800 MG 1 tablet with food o r milk as needed Orally every 8 hrs as needed for 30 days 07/06/2024 Not-Taking Benzonatate 200 MG 1 capsule as needed Orally Three times a day Not-Taking predniSONE 10 MG 1 tablet with food o r milk Orally 4 tabs for 3 days,3tabs for 3 days, 2 tabs for 3 days, and 1 tab for 3 days for 14 days 09/07/2024 Not-Taking predniSONE 10 MG 1 tablet with food o r milk Orally 4 tabs for 4 days, 3 tabs for 4 days, 2 tbs for 4 days, and 1 tab for 4 days for 14 days 11/20/2024 Active Zithromax Z-Miguel 250 MG 2 tablet on the f irst day, then 1 tablet daily for 4 days Orally Once a day for 5 day(s) 11/20/2024 Active Albuterol Sulfate HFA 108 (90 Base) MCG/ACT 1 puff as needed Inhalation every 4 hrs for 30 days 09/07/2024 Active Vital Signs Blood pressure systolic 112 mm Hg 11/25/19 25 Blood pressure diastolic 70 mm Hg 025 Height 71 in 11/24/2024 Weight 172 lbs 11/24/2024 BMI 23.99 kg/m2 11/24/2024 weight is up 3 pounds since 11-20-24 Encounters Encounter Location Date Provider Diagnosis Gal Dunaway MD [address] [place] [address] [place] [phone] 11/24/2024 Gal Dunaway Asthmatic bronchitis J45.909 Assessments Encounter Date Diagnosis (ICD Code) Assessment Notes Treatment Notes Treatment Clinical Notes Section Notes 11/24/2024 Asthmatic bronchitis (ICD-10 - J45.909) doing much better. will continue to monitor Plan Of Treatment Treatment Notes Assessment Notes Asthmatic bronchitis doing much better. will continue to monitor Next Appt Details Follow Up: 1 Week, Reason: Provider Name:Gal Bradley ier, 07/13/2025 08:30:00 AM, [address] [place] [address], Suite [facility], [place], [place], [phone], Progress Notes * Jacky PADILLA MDOB: 9 (54 yo M)Acc No.[id number]:11/24/2024 Progress Notes Patient: Jacky NATHAN Provider: Cinthya Dunaway MD :1970 A ge:54 Y S ex:Male Date:11/24/2024 Address:[facility] [id number] Subjective: * Chief Complaints: * 3 day f/u * HPI: S ymptom(s): patient is a 54 yo male here for 3 day follow up visit/ feeling a lot better than before. using his inhaler occasionally.// has still some o2 sats in low 80's. when he sees 83 has trouble talking. * ROS: G eneral/Constitutional: Denies C hills. D enies F atigue. D enies F ever. D enies H eadache. E NT: Patient denies d ecreased sense of smell, any loss of taste, sore throat. D enies S ore throat. R espiratory: Admits C ough. D enies S hortness of breath at rest. D enies S hortness of breath with exertion. A dmits S putum production. D enies W heezing. G astrointestinal: Denies D iarrhea. D enies N ausea. M usculoskeletal: Patient denies m uscle aches. P eripheral Vascular: Patient denies r ed and blue toes. * Medical History: * Surgical History: * Hospitalization/Major Diagno stic Procedure: * Medications: T akingAlbuterol Sulfate HFA 108 (90 Base) MCG/ACT Aerosol Solution 1 puff as needed Inhalation every 4 hrs predniSONE 10 MG Tablet 1 tablet with food or milk Orally 4 tabs for 4 days, 3 tabs for 4 days, 2 tbs for 4 days, and 1 tab for 4 days Zithromax Z-Miguel 250 MG Tablet 2 tablet on the first day, then 1 tablet daily for 4 days Orally Once a day Taking Albuterol Sulfate HFA 108 (90 Base) MCG/ACT Aerosol Solution 1 puff as needed Inhalation every 4 hrs Taking predniSONE 10 MG Tablet 1 tablet with food or milk Orally 4 tabs for 4 days, 3 tabs for 4 days, 2 tbs for 4 days, and 1 tab for 4 days Taking Zithromax Z-Miguel 250 MG Tablet 2 tablet on the first day, then 1 tablet daily for 4 days Orally Once a day Not-Taking/PRNBenzonatate 200 MG Capsule 1 capsule as [...] Objective: * Vitals: H t: 71, Wt: 172, BMI:23.99, BP:112/70, Wt-k.02. weight is up 3 pounds since 11-20-24. * Examination: G eneral Examination: GENERAL APPEARANCE: a lert, well hydrated, in no distress.? HEAD: n ormocephalic. SKIN: g ood turgor. HEART: r egular rate and rhythm, no murmurs, rubs, gallops.? LUNGS: n o wheezes, rales, rhonchi, good air movement, clear to auscultation bilaterally. Assessment: * Assessment: 1. A sthmatic bronchitis - J45.909 (Primary) Plan: * Treatment: * Procedure Codes: * Follow Up: 1 Week * * Sign off status: Completed true * Provider: Cinthya Dunaway MD Date: 0 11/24/2024 Generated for Ana cleary/Enedina/Jaycesmitting on: 1 11:59 AM EDT History and Physical Notes * HPI (History of Present Illness) Category Sub-Category Detail Notes Category Not es Symptom(s) patient is a 54 yo male here for 3 day follow up visit/ feeling a lot better than before. using his inhaler occasionally.// has still some o2 sats in low 80's. when he sees 83 has trouble talking. Examination Category Sub-Category Detail Notes Category Not es General Examination GENERAL APPEARANCE: alert, w ell hydrated, in no distress HEAD: normocephalic HEART: regular rate and rhy thm, no murmurs, rubs, gallops LUNGS: no wheezes, rales, r honchi, good air movement, clear to auscultation bilaterally SKIN: good turgor
--- OUTSIDE RECORDS SUMMARY | 2024-12-01 05:30 | XMS_ITS ---
Author Organization Gal Dunaway MD Address [address] [place], [place] [phone] Care Team Providers Care Advertising Associate Name Role Phone Gal Dunaway Primary Care Provider Allergies No Known Allergies Medications Medication SIG (Take, Route, Frequency, Duration) Notes Start Date End Date Status Ibuprofen 800 MG 1 tablet with food o r milk as needed Orally every 8 hrs as needed for 30 days 07/06/2024 Not-Taking Sulindac 200 MG 1 tablet with [...] 3 days for 14 days 09/07/2024 Not-Taking Albuterol Sulfate HFA 108 (90 Base) MCG/ACT 1 puff as needed Inhalation every 4 hrs for 30 days 09/07/2024 Active predniSONE 10 MG 1 tablet with food o r milk Orally 4 tabs for 4 days, 3 tabs for 4 days, 2 tbs for 4 days, and 1 tab for 4 days for 14 days 11/20/2024 Active Cyclobenzaprine HCl 5 MG 1 tab Orally 3 times per day for 10 days 11/16/2022 Not-Taking Vital Signs Blood pressure systolic 102 mm Hg 12/02/19 25 Blood pressure diastolic 76 mm Hg 025 Height 71 in 12/01/2024 Weight 171 lbs 12/01/2024 BMI 23.85 kg/m2 12/01/2024 Encounters Encounter Location Date Provider Diagnosis Gal Dunaway MD [address] [place] [address] Drive [address] [place], [place] [phone] 12/01/2024 Gal Dunaway Acute asthmatic bronchitis J45.909 and Mycoplasma infection, unspecified site A49.3 Assessments Encounter Date Diagnosis (ICD Code) Assessment Notes Treatment Notes Treatment Clinical Notes Section Notes 12/01/2024 Acute asthmatic bronchitis (ICD-10 - J45.909) doing great at present 12/01/2024 Mycoplasma infection, unspecified site (ICD-10 - A49.3) recovered, will continue to monitor Plan Of Treatment Treatment Notes Assessment Notes Acute asthmatic bronchitis doing great a t present Mycoplasma infection, unspecified site r ecovered, will continue to monitor Next Appt Details Provider Name:Gal Bradley ier, 07/13/2025 08:30:00 AM, [address] [place] [address], [address], [place], [place], [phone], Progress Notes * Jacky PADILLA MDOB: 9 (54 yo M)Acc No.[id number]:12/01/2024 Progress Notes Patient: Ramos EDWARDSJUDYJacky Provider: Cinthya Dunaway MD :1970 A ge:54 Y S ex:Male Date:12/01/2024 Address:[address] [place], [place] [address]on[place]ina Chang [id number] Subjective: * Chief Complaints: * * HPI: S ymptom(s): patient is a 54 yo male here for follow up/ feels that the z pack helped. still using o2 at night.. not coughing any more. on 10 mg of prednisone for 2 days. lifted weight and ran up stairs and o2 sat was 95. * ROS: G eneral/Constitutional: Denies C hills. D enies F atigue. D enies F ever. D enies H eadache. E NT: Denies S ore throat. R espiratory: Lj Huang ough. D enies S hortness of breath at rest. D enies S hortness of breath with exertion. G astrointestinal: Lj Polk iarrhea. D encurly N ausea. * Medical History: * Surgical [...] and 1 tab for 4 days Taking Albuterol Sulfate HFA 108 (90 Base) MCG/ACT Aerosol Solution 1 puff as needed Inhalation every 4 hrs Taking predniSONE 10 MG Tablet 1 tablet with food or milk Orally 4 tabs for 4 days, 3 tabs for 4 days, 2 tbs for 4 days, and 1 tab for 4 days Not-Taking/PRNBenzonatate 200 MG Capsule 1 capsule as [...] days, and 1 tab for 3 days Not- Taking/PRN Ibuprofen 800 MG Tablet 1 tablet with food or milk as needed Orally every 8 hrs as needed Not-Taking/PRN Sulindac 200 MG Tablet 1 tablet with food Orally Twice a day Not-Taking/PRN Cyclobenzaprine HCl 5 MG Tablet 1 tab Orally 3 times per day DiscontinuedZithromax Z-Miguel 250 MG Tablet 2 tablet on the first day, then 1 tablet daily for 4 days Orally Once a day Medication List reviewed and reconciled with the patientDiscontinued Zithromax Z-Miguel 250 MG Tablet 2 tablet on the first day, then 1 tablet daily for 4 days Orally Once a day Medication List reviewed and reconciled with the patient * Allergies: N .K.D.A.yes[Allergies Verified] Objective: * Vitals: H t: 71, Wt: 171, BMI:23.85, BP:102/76, Wt-k.57. * Examination: G eneral Examination: GENERAL APPEARANCE: w ell developed, well nourished. HEAD: n ormocephalic. SKIN: g ood turgor. HEART: n o murmurs, rubs, gallops, regular rate and rhythm.? LUNGS: n o wheezes, rales, rhonchi, good air movement, clear to auscultation bilaterally. Assessment: * Assessment: 1. A cute asthmatic bronchitis - J45.909 (Primary) 2 . M ycoplasma infection, unspecified site - A49.3 Plan: * Treatment: 2. M ycoplasma infection, unspecified site Notes: recovered, will continue to monitor * Procedure Codes: * * Sign off status: Completed true * Provider: Cinthya Dunaway MD Date: 0 12/01/2024 Generated for Ana cleary/Enedina/Fawad on: 12:00 PM EDT History and Physical Notes * HPI (History of Present Illness) Category Sub-Category Detail Notes Category Not es Symptom(s) patient is a 54 yo male here for follow up/ feels that the z pack helped. still using o2 at night.. not coughing any more. on 10 mg of prednisone for 2 days. lifted weight and ran up stairs and o2 sat was 95 Examination Category Sub-Category Detail Notes Category Not es General Examination GENERAL APPEARANCE: well developed , well nourished HEAD: normocephalic HEART: no murmurs, rubs, ga llops, regular rate and rhythm LUNGS: no wheezes, rales, r honchi, good air movement, clear to auscultation bilaterally SKIN: good turgor
--- OUTSIDE RECORDS SUMMARY | 2024-12-07 05:15 | XMS_ITS ---
Author Organization Gal Dunaway MD Address [address] [place], [place] [phone] Care Team Providers Care Flexboard Operator Name Role Phone Gal Dunaway Primary Care Provider Allergies No Known Allergies REASON FOR VISIT SOB Medications Medication SIG (Take, Route, Frequency, Duration) Notes Start Date End Date Status Ibuprofen 800 MG 1 tablet with food or milk as needed Orally every 8 hrs as needed for 30 days 07/06/2024 Not-Taking predniSONE 10 MG 1 tablet with food or milk Orally 4 tabs for 3 days,3tabs for 3 days, 2 tabs for 3 days, and 1 tab for 3 days for 14 days 09/07/2024 Not-Taking Benzonatate 200 MG 1 capsule as needed Orally Three times a day Not-Taking predniSONE 10 MG 1 tablet with food or milk Orally 4 tabs for 4 days, 3 tabs for 4 days, 2 tbs for 4 days, and 1 tab for 4 days for 14 days 11/20/2024 Not-Taking Sulindac 200 MG 1 tablet with food Orally Twice a day for 30 day(s) 11/16/2022 Not-Taking Zithromax Z-Miguel 250 MG 2 tablet on the first day, then 1 tablet daily for 4 days Orally Once a day for 5 day(s) PATIENT IS EARLY FOR REFILL OF ALBUTEROL BUT NEEDS IT DUE TO THE SEVERITY OF HIS BREATHING PROBLEMS 12/07/2024 Active Albuterol Sulfate HFA 108 (90 Base) MCG/ACT 1 puff as needed Inhalation every 4 hrs for 30 days 09/07/2024 Active predniSONE 10 MG 1 tablet with food or milk Orally 4 tabs for 3 days,3tabs for 3 days, 2 tabs for 3 days, and 1 tab for 3 days for 14 days PATIENT IS EARLY FOR REFILL OF ALBUTEROL BUT NEEDS IT DUE TO THE SEVERITY OF HIS BREATHING PROBLEMS 12/07/2024 Active Albuterol Sulfate HFA 108 (90 Base) MCG/ACT 1 puff as needed Inhalation every 4 hrs for 30 days PATIENT IS EARLY FOR REFILL OF ALBUTEROL BUT NEEDS IT DUE TO THE SEVERITY OF HIS BREATHING PROBLEMS 12/07/2024 Active Cyclobenzaprine HCl 5 MG 1 tab Orally 3 times per day for 10 days 11/16/2022 Not-Taking Vital Signs Blood pressure systolic 128 mm Hg 12/08/19 25 Blood pressure diastolic 80 mm Hg 025 Height 71 in 12/07/2024 Weight 170 lbs 12/07/2024 BMI 23.71 kg/m2 12/07/2024 Encounters Encounter Location Date Provider Diagnosis Gal Dunaway MD [address] [place] [phone] 12/07/2024 Gal Dunaway Acute asthmatic bronchitis J45.909 and Mycoplasma infection, unspecified site A49.3 Assessments Encounter Date Diagnosis (ICD Code) Assessment Notes Treatment Notes Treatment Clinical Notes Section Notes 12/07/2024 Acute asthmatic bronchitis (ICD-10 - J45.909) patient verbalized understanding of the medication and directions for use. THE ORDER WAS PRINTED AND GIVEN TO JACKY 12/07/2024 Mycoplasma infection, unspecified site (ICD-10 - A49.3) Plan Of Treatment Medication Medication Name Sig Start Date Stop Date Notes Zithromax Z-Miguel 250 MG 2 tablet on the irst day, then 1 tablet daily for 4 days Orally Once a day for 5 day(s) 12/07/2024 PATIENT IS EARLY FOR REFILL OF ALBUTEROL BUT NEEDS IT DUE TO THE SEVERITY OF HIS BREATHING PROBLEMS predniSONE 10 MG 1 tablet with food o r milk Orally 4 tabs for 3 days,3tabs for 3 days, 2 tabs for 3 days, and 1 tab for 3 days for 14 days 12/07/2024 PATIENT IS EARLY FOR REFILL OF ALBUTEROL BUT NEEDS IT DUE TO THE SEVERITY OF HIS BREATHING PROBLEMS Albuterol Sulfate HFA 108 (90 Base) MCG/ACT 1 puff as needed Inhalation every 4 hrs for 30 days 12/07/2024 PATIENT IS EARLY FOR REFILL OF ALBUTEROL BUT NEEDS IT DUE TO THE SEVERITY OF HIS BREATHING PROBLEMS Treatment Notes Assessment Notes Acute asthmatic bronchitis patient linda pucketted understanding of the medication and directions for use. THE ORDER WAS PRINTED AND GIVEN TO JACKY Pending Test Test Name Order Date XR CHEST 2 VIEW PA & LAT 12/07/2024 Next Appt Details Follow Up: 2 - 3 Days, Reaso n: Provider Name:Gal Bradley ier, 07/13/2025 08:30:00 AM, [address] [place] [address], Suite [facility], [place], [place], [phone], Progress Notes * Jacky PADILLA MDOB: 9 (54 yo M)Acc No.[id number]:12/07/2024 Progress Notes Patient: Jacky NATHAN Provider: Cinthya Dunaway MD :1970 A ge:54 Y S ex:Male Date:12/07/2024 Address:[address] [place], [place] [phone] Subjective: * Chief Complaints: * S OB * HPI: S ymptom(s): patient is a 54 yo male here with cmpliaint of SOB, 3 days ago started to get breathing problems again and now with mucous and inhaler helps for one hour. just coming from car had to stop twice and use inhaler. * ROS: G eneral/Constitutional: Denies C hills. [...] puff as needed Inhalation every 4 hrs Not-Taking/PRNpredniSONE 10 MG Tablet 1 tablet with food or milk Orally 4 tabs for 4 days, 3 tabs for 4 days, 2 tbs for 4 days, and 1 tab for 4 days Benzonatate 200 MG Capsule 1 capsule as [...] List reviewed and reconciled with the patientNot-Taking/PRN predniSONE 10 MG Tablet 1 tablet with food or milk Orally 4 tabs for 4 days, 3 tabs for 4 days, 2 tbs for 4 days, and 1 tab for 4 days Not-Taking/PRN Benzonatate 200 MG Capsule 1 capsule [...] Vitals: H t: 71, Wt: 170, BMI:23.71, BP:128/80, Wt-k.11. * Examination: G eneral Examination: GENERAL APPEARANCE: a lert, well hydrated, in no distress.? SKIN: g ood turgor. HEART: r egular rate and rhythm, no murmurs, rubs, gallops.? LUNGS: g ood air movement with a few wheezes. ? Assessment: * Assessment: 1. A cute asthmatic bronchitis - J45.909 (Primary) 2 . M ycoplasma infection, unspecified site - A49.3 Plan: * Treatment: * Procedure Codes: * Follow Up: 2 - 3 Days * * Sign off status: Completed true * Provider: Cinthya Dunaway MD Date: 0 12/07/2024 Generated for Ana cleary/Enedina/eTransmitting on: 1 11:59 AM EDT History and Physical Notes * HPI (History of Present Illness) Category Sub-Category Detail Notes Category Not es Symptom(s) patient is a 54 yo male here with cmpliaint of SOB, 3 days ago started to get breathing problems again and now with mucous and inhaler helps for one hour. just coming from car had to stop twice and use inhaler Examination Category Sub-Category Detail Notes Category Not es General Examination GENERAL APPEARANCE: alert, w ell hydrated, in no distress HEART: regular rate and rhy thm, no murmurs, rubs, gallops LUNGS: good air movement wi th a few wheezes SKIN: good turgor
--- OUTSIDE RECORDS SUMMARY | 2024-12-21 08:45 | XMS_ITS ---
Author Organization Gal Dunaway MD Address [address] [place], [place] [phone] Care Team Providers Care Beef Specialist Name Role Phone Gal Dunaway Primary Care Provider Allergies No Known Allergies REASON FOR VISIT shortness of breath , coughing Medications Medication SIG (Take, Route, Frequency, Duration) Notes Start Date End Date Status Symbicort 160-4.5 MCG/ACT as directed Inhalation twice a day for 30 days 12/21/2024 Active Cyclobenzaprine HCl 5 MG 1 tab Orally 3 times per day for 10 days 11/16/2022 Not-Taking Sulindac 200 MG 1 tablet with food Orally Twice a day for 30 day(s) 11/16/2022 Not-Taking Ibuprofen 800 MG 1 tablet with food or milk as needed Orally every 8 hrs as needed for 30 days 07/06/2024 Active predniSONE 10 MG 2 tabs Orally Once a day for 7 days 12/21/2024 Active predniSONE 10 MG 1 tablet with [...] THE SEVERITY OF HIS BREATHING PROBLEMS 12/07/2024 Not-Taking predniSONE 10 MG 1 tablet with food or milk Orally 4 tabs for 3 days,3tabs for 3 days, 2 tabs for 3 days, and 1 tab for 3 days for 14 days PATIENT IS EARLY FOR REFILL OF ALBUTEROL BUT NEEDS IT DUE TO THE SEVERITY OF HIS BREATHING PROBLEMS 12/07/2024 Not-Taking Albuterol Sulfate HFA 108 (90 Base) [...] 09/07/2024 Active Vital Signs Blood pressure systolic 120 mm Hg 12/22/19 25 Blood pressure diastolic 80 mm Hg 025 Height 71 in 12/21/2024 Weight 173 lbs 12/21/2024 BMI 24.13 kg/m2 12/21/2024 weight is up 3 pounds since 12-07-24 Encounters Encounter Location Date Provider Diagnosis Gal Dunaway MD [address] [place] [address] [place] [phone] 12/21/2024 Gal Dunaway Acute asthmatic bronchitis J45.909 Assessments Encounter Date Diagnosis (ICD Code) Assessment Notes Treatment Notes Treatment Clinical Notes Section Notes 12/21/2024 Acute asthmatic bronchitis (ICD-10 - J45.909) patient verbalized understanding fo medication and directions for use. Plan Of Treatment Medication Medication Name Sig Start Date Stop Date Notes Symbicort 160-4.5 MCG/ACT as directed In halation twice a day for 30 days 12/21/2024 predniSONE 10 MG 2 tabs Orally Once a day for 7 days 12/21/2024 Treatment Notes Assessment Notes Acute asthmatic bronchitis patient linda fong understanding fo medication and directions for use. Next Appt Details Follow Up: 1 Week, Reason: Provider Name:Gal Bradley ier, 07/13/2025 08:30:00 AM, [address] [place] [address], [address], [place], [place], [phone], Progress Notes * DYLANJacky KIM MDOB: 9 (54 yo M)Acc No.[id number]:12/21/2024 Progress Notes Patient: Jacky NATHAN Provider: Cinthya Dunaway MD :1970 A ge:54 Y S ex:Male Date:12/21/2024 Address:[address] [place] [address] [address] [place], [id number] Subjective: * Chief Complaints: * S hortness of breath , coughing * HPI: S ymptom(s): patient is a 54 yo male here with complaint of cough and SOB/ as soon as the prednisone stopped started to get shourt o breath again/ using inhaler frequently with some relief. lasts one hour. * ROS: G eneral/Constitutional: Denies C hills. D enies F atigue. D enies F ever. D enies H eadache. E NT: Denies S ore throat. R espiratory: Admits C [...] puff as needed Inhalation every 4 hrs Albuterol Sulfate HFA 108 (90 Base) MCG/ACT Aerosol Solution 1 puff as needed Inhalation every 4 hrs , Notes to Pharmacist: PATIENT IS EARLY FOR REFILL OF ALBUTEROL BUT NEEDS IT DUE TO THE SEVERITY OF HIS BREATHING PROBLEMSIbuprofen 800 MG Tablet 1 tablet with food or milk as needed Orally every 8 hrs as needed Taking Albuterol Sulfate HFA 108 (90 Base) MCG/ACT Aerosol Solution 1 puff as needed Inhalation every 4 hrs Taking Albuterol Sulfate HFA 108 (90 Base) MCG/ACT Aerosol Solution 1 puff as needed Inhalation every 4 hrs , Notes to Pharmacist: PATIENT IS EARLY FOR REFILL OF ALBUTEROL BUT NEEDS IT DUE TO THE SEVERITY OF HIS BREATHING PROBLEMSTaking Ibuprofen 800 MG Tablet 1 tablet with food or milk as needed Orally every 8 hrs as needed Not-Taking/PRNpredniSONE 10 MG Tablet 1 tablet with food or milk Orally 4 tabs for 3 days,3tabs for 3 days, 2 tabs for 3 days, and 1 tab for 3 days , Notes to Pharmacist: PATIENT IS EARLY FOR REFILL OF ALBUTEROL BUT NEEDS IT DUE TO THE SEVERITY OF HIS BREATHING PROBLEMSZithromax Z-Miguel 250 MG Tablet 2 tablet on the first day, then 1 tablet daily for 4 days Orally Once a day , Notes to Pharmacist: PATIENT IS EARLY FOR REFILL OF ALBUTEROL BUT NEEDS IT DUE TO THE SEVERITY OF HIS BREATHING PROBLEMSpredniSONE 10 MG Tablet 1 tablet with food [...] days, and 1 tab for 3 days Sulindac 200 MG Tablet 1 tablet with food Orally Twice a day Cyclobenzaprine HCl 5 MG Tablet 1 tab Orally 3 times per day Medication List reviewed and reconciled with the patientNot-Taking/PRN predniSONE 10 MG Tablet 1 tablet with food or milk Orally 4 tabs for 3 days,3tabs for 3 days, 2 tabs for 3 days, and 1 tab for 3 days , Notes to Pharmacist: PATIENT IS EARLY FOR REFILL OF ALBUTEROL BUT NEEDS IT DUE TO THE SEVERITY OF HIS BREATHING PROBLEMSNot-Taking/PRN Zithromax Z-Miguel 250 MG Tablet 2 tablet on the first day, then 1 tablet daily for 4 days Orally Once a day , Notes to Pharmacist: PATIENT IS EARLY FOR REFILL OF ALBUTEROL BUT NEEDS IT DUE TO THE SEVERITY OF HIS BREATHING PROBLEMSNot-Taking/PRN predniSONE 10 MG Tablet 1 tablet with [...] 1 tab for 3 days Not- Taking/PRN Sulindac 200 MG Tablet 1 tablet with food Orally Twice a day Not-Taking/PRN Cyclobenzaprine HCl 5 MG Tablet 1 tab Orally 3 times per day Medication List reviewed and reconciled with the patient * Allergies: N .K.D.A.yes[Allergies Verified] Objective: * Vitals: H t: 71, Wt: 173, BMI:24.13, BP:120/80, Wt-k.47. weight is up 3 pounds since 12-07-24. * Examination: G eneral Examination: GENERAL APPEARANCE: w ell developed, well nourished. HEAD: n ormocephalic. SKIN: g ood turgor. HEART: n o murmurs, rubs, gallops, regular rate and rhythm.? LUNGS: n o wheezes, rales, rhonchi, good air movement, clear to auscultation bilaterally. Assessment: * Assessment: 1. A cute asthmatic bronchitis - J45.909 (Primary) Plan: * Treatment: * Procedure Codes: * Follow Up: 1 Week * * Sign off status: Completed true * Provider: Cinthya Dunaway MD Date: 0 12/21/2024 Generated for Ana cleary/Enedina/Jaycesmitting on: 12:00 PM EDT History and Physical Notes * HPI (History of Present Illness) Category Sub-Category Detail Notes Category Not es Symptom(s) patient is a 54 yo male here with complaint of cough and SOB/ as soon as the prednisone stopped started to get shourt o breath again/ using inhaler frequently with some relief. lasts one hour Examination Category Sub-Category Detail Notes Category Not es General Examination GENERAL APPEARANCE: well developed , well nourished HEAD: normocephalic HEART: no murmurs, rubs, ga llops, regular rate and rhythm LUNGS: no wheezes, rales, r honchi, good air movement, clear to auscultation bilaterally SKIN: good turgor
--- OUTSIDE RECORDS SUMMARY | 2024-12-28 05:45 | XMS_ITS ---
Author Organization Gal Dunaway MD Address [address] [place], [place] [id number] Care Team Providers Care Transfer Pumper Name Role Phone Gal Dunaway Primary Care Provider Allergies No Known Allergies Reason For Referral Reason please yaquelin avila Acute asthmatic bronchitis Diagnosis 1 Acute asthmatic bron chitis (J45.909) Referral Organization Gal Dunaway MD Referring Provider First Name Gal Referring Provider Last Name Emelyn Referring Provider Speciality Internal M edicine Referred Provider [facility] [place] Referred Provider Specialty Allergy/Immu nology General Notes Paloma Sweeney 0 01/12/2025 07:52:29 AM >info faxedZahra Annette 01/22/2025 11:47:49 AM > was told patient is aware of appt Referral Priority Routine Referral Appointment Date 02/01/2025 REASON FOR VISIT 1 week Medications Medication SIG (Take, Route, Frequency, [...] tab for 3 days for 14 days 12/28/2024 Active predniSONE 10 MG 1 tablet with food or milk Orally 4 tabs for 3 days,3tabs for 3 days, 2 tabs for 3 days, and 1 tab for 3 days for 14 days PATIENT IS EARLY FOR REFILL OF ALBUTEROL BUT NEEDS IT DUE TO THE SEVERITY OF HIS BREATHING PROBLEMS 12/07/2024 Not-Taking Zithromax Z-Miguel 250 MG 2 tablet [...] 4 days for 14 days 11/20/2024 Not-Taking Symbicort 160-4.5 MCG/ACT as directed Inhalation twice a day for 30 days 12/21/2024 Active predniSONE 10 MG 2 tabs Orally Once a day for 7 days 12/21/2024 Active Albuterol Sulfate HFA 108 (90 Base) MCG/ACT 1 puff as needed Inhalation every 4 hrs for 30 days PATIENT IS EARLY FOR REFILL OF ALBUTEROL BUT NEEDS IT DUE TO THE SEVERITY OF HIS BREATHING PROBLEMS 12/07/2024 Active Ibuprofen 800 MG 1 tablet with food or milk as needed Orally every 8 hrs as needed for 30 days 07/06/2024 Not-Taking Vital Signs Blood pressure systolic 112 mm Hg 12/29/19 25 Blood pressure diastolic 70 mm Hg 025 Height 71 in 12/28/2024 Weight 174 lbs 12/28/2024 BMI 24.27 kg/m2 12/28/2024 Encounters Encounter Location Date Provider Diagnosis Gal Dunaway MD [address] [place] [address] [place] [id number] 12/28/2024 Gal Dunaway Acute asthmatic bronchitis J45.909 Assessments Encounter Date Diagnosis (ICD Code) Assessment Notes Treatment Notes Treatment Clinical Notes Section Notes 12/28/2024 Acute asthmatic bronchitis (ICD-10 - J45.909) referral to allergy Plan Of Treatment Medication Medication Name Sig Start Date Stop Date Notes predniSONE 10 MG 1 tablet with food o r milk Orally 4 tabs for 3 days,3tabs for 3 days, 2 tabs for 3 days, and 1 tab for 3 days for 14 days 12/28/2024 Treatment Notes Assessment Notes Acute asthmatic bronchitis referral to a llergy Referrals Referral Date Details 12/28/2024 12/28/2024, please e alexander and treat Acute asthmatic bronchitis, [facility] [place] [facility] Appt Details Follow Up: 6 Weeks, Reason: Provider Name:Gal Bradley ier, 07/13/2025 08:30:00 AM, [address] [place] [address], Suite [facility], [place], [place], [phone], Progress Notes * Jacky PADILLA MDOB: 9 (54 yo M)Acc No.[id number]:12/28/2024 Progress Notes Patient: Jacky NATHAN Provider: Cinthya Dunaway MD :1970 A ge:54 Y S ex:Male Date:12/28/2024 Address:[address] [place], [place] [phone] Subjective: * Chief Complaints: * 1 week * HPI: S ymptom(s): patient is a 54 yo male here for one week follow up visit/ is going to start on dupixit. also started on prednisone. * ROS: G eneral/Constitutional: Denies C hills. [...] DUE TO THE SEVERITY OF HIS BREATHING PROBLEMSSymbicort 160-4.5 MCG/ACT Aerosol as directed Inhalation twice a day predniSONE 10 MG Tablet 2 tabs Orally Once a day Taking Albuterol Sulfate HFA 108 (90 Base) MCG/ACT Aerosol Solution 1 puff as needed Inhalation every 4 hrs , Notes to Pharmacist: PATIENT IS EARLY FOR REFILL OF ALBUTEROL BUT NEEDS IT DUE TO THE SEVERITY OF HIS BREATHING PROBLEMSTaking Symbicort 160-4.5 MCG/ACT Aerosol as directed Inhalation twice a day Taking predniSONE 10 MG Tablet 2 tabs Orally Once a day Not-Taking/PRNIbuprofen 800 MG Tablet 1 tablet with food or milk as needed Orally every 8 hrs as needed predniSONE 10 MG Tablet 1 tablet with [...] List reviewed and reconciled with the patientNot-Taking/PRN Ibuprofen 800 MG Tablet 1 tablet with food or milk as needed Orally every 8 hrs as needed Not-Taking/PRN predniSONE 10 MG Tablet 1 tablet [...] and 1 tab for 3 days Not-Taking/PRN Sulindac 200 MG Tablet 1 tablet with food Orally Twice a day Not-Taking/PRN Cyclobenzaprine HCl 5 MG Tablet 1 tab Orally 3 times per day Medication List reviewed and reconciled with the patient * Allergies: N .K.D.A.yes[Allergies Verified] Objective: * Vitals: H t: 71, Wt: 174, BMI:24.27, BP:112/70, Wt-k.93. * Examination: G eneral Examination: GENERAL APPEARANCE: a lert, well hydrated, in no distress.? HEAD: n ormocephalic. SKIN: g ood turgor. HEART: n o murmurs, rubs, gallops, regular rate and rhythm.? LUNGS: f ew wheezes with good air movement. ? Assessment: * Assessment: 1. A cute asthmatic bronchitis - J45.909 (Primary) Plan: * Treatment: * Procedure Codes: * Follow Up: 6 Weeks * * Sign off status: Completed true * Provider: Cinthya Dunaway MD Date: 0 12/28/2024 Generated for Ana cleary/Enedina/Jaycesmitting on: 1 11:59 AM EDT History and Physical Notes * HPI (History of Present Illness) Category Sub-Category Detail Notes Category Not es Symptom(s) patient is a 54 yo male here for one week follow up visit/ is going to start on dupixit. also started on prednisone. Examination Category Sub-Category Detail Notes Category Not es General Examination GENERAL APPEARANCE: alert, w ell hydrated, in no distress HEAD: normocephalic HEART: no murmurs, rubs, ga llops, regular rate and rhythm LUNGS: few wheezes with goo d air movement SKIN: good turgor Consultation Request Notes Referral Date Referring Provider Referred Provider Not es 12/28/2024 Gal Dunaway Allergy [facility] f[facility] [place] please eval and treat Acute asthmatic bronchitis
--- OUTSIDE RECORDS SUMMARY | 2025-02-05 06:15 | XMS_ITS ---
Author Organization Gal Dunaway MD Address [address] [place], [place] [id number] Care Team Providers Care Pencil Sorter Name Role Phone Gal Dunaway Primary Care Provider [phone] Allergies No Known Allergies REASON FOR VISIT 6 week Medications Medication SIG (Take, Route, Frequency, Duration) Notes Start Date End Date Status Benzonatate 200 MG 1 capsule as needed Orally Three times a day Not-Taking Ibuprofen 800 MG 1 tablet with food or milk as needed Orally every 8 hrs as needed for 30 days 07/06/2024 Not-Taking Cyclobenzaprine HCl 5 MG 1 tab Orally 3 times per day for 10 days 11/16/2022 Not-Taking Sulindac 200 MG 1 tablet with food Orally Twice a day for 30 day(s) 11/16/2022 Not-Taking Albuterol Sulfate HFA 108 (90 Base) MCG/ACT 1 puff as needed Inhalation every 4 hrs PATIENT IS EARLY FOR REFILL OF ALBUTEROL BUT NEEDS IT DUE TO THE SEVERITY OF HIS BREATHING PROBLEMS 12/07/2024 Active Symbicort 160-4.5 MCG/ACT as directed Inhalation twice a day 12/21/2024 Active Problems Problem Type SNOMED Code ICD Code Onset Dates Problem Status W/U Status Risk Notes Problem Asthma ([id number]) Asthma (J45.909) Active confirmed Vital Signs Blood pressure systolic 116 mm Hg 02/06/20 25 Blood pressure diastolic 70 mm Hg 025 Height 71 in 02/05/2025 Weight 173 lbs 02/05/2025 BMI 24.13 kg/m2 02/05/2025 Encounters Encounter Location Date Provider Diagnosis Gal Dunaway MD [address] [place] [address] [place] [phone] 02/05/2025 Gal Dunaway Asthma J45.909 Assessments Encounter Date Diagnosis (ICD Code) Assessment Notes Treatment Notes Treatment Clinical Notes Section Notes 02/05/2025 Asthma (ICD-10 - J45.909) doing great on symbicort. no need for rescue inhaler Plan Of Treatment Medication Medication Name Sig Start Date Stop Date Notes Albuterol Sulfate HFA 108 (90 Base) MCG/ACT 1 puff as needed Inhalation every 4 hrs 12/07/2024 PATIENT IS EARLY FOR REFILL OF ALBUTEROL BUT NEEDS IT DUE TO THE SEVERITY OF HIS BREATHING PROBLEMS Symbicort 160-4.5 MCG/ACT as directed Inhalation twice a day 12/21/2024 Treatment Notes Assessment Notes Asthma doing great on symbi declan. no need for rescue inhaler Next Appt Details Provider Name:Gal Bradley ier, 07/13/2025 08:30:00 AM, [address] [place] [address], Suite [facility], [place], [place], [phone], Progress Notes * Jacky PADILLA MDOB: 9 (54 yo M)Acc No.[id number]:02/05/2025 Progress Notes Patient: Jacky NATHAN Provider: Cinthya Dunaway MD :1970 A ge:54 Y S ex:Male Date:02/05/2025 Address:[facility] [id number] Subjective: * Chief Complaints: * 6 week * HPI: S ymptom(s): patient is a 54 yo male here for 6 week follow up visit/ doing great not needing rescue inhaler. no wheezes. * ROS: G eneral/Constitutional: Denies C hills. D enies F atigue. D enies F ever. D enies H eadache. E NT: Patient denies d ecreased sense of smell, any loss of taste, sore throat. D enies S ore throat. R espiratory: Denies C [...] as directed Inhalation twice a day Taking Albuterol Sulfate HFA 108 (90 Base) MCG/ACT Aerosol Solution 1 puff as needed Inhalation every 4 hrs , Notes to Pharmacist: PATIENT IS EARLY FOR REFILL OF ALBUTEROL BUT NEEDS IT DUE TO THE SEVERITY OF HIS BREATHING PROBLEMSTaking Symbicort 160-4.5 MCG/ACT Aerosol as directed Inhalation twice a day Not-Taking/PRNIbuprofen 800 MG Tablet 1 tablet with food or milk as needed Orally every 8 hrs as needed Benzonatate 200 MG Capsule 1 capsule as needed Orally Three times a day Sulindac 200 MG Tablet 1 tablet with food Orally Twice a day Cyclobenzaprine HCl 5 MG Tablet 1 tab Orally 3 times per day Not-Taking/PRN Ibuprofen 800 MG Tablet 1 tablet with food or milk as needed Orally every 8 hrs as needed Not-Taking/PRN Benzonatate 200 MG Capsule 1 capsule as needed Orally Three times a day Not-Taking/PRN Sulindac 200 MG Tablet 1 tablet with food Orally Twice a day Not-Taking/PRN Cyclobenzaprine HCl 5 MG Tablet 1 tab Orally 3 times per day * Allergies: N .K.D.A.yes[Allergies Verified] Objective: * Vitals: H t: 71, Wt: 173, BMI:24.13, BP:116/70, Wt-k.47. * Examination: G eneral Examination: GENERAL APPEARANCE: a lert, well hydrated, in no distress.? HEAD: n ormocephalic. SKIN: g ood turgor. HEART: r egular rate and rhythm, no murmurs, rubs, gallops.? LUNGS: n o wheezes, rales, rhonchi, good air movement, clear to auscultation bilaterally. Assessment: * Assessment: 1. A [facility] - J45.909 (Primary) Plan: * Treatment: * Procedure Codes: * * Sign off status: Completed true * Provider: Cinthya Dunaway MD Date: 0 02/05/2025 Generated for Ana cleary/Enedina/Selinaitting on: 11:59 AM EDT History and Physical Notes * HPI (History of Present Illness) Category Sub-Category Detail Notes Category Not es Symptom(s) patient is a 54 yo male here for 6 week follow up visit/ doing great not needing rescue inhaler. no wheezes Examination Category Sub-Category Detail Notes Category Not es General Examination GENERAL APPEARANCE: alert, w ell hydrated, in no distress HEAD: normocephalic HEART: regular rate and rhy thm, no murmurs, rubs, gallops LUNGS: no wheezes, rales, r honchi, good air movement, clear to auscultation bilaterally SKIN: good turgor
--- OUTSIDE RECORDS SUMMARY | 2025-07-06 03:00 | XMS_ITS ---
Author Organization Gal Dunaway MD Address [address] [place], [place] [id number] Care Team Providers Care Night Warehouse Manager Name Role Phone Gal Dunaway Primary Care Provider Results Component Value Reference Range Notes Complete Blood Count Auto Di ff (Not yet reviewed by provider) Interpretation: Performing Lab:[facility], [address] [place] [phone] Notes/Report: White Blood Count 6.4 4.8-10.8 X10*3/uL Red Blood Count 4.91 4.60-5.80 X10*6/uL Hemoglobin 14.6 14.0-18.0 g/dl Hematocrit 44.2 42.0-52.0 % Mean Corpuscular Volume 90.0 80.0-98.0 fL Mean Corpuscular Hemoglobin 29.7 27.0-33.0 pg Mean Corpuscular HGB Conc 33.0 31.0-36.0 g/dl Red Cell Distribution Width 13.3 11.0-16.0 % Platelet Count 246 160-400 X10*3/uL Mean Platelet Volume 10.3 9.4-12.4 fL Neutrophils Percent Auto 57.8 45-73 % Imm Gran Pct Auto 0.0 0.0-0.4 % Lymphocytes Percent Auto 29.6 20-40 % Monocytes Percent Auto 7.7 2-11 % Eosinophils Percent Auto 4.4 0-4 % Basophils Percent Auto 0.5 0-2 % NRBC Pct Auto 0.0 0.0-0.2 /100WBC Neutrophils Absolute Auto 3.7 2.0-8.3 x10*3/u L Imm Gran Abs Auto 0.00 0.00-0.03 X10*3/uL Lymphocytes Absolute Auto 1.9 1.2-4.9 X10*3/u L Monocytes Absolute Auto 0.5 0.1-1.2 X10*3/uL Eosinophils Absolute Auto 0.3 0.0-0.4 X10*3/u L Basophils Absolute Auto 0.0 0.0-0.2 X10*3/uL NRBC Abs Auto 0.000 0.0-0.012 X10*3/uL Comprehensive Mobile. Panel Fa st (Not yet reviewed by provider) Interpretation: Performing Lab:[address] [phone] Notes/Report: Sodium 141 135-145 mmol/L Potassium 4.1 3.3-5.1 mmol/L Chloride 108 96-108 mmol/L Carbon Dioxide 27 22-29 mmol/L Anion Gap 10 12-20 Blood Urea Nitrogen 14 9-16 mg/dL Creatinine 1.05 0.5-1.4 mg/dL Estimated Glomerular Filt Rate > 60 Chronic Kidney Disease: Estimated GFR < 60 mL/min/1.73m2 Severe Kidney Disease: Estimated GFR < 15 mL/min/1.73m2 Glucose Fasting 102 60-99 mg/dL A fasting glucose from 100-125 mg/dl is considered impaired (pre-diabetes). Calcium 8.8 8.4-10.2 mg/dL Bilirubin Total 0.7 0.0-1.0 mg/dL Aspartate Amino Transferase 34 5-37 U/L Alanine Aminotransferase 31 0-40 U/L Total Protein 7.0 6.5-8.0 g/dL Albumin Level 4.5 3.5-5.0 g/dL Alkaline Phosphatase 67 39-117 U/L Lipid Panel (Not yet reviewe d by provider) Interpretation: Performing Lab:[address], [place] [address] Notes/Report: Triglycerides 87 <150 mg/dL Desirable Triglyceride: less than 150 mg/dL Borderline High Triglyceride 150-199 mg/dL High Triglyceride: 200-499 mg/dL Very High Triglyceride: greater than or equal to 5OO mg/dL Cholesterol 210 <200 mg/dL Desirable Cholesterol: less than 200 mg/dL Borderline High Cholesterol: 200-239 mg/dL High Cholesterol: greater than 239 mg/dL LDL Cholesterol Calculated 133 <100 mg/dL Desirable LDL: less than 100 mg/dL Near Optimal/Above Optimal LDL: 110-129 mg/dL Borderline High LDL: 130-159 mg/dL High LDL: 160-189 mg/dL Very High LDL: greater than or equal to 190 mg/dL HDL Cholesterol 60 >40 mg/dL Desirable HDL: greater than 40 mg/dL Note: This HDL assay may give artificially low results in patients with liver disease. UA ClnCatch+Micro w/rflx Cul t Reviewed date:07/06/2025 11:30:39 AM Interpretation: Performing Lab:[facility], [address] [place] [phone] Notes/Report: Urine, Clean Catch Color Urine Yellow Appearance Urine Clear PH 7.0 5.0-9.0 Glucose Urine UA Negative Negative mg/dL Urine Blood Negative Negative Specific [place] - Urine 1.020 1.005-1.025 Urine Protein Negative Neg-Trace mg/dL Urine Ketones Negative Negative mg/dL Nitrite Urine Negative Negative Leukocyte Esterase Urine Negative Negative RBC Urine 0-2 0-2 /HPF WBC Urine 0-5 0-5 /HPF Squamous Epithelial Cell Urine 0-2 0-2 /HPF Bacteria Urine None Seen None Seen Hyaline Casts Urine 0-2 0-2 /LPF REASON FOR VISIT yearly fasting labs Encounters Encounter Location Date Provider Diagnosis Gal Dunaway MD [address] [place], [place] [phone] 07/06/2025 Gal Dunaway Blood tests for rout ine general physical examination Z00.00 ; Lymphocytosis D72.820 ; Prediabetes R73.09 and Thrombocytopenia D69.6 Assessments Encounter Date Diagnosis (ICD Code) Assessment Notes Treatment Notes Treatment Clinical Notes Section Notes 07/06/2025 Blood tests for routine general physical examination (ICD-10 - Z00.00) 07/06/2025 Lymphocytosis (ICD-10 - D72.820) 07/06/2025 Prediabetes (ICD-10 - R73.09) 07/06/2025 Thrombocytopenia (ICD-10 - D69.6) Plan Of Treatment Pending Test Test Name Order Date Complete Blood Count Auto Diff Comprehensive Mobile. Panel Fast Lipid Panel 07/06/2025 PSA,Total (Free>4and<10) 07/06/2025 Microalbumin, Random 07/06/2025 Hemoglobin A1c 07/06/2025 Next Appt Details Provider Name:Galrachel Bellpascual ier, 07/13/2025 08:30:00 AM, [address] [place] [address], [address], [place], [place], [id number], Progress Notes * Jacky PADILLA MDOB: [birth year] (55 yo M)Acc No.[id number]:07/06/2025 Progress Note Patient: Ramos EDWARDSJUDYJacky Provider: Cinthya Dunaway MD :1970 A ge:55 Y S ex:Male Date:07/06/2025 Address:[address] [place], [place] [phone] Subjective: * Chief Complaints: * 1 . Yearly fasting labs. * Medical History: Objective: * Vitals: Assessment: * Assessment: 1. B lood tests for routine general physical examination - Z00.00 (Primary) 2 .?Lymphocytosis - D72.820 3 . P rediabetes - R73.09 4 . T hrombocytopenia - D69.6 Plan: * Treatment: 2. L ymphocytosis L AB: Complete Blood Count Auto Diff (Collection Date & Time - 07/06/2025 10:36 AM) L AB: Comprehensive Mobile. Panel Fast (Collection Date & Time - 07/06/2025 10:36 AM) L AB: Lipid Panel (Collection Date & Time - 07/06/2025 10:36 AM) L AB: PSA,Total (Free>4and<10) L AB: Microalbumin, Random L AB: Hemoglobin A1c L AB: UA ClnCatch+Micro w/rflx Cult (Collection Date & Time - 07/06/2025 10:36 AM) 3. P rediabetes L AB: Complete Blood Count Auto Diff (Collection Date & Time - 07/06/2025 10:36 AM) L AB: Comprehensive Mobile. Panel Fast (Collection Date & Time - 07/06/2025 10:36 AM) L AB: Lipid Panel (Collection Date & Time - 07/06/2025 10:36 AM) L AB: PSA,Total (Free>4and<10) L AB: Microalbumin, Random L AB: Hemoglobin A1c L AB: UA ClnCatch+Micro w/rflx Cult (Collection Date & Time - 07/06/2025 10:36 AM) 4. T hrombocytopenia L AB: Complete Blood Count Auto Diff (Collection Date & Time - 07/06/2025 10:36 AM) L AB: Comprehensive Mobile. Panel Fast (Collection Date & Time - 07/06/2025 10:36 AM) L AB: Lipid Panel (Collection Date & Time - 07/06/2025 10:36 AM) L AB: PSA,Total (Free>4and<10) L AB: Microalbumin, Random L AB: Hemoglobin A1c L AB: UA ClnCatch+Micro w/rflx Cult (Collection Date & Time - 07/06/2025 10:36 AM) * * The named appointment provid er may or may not be the originator of this progress note, and it is not deemed complete until electronically signed by the appointment provider. Sign off status: Pending * Provider: Cinthya Dunaway MD Date: Generated for Ana cleary/Enedina/Selinaitting on: 11:59 AM EDT
[2025-07-06 10:38] LABS: MANUAL DIFF FLAG NO
[2025-07-06 11:16] LABS: Appearance Urine Clear; Glucose Urine UA Negative (Negative); PH 7.0 (5.0-9.0); Specific Gravity - Urine 1.020 (1.005-1.025)
[2025-07-06 11:18] LABS: Hematocrit 44.2 % (42.0-52.0); Hemoglobin 14.6 g/dl (14.0-18.0); Imm Gran Abs Auto 0.00 X10*3/uL (0.00-0.03); Imm Gran Pct Auto 0.0 % (0.0-0.4); Lymphocytes Absolute Auto 1.9 X10*3/uL (1.2-4.9); Mean Corpuscular HGB Conc 33.0 g/dl (31.0-36.0); Mean Corpuscular Hemoglobin 29.7 pg (27.0-33.0); Mean Corpuscular Volume 90.0 fL (80.0-98.0); NRBC Abs Auto 0.000 X10*3/uL (0.0-0.012); NRBC Pct Auto 0.0 /100WBC (0.0-0.2); Platelet Count 246 X10*3/uL (160-400); Red Blood Count 4.91 X10*6/uL (4.60-5.80); White Blood Count 6.4 X10*3/uL (4.8-10.8)
[2025-07-06 11:46] LABS: Alanine Aminotransferase 31 U/L (0-40); Albumin Level 4.5 g/dL (3.5-5.0); Alkaline Phosphatase 67 U/L (39-117); Anion Gap 10 (12-20); Aspartate Amino Transferase 34 U/L (5-37); Blood Urea Nitrogen 14 mg/dL (9-16); Calcium 8.8 mg/dL (8.4-10.2); Carbon Dioxide 27 mmol/L (22-29); Chloride 108 mmol/L (96-108); Cholesterol 210 mg/dL (<200); Estimated Glomerular Filt Rate > 60; HDL Cholesterol 60 mg/dL (>40); Potassium 4.1 mmol/L (3.3-5.1); Sodium 141 mmol/L (135-145); Total Protein 7.0 g/dL (6.5-8.0); Triglycerides 87 mg/dL (<150)
--- OUTSIDE RECORDS SUMMARY | 2025-07-06 11:59 | XMS_ITS | Patient Health Record ---
Author Organization [facility] Address [address] [place] [address] Care Team Providers Care Laser Specialist Name Role Phone Gal Dunaway MD Primary Care Provider Harmeet Jensen Jr Reason For Referral No Information Medications Medication SIG (Take, Route, Frequency, Duration) Notes Start Date End Date Status MiraLax (colon prep) 8.3 ounce ((238) grams mixed with Gatorade or Crystal Light orally begin at 5:00 p.m. the day before the procedure; Duration: 1 day 08/09/2019 Active Immunizations Vaccine Route Administration Date Status Comme nts Influenza Unknown 08/09/2019 Refused Social History Tobacco Use: Social History Observation Description Date Details (start date - stop date) Never Smoker NA - NA Tobacco Use/Smoking Question Answer Notes Patient is a nonsmoker Alcohol Screen Question Answer Notes Did you have a drink contain ing alcohol in the past year? Yes How often did you have a dri nk containing alcohol in the past year? 4 or more times a week (4 points) How many drinks did you have on a typical day when you were drinking in the past year? 1 or 2 drinks (0 point) How often did you have 6 or more drinks on one occasion in the past year? Monthly (2 points) Points 6 Interpretation Positive Problems Problem Type SNOMED Code ICD Code Onset Dates Problem Status W/U Status Risk Notes Problem Colon cancer screening (490587309) Colon cancer screening (Z12.11) Active confirmed Problem Pre-procedure evaluation check (468946330) Encounter for other preprocedural examination (Z01.818) Active confirmed Plan Of Treatment Future Test Test Name Order Date COLONOSCOPY 08/09/2019 Insurance Providers Payer Name Payer Address Payer Phone Subscriber Number Group Number Insured Name Patient Relationship to Insured Coverage Start Date Coverage End Date [employer] [address] [place] [id number] [phone] [id number] ELISABETH PADILLA Self - patient is the insured Medical (General) History Surgical History Surgery Date(Month/Year) elbow 1994
--- OUTSIDE RECORDS SUMMARY | 2025-07-06 12:00 | XMS_ITS | Patient Health Record ---
Author Organization Gal Dunaway MD Address [address] [place], [place] [id number] Care Team Providers [employer] Supervisor Name Role Phone Gal Dunaway Primary Care Provider [phone] Allergies No Known Allergies Results Component Value Reference Range Notes Complete Blood Count Auto Di ff (Not yet reviewed by provider) Interpretation: Performing Lab:[facility], [address] [place] [phone] Notes/Report: White Blood Count 6.4 4.8-10.8 X10*3/uL [...] 0.0-0.2 /100WBC Neutrophils Absolute Auto 3.7 2.0-8.3 x10*3/uL Imm Gran Abs Auto 0.00 0.00-0.03 X10*3/uL Lymphocytes Absolute Auto 1.9 1.2-4.9 X10*3/uL Monocytes Absolute Auto 0.5 0.1-1.2 X10*3/uL Eosinophils Absolute Auto 0.3 0.0-0.4 X10*3/uL Basophils Absolute Auto 0.0 0.0-0.2 X10*3/uL NRBC Abs Auto 0.000 0.0-0.012 X10*3/uL Comprehensive Independence. Panel Fa st (Not yet reviewed by provider) Interpretation: Performing Lab:[address] [address] Notes/Report: Sodium 141 135-145 mmol/L Potassium 4.1 [...] 67 39-117 U/L Lipid Panel (Not yet review ed by provider) Interpretation: Performing Lab:[address] [place] [address] Notes/Report: Triglycerides 87 <150 mg/dL Desirable Triglyceride: [...] t Reviewed date:07/06/2025 11:30:39 AM Interpretation: Performing Lab:[address] [address] Notes/Report: Urine, Clean Catch Color Urine Yellow Appearance Urine Clear PH 7.0 5.0-9.0 Glucose Urine UA Negative Negative mg/dL Urine Blood Negative Negative Specific [place] - Urine 1.020 1.005-1.025 Urine Protein Negative [...] ff Reviewed date:10/26/2024 08:50:04 AM Interpretation: Performing Lab:[facility], [address] [place] [phone] Notes/Report: White Blood Count 10.4 4.8-10.8 X10*3/uL [...] INR Reviewed date:10/26/2024 08:50:59 AM Interpretation: Performing Lab:[facility], [address] [place] [phone] Notes/Report: Prothrombin Time 11.4 10.9-12.4 [employer] [...] Reviewed date:10/26/2024 08:51:30 AM Interpretation: Performing Lab:[address] [address] Notes/Report: Sodium 140 135-145 mmol/L Potassium 4.2 [...] Acid Reviewed date:10/26/2024 08:49:06 AM Interpretation: Performing Lab:[address] [address] Notes/Report: Lactic Acid 1.7 0.5-2.0 mmol/L Magnesium Reviewed date:10/26/2024 08:49:14 AM Interpretation: Performing Lab:[address] [address] Notes/Report: Magnesium 2.2 1.6-2.6 mg/dL Troponin-I High Sensitivity Reviewed date:10/26/2024 08:51:07 AM Interpretation: Performing Lab:[address] [address] Notes/Report: Troponin-I High Sensitivity < 2.7 <3.5-35.0 ng/L The Ramos high sensitivity Troponin-I results should be used in conjunction with other diagnostic information such as ECG, clinical observations and information, and patient symptoms to aid in the diagnosis of KS. C Reactive Protein Reviewed date:10/26/2024 07:37:50 AM Interpretation: Performing Lab:[facility], [address] [place] [phone] Notes/Report: C Reactive Protein 0.67 < or = 0.50 mg/dL B Type Natriuretic Peptide Reviewed date:10/26/2024 08:50:48 AM Interpretation: Performing Lab:[facility], [address] [place] [phone] Notes/Report: TROPONIN WOULD BE A DUPLICATE WAS COMPLETED AT 1102 B Type Natriuretic Peptide < 10 <100 pg/mL For those patients who are being treated with Natrecor (nesiritide, recombinant BNP), BNP testing should be performed at least two hours post treatment in order to ensure that only endogenous levels of BNP are detected. Procalcitonin Reviewed date:10/26/2024 08:51:47 AM Interpretation: Performing Lab:[facility], [address] [place] [phone] Notes/Report: Procalcitonin 0.02 Procalcitonin (PCT) Reference Range: [...] results from different laboratories and methodologies. References: [place] [employer]/Society of Critical Care Medicine Consensus Conference Committee. Definitions for sepsis and organ failure and guidelines for the use of innovative therapies in sepsis. Crit Care Med 1992;20(6):864-874. Elvia B, Carlita KL, Eloisa H, et al. Calcitonin precursors are reliable markers of sepsis in a medical intensive care unit. Crit Care Med 2000;363:600-607. Marilynn S, Connor K, Carson C, et al. Diagnostic value of procalcitonin, interleukin-6 and interleukin-8 in critically ill patients admitted with suspected sepsis. AM J Respir Crit Care Med 2001;164:396-402. US Food and Drug Administration. 510(k) substantial equivalence determination decision summary for [facility] PCT JOST[facility]. http://www.accessdata. guido/[facility]_docs/reviews/ K674689.pdf. Published September 2004. Accessed February 2017. SARS-CoV2/FLU/RSV Reviewed date:10/26/2024 08:51:39 AM Interpretation: Performing Lab:[address] [address] Notes/Report: Influenza A PCR NEGATIVE Negative Influenza [...] by authorized laboratories. Testing performed on the [employer] GeneXpert utilizing real-time RT-PCR. All SARS CoV2 and positive influenza A/B results are reported to [facility]. Blood Culture (First) Reviewed date:10/30/2024 05:22:41 PM Interpretation: Performing Lab:[facility], [address] [place] [phone] Notes/Report: Blood Culture (First) No growth after 5 days. Blood Culture (Second) Reviewed date:10/30/2024 05:22:34 PM Interpretation: Performing Lab:[address] [address] Notes/Report: Blood Culture (Second) No growth after 5 days. Venous Blood Gases - POC Reviewed date:10/26/2024 08:49:33 AM Interpretation: Performing Lab:[facility], [address] [place] [phone] Notes/Report: VBG pH 7.39 7.32-7.43 METER #: [id number] additional_comment: Cb gentilj VBG pCO2 40 METER #: [id number] additional_comment: Cb gentilj VBG pO2 35 METER #: [id number] additional_comment: Cb gentilj VBG Base Excess -0.4 METER #: [id number] additional_comment: Cb gentilj VBG HCO3 24 22-26 mmol/L METER #: [id number] additional_comment: Cb gentilj VBG O2 % Saturation 56.0 METER #: [id number] additional_comment: Riley tiwari CT chest wo con Reviewed date:10/26/2024 07:39:10 AM Interpretation: Performing Lab: Notes/Report: [address] [address] [address] Scan Report Signed Patient: Elisabeth Templeton MR#: [id number] 94 : 1970 Acct:[id number] Age/Sex: 54 / M ADM Date: 10/25/24 Loc: HO.ED Attending Dr: Ordering Physician: Ceci Acevedo DO Date of Service: 10/25/24 Procedure(s): CT chest wo IV con Accession Number(s): [id number] cc: Gal Dunaway MD; Ceci Acevedo DO Report Number: [id number]: Total DLP = 270.00 mGy-cm EXAMINATION: CT [...] by: Rj Wen MD 10/25/2024 12:06 PM [facility] Dictated By: Rj Wen MD Signed By: <Electronically signed by Rj Wen MD in OV> 10/25/24 1206 DD/ 1136 TD/TT: 10/25/24 1156 Club Waiter/Waitress: [address] [address] [address] Scan Report Signed Patient: Sandor Templeton MR#: [id number] 94 : 1970 Acct:[id number] Age/Sex: 54 / M ADM Date: 10/25/24 Loc: HO.ED Attending Dr: Ordering Physician: Ceci Acevedo DO Date of Service: 10/25/24 Procedure(s): CT [facility] [facility] wo IV con Accession Number(s): [id number] cc: Gal Dunaway MD; Ceci Acevedo DO Report Number: [id number]: Total DLP = 270.00 mGy-cm EXAMINATION: CT [...] by: Rj Wen MD 10/25/2024 12:06 PM [facility] Dictated By: Rj Wen MD Signed By: <Electronically signed by Rj Wen MD in OV> 10/25/24 1206 DD/ 1136 TD/TT: 10/25/24 1156 Club Waiter/Waitress: XR chest 2V Reviewed date:10/26/2024 07:38:15 AM Interpretation: Performing Lab: Notes/Report: [address] [address] XRay Report Signed Patient: Elisabeth Templeton MR#: [id number] 94 : 1970 Acct:[id number] Age/Sex: 54 / M ADM Date: 10/24/24 Loc: HOAshutoshXRAY Attending Dr: Gal Dunaway MD Ordering Physician: Gal Dunaway MD Date of Service: 10/24/24 Procedure(s): XR chest 2V Accession Number(s): [id number] cc: Gal Dunaway MD CLINICAL HISTORY: ACUTE [...] 10/25/24 1309 DD/ 1308 TD/TT: 10/25/24 1308 Club Waiter/Waitress: [address] [address] XRay Report Signed Patient: Sandor Templeton MR#: [id number] 94 : 1970 Acct:[id number] Age/Sex: 54 / M ADM Date: 10/24/24 Loc: [place]XR[place] Attending Dr: Gal Dunaway MD Ordering Physician: Gal Dunaway MD Date of Service: 10/24/24 Procedure(s): XR le[facility] 2V Accession Number(s): [id number] cc: Gal Dunaway MD CLINICAL HISTORY: AC [...] 10/25/24 1309 DD/ 1308 TD/TT: 10/25/24 1308 Club Waiter/Waitress: Erythrocyte Sedimentation Ra te Reviewed date:10/26/2024 04:52:43 PM Interpretation: Performing Lab:[facility], [address] [place] [phone] Notes/Report: Erythrocyte Sedimentation Rate 9 0-15 MM/HR Patients with polycythemia and many hemoglobin abnormalities may have depressed sed rates whereas patients with anemia may have elevated sed rates. Angiotensin Converting Enzym e Reviewed date:10/30/2024 12:27:52 PM Interpretation: Performing Lab:[facility], [address] [place] [phone] Notes/Report: Angiotensin Converting Enzyme 9 9-67 U/L THIS TEST WAS PERFORMED AT: [facility]/[address] [address] CHASTITY ONTIVEROS MD,PHD ANCA Vasculitides Reviewed date:10/29/2024 09:32:31 AM Interpretation: Performing Lab:[facility], [address] [place] [phone] Notes/Report: Myeloperoxidase Antibody <1.0 Value Interpretation ----- [...] = 1.0 Antibody Detected Autoantibodies to proteinase-3 (IA-3) are accepted as characteristic for granulomatosis with polyangiitis (GPA, Parvez's), and are detectable in 95% of the histologically proven cases. The cytoplasmic IFA pattern, (c-ANCA), is based largely on autoantibody to IA-3 which serves as the primary antigen. These autoantibodies are present in active disease. THIS TEST WAS PERFORMED AT: [facility] [address] [address] PARMINDER SÁNCHEZ MD Mycoplasma Pneumoniae IgG&Ig M Reviewed date:11/01/2024 01:25:27 PM Interpretation: Performing Lab:[facility], [address] [place] [phone] Notes/Report: Mycoplasma Pneumoniae - IgG 1.79 <=0.90 [...] the patient. THIS TEST WAS PERFORMED AT: [facility]/[address] [place] [address] CHASTITY ONTIVEROS MD,PHD GI Panel Reviewed date:10/26/2024 04:52:26 PM Interpretation: Performing Lab:[facility], [address] [place] [phone] Notes/Report: Campylobacter Not Detected Not Detect. Plesiomonas [...] is performed by Multiplexed PCR, utilizing the Tour Desk Array. CT angio chest PE protocol Reviewed date:10/26/2024 01:34:58 PM Interpretation: Performing Lab: Notes/Report: [address] [address] [address] Scan Report Signed Patient: Elisabeth Templeton MR#: [id number] 94 : 1970 Acct:[id number] Age/Sex: 54 / M ADM Date: 10/25/24 Loc: [facility] 353-[address]: Geetha Baxter MD Ordering Physician: Geetha Baxter MD Date of Service: 10/26/24 Procedure(s): CT angio chest PE protocol Accession Number(s): [id number] cc: Gal Dunaway MD; Geetha Baxter MD Report Number: [id number]: Total DLP = 123.00 mGy-cm CLINICAL HISTORY: hypoxia CT angiography chest with contrast. 3D Postprocessing. Comparison: CT/IA/SR - CT CHEST WO IV CON - [...] 10/26/24 1303 DD/ 1302 TD/TT: 10/26/24 1302 Club Waiter/Waitress: [place] [address] CT Scan Report Signed Patient: Sandor Templeton MR#: [id number] 94 : 1970 Acct:[id number] Age/Sex: 54 / M ADM Date: 10/25/24 Loc: .S3 353-[address]: Geetha Baxter MD Ordering Physician: Geetha Baxter MD Date of Service: 10/26/24 Procedure(s): CT ang io chest PE protocol Accession Number(s): [id number] cc: Gal Dunaway MD; Geetha Baxter MD Report Number: [id number]: Total DLP = 123.00 mGy-cm CLINICAL HISTORY: hypoxia CT angiography chest with contrast. 3D Postprocessing. Comparison: CT/IA/SR - CT CHEST WO IV CON - [...] 10/26/24 1303 DD/ 1302 TD/TT: 10/26/24 1302 Club Waiter/Waitress: XR chest 2V Reviewed date:11/21/2024 10:07:19 AM Interpretation: Performing Lab: Notes/Report: [address] [address] XRay Report Signed Patient: Elisabeth Templeton MR#: [id number] 94 : 1970 Acct:[id number] Age/Sex: 54 / M ADM Date: 11/20/24 Loc: HO.XRAY Attending Dr: Gal Dunaway MD Ordering Physician: Gal Dunaway MD Date of Service: 11/20/24 Procedure(s): XR chest 2V Accession Number(s): [id number] cc: Gal Dunaway MD EXAMINATION: XR CHEST [...] signed by Gaston Jaramillo MD in OV> 11/21/2444 DD/ 140 TD/TT: 11/20/24 1410 Club Waiter/Waitress: [address] [address] XRay Report Signed Patient: Sandor Templeton MR#: [id number] 94 : 1970 Acct:[id number] Age/Sex: 54 / M ADM Date: 11/20/24 Loc: HO.PRITIAY Attending Dr: Gal Dunaway MD Ordering Physician: Gal Dunaway MD Date of Service: 11/20/24 Procedure(s): XR [facility] [facility] 2V Accession Number(s): [id number] cc: Gal Dunaway MD EXAMINATION: XR CHES [...] signed by Gaston Jaramillo MD in OV> 11/21/2444 DD/ 05 TD/TT: 11/20/24 1410 Club Waiter/Waitress: XR chest 2V Reviewed date:12/07/2024 10:56:57 AM Interpretation: Performing Lab: Notes/Report: [address] [address] XRay Report Signed Patient: Elisabeth Templeton MR#: [id number] 94 : 1970 Acct:[id number] Age/Sex: 54 / M ADM Date: 12/07/24 Loc: HO.XRAY Attending Dr: Gal Dunaway MD Ordering Physician: Gal Dunaway MD Date of Service: 12/07/24 Procedure(s): XR chest 2V Accession Number(s): [id number] cc: Gal Dunaway MD EXAMINATION: XR CHEST [...] 12/07/24 0959 DD/ 0948 TD/TT: 12/07/24 0953 Club Waiter/Waitress: [address] [address] XRay Report Signed Patient: Sandor Templeton MR#: [id number] 94 : 1970 Acct:[id number] Age/Sex: 54 / M ADM Date: 12/07/24 Loc: ZOYA Attending Dr: Gal Dunaway MD Ordering Physician: Gal Dunaway MD Date of Service: 12/07/24 Procedure(s): XR [facility] [facility] 2V Accession Number(s): [id number] cc: Gal Dunaway MD EXAMINATION: XR CHEST [...] Rj Wen MD 12/07/2024 09:59 AM EDT RP Dictated By: Rj Wen MD Signed By: <Electronically signed by Rj Wen MD in OV> 12/07/24 0959 DD/ 0948 TD/TT: 12/07/24 0953 Club Waiter/Waitress: CT chest wo con Reviewed date:12/08/2024 09:35:47 AM Interpretation: Performing Lab: Notes/Report: [address] [address] [address] Scan Report Signed Patient: Elisabeth Templeton MR#: [id number] 94 : 1970 Acct:[id number] Age/Sex: 54 / M ADM Date: 12/08/24 Loc: HO.CT Attending Dr: Tyson Adam MD Ordering Physician: Tyson Adam MD Date of Service: 12/08/24 Procedure(s): CT chest wo IV con Accession Number(s): [id number] cc: Gal Dunaway MD; Tyson Adam MD Report Number: [id number]: Total DLP = 172.00 mGy-cm CLINICAL HISTORY: [...] in OV> 12/08/24914 DD/ 3 TD/TT: 12/08/24913 Club Waiter/Waitress: [address] [address] [address] Scan Report Signed Patient: Sandor Templeton MR#: [id number] 94 : 1970 Acct:[id number] Age/Sex: 54 / M ADM Date: 12/08/24 Loc: HO.CT Attending Dr: Tyson Adam MD Ordering Physician: Tyson Adam MD Date of Service: 12/08/24 Procedure(s): CT [facility] [facility] wo IV con Accession Number(s): [id number] cc: Gal Dunaway MD; Tyson Adam MD Report Number: [id number]: Total DLP = 172.00 mGy-cm CLINICAL HISTORY: [...] in OV> 12/08/24914 DD/ 3 TD/TT: 12/08/24913 Club Waiter/Waitress: Reason For Referral Reason please eval and shade t Acute asthmatic bronchitis Diagnosis 1 Acute asthmatic bron chitis (J45.909) Referral Organization Gal Dunaway MD Referring Provider First Name Gal Referring Provider Last Name Emelyn Referring Provider Speciality Internal M edicine Referred Provider [facility], [facility] [place] Referred Provider Specialty Allergy/Immu nology General Notes Paloma Sweeney 0 01/12/2025 07:52:29 AM >info faxed Paloma Sweeney 01/22/2025 11:47:49 AM > was told patient is aware of appt Referral Priority Routine Referral Appointment Date 02/01/2025 Medications Medication SIG (Take, Route, Frequency, Duration) [...] a day for 30 day(s) 11/16/2022 Not-Taking Symbicort 160-4.5 MCG/ACT as directed Inhalation twice a day 12/21/2024 Active Albuterol Sulfate HFA 108 (90 Base) MCG/ACT INHALE 1 PUFF BY MOUTH NEEDED EVERY 4 HOURS for 26 Active Immunizations Vaccine Route Administration Date Status [...] Problem Status W/U Status Risk Notes Problem 136152967 Dermatofibroma (D23.9) Active confirmed Problem 468098161 Thrombocytopenia (D69.6) Active confirmed Problem 07891936 Lymphocytosis (D72.820) Active confirmed Problem 127146241 Reflux esophagit is (K21.00) Active confirmed Problem Asthmatic bronchitis (267988162) Asthmatic bronchitis (J45.909) Active confirmed Problem 01920098 Sciatica, right side (M54.31) Active confirmed Problem 6330656 Prediabetes (R73.09) Active confirmed Problem 51278180 Sciatica of left side (M54.32) Active confirmed Problem Asthma (968962460) Asthma (J45.909) Active conf irmed Problem 1783834056 Ruptured lumbar disc (M51.26) Active confirmed Problem 749786049 History of noctu penny (Z87.898) Active confirmed Problem 318205947645483 Hematuria due to chronic cystitis (N30.21) Active confirmed Problem 295633082 Acute asthmatic bronchitis (J45.909) Active confirmed Vital Signs Blood pressure diastolic 70 mm Hg 02/05/2025 Height 71 in 02/05/2025 Blood pressure systolic 116 mm Hg 02/05/2025 Weight 173 lbs 02/05/2025 BMI 24.13 kg/m2 02/05/2025 Encounters Encounter Location Date Provider Diagnosis Gal Dunaway MD [address] [place] [id number] 07/06/2025 Gal Dunaway Blood tests for rout ine general physical examination Z00.00 ; Lymphocytosis D72.820 ; Prediabetes R73.09 and Thrombocytopenia D69.6 Gal Dunaway MD [address] [place] [id number] 07/06/2024 Gal Dunaway Sciatica, right side M54.31 ; Annual physical exam Z00.00 ; Prediabetes R73.09 ; Lymphocytosis D72.820 ; Colon cancer screening Z12.11 and Depression screening Z13.31 Gal Dunaway MD [address] [place] [address] Drive [address] [place] [id number] 09/07/2024 Gal Dunaway Wheezy bronchitis J4 0 Gal Dunaway MD [address] [place] [id number] 10/03/2024 Gal Arabellaardier Acute asthmatic bronchitis J45.909 Gal Dunaway MD [address] [place] [id number] 10/24/2024 Gal Bellardier Acute asthmatic bronchitis J45.909 Gal Dunaway MD [address] [place] [id number] 11/03/2024 Gal Dunaway Mycoplasma pneumonia e [M. pneumoniae] as the cause of diseases classified elsewhere B96.0 Gal Dunaway MD [address] [place] [id number] 11/20/2024 Gal Bellardier Asthmatic bronchitis J45.909 Gal Dunaway MD [address] [place] [id number] 11/24/2024 Gal Bellardier Asthmatic bronchitis J45.909 Gal Dunaway MD [address] [place] [id number] 12/01/2024 Gal Bellardier Acute asthmatic bronchitis J45.909 and Mycoplasma infection, unspecified site A49.3 Gal Dunaway MD [address] [place] [id number] 12/07/2024 Gal Bellardier Acute asthmatic bronchitis J45.909 and Mycoplasma infection, unspecified site A49.3 Gal Dunaway MD [address] [place] [id number] 12/21/2024 Gal Bellardier Acute asthmatic bronchitis J45.909 Gal Dunaway MD [address] [place] [address] [id number] 12/28/2024 Gal Bombardier Acute asthmatic bronchitis J45.909 Gal Dunaway MD [address] [place] [id number] 02/05/2025 Gal Bombardier Asthma J45.909 Gal Dunaway MD [address] [place] [address] [id number] 09/15/2024 Gal Dunaway MD [address] [place] [address] [id number] 10/17/2024 Gal Dunaway Wheezy bronchitis J4 0 Gal Dunaway MD [address] [place], [place] [id number] 10/30/2024 Gal Dunaway Assessments Encounter Date Diagnosis (ICD Code) Assessment Notes Treatment Notes Treatment Clinical Notes Section Notes 07/06/2025 Blood tests for routine general physical examination (ICD-10 - Z00.00) 07/06/2024 Sciatica, right side (ICD-10 - M54.31) [...] understanding fo medication and directions for use. 12/28/2024 Acute asthmatic bronchitis (ICD-10 - J45.909) referral to allergy 02/05/2025 Asthma (ICD-10 - J45.909) doing great on symbicort. no need for rescue inhaler 10/17/2024 Wheezy bronchitis (ICD-10 - J40) 07/06/2025 Lymphocytosis (ICD-10 - D72.820) 07/06/2024 Prediabetes (ICD-10 - R73.09) stable, no need for medication at this time 12/07/2024 Mycoplasma infection, unspecified site (ICD-10 - A49.3) 07/06/2025 Prediabetes (ICD-10 - R73.09) 07/06/2024 Lymphocytosis (ICD-10 - D72.820) resolved 07/06/2025 Thrombocytopenia (ICD-10 - D69.6) 07/06/2024 Colon cancer screening (ICD-10 - Z12.11) guaiac negative 07/06/2024 Depression screening (ICD-10 - Z13.31) negative screen 10/24/2024 Other THE ORDER [place] [facility] [place] AND PATIENT HAS BEEN INFORMED Plan Of Treatment Pending Test Test Name Order Date Electrocardiogram (EKG) 04/30/2016 EAR IRRIGATION 05/28/2011 MRI LUMBAR SPINE NO CONTRAST 11/16/2022 XR CHEST 2 VIEW PA & LAT 10/24/2024 XR CHEST 2 VIEW PA & LAT 11/20/2024 XR CHEST 2 VIEW PA & LAT 12/07/2024 Complete Blood Count Auto Diff Comprehensive Independence. Panel Fast Lipid Panel 07/06/2025 PSA,Total (Free>4and<10) 07/06/2025 Microalbumin, Random 07/06/2025 Hemoglobin A1c 07/06/2025 Next Appt Details Provider Name:Gal pollard, 07/13/2025 08:30:00 AM, [address] [place] [address], [address], [place], [place], [phone], Insurance Providers Payer Name Payer Address Payer Phone Subscriber Number Group Number Insured Name Patient Relationship to Insured Coverage Start Date Coverage End Date [employer] [address] [place], [place] [id number] [phone] [id number] Elisabeth Templeton Self - patient is the insured Medical (General) History Medical History History ICD Code 10/06/[address] Harden - repeat 10 yrs
[2025-07-06 12:19] LABS: PSA,Total (Free>4and<10) 2.62 ng/mL (0.00-4.00)
== END 2025-07-06 10:35 | disposition home or self-care (01) ==
LOC: HO.LNP 10:34
PROVIDERS: Visit Provider Internal Medicine
DX: Z00.00 Encounter for general adult medical examination without abnormal findings (principal); Z12.5 Encounter for screening for malignant neoplasm of prostate; Z13.6 Encounter for screening for cardiovascular disorders; D72.820 Lymphocytosis (symptomatic); R73.09 Other abnormal glucose; D69.6 Thrombocytopenia, unspecified
CPT/HCPCS: 80053; 80061; 81001; 82043; 82570; 83036; 84153; 85025